=== PATIENT | female | born 1945 | race Caucasian/White ===

== ENCOUNTER 2016-04-12 08:48 | Observation (INO) ==
[2016-04-12] MEDS ORDERED: Ipratropium/Albuterol Neb 3 ML IH ONE (08:58)
[2016-04-12] MEDS ORDERED: methylPREDNISolone 125 MG/2 ML VIAL IVP ONE (08:58)
[2016-04-12] MEDS ORDERED: Levofloxacin 750 MG/150 ML 750 MG/150 ML BAG IVPB ONE (08:58)
--- NOTE | 2016-04-12 08:59 | Emergency Department Note ---
Disposition Clinical Impression: Community acquired pneumonia Disposition: Admitted As Inpatient Condition: Fair Time of Disposition: 14:53 SOB HPI - General Chief Complaint: ED Shortness of Breath/Dyspnea Stated Complaint: BANDAR Time Seen by Provider: 04/12/16 08:56 Source: patient Mode of arrival: private vehicle Limitations: no limitations Nursing Notes Reviewed: Yes Vital Signs Reviewed: Yes - History of Present Illness 7-year-old female presents to the emergency department with complaint of cough, congestion, fever, chills 7 days. Patient states that her was recently diagnosed with pneumonia. Patient states that her cough is nonproductive, she does describe some shortness of breath. She denies any significant chest pain but states that it occasionally hurts when she coughs. She has no known drug allergies. Pt Subjective Complaint: shortness of breath, cough Onset (ago): day(s) (7) Context: recent illness Severity: moderate, severe Consistency/Duration: constant Improves with: nothing Worsens with: coughing Associated symptoms: Reports: pain with inspiration, fever, cough Treatment prior to arrival: none Cough present: Yes Cough Description: Involuntary Cough Frequency: Intermittent Sputum production: No - Related Data Home Medications Medication Instructions Recorded Confirmed Amitriptyline [Elavil] 25 mg PO DAILY 04/12/16 04/12/16 Amlodipine Besylate [Amlodipine 10 mg PO DAILY 04/12/16 04/12/16 Besylate] Amoxicillin [Amoxicillin] 500 mg PO Q8H 04/12/16 04/12/16 Aspirin [Lo-Dose Aspirin EC] 81 mg PO DAILY 04/12/16 04/12/16 CloNIDine HCl [Clonidine HCl] 0.2 mg PO BID 04/12/16 04/12/16 FLUoxetine HCl [Fluoxetine HCl] 40 mg PO DAILY 04/12/16 04/12/16 Glimepiride [Amaryl] 2 mg PO DAILY 04/12/16 04/12/16 Hydrochlorothiazide 25 mg PO DAILY 04/12/16 04/12/16 [Hydrochlorothiazide] Lisinopril [Lisinopril] 40 mg PO BID 04/12/16 04/12/16 Metoprolol [Lopressor] 100 mg PO BID 04/12/16 04/12/16 Oxcarbazepine [Oxcarbazepine] 600 mg PO BID 04/12/16 04/12/16 PredniSONE [PredniSONE] 5 mg PO AD 04/12/16 04/12/16 Promethazine/Codeine 5 ml PO Q4H PRN 04/12/16 04/12/16 [Phenergan/Codeine] Simvastatin [Zocor] 20 mg PO DAILY 04/12/16 04/12/16 Vitamin E 1,000 unit PO DAILY 04/12/16 04/12/16 Allergies Allergy/AdvReac Type Severity Reaction Status Date / Time No Known Allergies Allergy Verified 04/12/16 08:51 All systems ED: reviewed and negative except as stated. Constitutional: Reports: fever, chills ENT ED: Reports: congestion Respiratory: Reports: cough, dyspnea. Denies: wheezes Gastrointestinal: Denies: abdominal pain, nausea, vomiting Musculoskeletal: Denies: back pain, neck pain Integumentary: Denies: rash, abrasion, lesions Neurological: Denies: headache Psychiatric: Denies: anxiety, depression, suicidal thoughts, homicidal thoughts Past Medical History - Past Medical History Attestation: Yes The following information was validated with the patient. 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 Absent: respiratory distress - Expanded Respiratory Exam Location: wheezes: Lower, rhonchi: Lower, decreased breath sounds: Lower - Cardiovascular Cardiovascular exam: Present: regular rate, normal rhythm, normal heart sounds - Extremities Exam Extremities exam: Present: normal inspection, full ROM. Absent: tenderness, pedal edema - Back Exam Back exam: Present: normal inspection, full ROM. Absent: tenderness - Neurological Exam Neurological exam: Present: alert, oriented X3 - Psychiatric Psychiatric exam: Present: normal affect, normal mood - Skin Skin exam: Present: warm, dry, intact, normal color Course - Consultations Consultation #1: I discussed admission with the hospitalist Dr. Leo, he accepts the patient. Vital Signs Temperature 98.3 F 04/12/16 08:52 Pulse Rate 62 04/12/16 08:52 Respiratory Rate 26 04/12/16 08:52 Blood Pressure 122/81 04/12/16 08:52 O2 Sat by Pulse Oximetry 88 L 04/12/16 08:52 Temperature 98.4 F 04/12/16 16:28 Pulse Rate 72 04/12/16 16:28 Respiratory Rate 18 04/12/16 16:28 Blood Pressure 158/86 04/12/16 16:28 O2 Sat by Pulse Oximetry 91 L 04/12/16 16:28 Oxygen Delivery Oxygen Delivery Nasal Cannula Shortness of Breath/Dyspnea - Lab Data Lab results reviewed: Yes I reviewed the patient's lab results. Result diagrams: 04/12/16 09:44 04/12/16 09:44 Lab Results 04/12/16 04/12/16 04/12/16 Range/Units 09:44 09:44 09:44 WBC 12.4 H (4.3-11.1) K/mcL RBC 4.04 (3.82-4.97) M/mcL Hgb 12.6 (11.5-15.4) g/dL Hct 37.1 (35.3-44.9) % MCV 91.8 (83.0-100.0) fL MCH 31.2 (28.0-33.3) pg MCHC 34.0 (31.6-35.5) g/dL RDW 12.5 (11.5-14.5) % Plt Count 298 (140-400) K/mcL MPV 9.4 (9.4-12.4) fL Immature Gran % 0.4 (0-4) % Seg Neutrophils % 70.9 % Lymphocytes % 18.7 % Monocytes % 7.3 % Eosinophils % 2.4 % Basophils % 0.3 % Neutrophils # 8.8 (1.6-8.9) K/mcL Lymphocytes # 2.3 (0.6-4.6) K/mcL Monocytes # 0.9 (0.0-1.3) K/mcL Eosinophils # 0.3 (0.0-0.6) K/mcL Basophils # 0.0 (0.0-0.2) K/mcL Immature Plt Fraction 1.6 (1.1-6.1) % PT 10.4 (9.4-12.1) Seconds INR 1.0 APTT 27.7 (26.0-36.0) Seconds Sodium 139 (136-145) mEq/L Potassium 3.0 L (3.5-4.5) mEq/L Chloride 98 (98-109) mEq/L Carbon Dioxide 31 H (19-29) mEq/L BUN 13 (7-20) mg/dL Creatinine 0.77 (0.57-1.11) mg/dL Est GFR ( Amer) > 60 (> 60) Est GFR (Non-Af Amer) > 60 (> 60) BUN/Creatinine Ratio 17 (6-26) Glucose 120 H (70-99) mg/dL Calculated Osmolality 289 (280-300) Calcium 9.4 (8.6-10.8) mg/dL Troponin I (0-0.03) ng/mL B-Natriuretic Peptide (0-100) pg/mL 04/12/16 04/12/16 Range/Units 09:44 09:44 WBC (4.3-11.1) K/mcL RBC (3.82-4.97) M/mcL Hgb (11.5-15.4) g/dL Hct (35.3-44.9) % MCV (83.0-100.0) fL MCH (28.0-33.3) pg MCHC (31.6-35.5) g/dL RDW (11.5-14.5) % Plt Count (140-400) K/mcL MPV (9.4-12.4) fL Immature Gran % (0-4) % Seg Neutrophils % % Lymphocytes % % Monocytes % % Eosinophils % % Basophils % % Neutrophils # (1.6-8.9) K/mcL Lymphocytes # (0.6-4.6) K/mcL Monocytes # (0.0-1.3) K/mcL Eosinophils # (0.0-0.6) K/mcL Basophils # (0.0-0.2) K/mcL Immature Plt Fraction (1.1-6.1) % PT (9.4-12.1) Seconds INR APTT (26.0-36.0) Seconds Sodium (136-145) mEq/L Potassium (3.5-4.5) mEq/L Chloride (98-109) mEq/L Carbon Dioxide (19-29) mEq/L BUN (7-20) mg/dL Creatinine (0.57-1.11) mg/dL Est GFR ( Amer) (> 60) Est GFR (Non-Af Amer) (> 60) BUN/Creatinine Ratio (6-26) Glucose (70-99) mg/dL Calculated Osmolality (280-300) Calcium (8.6-10.8) mg/dL Troponin I 0.01 (0-0.03) ng/mL B-Natriuretic Peptide 906 H (0-100) pg/mL - Radiology Data Radiology results reviewed: Yes I reviewed the patient's radiology results. Chest X-Ray 04/12/16 08:58 IMPRESSION: Focal masslike density identified in the right mid lung measuring 3.2 x 2.6 cm. This could represent a focal consolidative pneumonic infiltrate, though follow-up radiographs are recommended to document resolution to exclude an underlying neoplastic process versus further evaluation with a CT scan of the chest. No mass was identified in this location on 11/22/2015. Diffuse increased prominent interstitial markings seen predominantly in the mid and lower lung araujo, with trace bilateral pleural effusions suspected. These changes may be related to underlying fluid overload and pulmonary edema. D/ / Fabien Kohli MD / Fabien Kohli MD Interpreting Provider: Fabien Kohli MD Attestation Statement - Attestation Attestation: I examined this patient and my medical decision-making was reviewed with the DOCUMENT MANAGER/PA/Advanced Practice Nurse/Resident Physician. I agree with the documented findings, disposition and treatment plan as described except to the extent set forth below. Patient emergency Department shortness of breath and cough. Coughing up yellow phlegm. Started as a cold but has gotten worse. No fever. On exam she is in no distress. End expiratory wheezing on lung auscultation. Plan. Nebs steroids cardiac workup. Patient is satting 86% on room air. Likely admission. Patient with infiltrate on chest x-ray. Antibiotics ordered. Admitted to medicine. 30 minutes of critical care exclusive of separately billable procedures.
[2016-04-12 09:55] LABS: Basophils % 0.3 %; Eosinophils # 0.3 K/mcL (0.0-0.6); Eosinophils % 2.4 %; Hematocrit 37.1 % (35.3-44.9); Hemoglobin 12.6 g/dL (11.5-15.4); Immature Granulocytes % 0.4 % (0-4); Immature Platelets 1.6 % (1.1-6.1); Lymphocytes # 2.3 K/mcL (0.6-4.6); Lymphocytes % 18.7 %; Mean Corpuscular Hemoglobin 31.2 pg (28.0-33.3); Mean Corpuscular Volume 91.8 fL (83.0-100.0); Mean Platelet Volume 9.4 fL (9.4-12.4); Monocytes # 0.9 K/mcL (0.0-1.3); Monocytes % 7.3 %; Neutrophils # 8.8 K/mcL (1.6-8.9); Platelet Count 298 K/mcL (140-400); Red Blood Count 4.04 M/mcL (3.82-4.97); Red Cell Distribution Width 12.5 % (11.5-14.5); Segmented Neutrophils % 70.9 %
[2016-04-12 10:00] LABS: Prothrombin Time 10.4 Seconds (9.4-12.1)
[2016-04-12 10:03] LABS: Activated Partial Thrombo Time 27.7 Seconds (26.0-36.0)
[2016-04-12 10:09] LABS: BUN/Creatinine Ratio 17 (6-26); Blood Urea Nitrogen 13 mg/dL (7-20); Calcium 9.4 mg/dL (8.6-10.8); Carbon Dioxide 31 mEq/L (19-29); Chloride 98 mEq/L (98-109); Glucose 120 mg/dL (70-99); Osmolality,Calculated 289 (280-300); Sodium 139 mEq/L (136-145); eGFR For African Americans > 60 (> 60); eGFR For Non-African Americans > 60 (> 60)
[2016-04-12] MEDS ORDERED: Naloxone 0.4 MG/ML INJ IVP PRN (12:29)
[2016-04-12] MEDS ORDERED: 0.9 % Sodium Chloride 1,000 ML IVC SCH (12:30)
--- NOTE | 2016-04-12 12:40 | Internal Med History&Physical ---
Date of Encounter: 04/13/16 Time of Encounter: 12:39 Assessment and Plan (1) Chest pain Current visit: Yes Status: Acute Chest pain: Admitted as observation. - cardiac diet. -serial troponin -ASA/BB/Statin - Echocardiogram -Pain control with morphine -We will resume home medication -If echocardiogram is normal then please consider stress test -If echocardiogram is abnormal and his consider cardiology evaluation Qualifiers: Chest pain type: unspecified Qualified Code(s): R07.9 - Chest pain, unspecified (2) Community acquired pneumonia Current visit: Yes Status: Acute Admitted as an observation -We will cultures. -Intravenous antibiotics Levaquin -Intravenous methyl prednisone 40 mg every 8 hours -Bronchodilators -Close observation (3) CAD (coronary artery disease) Current visit: Yes Status: Acute Will resume her home medication. He will hold lisinopril/metoprolol at this point as patient's blood pressure was borderline low Patient's blood pressure improved then we will restart the antihypertensive medication Qualifiers: Coronary Disease-Associated Artery/Lesion type: [place] artery [place] vs. transplanted heart: [place] heart Associated angina: angina presence unspecified Qualified Code(s): I25.10 - Atherosclerotic heart disease of [place] coronary artery without angina pectoris (4) Hypokalemia Current visit: Yes Status: Acute Potassium replaced. We will recheck labs tomorrow morning (5) DVT prophylaxis Current visit: Yes Status: Acute Heparin Medical decision making: This patient has a mildly to moderate risk of worsening in spite of being on appropriate treatment (6) Diabetes mellitus Current visit: Yes Status: Acute will resume home meds SCSI ACHS Qualifiers: Diabetes mellitus type: type 2 Diabetes mellitus complication status: with unspecified complications Diabetes mellitus fdc insulin use: without fdc use Qualified Code(s): E11.8 - Type 2 diabetes mellitus with unspecified complications Internal Medicine - H&P: HPI Chief complaint: Chest pain Admitted From: Emergency Dept Plans for Post Hospital Care: Home History of present illness: PCP: Sara tran cardiology : [facility] Brief PMH: coronary artery disease, CVA, diabetes, hyperlipidemia, hypertension , myocardial infarction History of present illness: Patient has ongoing shortness of breath for past 1 week. Patient has cough associated with upper respiratory symptoms for past 1 week. Patient complains of chest pain for last 48 hours. Her chest pain is precordial in nature. Her chest pain is nonradiating, localized, sharp worsening with the respiration and reviewed by rest. Patient also has a respiratory symptoms which are getting worse in last 48 hours. For all these reasons she came to the emergency room for further evaluation. Workup in the emergency room: Patient was evaluated in the emergency room. X- ray chest was done. EKG was done. Basic lab work was done. There were no abnormalities in the lab work/imaging. Reason for admission: Chest pain rule out ACS Family history: Noncontributory Past Med Surg Social Fam HX - Past Medical History Medical history: arthritis, coronary artery disease, CVA, diabetes, hyperlipidemia, hypertension, myocardial infarction Psychiatric history: anxiety, depression - Social History Smoking Status: Current every day smoker Smokeless Tobacco Status: No Alcohol use: rarely Drug use: none Internal Medicine - H&P: Meds Amitriptyline [Elavil] 25 mg PO DAILY 04/12/16 [History] Amlodipine Besylate [Amlodipine Besylate] 10 mg PO DAILY 04/12/16 [History] Amoxicillin [Amoxicillin] 500 mg PO Q8H 04/12/16 [History] Aspirin [Lo-Dose Aspirin EC] 81 mg PO DAILY 04/12/16 [History] CloNIDine HCl [Clonidine HCl] 0.2 mg PO BID 04/12/16 [History] FLUoxetine HCl [Fluoxetine HCl] 40 mg PO DAILY 04/12/16 [History] Glimepiride [Amaryl] 2 mg PO DAILY 04/12/16 [History] Hydrochlorothiazide [Hydrochlorothiazide] 25 mg PO DAILY 04/12/16 [History] Lisinopril [Lisinopril] 40 mg PO BID 04/12/16 [History] Metoprolol [Lopressor] 100 mg PO BID 04/12/16 [History] Oxcarbazepine [Oxcarbazepine] 600 mg PO BID 04/12/16 [History] PredniSONE [PredniSONE] 5 mg PO AD 04/12/16 [History] Promethazine/Codeine [Phenergan/Codeine] 5 ml PO Q4H PRN 04/12/16 [History] Simvastatin [Zocor] 20 mg PO DAILY 04/12/16 [History] Vitamin E 1,000 unit PO DAILY 04/12/16 [History] Allergies No Known Allergies Allergy (Verified 04/12/16 08:51) All Systems PM: A 10-system review of systems was performed and is negative for pertinent findings except as documented above in the HPI. - Constitutional Constitutional: no chills, no fever(s), no night sweats - EENT Eyes: no change in vision, no discharge, no pain, no photophobia Ears: no ear discharge, no ear pain, no tinnitus Nose, mouth and throat: no dysphagia, no nasal discharge, no neck pain, no sore throat - Cardiovascular Cardiovascular ROS IM: chest pain, palpitations, paroxysmal nocturnal dyspnea, no diaphoresis, no dyspnea, no lightheadedness, no syncope - Respiratory Respiratory: no cough, no dyspnea, no wheezing, no excessive phlegm production - Gastrointestinal Gastrointestinal: no abdominal pain, no diarrhea, no hematemesis, no hematochezia, no melena, no nausea, no vomiting - Genitourinary Genitourinary: no change in urinary stream, no dysuria, no flank pain, no hematuria - Musculoskeletal Musculoskeletal ROS IM: no numbness, no tingling - Integumentary Integumentary IM: no rash, no unusual bruising - Neurological Neurological ROS: no confusion, no convulsions, no focal weakness, no numbness, no tingling, no tremor(s) - Hematologic/Lymphatic Hematologic/Lymphatic: no easy bruising - Constitutional Vitals: Temp Pulse Resp BP Pulse Ox 98.3 F 72 22 154/93 92 L 04/12/16 08:52 04/12/16 11:30 04/12/16 12:20 04/12/16 12:20 04/12/16 11:30 General appearance: Present: A&O X 3, morbidly obese, pleasant, answers questions appropriately - Head Head exam: Present: atraumatic, normocephalic - Eye Eye exam: Present: PERRL, conjuntiva pink, sclera anicteric Pupils: Present: PERRL - Neck Neck exam general surgery: Present: supple, trachea midline. Absent: lymphadenopathy - Respiratory Respiratory exam: Present: CTAB. Absent: accessory muscle use, rales, rhonchi, wheezes - Cardiovascular Cardiovascular exam: Present: RRR, +S1, +S2. Absent: diastolic murmur, gallop, rubs, systolic murmur - GI/Abdominal GI/Abdominal exam: Present: normal bowel sounds, soft, no peritoneal signs. Absent: distended, tenderness - Extremities Exam Extremities exam: Present: warm, radial pulses palpable and symetrical. Absent : calf tenderness, cyanotic, pedal edema - Neurological Exam Neurological exam: Present: CN II-XII intact, oriented X3, no focal deficits. Absent: pronater drift, facial droop, speech deficit - Skin Skin exam: Present: dry, intact Internal Med - H&P Results - Labs CBC & Chem 7: 04/13/16 00:40 04/13/16 00:40 Labs: Discussed with the emergency room physician
[2016-04-12] MEDS: Acetaminophen 325 MG TABLET PO PRN (14:27)
[2016-04-12] MEDS: Ipratropium/Albuterol Neb 3 ML IH SCH ×2 (15:49→20:12)
[2016-04-12] MEDS ORDERED: D5% in Water 1,000 ML IV PRN (16:06)
[2016-04-12] MEDS ORDERED: *HR* Dextrose 50 % in Water (Syg) 50 ML SYRINGE IVP PRN (16:06)
[2016-04-12] MEDS ORDERED: Dextrose Gel 15 GM PO PRN ×2 (16:06)
[2016-04-12] MEDS: MethylPREDNISolone 40 MG/ML VIAL IVP SCH (16:23)
[2016-04-12] MEDS: Insulin LISPRO 300 UNITS/3 ML VIAL SQ SCH (17:32)
[2016-04-12] MEDS: *HR* Heparin 5,000 UNIT/ML VIAL SQ SCH (17:33)
[2016-04-13] MEDS: MethylPREDNISolone 40 MG/ML VIAL IVP SCH ×4 (00:21→22:49)
[2016-04-13] MEDS: Ipratropium/Albuterol Neb 3 ML IH SCH ×6 (00:28→21:13)
[2016-04-13 02:02] LABS: Basophils % 0.2 %; Hematocrit 37.4 % (35.3-44.9); Hemoglobin 12.4 g/dL (11.5-15.4); Immature Granulocytes % 0.6 % (0-4); Lymphocytes # 1.5 K/mcL (0.6-4.6); Lymphocytes % 14.8 %; Mean Corpuscular HGB Conc 33.2 g/dL (31.6-35.5); Mean Corpuscular Hemoglobin 30.2 pg (28.0-33.3); Mean Corpuscular Volume 91.2 fL (83.0-100.0); Mean Platelet Volume 9.5 fL (9.4-12.4); Monocytes # 0.5 K/mcL (0.0-1.3); Monocytes % 5.4 %; Platelet Count 299 K/mcL (140-400); Red Cell Distribution Width 12.2 % (11.5-14.5)
[2016-04-13 04:00] LABS: Alanine Aminotransferase 10 Units/L (0-55); Albumin 3.4 g/dL (3.5-5.0); Albumin/Globulin Ratio 0.9 (1.1-2.2); Alkaline Phosphatase 93 Units/L (38-126); Aspartate Amino Transferase 16 Units/L (5-34); BUN/Creatinine Ratio 18 (6-26); Bilirubin,Total 0.4 mg/dL (0.2-1.2); Blood Urea Nitrogen 15 mg/dL (7-20); Calcium 9.6 mg/dL (8.6-10.8); Carbon Dioxide 24 mEq/L (19-29); Chloride 97 mEq/L (98-109); Cholesterol 222 mg/dL (< 200); Glucose 164 mg/dL (70-99); HDL Cholesterol 73 mg/dL (40-59); LDL Cholesterol,Calculated 133 mg/dL (0-99); Magnesium 1.6 mg/dL (1.6-2.6); Osmolality,Calculated 290 (280-300); Phosphorous 2.4 mg/dL (2.3-4.7); Sodium 138 mEq/L (136-145); Total Protein 7.4 g/dL (6.0-8.3); Triglycerides 79 mg/dL (< 150); eGFR For African Americans > 60 (> 60); eGFR For Non-African Americans > 60 (> 60)
[2016-04-13 04:13] LABS: Potassium 3.6 mEq/L (3.5-4.5)
[2016-04-13] MEDS: *HR* Heparin 5,000 UNIT/ML VIAL SQ SCH ×2 (06:03→18:52)
[2016-04-13] MEDS ORDERED: *HR* Glimepiride 2 MG TABLET PO SCH (09:00)
[2016-04-13] MEDS: Aspirin Enteric Coated 81 MG Tablet PO SCH (09:23)
[2016-04-13] MEDS: amLODIPine 5 MG TABLET PO SCH (09:23)
[2016-04-13] MEDS: Levofloxacin 750 MG/150 ML 750 MG/150 ML BAG IVPB SCH (09:23)
[2016-04-13] MEDS: hydroCHLOROthiazide 25 MG TABLET PO SCH (09:24)
[2016-04-13] MEDS: Insulin LISPRO 300 UNITS/3 ML VIAL SQ SCH ×3 (09:24→17:11)
--- NOTE | 2016-04-13 11:14 | ECHO - Doppler Report ---
Echocardiogram Name: Mildred Mackey Date of Study: 04/13/2016 Date: 1945 Ht: 65.0 in Medical Record#: [id number] Age: 70 Wt: 180.0 lb Gender: Female BSA: 1.89 Order #: [id number] Location: [facility] Room #: [id number] Reading Physician: Lidia Bullock DO Heel Molder: Shani Cai RVT, [facility] Ordering Physician: Mars Leo MD Primary Physician: Rafa Justin MD Indications: Chest pain Impressions: LVEF 60-65%. Normal left ventricular size and systolic function. There is evidence of moderate diastolic dysfunction of the left ventricle. Normal right ventricular size and function. Mild mitral regurgitation. Mild pulmonic regurgitation. Mild-moderate pulmonary hypertension. Left Ventricular Wall Motion: Rest Echo Findings All wall segments showed normal motion. Findings: Study Quality * Technically adequate exam. ECG Findings * Normal sinus rhythm. Left Ventricle * Normal LV chamber size, wall thickness and function. * Moderate left ventricular diastolic dysfunction. * LVEF 60-65%. Mitral Valve * Mild mitral annular calcification * Normal mitral valve structure. * No mitral stenosis. * Mild mitral regurgitation. Aortic Valve * No aortic regurgitation. * Aortic valve not well visualized. * No aortic stenosis. Tricuspid Valve * Normal tricuspid valve structure. * Trace to mild tricuspid regurgitation. * Estimated RA pressure is 3 mmHg. * Estimated RVSP is 49 mmHg. * Mild-moderate pulmonary hypertension. Pulmonic Valve * Pulmonic valve is not well visualized. * No pulmonic stenosis. * Mild pulmonic regurgitation. Pulmonary Artery * Pulmonary artery not well visualized. Right Ventricle * Normal right ventricular structure and function. Right Atrium * Normal right atrial size. Left Atrium * Mildly dilated left atrium. Interatrial Septum * No evidence of PFO by color Doppler. IVC * Normal IVC dimensions and inspiratory collapse. Pericardium * There is no pericardial effusion present. Aorta * Normally sized aortic root. History Hypertension Diabetes History of CAD/PTCA Coronary Artery Bypass Graft Measurements: BP: 152/ 80 2D Normal Values IVSd: 1.10 cm 0.6 - 1.0 cm LVIDd: 4.20 cm 3.7 - 5.6 cm LVPWd: 1.10 cm 0.6 - 1.1 cm LVIDs: 2.80 cm 1.5 - 3.6 cm AO: 2.70 cm < 4.0 cm LA: 4.40 cm 2.0 - 4.0cm %FS: 33.30 cm >25 % LA volume: 46 Mitral Valve Peak Velocity 1.67 m/sec Mean Velocity:.96 m/sec Peak Grad:11.00 mmHg Mean Grad:4.00 mmHg Pressure Time:68.00 msec Dec Time:144.00 msec Valve Area:3.24 cm2 Peak E:1.67 m/sec Peak A:.93 m/sec E/A Ratio:1.8 Peak E' Lat Tomasz:11.7 cm/s Peak E' Med Tomasz:10 cm/s E/E' Lat Ratio:14.3 E/E' Med Ratio:16.7 Tricuspid Valve TV Regurg Peak Grad: 46.00mmHg Updated by Lidia Bullock on 04/13/2016 11:07:22 AM electronically signed on 04/13/2016 11:08:11 AM with status of Final Wall Motion Alvarez: 1=Normal, 2=Hypokinesis, 3=Akinesis, 4=Dyskinesis, 5=Aneurysmal, 6=Hyperkinetic, X=Not Visualized (Blank)=Missing
--- NOTE | 2016-04-13 11:43 | Electrocardiograph Report ---
[place] [id number] Test Date: 2016-04-12 Pat Name: Mildred Mackey Department: 104 Room: 2A48 Gender: F General Doc: : 1945 Requested By: Brandon Sequeira Order Number: [id number] Reading MD: Leobardo Suero MD Measurements Intervals [place] Rate: 60 P: 21 MN: 202 QRS: 16 QRSD: 102 T: 31 QT: 437 QTc: 439 Interpretive Statements SINUS RHYTHM Electronically Signed On 04-13-2016 11:42:04 EST by Leobardo Suero MD
[2016-04-13] MEDS: Acetaminophen 325 MG TABLET PO PRN ×2 (12:34→18:59)
[2016-04-13] MEDS ORDERED: Insulin LISPRO 300 UNITS/3 ML VIAL SQ SCH (17:36)
--- NOTE | 2016-04-13 17:36 | Internal Med Progress Note ---
<Benitez King - Last Filed: 04/13/16 17:42> Date of Encounter: 04/13/16 Time of Encounter: 16:00 - Assessment and plan (1) Chest pain Current Visit: Yes Status: Acute Assessment and plan: No chest pain since admission. Troponin negative. No acute changes to EKG No WMA on echo Will order nuclear stress test. If abnormal will consult cardiology. Qualifiers: Qualified Code(s): R07.9 - Chest pain, unspecified (2) CAP (community acquired pneumonia) Current Visit: Yes Status: Acute Assessment and plan: continue Levofloxacin day 2 (3) Diabetes Current Visit: Yes Status: Acute Assessment and plan: stop oral medication while inpatient Above goal increase sliding scale to Medium dose. Qualifiers: Qualified Code(s): E11.9 - Type 2 diabetes mellitus without complications (4) Essential hypertension Current Visit: Yes Status: Acute Assessment and plan: continue home medications (5) DVT prophylaxis Current Visit: Yes Status: Acute Assessment and plan: SQ heparin - Subjective Interval history: Patient has had no further chest pain since admission. She admits to prodcutive cough with yellow sputum. she denies fever/ chills. She has no further complaints at this time. - Constitutional Vitals: Temp Pulse Resp BP Pulse Ox 97.8 F 85 18 137/71 92 L 04/13/16 15:15 04/13/16 15:15 04/13/16 15:45 04/13/16 15:15 04/13/16 15:45 General appearance: Present: A&O X 3, morbidly obese, pleasant, answers questions appropriately - Head Head exam: Present: atraumatic, normocephalic - Eye Eye exam: Present: PERRL, conjuntiva pink, sclera anicteric Pupils: Present: PERRL - Neck Neck exam general surgery: Present: supple, trachea midline. Absent: lymphadenopathy - Respiratory Respiratory exam: Present: CTAB. Absent: accessory muscle use, rales, rhonchi, wheezes - Cardiovascular Cardiovascular exam: Present: RRR, +S1, +S2. Absent: diastolic murmur, gallop, rubs, systolic murmur - GI/Abdominal GI/Abdominal exam: Present: normal bowel sounds, soft, no peritoneal signs. Absent: distended, tenderness - Extremities Exam Extremities exam: Present: warm, radial pulses palpable and symetrical. Absent : calf tenderness, cyanotic, pedal edema - Skin Skin exam: Present: dry, intact Internal Medicine: Result - Labs CBC & Chem 7: 04/13/16 00:40 04/13/16 00:40 Labs: Short CBC 04/13/16 Range/Units 00:40 WBC 10.1 (4.3-11.1) K/mcL Hgb 12.4 (11.5-15.4) g/dL Hct 37.4 (35.3-44.9) % Plt Count 299 (140-400) K/mcL Neutrophils # 8.0 (1.6-8.9) K/mcL BMP 04/13/16 00:40 Sodium 138 Potassium 3.6 Chloride 97 L Carbon Dioxide 24 BUN 15 Creatinine 0.82 Glucose 164 H Calcium 9.6 Cardiac Enzymes 04/12/16 04/13/16 Range/Units 19:01 00:40 Troponin I 0.00 0.01 (0-0.03) ng/mL Liver Function 04/13/16 Range/Units 00:40 Total Bilirubin 0.4 (0.2-1.2) mg/dL AST 16 (5-34) Units/L ALT 10 (0-55) Units/L Alkaline Phosphatase 93 (38-126) Units/L Albumin 3.4 L (3.5-5.0) g/dL - ABG Interpretation ABG results: PT/INR, D-dimer PT 10.4 Seconds (9.4-12.1) 04/12/16 09:44 Consult Discharge Plan - Plan Instructions: Community-acquired Pneumonia (ED) Referrals: Rafa Justin MD [Primary Care Provider] - 04/28/16 3:20 pm <Mars Leo - Last Filed: 04/13/16 18:35> Date of Encounter: 04/13/16 - Assessment and plan (1) Chest pain Current Visit: Yes Status: Acute Qualifiers: Chest pain type: unspecified Qualified Code(s): R07.9 - Chest pain, unspecified (2) Community acquired pneumonia Current Visit: Yes Status: Acute (3) CAD (coronary artery disease) Current Visit: Yes Status: Acute Qualifiers: Coronary Disease-Associated Artery/Lesion type: [place] artery [place] vs. transplanted heart: [place] heart Associated angina: angina presence unspecified Qualified Code(s): I25.10 - Atherosclerotic heart disease of [place] coronary artery without angina pectoris (4) Hypokalemia Current Visit: Yes Status: Acute (5) DVT prophylaxis Current Visit: Yes Status: Acute (6) Diabetes mellitus Current Visit: Yes Status: Acute Qualifiers: Diabetes mellitus type: type 2 Diabetes mellitus complication status: with unspecified complications Diabetes mellitus fdc insulin use: without fdc use Qualified Code(s): E11.8 - Type 2 diabetes mellitus with unspecified complications - Constitutional Vitals: Temp Pulse Resp BP Pulse Ox 97.8 F 85 18 137/71 92 L 04/13/16 15:15 04/13/16 15:15 04/13/16 15:45 04/13/16 15:15 04/13/16 15:45 Internal Medicine: Result - Labs CBC & Chem 7: 04/13/16 00:40 04/13/16 00:40 Labs: Short CBC 04/13/16 Range/Units 00:40 WBC 10.1 (4.3-11.1) K/mcL Hgb 12.4 (11.5-15.4) g/dL Hct 37.4 (35.3-44.9) % Plt Count 299 (140-400) K/mcL Neutrophils # 8.0 (1.6-8.9) K/mcL BMP 04/13/16 00:40 Sodium 138 Potassium 3.6 Chloride 97 L Carbon Dioxide 24 BUN 15 Creatinine 0.82 Glucose 164 H Calcium 9.6 Cardiac Enzymes 04/12/16 04/13/16 Range/Units 19:01 00:40 Troponin I 0.00 0.01 (0-0.03) ng/mL Liver Function 04/13/16 Range/Units 00:40 Total Bilirubin 0.4 (0.2-1.2) mg/dL AST 16 (5-34) Units/L ALT 10 (0-55) Units/L Alkaline Phosphatase 93 (38-126) Units/L Albumin 3.4 L (3.5-5.0) g/dL - ABG Interpretation ABG results: PT/INR, D-dimer PT 10.4 Seconds (9.4-12.1) 04/12/16 09:44 - Attending Attestation I examined this patient and my medical decision-making was reviewed with the BELLMAN DRIVER/PA/Advanced Practice Nurse/Resident Physician. I agree with the documented findings, disposition and treatment plan as described except to the extent set forth below.
[2016-04-14] MEDS: Ipratropium/Albuterol Neb 3 ML IH SCH ×5 (00:35→16:28)
[2016-04-14] MEDS: Acetaminophen 325 MG TABLET PO PRN (04:18)
[2016-04-14] MEDS: *HR* Heparin 5,000 UNIT/ML VIAL SQ SCH (05:54)
[2016-04-14] MEDS ORDERED: Regadenoson 0.4 MG/5 ML SYRINGE IVP ONE (06:25)
[2016-04-14 07:45] LABS: Bilirubin,Urine Negative (Negative); Blood,Urine Negative (Negative); Clarity,Urine Clear (Clear); Color,Urine Yellow (Yellow); Glucose,Urine (UA) >=1000 mg/dL (Normal); Ketones,Urine Negative (Negative); Leukocyte Esterase,Urine Negative (Negative); Nitrite,Urine Negative (Negative); Protein,Urine 30 mg/dL (Neg-Trace); Specific Gravity,Urine 1.018 (1.010-1.025); Urobilinogen,Urine Normal (Normal)
[2016-04-14 07:46] LABS: Bacteria,Urine None Seen per hpf (None-Few); Hyaline Casts,Urine None Seen per lpf (None-Few); RBC,Urine 0-3 per hpf (0-3); Squamous Epithelial Cell,Urine Moderate per lpf (None-Few); WBC,Urine 0-3 per hpf (0-3)
[2016-04-14] MEDS ORDERED: cloNIDine HCl 0.1 MG TABLET PO SCH (09:00)
[2016-04-14] MEDS: amLODIPine 5 MG TABLET PO SCH (10:36)
[2016-04-14] MEDS: hydroCHLOROthiazide 25 MG TABLET PO SCH (10:36)
[2016-04-14] MEDS: Levofloxacin 750 MG/150 ML 750 MG/150 ML BAG IVPB SCH (10:37)
[2016-04-14] MEDS: Aspirin Enteric Coated 81 MG Tablet PO SCH (10:37)
[2016-04-14] MEDS: MethylPREDNISolone 40 MG/ML VIAL IVP SCH ×2 (10:38→16:59)
[2016-04-14] MEDS: Insulin LISPRO 300 UNITS/3 ML VIAL SQ SCH ×3 (10:38→16:59)
--- NOTE | 2016-04-14 13:04 | Nuclear Medicine Stress Report ---
Regadenoson Nuclear Stress Name: Mildred Mackey Date of Study: 04/14/2016 Date: 1945 Ht: 64.0 in Medical Record#: [id number] Age: 70 Wt: 178.0 lb Gender: Female Order #: [id number] Location: [facility] Room: [facility] Supervising Provider: Eleuterio Bernal CNP Reading Physician: Lidia Bullock DO Ordering Physician: Mars Leo MD Primary Care Physician: Rafa Justin MD Stress Technologist: Enio Milan RRT, CCT Board Finisher: Mahendra Donahue Indications: Shortness of breath, Coronary Artery Disease Impression: Perfusion imaging demonstrated findings liability claims representative of prior infarct with mild to moderate reversible ischemia involving the inferior wall. Pharmacologic ECG was non diagnostic for ischemia. Patient had chest pain with pharmacologic stress. Occasional PVCs and PACs during testing. Gated EF = 60%. Findings communicated to ordering physician. History: Hypertension Diabetes Hypercholesteremia History of Smoking Prior PCI History of Coronary Artery Bypass Surgery Stress Test Summary: Stress Test Type: Pharmacologic Regadenoson 0.4mg/5ml given IV Baseline Information: Initial Heart Rate: 105 Blood Pressure: 186/100 Stress Information: Stress Time: 4 min 00 sec Test Terminated Due to (primary): Completed Protocol Maximum Blood Pressure: 190/100 Maximum Heart Rate: 131 Percent Maximum Heart Rate Achieved: 87 Double Product: 24,890 METS Reached: 1 Symptoms: Chest tightness Nuclear Summary: SPECT myocardial perfusion imaging using Tc99m Sestamibi given intravenously was performed at rest and following cardiac stress testing. The resting images were obtained following initial dose of 11 mCi. Following stress an additional dose of 34.2 mCi was given at peak exercise or 30 seconds post regadenoson infusion. Medication Given: Time Medication Dose Units Route Findings: Stress Note * Resting ECG demonstrated sinus tachycardia, HR 105 bpm. There are nonspecific ST abnormalities present. * Patient had chest pain/pressure during stress. * Occasional PVCs and PACs during testing. Sinus tachycardia throughout. * Pharmacologic stress ECG is non diagnostic for ischemia due to baseline non-specific ST and T changes. Hemodynamic responses * Normal hemodynamic responses to pharmacologic stress. Study Quality * Study quality was fair. Left Ventricle * The left ventricle is not dilated. TID * No evidence of transient ischemic dilatation. Lung Uptake * There is no evidence of increase lung uptake. Gated EF % * Gated EF = 60%. PERFUSION * There is small sized perfusion defect of mild intensity at rest involving predominately the inferior and inferolateral basal wall. * With stress, there is a small to medium sized, moderate intensity worsening of perfusion involving the basal to mid inferior and inferolateral cohen. * There is decreased wall motion and thickening in the basal to mid inferior cohen. * Findings represent infarct with mild to moderate andie-infarct ischemia. Updated by Lidia Bullock on 04/14/2016 12:55:02 PM electronically signed on 04/14/2016 12:59:47 PM with status of Final
--- NOTE | 2016-04-14 14:05 | Cardiology Consult Note ---
Date of Encounter: 04/14/16 Time of Encounter: 13:30 Assessment and Plan (1) Community acquired pneumonia Current Visit: Yes Status: Acute Per cardiology: -Patient with shortness of breath. -Chest x-ray with focal, mass like density in right mid lung measuring 3.2x2.6 cm. COuld be financial foundations representative of pneumonic infiltrate. Diffuse increased prominent interstitial markings in mid lower lung araujo with trace bilateral pleural effusions suspected. -On ATB, nebs, and steroids, -Management per primary service. -May be contributing to apparent chest pain. (KATHERINE) (2) Atypical chest pain Current Visit: Yes Status: Acute Per cardiology: -Patient with pain worsened with inspiration. -Denies left sided chest pain. Denies left arm or neck pain. -Patient states "it hurts to breathe." -ECG not personally reviewed, however was read as sinus rhythm on 04/12/16 by . -Troponins negative x 4. --Echo 04/13/16 with LVEF 60-65%, normal left ventricular size and systolic function, moderate diastolic dysfunction, mild mitral regurgitation, mild pulmonic regurgitation, mild-moderate pulmonary hypertension, all wall segments with normal motion. -Suspect pain may be related to pneumonia. -Recommend close follow up with cardiology in outpatient setting. (KATHERINE) (3) Abnormal nuclear stress test Current Visit: Yes Status: Acute Per Cardiology: -Stress 04/14/16 with findings financial foundations representative of prior infarct with mild to moderate reversible ischemia involving inferior wall. Gated EF 60%. -Stress 03/17/14 at [facility] with mild reversible ischemia in inferior and inferolateral cohen, somewhat similar to findings on prior myocardial perfusion scan in 2010. Symptoms atypical in nature. Patient agreeable for conservative management and will follow up in outpatient setting. (4) CAD (coronary artery disease) Current Visit: Yes Status: Chronic Per cardiology: -Patient with known history of CAD. -Last know cath 2010 with 10% stenosis in distal left main, left circumflex pre existing stent was occluded from proximal to distal portion. Pre-existing stent with balloon angioplasty, with 50% residual stenosis. Patient was brought back to [facility] the following day and 2 NEREYDA were placed in circumflex. -On asa and zocor. Patient appears to be on beta mariana and FABIO inhibitor at home, currently not on treatment hospital stay. We'll resume beta mariana-- in Lopressor 25 mg by mouth twice a day. Titrate as needed. -DIscusssed with and it does not appear issues are cardiac in nature. -Recommend clsoe follow up as outpatient. -Follow up set up with cardiology. -Cardiology will sign off, re-consult as needed. (KATHERINE) Qualifiers: Coronary Disease-Associated Artery/Lesion type: unspecified vessel or lesion type [place] vs. transplanted heart: [place] heart Associated angina: angina presence unspecified Qualified Code(s): I25.10 - Atherosclerotic heart disease of [place] coronary artery without angina pectoris (5) Essential hypertension Current Visit: Yes Status: Chronic Per cardiology: -Patient with known histor of HTN. -On clonidine, amlodipine, HCTZ. Adding back beta mariana, unsure as to why not taking at this time. Additionally home medications appear to include FABIO inhibitor-- consider resuming if able -BPs this admission 140-160s systolic and 90s diastolic. -Titrate meds accordingly. -Recommend close outpatient follow up. (KATHERINE) Discussion w patient/family: The assessment and plan as outlined above was discussed with the patient who expressed understanding and agreement. All questions were answered. Thank you for involving us in the care of your patient. Please call with any questions. Patient seen and examined with SCHUYLER Mitchell Discussed and reviewed with . History of Present Illness Consult date: 04/14/16 Requesting physician: Mars Leo Consult reason: chest pain Chief complaint: shortness of breath History of present illness: Ms. Mackey is a 70 year old female with a relevant past medical history of CAD status post CABG x3 vessels x2 and PTCA, HTN, hyperlipidemia. LA, CVA, and smoking. Patient reports that she recently quit smoking 2 months ago. Patient states she has recenty been under a lot of stress and decided to try using e- cigarettes. Patient states she "used way too much." She said she then developed shortness of breath and pain with inspiration. Patient was admitted to hospital and cardiology was consulted due to apparent abnormal stress test. (KATHERINE). Past Med Surg Social Fam HX - Past Medical History Attestation: Yes The following information was validated with the patient. Source: patient, old records reviewed Medical history: arthritis, coronary artery disease, CVA, diabetes, hyperlipidemia, hypertension, myocardial infarction Psychiatric history: anxiety, depression - Past Surgical History Surgical History: coronary bypass (CABG) (X 3 vessels. With re-bypass. ) - Social History Smoking Status: Current every day smoker (Recently quit smoking 2 months ago.) Smokeless Tobacco Status: No Alcohol use: rarely Drug use: none Medications and Allergies Amitriptyline [Elavil] 25 mg PO DAILY 04/12/16 [History] Amlodipine Besylate [Amlodipine Besylate] 10 mg PO DAILY 04/12/16 [History] Amoxicillin [Amoxicillin] 500 mg PO Q8H 04/12/16 [History] Aspirin [Lo-Dose Aspirin EC] 81 mg PO DAILY 04/12/16 [History] CloNIDine HCl [Clonidine HCl] 0.2 mg PO BID 04/12/16 [History] FLUoxetine HCl [Fluoxetine HCl] 40 mg PO DAILY 04/12/16 [History] Glimepiride [Amaryl] 2 mg PO DAILY 04/12/16 [History] Hydrochlorothiazide [Hydrochlorothiazide] 25 mg PO DAILY 04/12/16 [History] Lisinopril [Lisinopril] 40 mg PO BID 04/12/16 [History] Metoprolol [Lopressor] 100 mg PO BID 04/12/16 [History] Oxcarbazepine [Oxcarbazepine] 600 mg PO BID 04/12/16 [History] PredniSONE [PredniSONE] 5 mg PO AD 04/12/16 [History] Promethazine/Codeine [Phenergan/Codeine] 5 ml PO Q4H PRN 04/12/16 [History] Simvastatin [Zocor] 20 mg PO DAILY 04/12/16 [History] Vitamin E 1,000 unit PO DAILY 04/12/16 [History] Allergies No Known Allergies Allergy (Verified 04/12/16 08:51) All Systems Review: A 10-system review of systems was performed and is negative for pertinent findings except as documented above in the HPI. - Cardiovascular Cardiovascular: as per HPI, dyspnea on exertion - Respiratory Respiratory: cough, dyspnea Physical Examination Vital Signs, Last 4 Hours Temp Pulse Resp BP Pulse Ox 04/14/16 11:36 17 97 04/14/16 11:12 98.5 F 95 17 149/93 97 General: Conversant, No Apparent Distress HEENT: Atraumatic, Normocephaly, Mucus Membranes Moist Neck: No JVD, Normal carotid pulses Cardiac: Reg Rate and Rhythm, Normal S1 and S2, No Murmur Lungs: Other (Right lower lobe with diminished breath sounds. ) Neuro: Alert and responsive, No focal deficits noted Abdomen: Soft, Non-Tender Skin: No rashes noted on visualized skin Musculoskeletal: No Chest Wall Tenderness Extremities: No Clubbing, No Cyanosis, No Edema, Normal Pulses Results 04/13/16 00:40 04/13/16 00:40 Laboratory Tests 04/12/16 04/12/16 04/12/16 09:44 09:44 09:44 WBC 12.4 H Troponin I 0.01 B-Natriuretic Peptide 906 H 04/12/16 04/12/16 04/13/16 13:09 19:01 00:40 WBC Troponin I 0.00 0.00 0.01 B-Natriuretic Peptide 04/13/16 00:40 WBC Troponin I B-Natriuretic Peptide 861 H Active Medications Acetaminophen (Tylenol) 650 mg PO Q6HR PRN PRN Reason: Pain Stop: 10/12/16 14:23 Last Admin: 04/14/16 04:18 Dose: 650 mg Albuterol/Ipratropium (Duoneb) 3 ml IH [id number] TEENA PRN Reason: Protocol Stop: 10/12/16 16:01 Last Admin: 04/14/16 11:35 Dose: 3 ml Amitriptyline HCl (Elavil) 25 mg PO DAILY [facility] Stop: 10/13/16 09:01 Last Admin: 04/14/16 10:36 Dose: 25 mg Amlodipine Besylate (Norvasc) 10 mg PO DAILY [facility]EE[facility] Stop: 10/13/16 09:01 Last Admin: 04/14/16 10:36 Dose: 10 mg Aspirin (Aspirin Ec) 81 mg PO DAILY [facility] Stop: 10/13/16 09:01 Last Admin: 04/14/16 10:37 Dose: 81 mg Clonidine HCl (Clonidine Hcl) 0.2 mg PO BID TEENA Stop: 10/14/16 09:01 Last Admin: 04/14/16 10:37 Dose: 0.2 mg Dextrose/Water (Dextrose 50% (Syg)) 25 ml IVP AD PRN PRN Reason: Hypoglycemia Stop: 10/12/16 16:07 Glucagon (Glucagen) 1 mg IM ONCE PRN PRN Reason: Hypoglycemia Stop: 10/12/16 16:07 Glucose (Gluctose) 15 gm PO ONCE PRN PRN Reason: Hypoglycemia Stop: 10/12/16 16:07 Glucose (Gluctose) 30 gm PO ONCE PRN PRN Reason: Hypoglycemia Stop: 10/12/16 16:07 Heparin Sodium (Porcine) (Heparin) 5,000 unit SQ Q12HCO [facility] Stop: 10/12/16 18:01 Last Admin: 04/14/16 05:54 Dose: 5,000 unit Hydrochlorothiazide (Hydrochlorothiazide) 25 mg PO DAILY [facility] PRN Reason: Protocol Stop: 10/13/16 09:01 Last Admin: 04/14/16 10:36 Dose: 25 mg Sodium Chloride (0.9 % Sodium Chloride) 1,000 mls @ 50 mls/hr IVC .Q20H [facility] Stop: 10/12/16 12:31 Last Admin: 04/12/16 13:39 Dose: 50 mls/hr Dextrose (Dextrose 5%) 1,000 mls @ 100 mls/hr IV CONT PRN PRN Reason: HYPOGLYCEMIA Stop: 10/12/16 16:07 Insulin Human Lispro (Humalog) 0 units SQ TIDAC [facility] PRN Reason: Protocol Stop: 10/12/16 16:31 Last Admin: 04/14/16 12:26 Dose: 10 units Insulin Human Lispro (Humalog) 0 units SQ HS [facility] PRN Reason: Protocol Stop: 10/14/16 21:01 Levofloxacin (Levofloxacin) 750 mg PO DAILY [facility] PRN Reason: Protocol Stop: 10/15/16 09:01 Methylprednisolone (Solu-Medrol) 40 mg IVP Q8HR [facility] Stop: 10/12/16 16:01 Last Admin: 04/14/16 10:38 Dose: 40 mg Naloxone HCl (Narcan) 0.4 mg IVP Q2MIN PRN PRN Reason: Opioid Reversal Stop: 10/12/16 12:30 Omeprazole (Prilosec) 20 mg PO DAILY@0630 [facility] PRN Reason: Protocol Stop: 10/13/16 06:31 Last Admin: 04/14/16 05:54 Dose: 20 mg Simvastatin (Zocor) 20 mg PO DAILY [facility] PRN Reason: Protocol Stop: 10/13/16 09:01 Last Admin: 04/14/16 10:37 Dose: 20 mg - Imaging and Cardiology Chest Xray: report reviewed Stress Test: report reviewed Echo: report reviewed - EKG Interpretation EKG results cardiology: personally reviewed (No ECG available for review), other (Telemetry reviewed with average heart rate 98, sinus rhythm. Occasional PVCs and occasional PACs noted.) Consult Discharge Plan - Plan Instructions: Community-acquired Pneumonia (ED) Referrals: Rafa Justin MD [Primary Care Provider] - 04/28/16 3:20 pm
--- NOTE | 2016-04-14 14:10 | Internal Med Progress Note ---
Date of Encounter: 04/14/16 Time of Encounter: 14:08 - Assessment and plan (1) Chest pain Current Visit: Yes Status: Acute Assessment and plan: No chest pain since admission. Troponin negative. No acute changes to EKG No WMA on echo abnormal stress test. consult cardiology for recomendations on further testing. Qualifiers: Qualified Code(s): R07.9 - Chest pain, unspecified (2) CAP (community acquired pneumonia) Current Visit: Yes Status: Acute Assessment and plan: continue Levofloxacin day 2 (3) Diabetes Current Visit: Yes Status: Acute Assessment and plan: stop oral medication while inpatient Above goal increase sliding scale to high dose. Qualifiers: Qualified Code(s): E11.9 - Type 2 diabetes mellitus without complications (4) Essential hypertension Current Visit: Yes Status: Acute Assessment and plan: continue home medications (5) DVT prophylaxis Current Visit: Yes Status: Acute Assessment and plan: SQ heparin - Subjective Interval history: Patient has had no further chest pain since admission. She admits to prodcutive cough with yellow sputum. However this has lessened. she denies fever/ chills. She dose have some anxiety about possibly staing in the hospital another night as her has Dementia. She has no further complaints at this time. - Constitutional Vitals: Temp Pulse Resp BP Pulse Ox 98.5 F 95 17 149/93 97 04/14/16 11:12 04/14/16 11:12 04/14/16 11:36 04/14/16 11:12 04/14/16 11:36 General appearance: Present: A&O X 3, morbidly obese, pleasant, answers questions appropriately - Head Head exam: Present: atraumatic, normocephalic - Eye Eye exam: Present: PERRL, conjuntiva pink, sclera anicteric Pupils: Present: PERRL - Neck Neck exam general surgery: Present: supple, trachea midline. Absent: lymphadenopathy - Respiratory Respiratory exam: Present: CTAB. Absent: accessory muscle use, rales, rhonchi, wheezes - Cardiovascular Cardiovascular exam: Present: RRR, +S1, +S2. Absent: diastolic murmur, gallop, rubs, systolic murmur - GI/Abdominal GI/Abdominal exam: Present: normal bowel sounds, soft, no peritoneal signs. Absent: distended, tenderness Additional comments: obese - Extremities Exam Extremities exam: Present: warm, radial pulses palpable and symetrical. Absent : calf tenderness, cyanotic, pedal edema Internal Medicine: Result - Labs CBC & Chem 7: 04/13/16 00:40 04/13/16 00:40 Labs: Urine 04/14/16 Range/Units 07:20 Urine Color Yellow (Yellow) Urine Clarity Clear (Clear) Urine pH 7.0 (5.0-8.0) pH Units Ur Specific [place] 1.018 (1.010-1.025) Urine Protein 30 H (Neg-Trace) mg/dL Urine Glucose (UA) >=1000 H (Normal) mg/dL - ABG Interpretation ABG results: PT/INR, D-dimer PT 10.4 Seconds (9.4-12.1) 04/12/16 09:44 Consult Discharge Plan - Plan Instructions: Community-acquired Pneumonia (ED) Referrals: Rafa Justin MD [Primary Care Provider] - 04/28/16 3:20 pm
[2016-04-14 15:39] VITALS: BP 161/98
--- NOTE | 2016-04-14 15:50 | Discharge Summary ---
<Benitez King - Last Filed: 04/14/16 16:02> Date of Encounter: 04/14/16 Time of Encounter: 15:47 - Discharge Diagnosis (1) Chest pain Priority: Primary Status: Acute Qualifiers: Qualified Code(s): R07.9 - Chest pain, unspecified (2) CAP (community acquired pneumonia) Priority: Secondary Status: Acute (3) Diabetes Priority: Secondary Status: Acute Qualifiers: Qualified Code(s): E11.9 - Type 2 diabetes mellitus without complications (4) Essential hypertension Priority: Secondary Status: Chronic (5) DVT prophylaxis Priority: Secondary Status: Acute - Discharge Medications Prescriptions: Levofloxacin 750 mg PO DAILY 5 Days Home Medications: Amitriptyline [Elavil] 25 mg PO DAILY 04/12/16 [History] Amlodipine Besylate 10 mg PO DAILY 04/12/16 [History] Aspirin [Lo-Dose Aspirin EC] 81 mg PO DAILY 04/12/16 [History] CloNIDine HCl [Clonidine HCl] 0.2 mg PO BID 04/12/16 [History] FLUoxetine HCl [Fluoxetine HCl] 40 mg PO DAILY 04/12/16 [History] Glimepiride [Amaryl] 2 mg PO DAILY 04/12/16 [History] Hydrochlorothiazide 25 mg PO DAILY 04/12/16 [History] Lisinopril 40 mg PO BID 04/12/16 [History] Metoprolol [Lopressor] 100 mg PO BID 04/12/16 [History] Oxcarbazepine 600 mg PO BID 04/12/16 [History] Promethazine/Codeine [Phenergan/Codeine] 5 ml PO Q4H PRN 04/12/16 [History] Simvastatin [Zocor] 20 mg PO DAILY 04/12/16 [History] Vitamin E 1,000 unit PO DAILY 04/12/16 [History] Levofloxacin 750 mg PO DAILY 5 Days 04/14/16 [Rx] Allergies/Adverse Reactions: Allergies No Known Allergies Allergy (Verified 04/12/16 08:51) Procedures/tests Complete & Pending: Procedures Performed prior 72 hours Category Date Time Status NM dharmesh perf SPECT multi [NM] Routine Exams 04/13/16 15:56 Taken EV echocardiogram Routine Y 04/13/16 09:30 Completed SP pharm nuclear stress Routine Y 04/14/16 07:50 Completed Date of admission: 04/12/16 12:07 Primary care physician: Rafa Justin MD Consults: 04/14/16 13:05 Consult to Cardiology [CONS] Routine Comment: Consulting Provider: Marcello Sampson Reason for Consult: abnormal stress test Call Completed: Yes Discharging clinician: Benitez King Anticipated date of discharge: 04/14/16 - Patient Status Disposition: Home, Self-Care Condition: Fair Functional capacity at discharge: independent ambulation Overall status at discharge: patient is progressing back to baseline - Discharge Instructions Instructions: Community-acquired Pneumonia (ED) Follow Up With: Rafa Justin MD [Primary Care Provider] - 04/28/16 3:20 pm ( ) - Diet and Activity Activity: increase activity as tolerated Diet: diabetic diet, low fat, low cholesterol, low salt diet Hospital course: Ms. Mackey is a 70 year old female who was admitted to [facility] for chest pain r/ o ACS and Community acquired pneumonia.she did report extensive cardiovasclar history with hisory of CABG on 2 occasions and PTCA and stents. She had an abnormal stress test so cardiology was admitted. They recommended no further inpatient testing at this time and follow-up with cardiology as an outpatient. Patient has been stable. Her blood pressure has been somewhat elevated however some of her medications were held on admission. Her cardiac or pneumonia was treated with levofloxacin. She has been afebrile and has normal white count. We will discharge her today with close follow-up with cardiology. We did note the opacity in the right lung that could record present pneumonia did have possibly some masslike features. However she did have a recent chest x-ray with without an opacity in this region. We will discharge her home on medical management and close follow-up to cardiology. Would also strongly recommend repeat imaging of the chest in 4-6 weeks to ensure resolution of this opacity. If not resolved would recommend CT of the chest. Patient voices back understanding and agreement to the above plan. - Time Spent with Patient Total time spent providing and/or coordinating discharge services: Greater than 30 minutes (approximately 40 minutes) - Constitutional Vitals: Temp Pulse Resp BP Pulse Ox 97.5 F L 104 18 161/98 98 04/14/16 15:34 04/14/16 15:34 04/14/16 15:34 04/14/16 15:34 04/14/16 15:34 General appearance: Present: A&O X 3, morbidly obese, pleasant, answers questions appropriately Exam: General: This is a well-developed well-nourished 70-year-old female who is alert and orientated to place time and situation. She is alert and orientated without acute distress this time. HEENT: Head is [place] atraumatic. Anicteric sclera, pupils equally round reactive to light and accommodation. Massive thyromegaly. No cervical or supraclavicular lymphadenopathy palpable on exam. Heart: Regular rate and rhythm without murmurs rubs or gallops. Lungs: Clearbilaterally. Abdomen, obese, nondistended, nontender to palpation. Musculoskeletal: Grossly normal for age no gross deformity noted. Extremities: No clubbing, cyanosis or edema. Integument: No rash or lesion. <Mars Leo P - Last Filed: 04/14/16 18:45> - Discharge Diagnosis (1) Chest pain Status: Acute Qualifiers: Chest pain type: unspecified Qualified Code(s): R07.9 - Chest pain, unspecified (2) Community acquired pneumonia Status: Acute (3) CAD (coronary artery disease) Status: Chronic Qualifiers: Coronary Disease-Associated Artery/Lesion type: unspecified vessel or lesion type [place] vs. transplanted heart: [place] heart Associated angina: angina presence unspecified Qualified Code(s): I25.10 - Atherosclerotic heart disease of [place] coronary artery without angina pectoris (4) Hypokalemia Status: Acute (5) DVT prophylaxis Status: Acute (6) Diabetes mellitus Status: Acute Qualifiers: Diabetes mellitus type: type 2 Diabetes mellitus complication status: with unspecified complications Diabetes mellitus terminal system operator insulin use: without chcf use Qualified Code(s): E11.8 - Type 2 diabetes mellitus with unspecified complications Procedures/tests Complete & Pending: Procedures Performed prior 72 hours Category Date Time Status NM dharmesh perf SPECT multi [NM] Routine Exams 04/13/16 15:56 Taken EV echocardiogram Routine Y 04/13/16 09:30 Completed SP pharm nuclear stress Routine Y 04/14/16 07:50 Completed Date of admission: 04/12/16 12:07 Primary care physician: Rafa Justin MD Consults: 04/14/16 13:05 Consult to Cardiology [CONS] Routine Comment: Consulting Provider: Cardiology Camilla Reason for Consult: abnormal stress test Call Completed: Yes Hospital course: Ms. Mackey is a 70 year old female - Time Spent with Patient Total time spent providing and/or coordinating discharge services: - Constitutional Vitals: Temp Pulse Resp BP Pulse Ox 97.5 F L 104 18 161/98 98 04/14/16 15:34 04/14/16 15:34 04/14/16 16:30 04/14/16 15:34 04/14/16 16:30 - Attending Attestation I examined this patient and my medical decision-making was reviewed with the WINDOW SHADE INSTALLER/PA/Advanced Practice Nurse/Resident Physician. I agree with the documented findings, disposition and treatment plan as described except to the extent set forth below. KARSON 4 admitted with chest pain ECHO : WNL Stress test abnormal reviewed by cardiology and recommended outpatient follow up will send home with abx, cardio follow up and PCP follow up
[2016-04-14] MEDS ORDERED: FLU VACC QS2016-17 36MOS UP/PF 0.5 ML SYRINGE IM ONE (16:47)
[2016-04-14] MEDS ORDERED: Insulin LISPRO 300 UNITS/3 ML VIAL SQ SCH (21:00)
[2016-04-15] MEDS ORDERED: levoFLOXacin 750 MG TABLET PO SCH (09:00)
== END 2016-04-14 17:56 | disposition home or self-care (01) ==
LOC: EMEROO 08:48 → 2ANU 08:48 → SUATTDRO 12:07 → 2ANU 12:24
PROVIDERS: ADMIT Internal Medicine; ATTEND Internal Medicine

== ENCOUNTER 2017-04-16 13:59 | Inpatient (IN) ==
[2017-04-16] MEDS ORDERED: methylPREDNISolone 125 MG/2 ML VIAL IVP ONE (14:00)
[2017-04-16] MEDS ORDERED: Ipratropium/Albuterol Neb 3 ML IH ONE (14:00)
--- NOTE | 2017-04-16 14:06 | Emergency Department Note ---
Disposition Clinical Impression: Influenza A COPD (chronic obstructive pulmonary disease) Qualifiers: COPD type: unspecified COPD Qualified Code(s): J44.9 - Chronic obstructive pulmonary disease, unspecified Congestive heart failure Qualifiers: Heart failure type: unspecified Heart failure chronicity: unspecified Qualified Code(s): I50.9 - Heart failure, unspecified Disposition: Admitted As Inpatient Condition: Fair Referrals: Rafa Justin MD [Primary Care Provider] - Time of Disposition: 15:42 General Adult HPI - General Stated complaint: BANDAR Time Seen by Provider: 04/16/17 14:00 Source: patient Mode of arrival: EMS Limitations: no limitations Nursing Notes Reviewed: Yes Vital Signs Reviewed: Yes - History of Present Illness HPI Narrative: 71-year-old female history of COPD, ACS, hypertension diabetes presents for evaluation of dyspnea. Patient states that once as been the past 2 days. Patient noted operative cough. No fevers. No chest pain. No nausea vomiting or diaphoresis. Patient ran out of her nebular treatments at home. When EMS arrived the patient was found to hypoxic on 4 L at 88%. Patient states she typically does not wear oxygen at home but does wear BiPAP at night. Patient denies any abdominal pain. - Related Data Home Medications Medication Instructions Recorded Confirmed Amitriptyline [Elavil] 25 mg PO DAILY 04/12/16 04/16/17 Amlodipine Besylate 10 mg PO DAILY 04/12/16 04/16/17 Aspirin [Lo-Dose Aspirin EC] 81 mg PO DAILY 04/12/16 04/16/17 FLUoxetine HCl [Fluoxetine HCl] 40 mg PO DAILY 04/12/16 04/16/17 Glimepiride [Amaryl] 2 mg PO DAILY 04/12/16 04/16/17 Lisinopril 40 mg PO BID 04/12/16 04/16/17 OXcarbazepine [Oxcarbazepine] 600 mg PO BID 04/12/16 04/16/17 hydroCHLOROthiazide 25 mg PO DAILY 04/12/16 04/16/17 [Hydrochlorothiazide] ALPRAZolam [Xanax 0.5 MG Tablet] 0.5 - 1 mg PO BID PRN 01/10/17 04/16/17 Albuterol Sulfate [Ventolin Hfa] 2 puff IH Q4H PRN 01/10/17 04/16/17 Fluticasone/Salmeterol [Advair Hfa 2 puff IH BID 01/10/17 04/16/17 230-21 Mcg Inhaler] Nitroglycerin [Nitrostat] 0.4 mg SL Q5M PRN 01/10/17 04/16/17 Ranitidine HCl [Heartburn Relief] 150 mg PO BID 01/10/17 04/16/17 cloNIDine HCl [Clonidine HCl] 0.3 mg PO BID PRN 01/10/17 04/16/17 Atorvastatin [Lipitor] 40 mg PO HS 04/16/17 04/16/17 Metoprolol Tartrate [Metoprolol 100 mg PO BID 04/16/17 04/16/17 Tartrate] Allergies Allergy/AdvReac Type Severity Reaction Status Date / Time No Known Allergies Allergy Verified 04/16/17 15:05 All systems ED: reviewed and negative except as stated. Constitutional: Denies: fever Cardiovascular: Denies: chest pain Respiratory: Reports: cough, dyspnea, wheezes. Denies: sputum production Gastrointestinal: Denies: abdominal pain, nausea, vomiting Past Medical History - Past Medical History Source: patient, other Medical history: Reports: arthritis, coronary artery disease, CVA, diabetes, hyperlipidemia, hypertension, myocardial infarction Surgical history: Reports: coronary bypass (CABG) (X 3 vessels. With re-bypass. ) Psychiatric history: Reports: anxiety, depression DOPE HOUSE OPERATOR HELPER history: Reports: no DOPE HOUSE OPERATOR HELPER history - Social History Smoking Status: Current every day smoker Smokeless Tobacco Status: No Alcohol use: Reports: rarely Drug use: Reports: none Physical Exam - General Limitations: no limitations General appearance: alert, in no apparent distress - Head Head exam: atraumatic, normocephalic, normal inspection - Eye Eye exam: Present: normal appearance, PERRL, EOMI - ENT ENT exam: normal exam - Neck Neck exam: Present: normal inspection - Chest Chest inspection: Present: normal inspection, symmetric chest wall rise - Respiratory Respiratory exam: Present: respiratory distress, wheezes (Audible inspiratory expiratory wheeze), accessory muscle use, prolonged expiratory phase - Cardiovascular Cardiovascular exam: Present: regular rate, normal rhythm. Absent: systolic murmur - Abdominal Exam Abdominal exam: Present: soft, Non-Tender - Extremities Exam Extremities exam: Present: normal inspection. Absent: pedal edema - Neurological Exam Neurological exam: Present: alert, CN II-XII intact - Skin Skin exam: Present: warm, dry, intact, normal color Course Course Narrative: Patient appears to be in respiratory distress. Increased work of breathing. Audible wheeze. Patient will get us into his fourth BiPAP, nebs, steroids, chest x-ray screening cardiopulmonary evaluation. Disposition admission. - Reevaluation(s) Reevaluation #1: Patient's breathing is nonlabored. Patient's resting currently on BiPAP. Time: 15:40 Vital Signs Pulse Rate 69 04/16/17 14:00 Respiratory Rate 30 04/16/17 14:00 Blood Pressure 166/96 04/16/17 14:00 O2 Sat by Pulse Oximetry 95 04/16/17 14:00 Temperature 98.7 F 04/16/17 14:05 Pulse Rate 59 04/16/17 15:32 Respiratory Rate 24 04/16/17 15:32 Blood Pressure 149/90 04/16/17 15:32 O2 Sat by Pulse Oximetry 98 04/16/17 15:32 Oxygen Delivery Oxygen Delivery Bipap Medical Decision Making - [facility] Narrative Medical decision making narrative: Patient presented with acute respiratory distress. Initially the patient's sinus symptoms were more consistent with COPD with audible expiratory wheezes throughout with tachycardia cardia tachypnea. Patient was placed on BiPAP upon arrival. Patient was treated with steroids and nebs. Patient was requiring some oxygen supplement oxygen. During the course the patient's ED evaluation appears the patient has more of a congestive heart failure. Patient has pulmonary edema with trace bilateral effusions. Patient breathing has improved with the addition of BiPAP. Patient was given a dose of Lasix in the emergency department. Patient will be admitted to the hospital service for as CHF exacerbation. Patient was also noted positive for influenza a. - Lab Data Lab results reviewed: Yes I reviewed the patient's lab results. Result diagrams: 04/16/17 14:20 04/16/17 14:20 Lab Results 04/16/17 04/16/17 04/16/17 Range/Units 14:20 14:20 14:20 WBC 9.8 (4.3-11.1) K/mcL RBC 4.29 (3.82-4.97) M/mcL Hgb 13.3 (11.5-15.4) g/dL Hct 40.9 (35.3-44.9) % MCV 95.3 (83.0-100.0) fL MCH 31.0 (28.0-33.3) pg MCHC 32.5 (31.6-35.5) g/dL RDW 13.0 (11.5-14.5) % Plt Count 291 (140-400) K/mcL MPV 9.2 L (9.4-12.4) fL Immature Gran % 0.2 (0-4) % Seg Neutrophils % 72.0 % Lymphocytes % 20.0 % Monocytes % 5.4 % Eosinophils % 2.0 % Basophils % 0.4 % Neutrophils # 7.1 (1.6-8.9) K/mcL Lymphocytes # 2.0 (0.6-4.6) K/mcL Monocytes # 0.5 (0.0-1.3) K/mcL Eosinophils # 0.2 (0.0-0.6) K/mcL Basophils # 0.0 (0.0-0.2) K/mcL ABG pH (7.32-7.45) pH Units ABG pCO2 (35-45) mmHg ABG pO2 (85-104) mmHg ABG HCO3 (21-27) mEq/L ABG Total CO2 (20-26) mEq/L ABG O2 Saturation (95-98) % ABG Base Excess (-2 to 3) mEq/L O2 Delivery Device Inspired O2 (1-15=lpm [id number]=%) PEEP cm H2O Pressure Support cm H2O Sodium 140 (136-145) mEq/L Potassium 4.2 (3.5-5.1) mEq/L Chloride 103 (98-107) mEq/L Carbon Dioxide 32 H (23-29) mEq/L BUN 13 (8-23) mg/dL Creatinine 0.90 (0.60-1.20) mg/dL Est GFR ( Amer) > 60 (> 60) Est GFR (Non-Af Amer) > 60 (> 60) BUN/Creatinine Ratio 14 (6-26) Glucose 147 H (70-105) mg/dL Calculated Osmolality 293 (280-300) Lactic Acid 0.8 (0.5-2.2) mmol/L Calcium 9.3 (8.6-10.3) mg/dL Troponin I < 0.03 (< 0.04) ng/mL B-Natriuretic Peptide (Less than 100) pg/mL 04/16/17 04/16/17 Range/Units 14:20 14:33 WBC (4.3-11.1) K/mcL RBC (3.82-4.97) M/mcL Hgb (11.5-15.4) g/dL Hct (35.3-44.9) % MCV (83.0-100.0) fL MCH (28.0-33.3) pg MCHC (31.6-35.5) g/dL RDW (11.5-14.5) % Plt Count (140-400) K/mcL MPV (9.4-12.4) fL Immature Gran % (0-4) % Seg Neutrophils % % Lymphocytes % % Monocytes % % Eosinophils % % Basophils % % Neutrophils # (1.6-8.9) K/mcL Lymphocytes # (0.6-4.6) K/mcL Monocytes # (0.0-1.3) K/mcL Eosinophils # (0.0-0.6) K/mcL Basophils # (0.0-0.2) K/mcL ABG pH 7.40 (7.32-7.45) pH Units ABG pCO2 50 H (35-45) mmHg ABG pO2 102 (85-104) mmHg ABG HCO3 31 H (21-27) mEq/L ABG Total CO2 33 H (20-26) mEq/L ABG O2 Saturation 98 (95-98) % ABG Base Excess 5 H (-2 to 3) mEq/L O2 Delivery Device BiPAP Inspired O2 70.0 (1-15=lpm [id number]=%) PEEP 6 cm H2O Pressure Support 12 cm H2O Sodium (136-145) mEq/L Potassium (3.5-5.1) mEq/L Chloride (98-107) mEq/L Carbon Dioxide (23-29) mEq/L BUN (8-23) mg/dL Creatinine (0.60-1.20) mg/dL Est GFR ( Amer) (> 60) Est GFR (Non-Af Amer) (> 60) BUN/Creatinine Ratio (6-26) Glucose (70-105) mg/dL Calculated Osmolality (280-300) Lactic Acid (0.5-2.2) mmol/L Calcium (8.6-10.3) mg/dL Troponin I (< 0.04) ng/mL B-Natriuretic Peptide 779 H (Less than 100) pg/mL - Radiology Data Radiology results reviewed: Yes I reviewed the patient's radiology results. Chest X-Ray 04/16/17 14:00 IMPRESSION: Pulmonary edema and trace bilateral pleural effusions. D/ / Aden Grier MD / Aden Grier MD Interpreting Provider: Aden Grier MD - EKG Data EKG #1 EKG attestation: Yes I reviewed and interpreted this EKG. Rate: normal Rhythm: NSR [place]/QRS: normal Q waves: III T wave inversions noted in: aVR Interpretation: no acute changes, nonspecific ST-T wave changes SMihai - Caden Situation: Demographics Background: Presenting Complaint Assessment: Vital Signs, Patient/Family Expectation Recommendation: Barrier(s) to disposition, Recommendation based on pending studies, treatments, or consults S.B.Jay Report Given to: Hospitalist Caden Repor Time: 15:57
[2017-04-16] MEDS ORDERED: 0.9 % Sodium Chloride 500 ML IVC ONE (14:20)
[2017-04-16 14:36] LABS: Basophils % 0.4 %; Eosinophils # 0.2 K/mcL (0.0-0.6); Hematocrit 40.9 % (35.3-44.9); Hemoglobin 13.3 g/dL (11.5-15.4); Immature Granulocytes % 0.2 % (0-4); Mean Corpuscular HGB Conc 32.5 g/dL (31.6-35.5); Mean Corpuscular Volume 95.3 fL (83.0-100.0); Mean Platelet Volume 9.2 fL (9.4-12.4); Monocytes # 0.5 K/mcL (0.0-1.3); Monocytes % 5.4 %; Neutrophils # 7.1 K/mcL (1.6-8.9); Platelet Count 291 K/mcL (140-400); Red Blood Count 4.29 M/mcL (3.82-4.97)
--- NOTE | 2017-04-16 14:41 | Emergency Department Note ---
START Narrative - START START: I examined this patient and my medical decision-making was reviewed with the Resident Physician. I agree with the documented findings, disposition and treatment plan as described except to the extent set forth below. 71 year old female with history of COPD and prsents to the ED with hypoxia and respiratory distress. EMS states that she was originally 80% on arrival and then place don NRB and came up to 90% . PAtinet has been place don a Bipap and we will do pulmonary resusitation with caridopulmonary workup and admit to medicne.
[2017-04-16 14:53] LABS: ABG Base Excess 5 mEq/L (-2 to 3); ABG HCO3 31 mEq/L (21-27); ABG Oxygen Saturation 98 % (95-98); ABG PCO2 50 mmHg (35-45); ABG PO2 102 mmHg (85-104); ABG TCO2 33 mEq/L (20-26); Blood Gas PEEP 6 cm H2O; Blood Gas Pressure Support 12 cm H2O
[2017-04-16 14:54] LABS: Troponin I < 0.03 ng/mL (< 0.04)
[2017-04-16 14:57] LABS: BUN/Creatinine Ratio 14 (6-26); Blood Urea Nitrogen 13 mg/dL (8-23); Calcium 9.3 mg/dL (8.6-10.3); Carbon Dioxide 32 mEq/L (23-29); Chloride 103 mEq/L (98-107); Glucose 147 mg/dL (70-105); Osmolality,Calculated 293 (280-300); Potassium 4.2 mEq/L (3.5-5.1); Sodium 140 mEq/L (136-145); eGFR For African Americans > 60 (> 60); eGFR For Non-African Americans > 60 (> 60)
[2017-04-16] MEDS ORDERED: Furosemide 40 MG/4 ML VIAL IVP ONE (15:39)
[2017-04-16] MEDS ORDERED: Oseltamivir 6 MG/ML UDC PO ONE (15:41)
[2017-04-16] MEDS ORDERED: Naloxone 0.4 MG/ML INJ IVP PRN (16:38)
[2017-04-16] MEDS ORDERED: Ondansetron 4 MG/2 ML VIAL IVP PRN (16:38)
[2017-04-16] MEDS ORDERED: *HR* Promethazine 25 MG/ML VIAL IVP PRN (16:38)
[2017-04-16] MEDS ORDERED: *HR* HYDROcodone/Acet 5/325 mg TABLET PO PRN (16:38)
[2017-04-16] MEDS ORDERED: ALPRAZolam 0.5 MG TABLET PO PRN (16:47)
[2017-04-16] MEDS ORDERED: Nitroglycerin 0.4 MG TAB.SUBL SL PRN (16:47)
--- NOTE | 2017-04-16 17:00 | Internal Med History&Physical ---
Date of Encounter: 04/16/17 Time of Encounter: 16:00 Assessment and Plan (1) Acute respiratory failure with hypoxia Current visit: Yes Status: Acute Admit the patient into Tele reviewed her chest x-ray showed no infiltrates/ no consolidation. Increased vascular congestion/pleural effusion noticed reviewed her blood gases - well compensated.. Ph: 7.4 PCo2 50 seems patient does have chronic hyper capneic Respiratory failure she does use CPAP at home, probably she may get benefit with BiPAP for now I would continue her on BiPAP continuously for next 24 hrs continue high-dose IV steroids started her on IV Lasix (2) Diastolic CHF, acute on chronic Current visit: Yes Status: Acute Reviewed echocardiogram from 11/23 showed preserved LVEF at 60% and mild diastolic dysfunction chest x-ray showed vascular congestion continue aggressive IV diuresis resumed all home medications (3) COPD exacerbation Current visit: Yes Status: Acute on high dose IV steroids + Duoneb try to wean her off the oxygen as she tolerates (4) Influenza A Current visit: Yes Status: Acute Check for step pneumonia, Legionella, sputum culture and respiratory viral panel started on Tamiflu no need of antibiotic at this point (5) Diabetes mellitus Current visit: No Status: Acute Held PO medications on insulin sliding scale Qualifiers: Diabetes mellitus type: type 2 Diabetes mellitus termite control representative insulin use: without custodial use Diabetes mellitus complication status: with unspecified complications Qualified Code(s): E11.8 - Type 2 diabetes mellitus with unspecified complications (6) CAD (coronary artery disease) Current visit: No Status: Chronic Resumed all her home medications Qualifiers: Coronary Disease-Associated Artery/Lesion type: [place] artery [place] vs. transplanted heart: [place] heart Associated angina: without angina Qualified Code(s): I25.10 - Atherosclerotic heart disease of [place] coronary artery without angina pectoris (7) Essential hypertension Current visit: No Status: Chronic Fairly controlled probably due to respiratory failure resumed home medications will give her IV hydralazine as needed Internal Medicine - H&P: HPI Chief complaint: Shortness of breath Admitted From: Emergency Dept Plans for Post Hospital Care: Home History of present illness: Ms. Mackey is a 71 year old female with a known past medical history of hypertension, diabetes type II, CVA, hyperlipidemia, PA, COPD, obstructive sleep apnea who does use CPAP at home , not on home oxygen dependent and diastolic CHF patient presented emergency room complaining about it has been having progressively worsening shortness of breath as well as bilateral lower extremity edema from last 4 days. She does complaining about cold, runny nose and URI symptoms. She denied of any cough or any expectoration. Off coming today patient was severely hypoxic her SPo2 88 & on 4 lit O2, pt was placed on BiPAP. Patient is resting comfortably on BiPAP now. Patient is alert, awake, oriented to time place person. She denied any recent travel history as well as any sick contacts at home Past Med Surg Social Fam HX - Past Medical History Medical history: arthritis, coronary artery disease, CVA, diabetes, hyperlipidemia, hypertension, myocardial infarction Psychiatric history: anxiety, depression - Past Surgical History Surgical History: coronary bypass (CABG) (X 3 vessels. With re-bypass. ) - Social History Smoking Status: Current every day smoker Smokeless Tobacco Status: No Alcohol use: rarely Drug use: none - Additional Family History Additional family history: Family hsitory reviewed and non contribuitory to current problem. Internal Medicine - H&P: Meds Amitriptyline [Elavil] 25 mg PO DAILY 04/12/16 [History] Amlodipine Besylate 10 mg PO DAILY 04/12/16 [History] Aspirin [Lo-Dose Aspirin EC] 81 mg PO DAILY 04/12/16 [History] FLUoxetine HCl [Fluoxetine HCl] 40 mg PO DAILY 04/12/16 [History] Glimepiride [Amaryl] 2 mg PO DAILY 04/12/16 [History] Lisinopril 40 mg PO BID 04/12/16 [History] OXcarbazepine [Oxcarbazepine] 600 mg PO BID 04/12/16 [History] hydroCHLOROthiazide [Hydrochlorothiazide] 25 mg PO DAILY 04/12/16 [History] ALPRAZolam [Xanax 0.5 MG Tablet] 0.5 - 1 mg PO BID PRN 01/10/17 [History] Albuterol Sulfate [Ventolin Hfa] 2 puff IH Q4H PRN 01/10/17 [History] Fluticasone/Salmeterol [Advair Hfa 230-21 Mcg Inhaler] 2 puff IH BID 01/10/17 [ History] Nitroglycerin [Nitrostat] 0.4 mg SL Q5M PRN 01/10/17 [History] Ranitidine HCl [Heartburn Relief] 150 mg PO BID 01/10/17 [History] cloNIDine HCl [Clonidine HCl] 0.3 mg PO BID PRN 01/10/17 [History] Atorvastatin [Lipitor] 40 mg PO HS 04/16/17 [History] Metoprolol Tartrate [Metoprolol Tartrate] 100 mg PO BID 04/16/17 [History] 3 Allergy/AdvReac Type Severity Reaction Status Date / Time No Known Allergies Allergy Verified 04/16/17 15:05 All Systems PM: A 10-system review of systems was performed and is negative for pertinent findings except as documented above in the HPI. Review of systems: All the systems are reviewed everything is benign except the systems and symptoms I mentioned in the history of present illness - Constitutional Vitals: Temp Pulse Resp BP Pulse Ox 98.7 F 61 24 148/89 93 04/16/17 14:05 04/16/17 16:00 04/16/17 16:00 04/16/17 16:00 04/16/17 16:00 General appearance: Present: mild distress, A&O X 3, answers questions appropriately - Head Head exam: Present: atraumatic, normal inspection - Neck Neck exam general surgery: Present: supple - Respiratory Respiratory exam: Present: decreased breath sounds, respiratory distress (Mild) , wheezes (Moderate to severe). Absent: rales, rhonchi - Cardiovascular Cardiovascular exam: Present: RRR, +S1, +S2. Absent: tachycardia - GI/Abdominal GI/Abdominal exam: Present: normal bowel sounds, soft. Absent: rebound, rigid, tenderness - Extremities Exam Extremities exam: Present: pedal edema (1 to 2 +). Absent: calf tenderness, tenderness - Back Exam Back exam: Absent: CVA tenderness (L), CVA tenderness (R) - Neurological Exam Neurological exam: Present: alert, oriented X3 - Psychiatric Psychiatric exam: Present: normal affect, normal mood - Skin Skin exam: Absent: rash Internal Med - H&P Results - Labs CBC & Chem 7: 04/16/17 14:20 04/16/17 14:20
[2017-04-16] MEDS: MethylPREDNISolone 40 MG/ML VIAL IVP SCH (19:00)
[2017-04-16] MEDS: OXcarbazepine 150 MG TABLET PO SCH (20:34)
[2017-04-16] MEDS: Furosemide 40 MG/4 ML VIAL IVP SCH (20:34)
[2017-04-16] MEDS: Lisinopril 20 MG TABLET PO SCH (20:34)
[2017-04-16] MEDS: Metoprolol 100 MG TABLET PO SCH (20:34)
[2017-04-16] MEDS: Famotidine 20 MG TABLET PO SCH (20:34)
[2017-04-16] MEDS: ALPRAZolam 1 MG TABLET PO PRN (20:50)
[2017-04-16] MEDS: Ipratropium/Albuterol Neb 3 ML IH SCH ×2 (21:00→23:46)
[2017-04-16] MEDS: Budesonide/Formoterol 160/4.5 MDI IH SCH (21:03)
[2017-04-17] MEDS: MethylPREDNISolone 40 MG/ML VIAL IVP SCH ×3 (00:19→12:45)
[2017-04-17] MEDS: Ipratropium/Albuterol Neb 3 ML IH SCH ×6 (03:53→23:52)
[2017-04-17] MEDS: *HR* Enoxaparin 40 MG/0.4 ML SYRINGE SQ SCH (05:13)
[2017-04-17 06:10] LABS: Basophils % 0.3 %; Hematocrit 40.7 % (35.3-44.9); Hemoglobin 13.5 g/dL (11.5-15.4); Immature Granulocytes % 0.3 % (0-4); Lymphocytes % 12.8 %; Mean Corpuscular HGB Conc 33.2 g/dL (31.6-35.5); Mean Corpuscular Hemoglobin 30.4 pg (28.0-33.3); Mean Corpuscular Volume 91.7 fL (83.0-100.0); Mean Platelet Volume 9.5 fL (9.4-12.4); Monocytes # 0.2 K/mcL (0.0-1.3); Monocytes % 2.1 %; Neutrophils # 6.5 K/mcL (1.6-8.9); Platelet Count 307 K/mcL (140-400); Red Blood Count 4.44 M/mcL (3.82-4.97); Red Cell Distribution Width 12.6 % (11.5-14.5); Segmented Neutrophils % 84.5 %
[2017-04-17 06:40] LABS: Troponin I < 0.03 ng/mL (< 0.04)
[2017-04-17 06:44] LABS: BUN/Creatinine Ratio 18 (6-26); Blood Urea Nitrogen 16 mg/dL (8-23); Calcium 9.5 mg/dL (8.6-10.3); Carbon Dioxide 31 mEq/L (23-29); Chloride 94 mEq/L (98-107); Chol/HDL Ratio 2.6 (0-4.9); Cholesterol 185 mg/dL (< 200); Glucose 260 mg/dL (70-105); HDL Cholesterol 72 mg/dL (40-59); LDL Cholesterol,Calculated 102 mg/dL (0-99); Magnesium 1.6 mg/dL (1.6-2.6); Osmolality,Calculated 292 (280-300); Potassium 3.3 mEq/L (3.5-5.1); Sodium 136 mEq/L (136-145); Triglycerides 53 mg/dL (< 150); eGFR For African Americans > 60 (> 60); eGFR For Non-African Americans > 60 (> 60)
[2017-04-17] MEDS: Budesonide/Formoterol 160/4.5 MDI IH SCH ×2 (08:52→19:50)
[2017-04-17] MEDS: FLUoxetine 20 MG CAPSULE PO SCH (09:02)
[2017-04-17] MEDS: Furosemide 40 MG/4 ML VIAL IVP SCH ×2 (09:02→17:02)
[2017-04-17] MEDS: OXcarbazepine 150 MG TABLET PO SCH ×2 (09:02→20:25)
[2017-04-17] MEDS: amLODIPine 5 MG TABLET PO SCH (09:03)
[2017-04-17] MEDS: Aspirin Enteric Coated 81 MG Tablet PO SCH (09:03)
[2017-04-17] MEDS: Lisinopril 20 MG TABLET PO SCH ×2 (09:03→20:25)
[2017-04-17] MEDS: Famotidine 20 MG TABLET PO SCH ×2 (09:03→20:25)
[2017-04-17] MEDS: Metoprolol 100 MG TABLET PO SCH ×2 (09:03→20:26)
[2017-04-17] MEDS: ALPRAZolam 1 MG TABLET PO PRN ×2 (09:03→20:25)
--- NOTE | 2017-04-17 17:25 | Internal Med Progress Note ---
Date of Encounter: 04/17/17 Time of Encounter: 12:45 - Assessment and plan (1) Acute respiratory failure with hypoxia Current Visit: Yes Status: Acute Assessment and plan: Improving Cont BiPAP PRN she does use CPAP at home, probably she may get benefit with BiPAP Will do over night BiPAP study prior to d/c home cont IV diuresis Start tapering IV steroids (2) Diastolic CHF, acute on chronic Current Visit: Yes Status: Acute Assessment and plan: echocardiogram from 11/23 showed preserved LVEF at 60% and mild diastolic dysfunction continue aggressive IV diuresis Had -2475 fluid balance in 24hrs resumed all home medications (3) COPD exacerbation Current Visit: Yes Status: Acute (4) Influenza A Current Visit: Yes Status: Acute Assessment and plan: cot Tamiflu (5) Diabetes mellitus Current Visit: No Status: Acute Assessment and plan: on ISS + Levemir Qualifiers: Diabetes mellitus type: type 2 Diabetes mellitus fdc insulin use: without fdc use Diabetes mellitus complication status: with unspecified complications Qualified Code(s): E11.8 - Type 2 diabetes mellitus with unspecified complications (6) CAD (coronary artery disease) Current Visit: No Status: Chronic Assessment and plan: Resumed all her home medications Qualifiers: Coronary Disease-Associated Artery/Lesion type: [place] artery [place] vs. transplanted heart: [place] heart Associated angina: without angina Qualified Code(s): I25.10 - Atherosclerotic heart disease of [place] coronary artery without angina pectoris (7) Essential hypertension Current Visit: No Status: Chronic Assessment and plan: Fairly controlled Due to resp failure Cont home medications for now - Subjective Interval history: Ms. Mackey is a 71 year old female with a known past medical history of hypertension, diabetes type II, CVA, hyperlipidemia, [place], COPD, obstructive sleep apnea who does use CPAP at home , not on home oxygen dependent and diastolic CHF patient admitted in the hospital with acute respiratory failure, COPD exacerbation and diastolic congestive heart failure exacerbation. Pt also happened to have influenza A positive bronchitis. She is more alert, awake and O x 3 today. Denied any CP. Still has moderate SOB and LOVELL. - Constitutional Vitals: Temp Pulse Resp BP Pulse Ox 98.7 F 76 16 150/90 95 04/17/17 15:07 04/17/17 15:07 04/17/17 16:33 04/17/17 16:33 04/17/17 16:33 General appearance: Present: mild distress, A&O X 3, answers questions appropriately - Head Head exam: Present: atraumatic, normal inspection - Neck Neck exam general surgery: Present: supple - Respiratory Respiratory exam: Present: decreased breath sounds, wheezes (moderate). Absent : rales, respiratory distress, rhonchi - Cardiovascular Cardiovascular exam: Present: RRR, +S1, +S2. Absent: tachycardia - GI/Abdominal GI/Abdominal exam: Present: normal bowel sounds, soft. Absent: rebound, rigid, tenderness - Extremities Exam Extremities exam: Absent: calf tenderness, pedal edema, tenderness - Back Exam Back exam: Absent: CVA tenderness (L), CVA tenderness (R) - Neurological Exam Neurological exam: Present: alert, oriented X3 - Psychiatric Psychiatric exam: Present: anxious Internal Medicine: Result - Labs CBC & Chem 7: 04/17/17 05:03 04/17/17 05:03 Labs: Short CBC 04/17/17 Range/Units 05:03 WBC 7.7 (4.3-11.1) K/mcL Hgb 13.5 (11.5-15.4) g/dL Hct 40.7 (35.3-44.9) % Plt Count 307 (140-400) K/mcL Neutrophils # 6.5 (1.6-8.9) K/mcL BMP 04/17/17 05:03 Sodium 136 Potassium 3.3 L Chloride 94 L Carbon Dioxide 31 H BUN 16 Creatinine 0.89 Glucose 260 H Calcium 9.5 Cardiac Enzymes 04/16/17 04/17/17 Range/Units 21:20 05:03 Troponin I < 0.03 < 0.03 (< 0.04) ng/mL - ABG Interpretation ABG results: ABG ABG pH 7.40 pH Units (7.32-7.45) 04/16/17 14:33 ABG pCO2 50 mmHg (35-45) H 04/16/17 14:33 ABG pO2 102 mmHg (85-104) 04/16/17 14:33 ABG O2 Saturation 98 % (95-98) 04/16/17 14:33 - VTE Documentation of Mechanical Device: Intermittent pneumatic compression device Consult Discharge Plan - Plan
[2017-04-17] MEDS ORDERED: Furosemide 20 MG/2 ML VIAL IVP SCH (17:31)
[2017-04-18 02:02] LABS: Basophils % 0.1 %; Hematocrit 43.2 % (35.3-44.9); Hemoglobin 14.5 g/dL (11.5-15.4); Immature Granulocytes % 0.6 % (0-4); Lymphocytes # 1.6 K/mcL (0.6-4.6); Lymphocytes % 11.3 %; Mean Corpuscular HGB Conc 33.6 g/dL (31.6-35.5); Mean Corpuscular Hemoglobin 30.7 pg (28.0-33.3); Mean Corpuscular Volume 91.3 fL (83.0-100.0); Mean Platelet Volume 9.6 fL (9.4-12.4); Monocytes # 0.8 K/mcL (0.0-1.3); Monocytes % 5.6 %; Platelet Count 362 K/mcL (140-400); Red Blood Count 4.73 M/mcL (3.82-4.97); Red Cell Distribution Width 12.7 % (11.5-14.5); Segmented Neutrophils % 82.4 %
[2017-04-18 02:07] LABS: Neutrophils # 11.5 K/mcL (1.6-8.9)
[2017-04-18 02:11] LABS: Calcium 10.2 mg/dL (8.6-10.3); Magnesium 1.7 mg/dL (1.6-2.6); Potassium 3.1 mEq/L (3.5-5.1)
[2017-04-18] MEDS: Ipratropium/Albuterol Neb 3 ML IH SCH ×6 (03:54→23:29)
[2017-04-18] MEDS: *HR* Enoxaparin 40 MG/0.4 ML SYRINGE SQ SCH (05:01)
[2017-04-18] MEDS: Budesonide/Formoterol 160/4.5 MDI IH SCH ×2 (07:44→20:10)
[2017-04-18] MEDS: Metoprolol 100 MG TABLET PO SCH ×2 (07:52→23:07)
[2017-04-18] MEDS: OXcarbazepine 150 MG TABLET PO SCH ×2 (07:52→23:07)
[2017-04-18] MEDS: Lisinopril 20 MG TABLET PO SCH (07:52)
[2017-04-18] MEDS: ALPRAZolam 1 MG TABLET PO PRN (07:52)
[2017-04-18] MEDS: amLODIPine 5 MG TABLET PO SCH (07:52)
[2017-04-18] MEDS: Aspirin Enteric Coated 81 MG Tablet PO SCH (07:53)
[2017-04-18] MEDS: FLUoxetine 20 MG CAPSULE PO SCH (07:53)
[2017-04-18] MEDS: Famotidine 20 MG TABLET PO SCH (07:53)
[2017-04-18] MEDS ORDERED: MethylPREDNISolone 40 MG/ML VIAL IVP SCH ×2 (10:00)
--- NOTE | 2017-04-18 17:57 | Internal Med Progress Note ---
Date of Encounter: 04/18/17 Time of Encounter: 17:54 - Assessment and plan (1) Acute respiratory failure with hypoxia Current Visit: Yes Status: Acute Assessment and plan: Improving Cont BiPAP PRN she does use CPAP at home, probably she may get benefit with BiPAP Will do over night BiPAP study today (2) Diastolic CHF, acute on chronic Current Visit: Yes Status: Acute Assessment and plan: echocardiogram from 11/23 showed preserved LVEF at 60% and mild diastolic dysfunction Held lasix due to worsening Cr Continue all other home medications (3) COPD exacerbation Current Visit: Yes Status: Acute Assessment and plan: Improving cont tapering steroids (4) Influenza A Current Visit: Yes Status: Acute Assessment and plan: cot Tamiflu (5) Diabetes mellitus Current Visit: No Status: Acute Assessment and plan: on ISS + Levemir Qualifiers: Diabetes mellitus type: type 2 Diabetes mellitus retirement insulin use: without retirement use Diabetes mellitus complication status: with unspecified complications Qualified Code(s): E11.8 - Type 2 diabetes mellitus with unspecified complications (6) CAD (coronary artery disease) Current Visit: No Status: Chronic Assessment and plan: Resumed all her home medications Qualifiers: Coronary Disease-Associated Artery/Lesion type: [place] artery [place] vs. transplanted heart: [place] heart Associated angina: without angina Qualified Code(s): I25.10 - Atherosclerotic heart disease of [place] coronary artery without angina pectoris (7) Essential hypertension Current Visit: No Status: Chronic Assessment and plan: stable Cont home medications for now - Subjective Interval history: Ms. Mackey is a 71 year old female with a known past medical history of hypertension, diabetes type II, CVA, hyperlipidemia, [place], COPD, obstructive sleep apnea who does use CPAP at home , not on home oxygen dependent and diastolic CHF patient admitted in the hospital with acute respiratory failure, COPD exacerbation and diastolic congestive heart failure exacerbation. Pt also happened to have influenza A positive bronchitis. She is more alert, awake and O x 3 today. Denied any CP. Feels better today. SOB and LOVELL also better. b/l LE swelling also better. - Constitutional Vitals: Temp Pulse Resp BP Pulse Ox 98.2 F 85 18 150/81 95 04/18/17 15:30 04/18/17 15:30 04/18/17 15:56 04/18/17 15:30 04/18/17 15:56 General appearance: Present: A&O X 3, answers questions appropriately - Head Head exam: Present: atraumatic, normal inspection - Neck Neck exam general surgery: Present: supple - Respiratory Respiratory exam: Present: decreased breath sounds, wheezes (mild). Absent: rales, respiratory distress, rhonchi - Cardiovascular Cardiovascular exam: Present: RRR, +S1, +S2. Absent: tachycardia - GI/Abdominal GI/Abdominal exam: Present: normal bowel sounds, soft. Absent: rebound, rigid, tenderness - Extremities Exam Extremities exam: Absent: calf tenderness, pedal edema, tenderness - Back Exam Back exam: Absent: CVA tenderness (L), CVA tenderness (R) - Neurological Exam Neurological exam: Present: alert, oriented X3 - Psychiatric Psychiatric exam: Present: normal affect, normal mood - Skin Skin exam: Absent: rash Internal Medicine: Result - Labs CBC & Chem 7: 04/18/17 01:28 04/18/17 01:28 Labs: Short CBC 04/18/17 Range/Units 01:28 WBC 14.0 H D (4.3-11.1) K/mcL Hgb 14.5 (11.5-15.4) g/dL Hct 43.2 (35.3-44.9) % Plt Count 362 (140-400) K/mcL Neutrophils # 11.5 H (1.6-8.9) K/mcL BMP 04/18/17 01:28 Sodium 134 L Potassium 3.1 L Chloride 89 L Carbon Dioxide 36 H BUN 27 H Creatinine 1.27 H Glucose 284 H Calcium 10.2 - ABG Interpretation ABG results: ABG ABG pH 7.40 pH Units (7.32-7.45) 04/16/17 14:33 ABG pCO2 50 mmHg (35-45) H 04/16/17 14:33 ABG pO2 102 mmHg (85-104) 04/16/17 14:33 ABG O2 Saturation 98 % (95-98) 04/16/17 14:33 - VTE Documentation of Mechanical Device: Intermittent pneumatic compression device Consult Discharge Plan - Plan Referrals: Justin,Rafa Leos MD [Primary Care Provider] -
--- NOTE | 2017-04-18 19:36 | Electrocardiograph Report ---
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
[2017-04-18] MEDS: Oseltamivir Phosphate 30 MG CAPSULE PO SCH (23:07)
[2017-04-18] MEDS: MethylPREDNISolone 40 MG/ML VIAL IVP SCH (23:09)
[2017-04-19] MEDS: Ipratropium/Albuterol Neb 3 ML IH SCH ×3 (03:48→10:58)
[2017-04-19] MEDS: Acetaminophen 325 MG TABLET PO PRN ×2 (05:36→08:55)
[2017-04-19] MEDS: *HR* Enoxaparin 40 MG/0.4 ML SYRINGE SQ SCH (05:37)
[2017-04-19 06:12] LABS: Basophils # 0.1 K/mcL (0.0-0.2); Basophils % 0.4 %; Hematocrit 46.7 % (35.3-44.9); Hemoglobin 15.4 g/dL (11.5-15.4); Immature Granulocytes % 0.4 % (0-4); Lymphocytes # 1.8 K/mcL (0.6-4.6); Mean Corpuscular Hemoglobin 30.7 pg (28.0-33.3); Mean Corpuscular Volume 93.2 fL (83.0-100.0); Mean Platelet Volume 9.4 fL (9.4-12.4); Monocytes # 0.4 K/mcL (0.0-1.3); Monocytes % 3.7 %; Neutrophils # 8.9 K/mcL (1.6-8.9); Platelet Count 347 K/mcL (140-400); Red Blood Count 5.01 M/mcL (3.82-4.97); Red Cell Distribution Width 12.9 % (11.5-14.5); Segmented Neutrophils % 79.5 %
[2017-04-19 06:24] LABS: BUN/Creatinine Ratio 31 (6-26); Blood Urea Nitrogen 27 mg/dL (8-23); Calcium 9.8 mg/dL (8.6-10.3); Carbon Dioxide 30 mEq/L (23-29); Chloride 96 mEq/L (98-107); Glucose 281 mg/dL (70-105); Osmolality,Calculated 297 (280-300); Potassium 3.7 mEq/L (3.5-5.1); Sodium 136 mEq/L (136-145); eGFR For African Americans > 60 (> 60); eGFR For Non-African Americans > 60 (> 60)
[2017-04-19] MEDS: Budesonide/Formoterol 160/4.5 MDI IH SCH (07:44)
--- NOTE | 2017-04-19 08:16 | Discharge Summary ---
- NOTES TO OUTPATIENT PROVIDER Notes to Outpatient Provider: d/c HCTZ. Started on Lasix here.. Cont Lasix 20mg PO Daily. If you notice weight gain more than 2 lbs, more SOB and worsening swelling in legs, always take extra dose of Lasix and call your PCP. You do have chronic Co2 retention would get benefit with BiPAP insted of CPAP Orders not resulted at time of discharge: Pending orders 04/16/17 16:47 Culture,Sputum with Gram Stain [RM] Routine 04/17/17 17:30 Respiratory Infection Panel [MOLMIC] Stat Date of Encounter: 04/19/17 Time of Encounter: 08:13 - Discharge Diagnosis (1) Acute respiratory failure with hypoxia Priority: Primary Status: Acute (2) Diastolic CHF, acute on chronic Priority: Primary Status: Acute (3) COPD exacerbation Priority: Primary Status: Acute (4) Influenza A Priority: Primary Status: Acute (5) Diabetes mellitus Priority: Secondary Status: Acute Qualifiers: Diabetes mellitus type: type 2 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 transplanted heart: [place] heart Associated angina: without angina Qualified Code(s): I25.10 - Atherosclerotic heart disease of [place] coronary artery without angina pectoris (7) Essential hypertension Priority: Secondary Status: Chronic Hospital course: Ms. Mackey is a 71 year old female with a known past medical history of hypertension, diabetes type II, CVA, hyperlipidemia, [place], COPD, obstructive sleep apnea who does use CPAP at home , not on home oxygen dependent and diastolic CHF patient admitted in the hospital with acute respiratory failure, COPD exacerbation and diastolic congestive heart failure exacerbation. Pt also happened to have influenza A positive bronchitis. Pt was admitted in the hospital and started her on IV diuresis with Lasix. Her 2 D Echo from 11/23 showed preserved LVEF and Diastolic dysfunction. She was started on Tamiflu for her Influneza A bronchitis and IV steroids for her COPD exacerbation. Pt symptoms started improving slowly. She feels like she is back to baseline. So will d.c her home today in stable condition. Our CM is going to contact [facility] to arrange BiPAP instead of CPAP. - Time Spent with Patient Total time spent providing and/or coordinating discharge services: - Discharge Medications Prescriptions: Furosemide [Lasix] 20 mg PO DAILY #30 tablet Oseltamivir [Tamiflu] 75 mg PO BID #6 capsule predniSONE [PredniSONE] 40 mg PO DAILY #10 tablet Home Medications: Amitriptyline [Elavil] 25 mg PO DAILY 04/12/16 [History] Amlodipine Besylate 10 mg PO DAILY 04/12/16 [History] Aspirin [Lo-Dose Aspirin EC] 81 mg PO DAILY 04/12/16 [History] FLUoxetine HCl [Fluoxetine HCl] 40 mg PO DAILY 04/12/16 [History] Glimepiride [Amaryl] 2 mg PO DAILY 04/12/16 [History] Lisinopril 40 mg PO BID 04/12/16 [History] OXcarbazepine [Oxcarbazepine] 600 mg PO BID 04/12/16 [History] ALPRAZolam [Xanax 0.5 MG Tablet] 0.5 - 1 mg PO BID PRN 01/10/17 [History] Albuterol Sulfate [Ventolin Hfa] 2 puff IH Q4H PRN 01/10/17 [History] Fluticasone/Salmeterol [Advair Hfa 230-21 Mcg Inhaler] 2 puff IH BID 01/10/17 [ History] Nitroglycerin [Nitrostat] 0.4 mg SL Q5M PRN 01/10/17 [History] Ranitidine HCl [Heartburn Relief] 150 mg PO BID 01/10/17 [History] cloNIDine HCl [Clonidine HCl] 0.3 mg PO BID PRN 01/10/17 [History] Atorvastatin [Lipitor] 40 mg PO HS 04/16/17 [History] Metoprolol Tartrate 100 mg PO BID 04/16/17 [History] Furosemide [Lasix] 20 mg PO DAILY #30 tablet 04/19/17 [Rx] Oseltamivir [Tamiflu] 75 mg PO BID #6 capsule 04/19/17 [Rx] predniSONE [PredniSONE] 40 mg PO DAILY #10 tablet 04/19/17 [Rx] Allergies/Adverse Reactions: 3 Allergy/AdvReac Type Severity Reaction Status Date / Time No Known Allergies Allergy Verified 04/16/17 15:05 Date of admission: 04/16/17 16:00 Primary care physician: Rafa Justin MD - Constitutional Vitals: Temp Pulse Resp BP Pulse Ox 98.1 F 71 18 171/101 98 04/19/17 07:17 04/19/17 07:17 04/19/17 07:46 04/19/17 07:17 04/19/17 07:46 General appearance: Present: A&O X 3, answers questions appropriately - Head Head exam: Present: atraumatic, normocephalic - Neck Neck exam general surgery: Present: supple - Respiratory Respiratory exam: Present: decreased breath sounds, wheezes (mild). Absent: rales, respiratory distress, rhonchi - Cardiovascular Cardiovascular exam: Present: +S1, +S2. Absent: tachycardia - GI/Abdominal GI/Abdominal exam: Present: normal bowel sounds, soft. Absent: rebound, rigid, tenderness - Extremities Exam Extremities exam: Present: pedal edema (Trace.. Improved significantly). Absent : calf tenderness, tenderness - Back Exam Back exam: Absent: CVA tenderness (L), CVA tenderness (R) - Neurological Exam Neurological exam: Present: alert, oriented X3 - Psychiatric Psychiatric exam: Present: normal affect, normal mood - Skin Skin exam: Absent: rash - Patient Status Disposition: Home, Self-Care Condition: Good Overall status at discharge: patient is back to baseline - Discharge Instructions Follow Up With: Rafa Justin MD [Primary Care Provider] - Forms: ED Satisfaction Letter - Diet and Activity Activity: increase activity as tolerated Diet: low salt diet - VTE Documentation of Mechanical Device: Intermittent pneumatic compression device
[2017-04-19] MEDS: MethylPREDNISolone 40 MG/ML VIAL IVP SCH (08:55)
[2017-04-19] MEDS: OXcarbazepine 150 MG TABLET PO SCH (08:55)
[2017-04-19] MEDS: Metoprolol 100 MG TABLET PO SCH (08:55)
[2017-04-19] MEDS: FLUoxetine 20 MG CAPSULE PO SCH (08:55)
[2017-04-19] MEDS: Aspirin Enteric Coated 81 MG Tablet PO SCH (08:55)
[2017-04-19] MEDS: Oseltamivir Phosphate 30 MG CAPSULE PO SCH (08:56)
[2017-04-19] MEDS: amLODIPine 5 MG TABLET PO SCH (08:56)
[2017-04-19] MEDS ORDERED: Lisinopril 20 MG TABLET PO SCH (09:00)
[2017-04-19] MEDS ORDERED: Famotidine 20 MG TABLET PO SCH (09:00)
[2017-04-19] MEDS ORDERED: *HR* Labetalol 20 MG/4 ML SYRINGE IVP ONE (09:56)
[2017-04-19] MEDS ORDERED: *HR* LORazepam 0.5 MG TABLET PO ONE (10:00)
[2017-04-19 10:50] VITALS: BP 168/98
== END 2017-04-19 12:30 | disposition home or self-care (01) | DRG 291 ==
LOC: EMEROO 13:59 → 2NENU 16:00 → SUATTDRO 16:00 → 2NENU 17:05
PROVIDERS: ADMIT Family Medicine; ATTEND Family Medicine

== ENCOUNTER 2017-04-28 08:15 | Observation (INO) ==
--- NOTE | 2017-04-28 09:02 | Emergency Department Note ---
Disposition Clinical Impression: Abdominal pain of unknown etiology, Hypokalemia, Elevated troponin Nausea and vomiting Qualifiers: Vomiting type: unspecified Vomiting Intractability: non-intractable Qualified Code(s): R11.2 - Nausea with vomiting, unspecified Disposition: Admitted As Inpatient Condition: Fair Referrals: Rafa Justin MD [Non-Partnered Physician] - Forms: ED Satisfaction Letter Time of Disposition: 11:03 Nausea/Vomiting/Diarrhea HPI - General Chief complaint: ED Nausea/Vomiting/Diarrhea Stated complaint: N/V/D x's months Time Seen by Provider: 04/28/17 08:16 Source: patient Mode of arrival: EMS Limitations: no limitations Nursing Notes Reviewed: Yes Vital Signs Reviewed: Yes - History of Present Illness HPI Narrative: Alert and oriented nontoxic-appearing 71-year-old female presents by EMS for evaluation of nausea, vomiting, diarrhea, diffuse abdominal pain, and generalized fatigue. She states that symptoms started approximately one week ago and have persisted. She was discharged from this facility on 04/16/17 after being treated for acute respiratory failure, CHF, and influenza A. She denies any fever or chills. She denies any cough or shortness of breath. She denies any chest pain. She denies any urinary symptoms. She denies any known sick contacts or recent foreign travel. Pt Subjective Complaint: nausea, vomiting, diarrhea, abdominal pain, other ( fatigue) Onset (ago): week(s) (1 week) Associated Abdominal Pain: Yes If pain, Location of pain: diffuse Severity: moderate Severity scale (1-10): 7 Quality: cramping Consistency: intermittent Improves with: nothing Worsens with: nonthing Associated symptoms: Denies: chest pain, cough, fever/chills, dysuria, shortness of breath - Related Data Home Medications Medication Instructions Recorded Confirmed Amitriptyline [Elavil] 25 mg PO DAILY 04/12/16 04/16/17 Amlodipine Besylate 10 mg PO DAILY 04/12/16 04/16/17 Aspirin [Lo-Dose Aspirin EC] 81 mg PO DAILY 04/12/16 04/16/17 FLUoxetine HCl [Fluoxetine HCl] 40 mg PO DAILY 04/12/16 04/16/17 Glimepiride [Amaryl] 2 mg PO DAILY 04/12/16 04/16/17 Lisinopril 40 mg PO BID 04/12/16 04/16/17 OXcarbazepine [Oxcarbazepine] 600 mg PO BID 04/12/16 04/16/17 ALPRAZolam [Xanax 0.5 MG Tablet] 0.5 - 1 mg PO BID PRN 01/10/17 04/16/17 Albuterol Sulfate [Ventolin Hfa] 2 puff IH Q4H PRN 01/10/17 04/16/17 Fluticasone/Salmeterol [Advair Hfa 2 puff IH BID 01/10/17 04/16/17 230-21 Mcg Inhaler] Nitroglycerin [Nitrostat] 0.4 mg SL Q5M PRN 01/10/17 04/16/17 Ranitidine HCl [Heartburn Relief] 150 mg PO BID 01/10/17 04/16/17 cloNIDine HCl [Clonidine HCl] 0.3 mg PO BID PRN 01/10/17 04/16/17 Atorvastatin [Lipitor] 40 mg PO HS 04/16/17 04/16/17 Metoprolol Tartrate 100 mg PO BID 04/16/17 04/16/17 Previous Rx's Medication Instructions Recorded Furosemide [Lasix] 20 mg PO DAILY #30 tablet 04/19/17 Oseltamivir [Tamiflu] 75 mg PO BID #6 capsule 04/19/17 predniSONE [PredniSONE] 40 mg PO DAILY #10 tablet 04/19/17 Allergies Allergy/AdvReac Type Severity Reaction Status Date / Time No Known Allergies Allergy Verified 04/28/17 08:58 All systems ED: reviewed and negative except as stated. Constitutional: Reports: as per HPI, weakness (Generalized). Denies: fever, chills, weight change Eyes: Denies: eye pain, eye discharge, vision change ENT ED: Denies: ear pain, throat pain, dental pain, hearing loss, epistaxis, congestion, dysphagia Cardiovascular: Denies: chest pain, palpitations, dyspnea on exertion, edema, syncope Respiratory: Denies: cough, dyspnea, wheezes, hemoptysis, stridor Gastrointestinal: Reports: as per HPI, abdominal pain, nausea, vomiting, diarrhea. Denies: constipation, hematemesis, melena, hematochezia Genitourinary: Denies: dysuria, frequency, hematuria, discharge Musculoskeletal: Denies: back pain, neck pain, arthralgia, myalgia Integumentary: Denies: rash, abrasion, lesions Neurological: Denies: headache, weakness, numbness, paresthesias, confusion, abnormal gait, vertigo Psychiatric: Denies: anxiety, depression, suicidal thoughts, homicidal thoughts , auditory hallucinations, visual hallucinations Endocrine: Denies: fatigue Hematological/Lymphatic: Denies: easy bleeding, easy bruising Allergic/Immunologic: Denies: facial swelling, urticaria Past Medical History - Past Medical History Attestation: Yes The following information was validated with the patient. Source: patient, nursing notes reviewed Medical history: Reports: arthritis, coronary artery disease, CVA, diabetes, hyperlipidemia, hypertension, myocardial infarction Surgical history: Reports: coronary bypass (CABG) Psychiatric history: Reports: anxiety, depression [employer] history: Reports: no [employer]IDENT history - Social History Smoking Status: Current every day smoker Smokeless Tobacco Status: No Alcohol use: Reports: rarely Drug use: Reports: none Physical Exam - General Limitations: no limitations General appearance: alert, in no apparent distress - Head Head exam: atraumatic, normocephalic, normal inspection - Eye Eye exam: Present: normal appearance, PERRL, EOMI. Absent: nystagmus - ENT ENT exam: mucous membranes moist - Neck Neck exam: Present: normal inspection, full ROM, trachea midline - Chest Chest inspection: Present: normal inspection, symmetric chest wall rise - Respiratory Respiratory exam: Present: normal lung sounds bilaterally. Absent: respiratory distress, wheezes, stridor, accessory muscle use, prolonged expiratory phase - Cardiovascular Cardiovascular exam: Present: regular rate, normal rhythm, normal heart sounds - Abdominal Exam Abdominal exam: Present: soft, tenderness, normal bowel sounds. Absent: distention, guarding, rebound, rigidity Abdominal tenderness: Present: diffuse, mild - Extremities Exam Extremities exam: Present: normal inspection, full ROM. Absent: tenderness, pedal edema - Neurological Exam Neurological exam: Present: alert, oriented X3 - Psychiatric Psychiatric exam: Present: normal affect, normal mood - Skin Skin exam: Present: warm, dry, intact, normal color. Absent: rash Course Course Narrative: The patient's EKG showed ST depression in the anteroseptal leads. A posterior EKG was immediately performed afterwards. There were depression on the posterior EKG in leads V4 and V5. Slight elevation in lead V3. Dr. Healy presented these EKGs along with the patient's most current EKG to Dr. Orozco, compressor station chief engineer. Dr. Jo stated that there is no acute intervention required at this time. Cardiology will consult on the floor as the patient will be admitted to the hospitalist service. 1100: I spoke with Dr. Laguna of the hospitalist service. He is agreed to accept the patient for admission to the hospitalist care. He recommends against the initiation of IV antibiotics at this time. Vital Signs Temperature 100.3 F H 04/28/17 08:58 Pulse Rate 82 04/28/17 08:58 Respiratory Rate 15 04/28/17 08:58 Blood Pressure 91/60 04/28/17 08:58 O2 Sat by Pulse Oximetry 93 04/28/17 08:58 Temperature 100.3 F H 04/28/17 09:02 Pulse Rate 85 04/28/17 09:02 Respiratory Rate 15 04/28/17 09:02 Blood Pressure 91/60 04/28/17 09:02 O2 Sat by Pulse Oximetry 93 04/28/17 09:02 Oxygen Delivery Oxygen Delivery Nasal Cannula Nausea/Vomiting/Diarrhea - Medical Records Medical records reviewed: Yes I reviewed the patient's medical records. Laboratory Last Values WBC 18.7 K/mcL (4.3-11.1) H 04/28/17 09:14 RBC 5.42 M/mcL (3.82-4.97) H 04/28/17 09:14 Hgb 16.6 g/dL (11.5-15.4) H 04/28/17 09:14 Hct 50.0 % (35.3-44.9) H 04/28/17 09:14 MCV 92.3 fL (83.0-100.0) 04/28/17 09:14 MCH 30.6 pg (28.0-33.3) 04/28/17 09:14 MCHC 33.2 g/dL (31.6-35.5) 04/28/17 09:14 RDW 12.6 % (11.5-14.5) 04/28/17 09:14 Plt Count 289 K/mcL (140-400) 04/28/17 09:14 MPV 10.0 fL (9.4-12.4) 04/28/17 09:14 Immature Gran % 0.5 % (0-4) 04/28/17 09:14 Seg Neutrophils % 90.0 % 04/28/17 09:14 Lymphocytes % 3.7 % 04/28/17 09:14 Monocytes % 4.9 % 04/28/17 09:14 Eosinophils % 0.6 % 04/28/17 09:14 Basophils % 0.3 % 04/28/17 09:14 Neutrophils # 16.9 K/mcL (1.6-8.9) H 04/28/17 09:14 Lymphocytes # 0.7 K/mcL (0.6-4.6) 04/28/17 09:14 Monocytes # 0.9 K/mcL (0.0-1.3) 04/28/17 09:14 Eosinophils # 0.1 K/mcL (0.0-0.6) 04/28/17 09:14 Basophils # 0.1 K/mcL (0.0-0.2) 04/28/17 09:14 PT 10.7 Seconds (9.4-12.1) 04/28/17 09:14 INR 1.0 04/28/17 09:14 APTT 24.9 Seconds (26.0-36.0) L 04/28/17 09:14 Sodium 139 mEq/L (136-145) 04/28/17 09:14 Potassium 3.0 mEq/L (3.5-5.1) L 04/28/17 09:14 Chloride 92 mEq/L (98-107) L 04/28/17 09:14 Carbon Dioxide 34 mEq/L (23-29) H 04/28/17 09:14 BUN 36 mg/dL (8-23) H 04/28/17 09:14 Creatinine 1.24 mg/dL (0.60-1.20) H 04/28/17 09:14 Est GFR ( Amer) 52 (> 60) L 04/28/17 09:14 Est GFR (Non-Af Amer) 43 (> 60) L 04/28/17 09:14 BUN/Creatinine Ratio 29 (6-26) H 04/28/17 09:14 Glucose 337 mg/dL (70-105) H 04/28/17 09:14 Calculated Osmolality 310 (280-300) H 04/28/17 09:14 Lactic Acid 2.3 mmol/L (0.5-2.2) H 04/28/17 09:14 Calcium 9.1 mg/dL (8.6-10.3) 04/28/17 09:14 Magnesium 1.7 mg/dL (1.6-2.6) 04/28/17 09:14 Total Bilirubin 0.5 mg/dL (0.3-1.0) 04/28/17 09:14 Direct Bilirubin 0.2 mg/dL (0.0-0.2) 04/28/17 09:14 Indirect Bilirubin 0.3 mg/dL (0.0-1.2) 04/28/17 09:14 AST 10 Units/L (13-39) L 04/28/17 09:14 ALT 14 Units/L (7-52) 04/28/17 09:14 Alkaline Phosphatase 95 Units/L (34-104) 04/28/17 09:14 Troponin I 0.05 ng/mL (< 0.04) H* 04/28/17 09:14 B-Natriuretic Peptide 90 pg/mL (Less than 100) 04/28/17 09:14 Serum Total Protein 6.9 g/dL (6.4-8.9) 04/28/17 09:14 Albumin 4.2 g/dL (3.5-5.7) 04/28/17 09:14 Globulin 2.7 g/dL (2.4-3.5) 04/28/17 09:14 Albumin/Globulin Ratio 1.6 (1.1-2.2) 04/28/17 09:14 Amylase 17 Units/L (29-103) L 04/28/17 09:14 Lipase 15 Units/L (11-82) 04/28/17 09:14 Urine Color Yellow (Yellow) 04/28/17 10:10 Urine Clarity Clear (Clear) 04/28/17 10:10 Urine pH 5.5 pH Units (5.0-8.0) 04/28/17 10:10 Ur Specific [place] 1.027 (1.010-1.025) H 04/28/17 10:10 Urine Protein Trace mg/dL (Neg-Trace) 04/28/17 10:10 Urine Glucose (UA) 250 mg/dL (Normal) H 04/28/17 10:10 Urine Ketones Negative mg/dL (Negative) 04/28/17 10:10 Urine Blood Negative (Negative) 04/28/17 10:10 Urine Nitrite Negative (Negative) 04/28/17 10:10 Urine Bilirubin Small (Negative) H 04/28/17 10:10 Urine Urobilinogen Normal mg/dL (Normal) 04/28/17 10:10 Ur Leukocyte Esterase Trace (Negative) H 04/28/17 10:10 Urine Microscopic RBC 0-3 per hpf (0-3) 04/28/17 10:10 Urine Microscopic WBC 0-3 per hpf (0-3) 04/28/17 10:10 Ur Squamous Epith Cells Many per lpf (None-Few) H 04/28/17 10:10 Urine Bacteria None Seen per hpf (None-Few) 04/28/17 10:10 Hyaline Casts None Seen per lpf (None-Few) 04/28/17 10:10 Ur Culture Indicated? NO. (NO) 04/28/17 10:10 - Lab Data Lab results reviewed: Yes I reviewed the patient's lab results. Lab results narrative: Laboratory Last Values WBC 18.7 K/mcL (4.3-11.1) H 04/28/17 09:14 RBC 5.42 M/mcL (3.82-4.97) H 04/28/17 09:14 Hgb 16.6 g/dL (11.5-15.4) H 04/28/17 09:14 Hct 50.0 % (35.3-44.9) H 04/28/17 09:14 MCV 92.3 fL (83.0-100.0) 04/28/17 09:14 MCH 30.6 pg (28.0-33.3) 04/28/17 09:14 MCHC 33.2 g/dL (31.6-35.5) 04/28/17 09:14 RDW 12.6 % (11.5-14.5) 04/28/17 09:14 Plt Count 289 K/mcL (140-400) 04/28/17 09:14 MPV 10.0 fL (9.4-12.4) 04/28/17 09:14 Immature Gran % 0.5 % (0-4) 04/28/17 09:14 Seg Neutrophils % 90.0 % 04/28/17 09:14 Lymphocytes % 3.7 % 04/28/17 09:14 Monocytes % 4.9 % 04/28/17 09:14 Eosinophils % 0.6 % 04/28/17 09:14 Basophils % 0.3 % 04/28/17 09:14 Neutrophils # 16.9 K/mcL (1.6-8.9) H 04/28/17 09:14 Lymphocytes # 0.7 K/mcL (0.6-4.6) 04/28/17 09:14 Monocytes # 0.9 K/mcL (0.0-1.3) 04/28/17 09:14 Eosinophils # 0.1 K/mcL (0.0-0.6) 04/28/17 09:14 Basophils # 0.1 K/mcL (0.0-0.2) 04/28/17 09:14 PT 10.7 Seconds (9.4-12.1) 04/28/17 09:14 INR 1.0 04/28/17 09:14 APTT 24.9 Seconds (26.0-36.0) L 04/28/17 09:14 Sodium 139 mEq/L (136-145) 04/28/17 09:14 Potassium 3.0 mEq/L (3.5-5.1) L 04/28/17 09:14 Chloride 92 mEq/L (98-107) L 04/28/17 09:14 Carbon Dioxide 34 mEq/L (23-29) H 04/28/17 09:14 BUN 36 mg/dL (8-23) H 04/28/17 09:14 Creatinine 1.24 mg/dL (0.60-1.20) H 04/28/17 09:14 Est GFR ( Amer) 52 (> 60) L 04/28/17 09:14 Est GFR (Non-Af Amer) 43 (> 60) L 04/28/17 09:14 BUN/Creatinine Ratio 29 (6-26) H 04/28/17 09:14 Glucose 337 mg/dL (70-105) H 04/28/17 09:14 Calculated Osmolality 310 (280-300) H 04/28/17 09:14 Lactic Acid 2.3 mmol/L (0.5-2.2) H 04/28/17 09:14 Calcium 9.1 mg/dL (8.6-10.3) 04/28/17 09:14 Magnesium 1.7 mg/dL (1.6-2.6) 04/28/17 09:14 Total Bilirubin 0.5 mg/dL (0.3-1.0) 04/28/17 09:14 Direct Bilirubin 0.2 mg/dL (0.0-0.2) 04/28/17 09:14 Indirect Bilirubin 0.3 mg/dL (0.0-1.2) 04/28/17 09:14 AST 10 Units/L (13-39) L 04/28/17 09:14 ALT 14 Units/L (7-52) 04/28/17 09:14 Alkaline Phosphatase 95 Units/L (34-104) 04/28/17 09:14 Troponin I 0.05 ng/mL (< 0.04) H* 04/28/17 09:14 B-Natriuretic Peptide 90 pg/mL (Less than 100) 04/28/17 09:14 Serum Total Protein 6.9 g/dL (6.4-8.9) 04/28/17 09:14 Albumin 4.2 g/dL (3.5-5.7) 04/28/17 09:14 Globulin 2.7 g/dL (2.4-3.5) 04/28/17 09:14 Albumin/Globulin Ratio 1.6 (1.1-2.2) 04/28/17 09:14 Amylase 17 Units/L (29-103) L 04/28/17 09:14 Lipase 15 Units/L (11-82) 04/28/17 09:14 Urine Color Yellow (Yellow) 04/28/17 10:10 Urine Clarity Clear (Clear) 04/28/17 10:10 Urine pH 5.5 pH Units (5.0-8.0) 04/28/17 10:10 Ur Specific [place] 1.027 (1.010-1.025) H 04/28/17 10:10 Urine Protein Trace mg/dL (Neg-Trace) 04/28/17 10:10 Urine Glucose (UA) 250 mg/dL (Normal) H 04/28/17 10:10 Urine Ketones Negative mg/dL (Negative) 04/28/17 10:10 Urine Blood Negative (Negative) 04/28/17 10:10 Urine Nitrite Negative (Negative) 04/28/17 10:10 Urine Bilirubin Small (Negative) H 04/28/17 10:10 Urine Urobilinogen Normal mg/dL (Normal) 04/28/17 10:10 Ur Leukocyte Esterase Trace (Negative) H 04/28/17 10:10 Urine Microscopic RBC 0-3 per hpf (0-3) 04/28/17 10:10 Urine Microscopic WBC 0-3 per hpf (0-3) 04/28/17 10:10 Ur Squamous Epith Cells Many per lpf (None-Few) H 04/28/17 10:10 Urine Bacteria None Seen per hpf (None-Few) 04/28/17 10:10 Hyaline Casts None Seen per lpf (None-Few) 04/28/17 10:10 Ur Culture Indicated? NO. (NO) 04/28/17 10:10 Result diagrams: 04/28/17 09:14 04/28/17 09:14 Lab Results 04/28/17 04/28/17 04/28/17 Range/Units 09:14 09:14 09:14 WBC 18.7 H (4.3-11.1) K/mcL RBC 5.42 H (3.82-4.97) M/mcL Hgb 16.6 H (11.5-15.4) g/dL Hct 50.0 H (35.3-44.9) % MCV 92.3 (83.0-100.0) fL MCH 30.6 (28.0-33.3) pg MCHC 33.2 (31.6-35.5) g/dL RDW 12.6 (11.5-14.5) % Plt Count 289 (140-400) K/mcL MPV 10.0 (9.4-12.4) fL Immature Gran % 0.5 (0-4) % Seg Neutrophils % 90.0 % Lymphocytes % 3.7 % Monocytes % 4.9 % Eosinophils % 0.6 % Basophils % 0.3 % Neutrophils # 16.9 H (1.6-8.9) K/mcL Lymphocytes # 0.7 (0.6-4.6) K/mcL Monocytes # 0.9 (0.0-1.3) K/mcL Eosinophils # 0.1 (0.0-0.6) K/mcL Basophils # 0.1 (0.0-0.2) K/mcL PT 10.7 (9.4-12.1) Seconds INR 1.0 APTT 24.9 L (26.0-36.0) Seconds Sodium 139 (136-145) mEq/L Potassium 3.0 L (3.5-5.1) mEq/L Chloride 92 L (98-107) mEq/L Carbon Dioxide 34 H (23-29) mEq/L BUN 36 H (8-23) mg/dL Creatinine 1.24 H (0.60-1.20) mg/dL Est GFR ( Amer) 52 L (> 60) Est GFR (Non-Af Amer) 43 L (> 60) BUN/Creatinine Ratio 29 H (6-26) Glucose 337 H (70-105) mg/dL Calculated Osmolality 310 H (280-300) Lactic Acid (0.5-2.2) mmol/L Calcium 9.1 (8.6-10.3) mg/dL Magnesium 1.7 (1.6-2.6) mg/dL Total Bilirubin 0.5 (0.3-1.0) mg/dL Direct Bilirubin 0.2 (0.0-0.2) mg/dL Indirect Bilirubin 0.3 (0.0-1.2) mg/dL AST 10 L (13-39) Units/L ALT 14 (7-52) Units/L Alkaline Phosphatase 95 (34-104) Units/L Troponin I (< 0.04) ng/mL B-Natriuretic Peptide (Less than 100) pg/mL Serum Total Protein 6.9 (6.4-8.9) g/dL Albumin 4.2 (3.5-5.7) g/dL Globulin 2.7 (2.4-3.5) g/dL Albumin/Globulin Ratio 1.6 (1.1-2.2) Amylase 17 L (29-103) Units/L Lipase 15 (11-82) Units/L Urine Color (Yellow) Urine Clarity (Clear) Urine pH (5.0-8.0) pH Units Ur Specific [place] (1.010-1.025) Urine Protein (Neg-Trace) mg/dL Urine Glucose (UA) (Normal) mg/dL Urine Ketones (Negative) mg/dL Urine Blood (Negative) Urine Nitrite (Negative) Urine Bilirubin (Negative) Urine Urobilinogen (Normal) mg/dL Ur Leukocyte Esterase (Negative) Urine Microscopic RBC (0-3) per hpf Urine Microscopic WBC (0-3) per hpf Ur Squamous Epith Cells (None-Few) per lpf Urine Bacteria (None-Few) per hpf Hyaline Casts (None-Few) per lpf Ur Culture Indicated? (NO) 04/28/17 04/28/17 04/28/17 Range/Units 09:14 09:14 09:14 WBC (4.3-11.1) K/mcL RBC (3.82-4.97) M/mcL Hgb (11.5-15.4) g/dL Hct (35.3-44.9) % MCV (83.0-100.0) fL MCH (28.0-33.3) pg MCHC (31.6-35.5) g/dL RDW (11.5-14.5) % Plt Count (140-400) K/mcL MPV (9.4-12.4) fL Immature Gran % (0-4) % Seg Neutrophils % % Lymphocytes % % Monocytes % % Eosinophils % % Basophils % % Neutrophils # (1.6-8.9) K/mcL Lymphocytes # (0.6-4.6) K/mcL Monocytes # (0.0-1.3) K/mcL Eosinophils # (0.0-0.6) K/mcL Basophils # (0.0-0.2) K/mcL PT (9.4-12.1) Seconds INR APTT (26.0-36.0) Seconds Sodium (136-145) mEq/L Potassium (3.5-5.1) mEq/L Chloride (98-107) mEq/L Carbon Dioxide (23-29) mEq/L BUN (8-23) mg/dL Creatinine (0.60-1.20) mg/dL Est GFR ( Amer) (> 60) Est GFR (Non-Af Amer) (> 60) BUN/Creatinine Ratio (6-26) Glucose (70-105) mg/dL Calculated Osmolality (280-300) Lactic Acid 2.3 H (0.5-2.2) mmol/L Calcium (8.6-10.3) mg/dL Magnesium (1.6-2.6) mg/dL Total Bilirubin (0.3-1.0) mg/dL Direct Bilirubin (0.0-0.2) mg/dL Indirect Bilirubin (0.0-1.2) mg/dL AST (13-39) Units/L ALT (7-52) Units/L Alkaline Phosphatase (34-104) Units/L Troponin I 0.05 H* (< 0.04) ng/mL B-Natriuretic Peptide 90 (Less than 100) pg/mL Serum Total Protein (6.4-8.9) g/dL Albumin (3.5-5.7) g/dL Globulin (2.4-3.5) g/dL Albumin/Globulin Ratio (1.1-2.2) Amylase (29-103) Units/L Lipase (11-82) Units/L Urine Color (Yellow) Urine Clarity (Clear) Urine pH (5.0-8.0) pH Units Ur Specific [place] (1.010-1.025) Urine Protein (Neg-Trace) mg/dL Urine Glucose (UA) (Normal) mg/dL Urine Ketones (Negative) mg/dL Urine Blood (Negative) Urine Nitrite (Negative) Urine Bilirubin (Negative) Urine Urobilinogen (Normal) mg/dL Ur Leukocyte Esterase (Negative) Urine Microscopic RBC (0-3) per hpf Urine Microscopic WBC (0-3) per hpf Ur Squamous Epith Cells (None-Few) per lpf Urine Bacteria (None-Few) per hpf Hyaline Casts (None-Few) per lpf Ur Culture Indicated? (NO) 04/28/17 Range/Units 10:10 WBC (4.3-11.1) K/mcL RBC (3.82-4.97) M/mcL Hgb (11.5-15.4) g/dL Hct (35.3-44.9) % MCV (83.0-100.0) fL MCH (28.0-33.3) pg MCHC (31.6-35.5) g/dL RDW (11.5-14.5) % Plt Count (140-400) K/mcL MPV (9.4-12.4) fL Immature Gran % (0-4) % Seg Neutrophils % % Lymphocytes % % Monocytes % % Eosinophils % % Basophils % % Neutrophils # (1.6-8.9) K/mcL Lymphocytes # (0.6-4.6) K/mcL Monocytes # (0.0-1.3) K/mcL Eosinophils # (0.0-0.6) K/mcL Basophils # (0.0-0.2) K/mcL PT (9.4-12.1) Seconds INR APTT (26.0-36.0) Seconds Sodium (136-145) mEq/L Potassium (3.5-5.1) mEq/L Chloride (98-107) mEq/L Carbon Dioxide (23-29) mEq/L BUN (8-23) mg/dL Creatinine (0.60-1.20) mg/dL Est GFR ( Amer) (> 60) Est GFR (Non-Af Amer) (> 60) BUN/Creatinine Ratio (6-26) Glucose (70-105) mg/dL Calculated Osmolality (280-300) Lactic Acid (0.5-2.2) mmol/L Calcium (8.6-10.3) mg/dL Magnesium (1.6-2.6) mg/dL Total Bilirubin (0.3-1.0) mg/dL Direct Bilirubin (0.0-0.2) mg/dL Indirect Bilirubin (0.0-1.2) mg/dL AST (13-39) Units/L ALT (7-52) Units/L Alkaline Phosphatase (34-104) Units/L Troponin I (< 0.04) ng/mL B-Natriuretic Peptide (Less than 100) pg/mL Serum Total Protein (6.4-8.9) g/dL Albumin (3.5-5.7) g/dL Globulin (2.4-3.5) g/dL Albumin/Globulin Ratio (1.1-2.2) Amylase (29-103) Units/L Lipase (11-82) Units/L Urine Color Yellow (Yellow) Urine Clarity Clear (Clear) Urine pH 5.5 (5.0-8.0) pH Units Ur Specific [place] 1.027 H (1.010-1.025) Urine Protein Trace (Neg-Trace) mg/dL Urine Glucose (UA) 250 H (Normal) mg/dL Urine Ketones Negative (Negative) mg/dL Urine Blood Negative (Negative) Urine Nitrite Negative (Negative) Urine Bilirubin Small H (Negative) Urine Urobilinogen Normal (Normal) mg/dL Ur Leukocyte Esterase Trace H (Negative) Urine Microscopic RBC 0-3 (0-3) per hpf Urine Microscopic WBC 0-3 (0-3) per hpf Ur Squamous Epith Cells Many H (None-Few) per lpf Urine Bacteria None Seen (None-Few) per hpf Hyaline Casts None Seen (None-Few) per lpf Ur Culture Indicated? NO. (NO) - Radiology Data Radiology results reviewed: Yes I reviewed the patient's radiology results. Chest X-Ray 04/28/17 08:57 IMPRESSION: No significant findings in the chest. D/ / Claudio Baires MD / Claudio Baires MD Interpreting Provider: Claudio Baires MD Abdomen/Pelvis CT 04/28/17 09:36 IMPRESSION: 1. No acute process 2. Nonobstructing left nephrolithiasis 3. Cholelithiasis 4. Sigmoid diverticulosis D/ / Luigi Malik MD / Luigi Malik MD Interpreting Provider: Luigi Mlaik MD - EKG Data EKG attestation: Yes I reviewed and interpreted this EKG. EKG results narrative: EKG reviewed by Dr. Healy as well. EKG shows a sinus rhythm at a rate of 87 bpm. NC interval 156, QRS duration 109. ST depression noted in the lateral leads. A posterior EKG was performed shortly thereafter, which showed ST depression in leads V4 and V5 and slight elevation in lead V3.
[2017-04-28] MEDS ORDERED: 0.9 % Sodium Chloride 500 ML IVC ONE (09:13)
[2017-04-28] MEDS ORDERED: Ondansetron 4 MG/2 ML VIAL IVP ONE (09:13)
[2017-04-28 09:29] LABS: Basophils # 0.1 K/mcL (0.0-0.2); Basophils % 0.3 %; Eosinophils # 0.1 K/mcL (0.0-0.6); Eosinophils % 0.6 %; Hemoglobin 16.6 g/dL (11.5-15.4); Immature Granulocytes % 0.5 % (0-4); Lymphocytes # 0.7 K/mcL (0.6-4.6); Lymphocytes % 3.7 %; Mean Corpuscular HGB Conc 33.2 g/dL (31.6-35.5); Mean Corpuscular Hemoglobin 30.6 pg (28.0-33.3); Mean Corpuscular Volume 92.3 fL (83.0-100.0); Monocytes # 0.9 K/mcL (0.0-1.3); Monocytes % 4.9 %; Neutrophils # 16.9 K/mcL (1.6-8.9); Platelet Count 289 K/mcL (140-400); Red Blood Count 5.42 M/mcL (3.82-4.97); Red Cell Distribution Width 12.6 % (11.5-14.5)
[2017-04-28 09:36] LABS: Prothrombin Time 10.7 Seconds (9.4-12.1)
[2017-04-28 09:39] LABS: Activated Partial Thrombo Time 24.9 Seconds (26.0-36.0)
[2017-04-28 09:49] LABS: Albumin 4.2 g/dL (3.5-5.7); Albumin/Globulin Ratio 1.6 (1.1-2.2); Bilirubin,Direct 0.2 mg/dL (0.0-0.2); Bilirubin,Indirect 0.3 mg/dL (0.0-1.2); Bilirubin,Total 0.5 mg/dL (0.3-1.0); Calcium 9.1 mg/dL (8.6-10.3); Globulin 2.7 g/dL (2.4-3.5); Magnesium 1.7 mg/dL (1.6-2.6); Total Protein 6.9 g/dL (6.4-8.9)
[2017-04-28 10:19] LABS: Bilirubin,Urine Small (Negative); Blood,Urine Negative (Negative); Clarity,Urine Clear (Clear); Color,Urine Yellow (Yellow); Glucose,Urine (UA) 250 mg/dL (Normal); Ketones,Urine Negative (Negative); Leukocyte Esterase,Urine Trace (Negative); Nitrite,Urine Negative (Negative); PH,Urine 5.5 pH Units (5.0-8.0); Protein,Urine Trace mg/dL (Neg-Trace); Specific Gravity,Urine 1.027 (1.010-1.025); Urobilinogen,Urine Normal (Normal)
[2017-04-28 10:20] LABS: Bacteria,Urine None Seen per hpf (None-Few); Hyaline Casts,Urine None Seen per lpf (None-Few); RBC,Urine 0-3 per hpf (0-3); Squamous Epithelial Cell,Urine Many per lpf (None-Few); WBC,Urine 0-3 per hpf (0-3)
[2017-04-28] MEDS ORDERED: Potassium Chloride 40 MEQ, Lidocaine 1% 2 ML in D5% in Water 500 ML IVPB ONE (10:49)
[2017-04-28] MEDS ORDERED: Aspirin 81 MG TAB.CHEW PO ONE (10:49)
--- NOTE | 2017-04-28 11:01 | Emergency Department Note ---
Disposition Clinical Impression: Abdominal pain of unknown etiology, Hypokalemia, Elevated troponin Nausea and vomiting Qualifiers: Vomiting type: unspecified Vomiting Intractability: non-intractable Qualified Code(s): R11.2 - Nausea with vomiting, unspecified Disposition: Admitted As Inpatient Condition: Fair General Adult HPI - General Chief complaint: ED Nausea/Vomiting/Diarrhea Stated complaint: N/V/D x's months Time Seen by Provider: 04/28/17 08:16 Source: patient Mode of arrival: EMS Limitations: no limitations Nursing Notes Reviewed: Yes Vital Signs Reviewed: Yes - History of Present Illness Pain Scale: 7 - Related Data Home Medications Medication Instructions Recorded Confirmed Amitriptyline [Elavil] 25 mg PO DAILY 04/12/16 04/28/17 Amlodipine Besylate 10 mg PO DAILY 04/12/16 04/28/17 Aspirin [Lo-Dose Aspirin EC] 81 mg PO DAILY 04/12/16 04/28/17 FLUoxetine HCl [Fluoxetine HCl] 40 mg PO DAILY 04/12/16 04/28/17 Glimepiride [Amaryl] 2 mg PO DAILY 04/12/16 04/28/17 OXcarbazepine [Oxcarbazepine] 600 mg PO BID 04/12/16 04/28/17 ALPRAZolam [Xanax 0.5 MG Tablet] 0.5 - 1 mg PO BID PRN 01/10/17 04/28/17 Albuterol Sulfate [Ventolin Hfa] 2 puff IH Q4H PRN 01/10/17 04/28/17 Nitroglycerin [Nitrostat] 0.4 mg SL Q5M PRN 01/10/17 04/28/17 Ranitidine HCl [Heartburn Relief] 150 mg PO BID 01/10/17 04/28/17 Atorvastatin [Lipitor] 40 mg PO HS 04/16/17 04/28/17 Metoprolol Tartrate 100 mg PO BID 04/16/17 04/28/17 Glycopyrrolate/Formoterol Fum 2 puff IH BID 04/28/17 04/28/17 [Bevespi Aerosphere Inhaler] hydroCHLOROthiazide 25 mg PO DAILY 04/28/17 04/28/17 [Hydrochlorothiazide] metroNIDAZOLE [Flagyl] 500 mg PO TID 04/28/17 04/28/17 Previous Rx's Medication Instructions Recorded Furosemide [Lasix] 20 mg PO DAILY #30 tablet 04/19/17 Allergies Allergy/AdvReac Type Severity Reaction Status Date / Time No Known Allergies Allergy Verified 04/28/17 08:58 Constitutional: Reports: as per HPI, weakness (Generalized). Denies: fever, chills, weight change Eyes: Denies: eye pain, eye discharge, vision change ENT ED: Denies: ear pain, throat pain, dental pain, hearing loss, epistaxis, congestion, dysphagia Cardiovascular: Denies: chest pain, palpitations, dyspnea on exertion, edema, syncope Respiratory: Denies: cough, dyspnea, wheezes, hemoptysis, stridor Gastrointestinal: Reports: as per HPI, abdominal pain, nausea, vomiting, diarrhea. Denies: constipation, hematemesis, melena, hematochezia Genitourinary: Denies: dysuria, frequency, hematuria, discharge Musculoskeletal: Denies: back pain, neck pain, arthralgia, myalgia Integumentary: Denies: rash, abrasion, lesions Neurological: Denies: headache, weakness, numbness, paresthesias, confusion, abnormal gait, vertigo Psychiatric: Denies: anxiety, depression, suicidal thoughts, homicidal thoughts , auditory hallucinations, visual hallucinations Endocrine: Denies: fatigue Hematological/Lymphatic: Denies: easy bleeding, easy bruising Allergic/Immunologic: Denies: facial swelling, urticaria Past Medical History - Past Medical History Medical history: Reports: arthritis, coronary artery disease, CVA, diabetes, hyperlipidemia, hypertension, myocardial infarction Surgical history: Reports: coronary bypass (CABG) Psychiatric history: Reports: anxiety, depression 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 I have reviewed and agree with the care plan. History and Exam by me shows: Patient seen with [facility] nurse practitioner. Complaint is vomiting diarrhea abdominal pain for a week. Patient also misses some chest pain last night but none today. Denies shortness of breath. Recent admission for respiratory failure and CHF. She is in no distress on exam with some mild abdominal tenderness without guarding. Lungs clear. Plan. The patient had some concerning EKG changes of anteroseptal ST depressions. Posteriorly showed a possible elevation one lead. It was reviewed with cardiology does not illnesses posterior STEMI. She is not having symptoms of that at this time. She will be admitted for the vomiting diarrhea with cardiology consult. Time: 10:59 Vital Signs Temperature 100.3 F H 04/28/17 08:58 Pulse Rate 82 04/28/17 08:58 Respiratory Rate 15 04/28/17 08:58 Blood Pressure 91/60 04/28/17 08:58 O2 Sat by Pulse Oximetry 93 04/28/17 08:58 Temperature 99.3 F 04/28/17 12:56 Pulse Rate 87 04/28/17 12:56 Respiratory Rate 20 04/28/17 12:56 Blood Pressure 108/64 04/28/17 12:56 O2 Sat by Pulse Oximetry 94 04/28/17 12:56 Oxygen Delivery Oxygen Delivery Room Air Medical Decision Making - Lab Data Result diagrams: 04/28/17 09:14 04/28/17 09:14 Lab Results 04/28/17 04/28/17 04/28/17 Range/Units 09:14 09:14 09:14 WBC 18.7 H (4.3-11.1) K/mcL RBC 5.42 H (3.82-4.97) M/mcL Hgb 16.6 H (11.5-15.4) g/dL Hct 50.0 H (35.3-44.9) % MCV 92.3 (83.0-100.0) fL MCH 30.6 (28.0-33.3) pg MCHC 33.2 (31.6-35.5) g/dL RDW 12.6 (11.5-14.5) % Plt Count 289 (140-400) K/mcL MPV 10.0 (9.4-12.4) fL Immature Gran % 0.5 (0-4) % Seg Neutrophils % 90.0 % Lymphocytes % 3.7 % Monocytes % 4.9 % Eosinophils % 0.6 % Basophils % 0.3 % Neutrophils # 16.9 H (1.6-8.9) K/mcL Lymphocytes # 0.7 (0.6-4.6) K/mcL Monocytes # 0.9 (0.0-1.3) K/mcL Eosinophils # 0.1 (0.0-0.6) K/mcL Basophils # 0.1 (0.0-0.2) K/mcL PT 10.7 (9.4-12.1) Seconds INR 1.0 APTT 24.9 L (26.0-36.0) Seconds Sodium 139 (136-145) mEq/L Potassium 3.0 L (3.5-5.1) mEq/L Chloride 92 L (98-107) mEq/L Carbon Dioxide 34 H (23-29) mEq/L BUN 36 H (8-23) mg/dL Creatinine 1.24 H (0.60-1.20) mg/dL Est GFR ( Amer) 52 L (> 60) Est GFR (Non-Af Amer) 43 L (> 60) BUN/Creatinine Ratio 29 H (6-26) Glucose 337 H (70-105) mg/dL Calculated Osmolality 310 H (280-300) Lactic Acid (0.5-2.2) mmol/L Calcium 9.1 (8.6-10.3) mg/dL Magnesium 1.7 (1.6-2.6) mg/dL Total Bilirubin 0.5 (0.3-1.0) mg/dL Direct Bilirubin 0.2 (0.0-0.2) mg/dL Indirect Bilirubin 0.3 (0.0-1.2) mg/dL AST 10 L (13-39) Units/L ALT 14 (7-52) Units/L Alkaline Phosphatase 95 (34-104) Units/L Troponin I (< 0.04) ng/mL B-Natriuretic Peptide (Less than 100) pg/mL Serum Total Protein 6.9 (6.4-8.9) g/dL Albumin 4.2 (3.5-5.7) g/dL Globulin 2.7 (2.4-3.5) g/dL Albumin/Globulin Ratio 1.6 (1.1-2.2) Amylase 17 L (29-103) Units/L Lipase 15 (11-82) Units/L Urine Color (Yellow) Urine Clarity (Clear) Urine pH (5.0-8.0) pH Units Ur Specific [place] (1.010-1.025) Urine Protein (Neg-Trace) mg/dL Urine Glucose (UA) (Normal) mg/dL Urine Ketones (Negative) mg/dL Urine Blood (Negative) Urine Nitrite (Negative) Urine Bilirubin (Negative) Urine Urobilinogen (Normal) mg/dL Ur Leukocyte Esterase (Negative) Urine Microscopic RBC (0-3) per hpf Urine Microscopic WBC (0-3) per hpf Ur Squamous Epith Cells (None-Few) per lpf Urine Bacteria (None-Few) per hpf Hyaline Casts (None-Few) per lpf Ur Culture Indicated? (NO) 04/28/17 04/28/17 04/28/17 Range/Units 09:14 09:14 09:14 WBC (4.3-11.1) K/mcL RBC (3.82-4.97) M/mcL Hgb (11.5-15.4) g/dL Hct (35.3-44.9) % MCV (83.0-100.0) fL MCH (28.0-33.3) pg MCHC (31.6-35.5) g/dL RDW (11.5-14.5) % Plt Count (140-400) K/mcL MPV (9.4-12.4) fL Immature Gran % (0-4) % Seg Neutrophils % % Lymphocytes % % Monocytes % % Eosinophils % % Basophils % % Neutrophils # (1.6-8.9) K/mcL Lymphocytes # (0.6-4.6) K/mcL Monocytes # (0.0-1.3) K/mcL Eosinophils # (0.0-0.6) K/mcL Basophils # (0.0-0.2) K/mcL PT (9.4-12.1) Seconds INR APTT (26.0-36.0) Seconds Sodium (136-145) mEq/L Potassium (3.5-5.1) mEq/L Chloride (98-107) mEq/L Carbon Dioxide (23-29) mEq/L BUN (8-23) mg/dL Creatinine (0.60-1.20) mg/dL Est GFR ( Amer) (> 60) Est GFR (Non-Af Amer) (> 60) BUN/Creatinine Ratio (6-26) Glucose (70-105) mg/dL Calculated Osmolality (280-300) Lactic Acid 2.3 H (0.5-2.2) mmol/L Calcium (8.6-10.3) mg/dL Magnesium (1.6-2.6) mg/dL Total Bilirubin (0.3-1.0) mg/dL Direct Bilirubin (0.0-0.2) mg/dL Indirect Bilirubin (0.0-1.2) mg/dL AST (13-39) Units/L ALT (7-52) Units/L Alkaline Phosphatase (34-104) Units/L Troponin I 0.05 H* (< 0.04) ng/mL B-Natriuretic Peptide 90 (Less than 100) pg/mL Serum Total Protein (6.4-8.9) g/dL Albumin (3.5-5.7) g/dL Globulin (2.4-3.5) g/dL Albumin/Globulin Ratio (1.1-2.2) Amylase (29-103) Units/L Lipase (11-82) Units/L Urine Color (Yellow) Urine Clarity (Clear) Urine pH (5.0-8.0) pH Units Ur Specific [place] (1.010-1.025) Urine Protein (Neg-Trace) mg/dL Urine Glucose (UA) (Normal) mg/dL Urine Ketones (Negative) mg/dL Urine Blood (Negative) Urine Nitrite (Negative) Urine Bilirubin (Negative) Urine Urobilinogen (Normal) mg/dL Ur Leukocyte Esterase (Negative) Urine Microscopic RBC (0-3) per hpf Urine Microscopic WBC (0-3) per hpf Ur Squamous Epith Cells (None-Few) per lpf Urine Bacteria (None-Few) per hpf Hyaline Casts (None-Few) per lpf Ur Culture Indicated? (NO) 04/28/17 04/28/17 Range/Units 10:10 12:43 WBC (4.3-11.1) K/mcL RBC (3.82-4.97) M/mcL Hgb (11.5-15.4) g/dL Hct (35.3-44.9) % MCV (83.0-100.0) fL MCH (28.0-33.3) pg MCHC (31.6-35.5) g/dL RDW (11.5-14.5) % Plt Count (140-400) K/mcL MPV (9.4-12.4) fL Immature Gran % (0-4) % Seg Neutrophils % % Lymphocytes % % Monocytes % % Eosinophils % % Basophils % % Neutrophils # (1.6-8.9) K/mcL Lymphocytes # (0.6-4.6) K/mcL Monocytes # (0.0-1.3) K/mcL Eosinophils # (0.0-0.6) K/mcL Basophils # (0.0-0.2) K/mcL PT (9.4-12.1) Seconds INR APTT (26.0-36.0) Seconds Sodium (136-145) mEq/L Potassium (3.5-5.1) mEq/L Chloride (98-107) mEq/L Carbon Dioxide (23-29) mEq/L BUN (8-23) mg/dL Creatinine (0.60-1.20) mg/dL Est GFR ( Amer) (> 60) Est GFR (Non-Af Amer) (> 60) BUN/Creatinine Ratio (6-26) Glucose (70-105) mg/dL Calculated Osmolality (280-300) Lactic Acid (0.5-2.2) mmol/L Calcium (8.6-10.3) mg/dL Magnesium 1.5 L (1.6-2.6) mg/dL Total Bilirubin (0.3-1.0) mg/dL Direct Bilirubin (0.0-0.2) mg/dL Indirect Bilirubin (0.0-1.2) mg/dL AST (13-39) Units/L ALT (7-52) Units/L Alkaline Phosphatase (34-104) Units/L Troponin I < 0.03 (< 0.04) ng/mL B-Natriuretic Peptide (Less than 100) pg/mL Serum Total Protein (6.4-8.9) g/dL Albumin (3.5-5.7) g/dL Globulin (2.4-3.5) g/dL Albumin/Globulin Ratio (1.1-2.2) Amylase (29-103) Units/L Lipase (11-82) Units/L Urine Color Yellow (Yellow) Urine Clarity Clear (Clear) Urine pH 5.5 (5.0-8.0) pH Units Ur Specific [place] 1.027 H (1.010-1.025) Urine Protein Trace (Neg-Trace) mg/dL Urine Glucose (UA) 250 H (Normal) mg/dL Urine Ketones Negative (Negative) mg/dL Urine Blood Negative (Negative) Urine Nitrite Negative (Negative) Urine Bilirubin Small H (Negative) Urine Urobilinogen Normal (Normal) mg/dL Ur Leukocyte Esterase Trace H (Negative) Urine Microscopic RBC 0-3 (0-3) per hpf Urine Microscopic WBC 0-3 (0-3) per hpf Ur Squamous Epith Cells Many H (None-Few) per lpf Urine Bacteria None Seen (None-Few) per hpf Hyaline Casts None Seen (None-Few) per lpf Ur Culture Indicated? NO. (NO)
--- NOTE | 2017-04-28 11:41 | Internal Med History&Physical ---
Date of Encounter: 04/28/17 Time of Encounter: 11:23 Assessment and Plan (1) Leukocytosis Current visit: Yes Status: Acute Consult for infectious diarrhea which check a C. difficile Qualifiers: Leukocytosis type: bandemia Qualified Code(s): D72.825 - Bandemia (2) Abdominal pain of unknown etiology Current visit: Yes Status: Acute Nonspecific mild abdominal pain CT of the abdomen is unremarkable (3) Elevated troponin Current visit: Yes Status: Acute Had episode of chest pain with mildly elevated troponin cartilages consult taped (4) Hypokalemia Current visit: Yes Status: Acute Severe hypokalemia secondary to vomiting and diarrhea we will replace and recheck in a.m. check magnesium as well (5) Nausea and vomiting Current visit: Yes Status: Acute Nausea vomiting and diarrhea suggestive of gastroenteritis which check a C. 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 Diabetes mellitus complication status: with unspecified complications Qualified Code(s): E11.8 - Type 2 diabetes mellitus with unspecified complications (8) Essential hypertension Current visit: No Status: Chronic Chronic others from blood pressure is low Florentino due to hypovolemia with low blood pressure medication and start IV hydration (9) IDALIA (acute kidney injury) Current visit: Yes Status: Acute Acute kidney injury due to dehydration from nausea vomiting or diarrhea Internal Medicine - H&P: HPI Chief complaint: nausea, vomitting and diarrhea Admitted From: Emergency Dept Plans for Post Hospital Care: Home History of present illness: Ms. Mackey is a 71 year old female Patient with history of diabetes, hypertension, COPD, CAD and a CABG 3, CVA, high cholesterol, obesity and obstructive sleep apnea. Patient was recently admitted to the hospital with congestive heart failure and influenza A bronchitis treated and discharged on April 19. Patient presented emergency room with about a 1 week of diffuse mild epigastric pain , nausea and vomiting and diarrhea she said diarrhea is loose and not watery butb foul- smelling high. She is unclear if she has been on recent antibiotic In the emergency room evaluation was unremarkable CT of the abdomen was unremarkable. Patient also mentioned that she has some chest pain last night troponin mildly elevated 0.05 cardiology has been consult bnp is 90 patient will be admitted for IV hydration which check C. difficile. Past Med Surg Social Fam HX - Past Medical History Medical history: arthritis, coronary artery disease, CVA, diabetes, hyperlipidemia, hypertension, myocardial infarction Psychiatric history: anxiety, depression - Past Surgical History Surgical History: coronary bypass (CABG) - Social History Smoking Status: Current every day smoker Smokeless Tobacco Status: No Alcohol use: rarely Drug use: none Internal Medicine - H&P: Meds Amitriptyline [Elavil] 25 mg PO DAILY 04/12/16 [History] Amlodipine Besylate 10 mg PO DAILY 04/12/16 [History] Aspirin [Lo-Dose Aspirin EC] 81 mg PO DAILY 04/12/16 [History] FLUoxetine HCl [Fluoxetine HCl] 40 mg PO DAILY 04/12/16 [History] Glimepiride [Amaryl] 2 mg PO DAILY 04/12/16 [History] OXcarbazepine [Oxcarbazepine] 600 mg PO BID 04/12/16 [History] ALPRAZolam [Xanax 0.5 MG Tablet] 0.5 - 1 mg PO BID PRN 01/10/17 [History] Albuterol Sulfate [Ventolin Hfa] 2 puff IH Q4H PRN 01/10/17 [History] Nitroglycerin [Nitrostat] 0.4 mg SL Q5M PRN 01/10/17 [History] Ranitidine HCl [Heartburn Relief] 150 mg PO BID 01/10/17 [History] Atorvastatin [Lipitor] 40 mg PO HS 04/16/17 [History] Metoprolol Tartrate 100 mg PO BID 04/16/17 [History] Furosemide [Lasix] 20 mg PO DAILY #30 tablet 04/19/17 [Rx] Glycopyrrolate/Formoterol Fum [Bevespi Aerosphere Inhaler] 2 puff IH BID [History] hydroCHLOROthiazide [Hydrochlorothiazide] 25 mg PO DAILY 04/28/17 [History] metroNIDAZOLE [Flagyl] 500 mg PO TID 04/28/17 [History] 3 Allergy/AdvReac Type Severity Reaction Status Date / Time No Known Allergies Allergy Verified 04/28/17 08:58 All Systems PM: A 10-system review of systems was performed and is negative for pertinent findings except as documented above in the HPI. - Constitutional Constitutional: fatigue - EENT Eyes: no change in vision, no discharge, no pain, no photophobia Ears: no ear discharge, no ear pain, no tinnitus Nose, mouth and throat: no dysphagia, no nasal discharge, no neck pain, no sore throat - Cardiovascular Cardiovascular ROS IM: no chest pain, no diaphoresis, no dyspnea, no lightheadedness, no palpitations, no syncope - Respiratory Respiratory: no cough, no dyspnea, no wheezing, no excessive phlegm production - Gastrointestinal Gastrointestinal: abdominal pain, diarrhea, nausea, vomiting - Genitourinary Genitourinary: no change in urinary stream, no dysuria, no flank pain, no hematuria - Musculoskeletal Musculoskeletal ROS IM: no numbness, no tingling - Integumentary Integumentary IM: no rash, no unusual bruising - Neurological Neurological ROS: no confusion, no convulsions, no focal weakness, no numbness, no tingling, no tremor(s) - Constitutional Vitals: Temp Pulse Resp BP Pulse Ox 100.3 F H 85 15 91/60 93 04/28/17 09:02 04/28/17 09:02 04/28/17 09:02 04/28/17 09:02 04/28/17 09:02 - Head Head exam: Present: atraumatic, normocephalic - Eye Eye exam: Present: PERRL, conjuntiva pink, sclera anicteric Pupils: Present: PERRL - Neck Neck exam general surgery: Present: supple, trachea midline. Absent: lymphadenopathy - Respiratory Respiratory exam: Present: CTAB. Absent: accessory muscle use, rales, rhonchi, wheezes - Cardiovascular Cardiovascular exam: Present: RRR, +S1, +S2. Absent: diastolic murmur, gallop, rubs, systolic murmur - GI/Abdominal GI/Abdominal exam: Present: soft, tenderness - Extremities Exam Extremities exam: Present: warm, radial pulses palpable and symmetrical. Absent : calf tenderness, cyanotic, pedal edema Internal Med - H&P Results - Labs CBC & Chem 7: 04/28/17 09:14 04/28/17 09:14 Labs: Short CBC 04/28/17 Range/Units 09:14 WBC 18.7 H (4.3-11.1) K/mcL Hgb 16.6 H (11.5-15.4) g/dL Hct 50.0 H (35.3-44.9) % Plt Count 289 (140-400) K/mcL Neutrophils # 16.9 H (1.6-8.9) K/mcL BMP 04/28/17 09:14 Sodium 139 Potassium 3.0 L Chloride 92 L Carbon Dioxide 34 H BUN 36 H Creatinine 1.24 H Glucose 337 H Calcium 9.1 Cardiac Enzymes 04/28/17 Range/Units 09:14 Troponin I 0.05 H* (< 0.04) ng/mL Liver Function 04/28/17 Range/Units 09:14 Total Bilirubin 0.5 (0.3-1.0) mg/dL Direct Bilirubin 0.2 (0.0-0.2) mg/dL AST 10 L (13-39) Units/L ALT 14 (7-52) Units/L Alkaline Phosphatase 95 (34-104) Units/L Albumin 4.2 (3.5-5.7) g/dL Urine 04/28/17 Range/Units 10:10 Urine Color Yellow (Yellow) Urine Clarity Clear (Clear) Urine pH 5.5 (5.0-8.0) pH Units Ur Specific [place] 1.027 H (1.010-1.025) Urine Protein Trace (Neg-Trace) mg/dL Urine Glucose (UA) 250 H (Normal) mg/dL - Impressions ITS Impressions Chest X-Ray 04/28/17 08:57 IMPRESSION: No significant findings in the chest. D/ / Claudio Baires MD / Claudio Baires MD Interpreting Provider: Claudio Baires MD Abdomen/Pelvis CT 04/28/17 09:36 IMPRESSION: 1. No acute process 2. Nonobstructing left nephrolithiasis 3. Cholelithiasis 4. Sigmoid diverticulosis D/ / Luigi Malik MD / Luigi Malik MD Interpreting Provider: Luigi Malik MD
[2017-04-28] MEDS ORDERED: traMADol 50 MG TABLET PO PRN (11:49)
[2017-04-28] MEDS ORDERED: Naloxone 0.4 MG/ML INJ IVP PRN (11:49)
[2017-04-28] MEDS ORDERED: Acetaminophen 325 MG TABLET PO PRN (11:49)
[2017-04-28] MEDS ORDERED: ALPRAZolam 0.5 MG TABLET PO PRN ×2 (11:52→14:06)
[2017-04-28] MEDS ORDERED: D5% in Water 1,000 ML IVC PRN (11:53)
[2017-04-28] MEDS ORDERED: *HR* Dextrose 50 % in Water (Syg) 50 ML SYRINGE IVP PRN (11:53)
[2017-04-28] MEDS ORDERED: Dextrose Gel 15 GM/37.5 ML TUBE PO PRN ×2 (11:53)
[2017-04-28] MEDS: 0.9 % Sodium Chloride 1,000 ML IVC SCH (13:02)
[2017-04-28 13:22] LABS: Magnesium 1.5 mg/dL (1.6-2.6)
[2017-04-28 13:25] LABS: Troponin I < 0.03 ng/mL (< 0.04)
[2017-04-28] MEDS: metroNIDAZOLE 500 MG TABLET PO SCH ×2 (14:07→21:38)
[2017-04-28] MEDS ORDERED: Potassium Chloride 10 MEQ in 0.9 % Sodium Chloride 100 ML IVPB SCH ×2 (14:15→14:45)
[2017-04-28] MEDS ORDERED: SODIUM CHLORIDE 0.9% IVPB SCH (14:45)
[2017-04-28] MEDS ORDERED: POTASSIUM CHLORIDE IVPB SCH (14:45)
[2017-04-28] MEDS ORDERED: *HR* Heparin 5,000 UNIT/ML VIAL IVP ONE (15:28)
[2017-04-28] MEDS ORDERED: *HR* Heparin 5,000 UNIT/ML VIAL IVP PRN ×2 (15:28)
[2017-04-28] MEDS ORDERED: Heparin 25,000 UNIT/500 ML D5W 25,000 UNIT/500 ML BAG IVC SCH (15:30)
--- NOTE | 2017-04-28 16:08 | Cardiology Consult Note ---
Date of Encounter: 04/28/17 Time of Encounter: 14:30 Assessment and Plan (1) Nausea and vomiting Current Visit: Yes Status: Acute Per cardiology: -ADmitted with nausea, vomiting, diarrhea. -Electrolyte abnormalities noted. -Management per primary service Qualifiers: Vomiting type: unspecified Vomiting Intractability: unspecified Qualified Code(s): R11.2 - Nausea with vomiting, unspecified (2) Elevated troponin Current Visit: Yes Status: Acute Per cardiology: -Troponin 0.05, then negative. In the setting of lactic acidosis, electrolyte abnormalities. -Denies chest pain. -New ST depressions noted in anterior leads. -Of note, reports recent cardiac testing at [facility] and states had "blood clot" in heart. -Will check TTE -WIll start standard dose heparin for possible thrombus. -Will obtain records from [facility]. (3) CAD (coronary artery disease) Current Visit: No Status: Chronic Per cardiology: -Known CAD s/p CABG and re-do CABG. -Last known [facility] 2010 with 10% left main, circumflex stent occluded with balloon angioplasty performed, 50% residual stenosis noted. Staged PCI with 2 NEREYDA placed. -Stress 04/2016 with prior infarct with mild-moderate reversible ischemia involving inferior wall. -Stress 03/2014 with mild reversible ischemia in inferior and inferolateral cohen , somewhat similar to findings on prior myocardial perfusio scan 2010. -On asa, statin. Not curnrently on beta mariana due to hypotension. -Will repeat TTE, will obtain records from [facility]. Qualifiers: Coronary Disease-Associated Artery/Lesion type: unspecified vessel or lesion type [place] vs. transplanted heart: [place] heart Associated angina: without angina Qualified Code(s): I25.10 - Atherosclerotic heart disease of [place] coronary artery without angina pectoris Discussion w patient/family: The assessment and plan as outlined above was discussed with the patient and/or family members who expressed understanding and agreement. All questions were answered. Thank you for involving us in the care of your patient. Please call with any questions. Discussed and reviewed with . History of Present Illness Consult date: 04/28/17 Requesting physician: Antwon Forrester Consult reason: elevated troponin, ECG changes Chief complaint: nausea, vomiting, diarrhea History of present illness: Ms. Mackey is a 71 year old female with a relevant past medical history of [place] , CAD s/p CABG and PCI, hyperlipidemia, HTN, DM, GERD, anxiety, COPD, CVA, thoracic artery aneurysm repair. Patient was recently diagnosed with influenza the beginning of this month, also CHF. Patient states for the past week or two has noticed nause, vomiting, diarrhea. Patient also reports poor oral intake. Patient denies chest pain. Patient reports shortness of breath is improving. States fatigue is about baseline. Of note, patient reports was at [facility] in January, and was diagnosed with "a clot in my heart." Patient reports was placed on blood thinners at [facility], however is unsure if she has been taking at home. Past Med Surg Social Fam HX - Past Medical History Attestation: Yes The following information was validated with the patient. Source: patient, old records reviewed, obtained from family Medical history: arthritis, coronary artery disease, CVA, diabetes, hyperlipidemia, hypertension, myocardial infarction Psychiatric history: anxiety, depression - Past Surgical History Surgical History: coronary bypass (CABG) - Social History Smoking Status: Current every day smoker Packs per day: 1/2 Smokeless Tobacco Status: No Alcohol use: rarely Drug use: none Medications and Allergies Amitriptyline [Elavil] 25 mg PO DAILY 04/12/16 [History] Amlodipine Besylate 10 mg PO DAILY 04/12/16 [History] Aspirin [Lo-Dose Aspirin EC] 81 mg PO DAILY 04/12/16 [History] FLUoxetine HCl [Fluoxetine HCl] 40 mg PO DAILY 04/12/16 [History] Glimepiride [Amaryl] 2 mg PO DAILY 04/12/16 [History] OXcarbazepine [Oxcarbazepine] 600 mg PO BID 04/12/16 [History] ALPRAZolam [Xanax 0.5 MG Tablet] 0.5 - 1 mg PO BID PRN 01/10/17 [History] Albuterol Sulfate [Ventolin Hfa] 2 puff IH Q4H PRN 01/10/17 [History] Nitroglycerin [Nitrostat] 0.4 mg SL Q5M PRN 01/10/17 [History] Ranitidine HCl [Heartburn Relief] 150 mg PO BID 01/10/17 [History] Atorvastatin [Lipitor] 40 mg PO HS 04/16/17 [History] Metoprolol Tartrate 100 mg PO BID 04/16/17 [History] Furosemide [Lasix] 20 mg PO DAILY #30 tablet 04/19/17 [Rx] Glycopyrrolate/Formoterol Fum [Bevespi Aerosphere Inhaler] 2 puff IH BID [History] hydroCHLOROthiazide [Hydrochlorothiazide] 25 mg PO DAILY 04/28/17 [History] metroNIDAZOLE [Flagyl] 500 mg PO TID 04/28/17 [History] 3 Allergy/AdvReac Type Severity Reaction Status Date / Time No Known Allergies Allergy Verified 04/28/17 08:58 All Systems Review: The remainder of the systems were reviewed and are negative - Constitutional Constitutional: anorexia - Cardiovascular Cardiovascular: as per HPI - Gastrointestinal Gastrointestinal: diarrhea, nausea Physical Examination Vital Signs, Last 4 Hours Temp Pulse Resp BP Pulse Ox 04/28/17 14:43 98.7 F 83 14 124/83 96 04/28/17 12:56 99.3 F 87 20 108/64 94 04/28/17 12:38 94 General: Conversant, No Apparent Distress HEENT: Atraumatic, Normocephaly, Mucus Membranes Moist Neck: No JVD, Normal carotid pulses Cardiac: Reg Rate and Rhythm, Normal S1 and S2, No Murmur Lungs: Other (Lung sounds diminished throughout. ) Neuro: Alert and responsive, No focal deficits noted Abdomen: Soft, Non-Tender Skin: No rashes noted on visualized skin Musculoskeletal: No Chest Wall Tenderness Extremities: No Clubbing, No Cyanosis, No Edema, Normal Pulses Results 04/28/17 09:14 04/28/17 09:14 Lab Results ITS Impressions Chest X-Ray 04/28/17 08:57 IMPRESSION: No significant findings in the chest. D/ / Claudio Baires MD / Claudio Baires MD Interpreting Provider: Claudio Baires MD Abdomen/Pelvis CT 04/28/17 09:36 IMPRESSION: 1. No acute process 2. Nonobstructing left nephrolithiasis 3. Cholelithiasis 4. Sigmoid diverticulosis D/ / Luigi Malik MD / Liugi Malik MD Interpreting Provider: Luigi Malik MD Active Medications Acetaminophen (Tylenol) 650 mg PO Q6HR PRN PRN Reason: Mild Pain/Fever Stop: 10/28/17 11:50 Albuterol Sulfate (Albuterol Inhaler) 2 puff IH [id number] PRN PRN Reason: Shortness Of Breath Stop: 10/28/17 16:01 Alprazolam (Xanax) 0.5 mg PO BID PRN; Protocol PRN Reason: Anxiety Stop: 10/28/17 11:53 Amitriptyline HCl (Elavil) 25 mg PO DAILY [facility] Stop: 10/29/17 09:01 Aspirin (Aspirin Ec) 81 mg PO DAILY TEENA Stop: 10/29/17 09:01 Atorvastatin Calcium (Lipitor) 40 mg PO HS TEENA Stop: 10/28/17 21:01 Dextrose/Water (Dextrose 50% (Syg)) 25 ml IVP AD PRN PRN Reason: Hypoglycemia Stop: 10/28/17 11:54 Famotidine (Pepcid) 10 mg PO BID [facility] Stop: 10/28/17 21:01 Fluoxetine HCl (Prozac) 40 mg PO DAILY [facility] Stop: 10/29/17 09:01 Glimepiride (Amaryl) 2 mg PO DAILY [facility] Stop: 10/29/17 09:01 Glucagon (Glucagen) 1 mg IM ONCE PRN PRN Reason: Hypoglycemia Stop: 10/28/17 11:54 Glucose (Gluctose) 15 gm PO ONCE PRN PRN Reason: Hypoglycemia Stop: 10/28/17 11:54 Glucose (Gluctose) 30 gm PO ONCE PRN PRN Reason: Hypoglycemia Stop: 10/28/17 11:54 Heparin Sodium (Porcine) (Heparin) 5,700 unit 70 unit/kg (5700 unit) IVP Q6H PRN PRN Reason: SEE COMMENTS Stop: 10/28/17 15:29 Heparin Sodium (Porcine) (Heparin) 2,900 unit 35 unit/kg (2900 unit) IVP Q6H PRN PRN Reason: SEE COMMENTS Stop: 10/28/17 15:29 Sodium Chloride (0.9 % Sodium Chloride) 1,000 mls @ 100 mls/hr IVC .Q10H TEENA Stop: 04/29/17 07:59 Last Admin: 04/28/17 13:02 Dose: 100 mls/hr Dextrose (Dextrose 5%) 1,000 mls @ 100 mls/hr IVC .Q10H PRN PRN Reason: HYPOGLYCEMIA Stop: 10/28/17 11:54 Potassium Chloride 10 meq/ (Sodium Chloride) 100 mls @ 100 mls/hr IVPB Q1H [facility] Stop: 04/28/17 22:29 Heparin Sodium/Dextrose (Heparin 25,000 Unit/500 Ml D5w) 25,000 unit in 500 mls @ 22.861 mls/hr IVC .[id number] TEENA; 14 UNIT/KG/HR PRN Reason: Protocol Stop: 10/28/17 15:31 Insulin Human Lispro (Humalog) 0 units SQ HS TEENA PRN Reason: Protocol Stop: 10/28/17 21:01 Insulin Human Lispro (Humalog) 0 units SQ TIDAC [facility] PRN Reason: Protocol Stop: 10/28/17 16:31 Metronidazole (Flagyl) 500 mg PO TID [facility] PRN Reason: Protocol Stop: 10/28/17 15:01 Last Admin: 04/28/17 14:07 Dose: 500 mg Naloxone HCl (Narcan) 0.4 mg IVP Q2MIN PRN PRN Reason: SEE COMMENTS Stop: 10/28/17 11:50 Oxcarbazepine (Trileptal) 600 mg PO BID [facility] Stop: 10/28/17 21:01 Pharmacy Profile Note (Patient Taking Own Medication) 0 each IH BID [facility] Stop: 10/28/17 21:01 Tramadol HCl (Ultram) 50 mg PO Q6HR PRN PRN Reason: Moderate Pain Stop: 10/28/17 11:50 Laboratory Tests 04/28/17 04/28/17 04/28/17 09:14 09:14 09:14 WBC 18.7 H Hgb 16.6 H Potassium 3.0 L Chloride 92 L Creatinine 1.24 H Lactic Acid 2.3 H Magnesium 1.7 Troponin I 04/28/17 04/28/17 09:14 12:43 WBC Hgb Potassium Chloride Creatinine Lactic Acid Magnesium Troponin I 0.05 H* < 0.03 - Imaging and Cardiology Chest Xray: report reviewed Stress Test: report reviewed Echo: report reviewed - EKG Interpretation EKG results cardiology: personally reviewed (ECG with SR, ST depression noted in anterior leads.) Consult Discharge Plan - Plan Referrals: NONE,PCP [Primary Care Provider] -
[2017-04-28 16:45] LABS: Hematocrit 42.2 % (35.3-44.9); Hemoglobin 14.2 g/dL (11.5-15.4); Mean Corpuscular HGB Conc 33.6 g/dL (31.6-35.5); Mean Corpuscular Hemoglobin 30.7 pg (28.0-33.3); Mean Corpuscular Volume 91.3 fL (83.0-100.0); Mean Platelet Volume 10.1 fL (9.4-12.4); Platelet Count 256 K/mcL (140-400); Red Blood Count 4.62 M/mcL (3.82-4.97); Red Cell Distribution Width 12.7 % (11.5-14.5)
[2017-04-28 16:48] LABS: Prothrombin Time 11.2 Seconds (9.4-12.1)
[2017-04-28 16:50] LABS: Activated Partial Thrombo Time 22.9 Seconds (26.0-36.0)
[2017-04-28] MEDS: Potassium Chloride 10 MEQ in 0.9 % Sodium Chloride 100 ML IVPB SCH ×4 (17:11→23:54)
[2017-04-28] MEDS: Insulin LISPRO 300 UNITS/3 ML VIAL SQ SCH (17:48)
[2017-04-28] MEDS ORDERED: Insulin LISPRO 300 UNITS/3 ML VIAL SQ SCH (21:00)
[2017-04-28] MEDS: Famotidine 20 MG TABLET PO SCH (21:38)
[2017-04-28] MEDS: OXcarbazepine 150 MG TABLET PO SCH (21:46)
--- NOTE | 2017-04-28 23:08 | Electrocardiograph Report ---
[address] [place] [address] Test Date: 2017-04-28 Pat Name: Mildred Mackey Department: 102 Room: 3B54 Gender: F Dialysis Registered Nurse: : 1945 Requested By: Antwon Forrester Order Number: [id number] Reading MD: Bobby Kumar DO Measurements Intervals [place] Rate: 87 P: 33 IN: 156 QRS: 8 QRSD: 109 T: 60 QT: 411 QTc: 455 Interpretive Statements SINUS RHYTHM INFERIOR MYOCARDIAL INFARCTION, PROBABLY OLD WITH POSTERIOR EXTENSION [PROMIN MODERATE T-WAVE ABNORMALITY, CONSIDER ANTERIOR ISCHEMIA Electronically Signed On 04-28-2017 23:06:32 EDT by Bobby Kumar DO
--- NOTE | 2017-04-28 23:09 | Electrocardiograph Report ---
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
[2017-04-28] MEDS: (Glycopyrrolate/Formoterol Fum [Bevespi Aerosphere In IH SCH (23:42)
[2017-04-28 23:54] LABS: Activated Partial Thrombo Time 118.2 Seconds (26.0-36.0)
[2017-04-29 00:10] LABS: Heparin anti-factor XA UFH 1.18 IU/mL (0.30-0.70)
[2017-04-29 01:02] LABS: Hematocrit 40.9 % (35.3-44.9); Hemoglobin 13.4 g/dL (11.5-15.4); Mean Corpuscular HGB Conc 32.8 g/dL (31.6-35.5); Mean Corpuscular Hemoglobin 30.4 pg (28.0-33.3); Mean Corpuscular Volume 92.7 fL (83.0-100.0); Mean Platelet Volume 10.2 fL (9.4-12.4); Platelet Count 234 K/mcL (140-400); Red Blood Count 4.41 M/mcL (3.82-4.97); Red Cell Distribution Width 12.7 % (11.5-14.5)
[2017-04-29 01:21] LABS: Alanine Aminotransferase 10 Units/L (7-52); Albumin 3.4 g/dL (3.5-5.7); Albumin/Globulin Ratio 1.5 (1.1-2.2); Alkaline Phosphatase 72 Units/L (34-104); Aspartate Amino Transferase 9 Units/L (13-39); BUN/Creatinine Ratio 29 (6-26); Bilirubin,Total 0.3 mg/dL (0.3-1.0); Blood Urea Nitrogen 23 mg/dL (8-23); Calcium 7.8 mg/dL (8.6-10.3); Carbon Dioxide 33 mEq/L (23-29); Chloride 100 mEq/L (98-107); Chol/HDL Ratio 3.5 (0-4.9); Cholesterol 132 mg/dL (< 200); Globulin 2.3 g/dL (2.4-3.5); Glucose 191 mg/dL (70-105); HDL Cholesterol 38 mg/dL (40-59); LDL Cholesterol,Calculated 68 mg/dL (0-99); Osmolality,Calculated 297 (280-300); Sodium 139 mEq/L (136-145); Total Protein 5.7 g/dL (6.4-8.9); Triglycerides 132 mg/dL (< 150); eGFR For African Americans > 60 (> 60); eGFR For Non-African Americans > 60 (> 60)
[2017-04-29] MEDS: 0.9 % Sodium Chloride 1,000 ML IVC SCH (07:37)
[2017-04-29] MEDS ORDERED: Lidocaine -MPF 2% 2 ML VIAL ONE (08:09)
[2017-04-29] MEDS ORDERED: *HR* Propofol 200 MG/20 ML VIAL IVP ONE (08:10)
[2017-04-29] MEDS ORDERED: FLUoxetine 20 MG CAPSULE PO SCH (09:00)
[2017-04-29] MEDS ORDERED: Aspirin Enteric Coated 81 MG Tablet PO SCH (09:00)
[2017-04-29] MEDS ORDERED: *HR* Glimepiride 2 MG TABLET PO SCH (09:00)
--- NOTE | 2017-04-29 09:08 | Anesthesia Evaluation PreOp ---
Date of Encounter: 04/29/17 Time of Encounter: 09:10 - Past History Planned Operation: EGD Cardiac History: [place], CHF, HTN, Hyperlipidemia, Arrhythmia, Cardiac Surgery, Other (Patient admitted in the past month with shortness of breath. [place] to be due to influenza and mild CHF. Patient also being heparinized for a small cardiac thrombus. 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: Denies Any Significant HX Other Medical History: Diabetes Type II, Thyroid, GERD Anesthesia History: No Prior Anesthetic Complications, Past Anesthesia Alcohol Use: rarely Drug use: none Medications and Allergies Amitriptyline [Elavil] 25 mg PO DAILY 04/12/16 [History] Amlodipine Besylate 10 mg PO DAILY 04/12/16 [History] Aspirin [Lo-Dose Aspirin EC] 81 mg PO DAILY 04/12/16 [History] FLUoxetine HCl [Fluoxetine HCl] 40 mg PO DAILY 04/12/16 [History] Glimepiride [Amaryl] 2 mg PO DAILY 04/12/16 [History] OXcarbazepine [Oxcarbazepine] 600 mg PO BID 04/12/16 [History] ALPRAZolam [Xanax 0.5 MG Tablet] 0.5 - 1 mg PO BID PRN 01/10/17 [History] Albuterol Sulfate [Ventolin Hfa] 2 puff IH Q4H PRN 01/10/17 [History] Nitroglycerin [Nitrostat] 0.4 mg SL Q5M PRN 01/10/17 [History] Ranitidine HCl [Heartburn Relief] 150 mg PO BID 01/10/17 [History] Atorvastatin [Lipitor] 40 mg PO HS 04/16/17 [History] Metoprolol Tartrate 100 mg PO BID 04/16/17 [History] Furosemide [Lasix] 20 mg PO DAILY #30 tablet 04/19/17 [Rx] Glycopyrrolate/Formoterol Fum [Bevespi Aerosphere Inhaler] 2 puff IH BID [History] hydroCHLOROthiazide [Hydrochlorothiazide] 25 mg PO DAILY 04/28/17 [History] metroNIDAZOLE [Flagyl] 500 mg PO TID 04/28/17 [History] 3 Allergy/AdvReac Type Severity Reaction Status Date / Time No Known Allergies Allergy Verified 04/28/17 08:58 - Meds/Allergy Pre-op Review Medications Reviewed: Yes Allergies Reviewed: Yes Beta Blockers on Current Med List: Yes (None taken during hospitalization) Anesthesia Results - Labs 04/29/17 00:31 04/29/17 00:31 - Imaging EKG: report reviewed (sinus rhythm, ant. infarct, age unknown.) Anesthesia Exam Selected Entries 04/29/17 07:11 Temperature 98.7 F Pulse Rate 95 Respiratory Rate 18 Blood Pressure 91/56 O2 Sat by Pulse Oximetry 92 Weight: 82 kg. NPO (# of Hours): over 8 hours - HEENT Pupil (Motor): Pupils equal Mallampati: II Teeth: Edentulous Oral Opening: Greater than 3 - Cardiac Rhythm: Regular Murmur: None - Pulmonary Breath Sounds: bilateral Clear Respiratory Effort: Symmetrical Anesthesia Assess/Plan ASA Score: 3 Modified [place] Scale for Level of Consciousness: Cooperative, oriented, and tranquil Anesthetic Plan: MAC Monitoring Plan: Standard Monitors Recovery Plan: Other (Discussed MAC anesthesia, agreed to proceed.)
[2017-04-29] MEDS ORDERED: Tetracaine/Benzocaine/Butamben 200MG/SPRAY (100SPY/BOT) MM ONE (09:18)
--- NOTE | 2017-04-29 09:49 | Gastroenterology Consult Note ---
<ValdezofeliaLuzma - Last Filed: 04/29/17 11:07> Date of Encounter: 04/29/17 Time of Encounter: 09:48 - Assessment and plan (1) Nausea and vomiting Status: Acute Assessment and plan: 71-year-old female with one-week history of nausea, vomiting, and diarrhea, as well as diffuse abdominal pain. -Patient denying continued diarrhea this morning. -If no further diarrhea, recommend discontinuing C. difficile toxin analysis. -Patient recently consumed a large amount of avocadoes which is a few food for her. -Changes in her diet could be contributing to her gastrointestinal irritation. Recommend discontinuing any further intake of avocado. -EGD today (04/29/2017) demonstrated gastritis, esophagitis, and duodenitis, as well as a periampullary diverticulum. No biopsies taken secondary to current anticoagulation. -At this point, no further workup is indicated. -We will defer the rest of her workup to cardiology. -Recommend outpatient follow up with GI office 2-4 weeks after discharge from hospital. Qualifiers: Vomiting type: unspecified Vomiting Intractability: unspecified Qualified Code(s): R11.2 - Nausea with vomiting, unspecified (2) Abdominal pain of unknown etiology Status: Acute Assessment and plan: See plan outlined above. - Time Spent With Patient Total time spent is greater than 50% in coordination of care (as documented) at patient's floor/unit and/or counseling patient: GI History of Present Illness - Data of Consult Patient: known to practice within the last 3 years (2010 with [facility]) Consult date: 04/29/17 Requesting Physician: Fela Rogers CNP - Consult Narrative Reason for consult: nausea, vomitting, and diarrhea History of present illness: Ms. Mackey is a 71 year old female with past medical history of DM 2, COPD, CAD, CABG 3, CVA, HLD, obesity, LORI, and irritable bowel disease. She presented to [facility] on 04/28/2017 with complaints of diffuse abdominal pain, nausea, vomiting, diarrhea, and generalized fatigue. Patient reported a one-week history of these symptoms. She describes her diarrhea as loose, not watery, and foul-smelling. CT of the abdomen and pelvis was obtained in the emergency department and was unremarkable. Patient has also complained of some chest pain with changes noted on EKG and mild troponin elevations. Cardiology has been consulted and is following the patient. Of note, patient was recently hospitalized for congestive heart failure and influenza a. She was discharged only a week ago on April 19. This morning, patient states her diarrhea has resolved. She does report a recent intake of avocados. She states she has been eating avocados for the past week and has never consumed them before. She denies current chest pain, nausea, vomiting, diarrhea. She denies shortness of breath. She denies hematochezia, hematemesis , or melena. Past Med Surg Social Fam HX - Past Medical History Attestation: Yes The following information was validated with the patient. Source: patient Medical history: arthritis, coronary artery disease, CVA, diabetes, hyperlipidemia, hypertension, myocardial infarction Psychiatric history: anxiety, depression - Past Surgical History Surgical History: coronary bypass (CABG), hysterectomy ([place], [facility]), other ( Thoracic artery aneurysm repair, AAA repair,) - Social History Smoking Status: Current every day smoker Packs per day: 1/2 Smokeless Tobacco Status: No Alcohol use: rarely Drug use: none - Gastrointestinal Gastrointestinal: Present: abdominal pain, bloating, change in bowel habits, diarrhea, nausea, vomiting. Absent: hematochezia, melena - Constitutional Constitutional: fatigue (Baseline), no weight gain, no weight loss - Cardiovascular Cardiovascular ROS: Absent: chest pain, irregular heart rhythm, palpitations - Respiratory Respiratory IM: Present: cough, dyspnea (Improving). Absent: wheezing - Genitourinary Genitourinary: Absent: Urinary frequency - Hematologic/Lymphatic Hematologic/Lymphatic pediatric: Absent: easy bleeding - Integumentary Integumentary GI: Absent: jaundice, pruritis - Constitutional Vitals: Temp Pulse Resp BP Pulse Ox 98.3 F 93 20 127/79 97 04/29/17 09:05 04/29/17 09:05 04/29/17 09:05 04/29/17 09:05 04/29/17 09:05 General appearance: Present: pleasant, no acute distress - Head Head exam: Present: atraumatic, normal inspection - ENT ENT exam: Present: mucous membranes moist - Respiratory Respiratory exam: Present: decreased breath sounds - Cardiovascular Cardiovascular exam: Present: RRR, +S1, +S2. Absent: systolic murmur - GI/Abdominal GI/Abdominal exam: Present: normal bowel sounds, soft, tenderness (Mild diffuse) , no peritoneal signs. Absent: guarding, hepatomegaly, rigid - Expanded GI/Abdominal Exam GI/Abdominal exam expanded: Absent: ascites - Extremities Exam Extremities exam: Present: radial pulses palpable and symmetrical. Absent: calf tenderness, cyanotic, pedal edema - Neurological Exam Neurological exam: Present: alert - Skin Skin exam: Present: dry, intact, warm Results - Labs CBC & Chem 7: 04/29/17 00:31 04/29/17 00:31 Labs: Last Result Calcium 7.8 mg/dL (8.6-10.3) L 04/29/17 00:31 Troponin I 0.03 ng/mL (< 0.04) 04/29/17 00:31 Triglycerides 132 mg/dL (< 150) 04/29/17 00:31 Entire Visit Hgb 13.4 g/dL (11.5-15.4) 04/29/17 00:31 Hct 40.9 % (35.3-44.9) 04/29/17 00:31 PT 11.2 Seconds (9.4-12.1) 04/28/17 16:10 Total Bilirubin 0.3 mg/dL (0.3-1.0) 04/29/17 00:31 AST 9 Units/L (13-39) L 04/29/17 00:31 ALT 10 Units/L (7-52) 04/29/17 00:31 Amylase 17 Units/L (29-103) L 04/28/17 09:14 Lipase 15 Units/L (11-82) 04/28/17 09:14 - ABG ABG results: PT/INR, D-dimer PT 11.2 Seconds (9.4-12.1) 04/28/17 16:10 Consult Discharge Plan - Plan Instructions: Famotidine (By mouth), Sucralfate (By mouth), Amlodipine (By mouth), Upper Gastrointestinal Endoscopy (DC) Referrals: Andriy Vaz MD [Partnered Physician] - (your appointment has been webrequested. our offices will call you with a follow up appointment time and date.) Miranda Dean DO [Resident] - 05/05/17 10:00 am (This appointment will be at the family residency practice across the road from the main campus; located with occupational health. ) NONE,PCP [Non-Partnered Physician] - Prescriptions: amLODIPine [Norvasc] 10 mg PO DAILY #30 tablet Famotidine [Pepcid] 10 mg PO BID #30 tablet Sucralfate [Carafate] 1 gm PO QIDAC 30 Days #120 tablet <Andriy Vaz - Last Filed: 05/09/17 12:42> Date of Encounter: 04/29/17 - Time Spent With Patient Total time spent is greater than 50% in coordination of care (as documented) at patient's floor/unit and/or counseling patient: GI History of Present Illness - Data of Consult Requesting Physician: Fela Rogers CNP - Consult Narrative History of present illness: Ms. Mackey is a 71 year old female - Constitutional Vitals: Temp Pulse Resp BP Pulse Ox 98.9 F 89 20 109/68 94 04/29/17 11:19 04/29/17 11:19 04/29/17 11:19 04/29/17 11:19 04/29/17 11:19 Results - Labs CBC & Chem 7: 04/29/17 00:31 04/29/17 00:31 Labs: Last Result Calcium 7.8 mg/dL (8.6-10.3) L 04/29/17 00:31 Troponin I 0.03 ng/mL (< 0.04) 04/29/17 00:31 Triglycerides 132 mg/dL (< 150) 04/29/17 00:31 Entire Visit Hgb 13.4 g/dL (11.5-15.4) 04/29/17 00:31 Hct 40.9 % (35.3-44.9) 04/29/17 00:31 PT 11.2 Seconds (9.4-12.1) 04/28/17 16:10 Total Bilirubin 0.3 mg/dL (0.3-1.0) 04/29/17 00:31 AST 9 Units/L (13-39) L 04/29/17 00:31 ALT 10 Units/L (7-52) 04/29/17 00:31 Amylase 17 Units/L (29-103) L 04/28/17 09:14 Lipase 15 Units/L (11-82) 04/28/17 09:14 - ABG ABG results: PT/INR, D-dimer PT 11.2 Seconds (9.4-12.1) 04/28/17 16:10 - Attending Attestation I examined this patient and my medical decision-making was reviewed with the Resident Physician. I agree with the documented findings, disposition and treatment plan as described except to the extent set forth below.
[2017-04-29] MEDS: metroNIDAZOLE 500 MG TABLET PO SCH (09:55)
[2017-04-29] MEDS: OXcarbazepine 150 MG TABLET PO SCH (09:55)
[2017-04-29] MEDS: Famotidine 20 MG TABLET PO SCH (09:55)
[2017-04-29] MEDS: Insulin LISPRO 300 UNITS/3 ML VIAL SQ SCH ×2 (09:57→11:57)
--- NOTE | 2017-04-29 11:14 | Cardiology Progress Note ---
Date of Encounter: 04/29/17 Time of Encounter: 09:15 Assessment and Plan (1) Nausea and vomiting Current Visit: Yes Status: Acute Per cardiology: -ADmitted with nausea, vomiting, diarrhea. -Electrolyte abnormalities noted. -Management per primary service Qualifiers: Qualified Code(s): R11.2 - Nausea with vomiting, unspecified (2) Elevated troponin Current Visit: Yes Status: Acute Per cardiology: -Troponin 0.05, then negative x3. In the setting of lactic acidosis, electrolyte abnormalities. -Denies chest pain. -New ST depressions noted in anterior leads. -Of note, reports recent cardiac testing at [facility] and states had "blood clot" in heart. -TTE with LVEF 55-60%, basal inferior wall hypokinesis noted, however unchanged from previous. [employer] evidence of thrombus noted. -Records from [facility] reviewed with no mention of thrombus on TTE. -Cardiology will sign off and will follow in outpatient setting. FOllow up set. (3) CAD (coronary artery disease) Current Visit: No Status: Chronic Per cardiology: -Known CAD s/p CABG and re-do CABG. -Last known [facility] 2010 with 10% left main, circumflex stent occluded with balloon angioplasty performed, 50% residual stenosis noted. Staged PCI with 2 NEREYDA placed. Has Free SHILO to LAD ands SVG to RPDA. -Stress 04/2016 with prior infarct with mild-moderate reversible ischemia involving inferior wall. -Stress 03/2014 with mild reversible ischemia in inferior and inferolateral cohen , somewhat similar to findings on prior myocardial perfusio scan 2010. -On asa, statin. Not curnrently on beta mariana due to hypotension. -Consider addition of low dose beta mariana if BP will tolerate at discharge. Qualifiers: Qualified Code(s): I25.10 - Atherosclerotic heart disease of [place] coronary artery without angina pectoris Discussion w patient/family: The assessment and plan as outlined above was discussed with the patient who expressed understanding and agreement. All questions were answered. Thank you for involving us in the care of your patient. Please call with any questions. Discussed and reviewed with . Subjective Principal diagnosis: nausea, vomiting, diarrhea Interval history: Denies chest pain or increased shortness of breath overnight. Objective Vital Signs, Last 4 Hours Temp Pulse Resp BP Pulse Ox 04/29/17 09:05 98.3 F 93 20 127/79 97 General: Conversant, No Apparent Distress HEENT: Atraumatic, Normocephaly, Mucus Membranes Moist Neck: No JVD, Normal carotid pulses Cardiac: Reg Rate and Rhythm, Normal S1 and S2, No Murmur Lungs: Normal Breath Sounds, No Wheeze, Rales, Rhonchi Neuro: Alert and responsive, No focal deficits noted Abdomen: Soft, Non-Tender Skin: No rashes noted on visualized skin Musculoskeletal: No Chest Wall Tenderness Extremities: No Clubbing, No Cyanosis, No Edema, Normal Pulses Results 04/29/17 00:31 04/29/17 00:31 Lab Results Impressions Echocardiogram 04/28/17 13:51 Impressions: LVEF 55-60%. Normal LV chamber size, wall thickness and overall function. Mild segmental left ventricular systolic dysfunction. Mild left ventricular diastolic dysfunction. Atypical septal motion consistent with post-operative status. Normal right ventricular structure and function. No evidence of pulmonary hypertension. No significant valvular dysfunction. No significant changes compared to prior report from 11/2016. Left Ventricular Wall Motion: Rest Echo Findings The basal inferior wall was hypokinetic. All other wall segments showed normal motion. Findings: Study Quality * Technically adequate exam. ECG Findings * Normal sinus rhythm. Left Ventricle * LVEF 55-60%. * Normal LV chamber size, wall thickness and overall function. * Mild segmental left ventricular systolic dysfunction. * Mild left ventricular diastolic dysfunction. * Atypical septal motion consistent with post-operative status. Right Ventricle * Normal right ventricular structure and function. Left Atrium * Mildly dilated left atrium. Right Atrium * Normal right atrial size. Interatrial Septum * Interatrial septum not well evaluated. Aortic Valve * Aortic valve not well visualized. * No aortic regurgitation. * No aortic stenosis. Mitral Valve * Mild mitral annular calcification * No mitral stenosis. * No mitral regurgitation. * Normal mitral valve function. Tricuspid Valve * Normal tricuspid valve structure and function. * Trace tricuspid regurgitation. * No evidence of pulmonary hypertension. Pulmonic Valve * Pulmonic valve is not well visualized. Aorta * Normally sized aortic root. Pericardium * The pericardium appears normal. IVC * The IVC is not well evaluated. Pulmonary Artery * Pulmonary artery not well visualized. Active Medications Acetaminophen (Tylenol) 650 mg PO Q6HR PRN PRN Reason: Mild Pain/Fever Stop: 10/28/17 11:50 Albuterol Sulfate (Albuterol Inhaler) 2 puff IH [id number] PRN PRN Reason: Shortness Of Breath Stop: 10/28/17 16:01 Alprazolam (Xanax) 0.5 mg PO BID PRN; Protocol PRN Reason: Anxiety Stop: 10/28/17 11:53 Amitriptyline HCl (Elavil) 25 mg PO DAILY [facility] Stop: 10/29/17 09:01 Last Admin: 04/29/17 09:56 Dose: 25 mg Aspirin (Aspirin Ec) 81 mg PO DAILY [facility] Stop: 10/29/17 09:01 Last Admin: 04/29/17 09:56 Dose: 81 mg Atorvastatin Calcium (Lipitor) 40 mg PO HS [facility] Stop: 10/28/17 21:01 Last Admin: 04/28/17 21:38 Dose: 40 mg Dextrose/Water (Dextrose 50% (Syg)) 25 ml IVP AD PRN PRN Reason: Hypoglycemia Stop: 10/28/17 11:54 Famotidine (Pepcid) 10 mg PO BID [facility] Stop: 10/28/17 21:01 Last Admin: 04/29/17 09:55 Dose: 10 mg Fluoxetine HCl (Prozac) 40 mg PO DAILY [facility] Stop: 10/29/17 09:01 Last Admin: 04/29/17 09:55 Dose: 40 mg Glimepiride (Amaryl) 2 mg PO DAILY [facility] Stop: 10/29/17 09:01 Last Admin: 04/29/17 09:56 Dose: 2 mg Glucagon (Glucagen) 1 mg IM ONCE PRN PRN Reason: Hypoglycemia Stop: 10/28/17 11:54 Glucose (Gluctose) 15 gm PO ONCE PRN PRN Reason: Hypoglycemia Stop: 10/28/17 11:54 Glucose (Gluctose) 30 gm PO ONCE PRN PRN Reason: Hypoglycemia Stop: 10/28/17 11:54 Dextrose (Dextrose 5%) 1,000 mls @ 100 mls/hr IVC .Q10H PRN PRN Reason: HYPOGLYCEMIA Stop: 10/28/17 11:54 Potassium Chloride (Potassium Chloride 10 Meq/100ml) 10 meq in 100 mls @ 100 mls/hr IVPB Q1H [facility] Stop: 04/29/17 12:29 Last Admin: 04/29/17 09:53 Dose: 100 mls/hr Insulin Human Lispro (Humalog) 0 units SQ HS TEENA PRN Reason: Protocol Stop: 10/28/17 21:01 Last Admin: 04/28/17 21:47 Dose: 4 units Insulin Human Lispro (Humalog) 0 units SQ TIDAC TEENA PRN Reason: Protocol Stop: 10/28/17 16:31 Last Admin: 04/29/17 09:57 Dose: 4 units Metronidazole (Flagyl) 500 mg PO TID TEENA PRN Reason: Protocol Stop: 10/28/17 15:01 Last Admin: 04/29/17 09:55 Dose: 500 mg Naloxone HCl (Narcan) 0.4 mg IVP Q2MIN PRN PRN Reason: SEE COMMENTS Stop: 10/28/17 11:50 Oxcarbazepine (Trileptal) 600 mg PO BID [facility] Stop: 10/28/17 21:01 Last Admin: 04/29/17 09:55 Dose: 600 mg Pharmacy Profile Note (Patient Taking Own Medication) 0 each IH BID [facility] Stop: 10/28/17 21:01 Last Admin: 04/28/17 23:42 Dose: Not Given Tramadol HCl (Ultram) 50 mg PO Q6HR PRN PRN Reason: Moderate Pain Stop: 10/28/17 11:50 Laboratory Tests 04/28/17 04/28/17 04/28/17 09:14 12:43 18:15 Creatinine Troponin I 0.05 H* < 0.03 < 0.03 04/29/17 04/29/17 00:31 00:31 Creatinine 0.80 Troponin I 0.03 - Imaging and Cardiology Chest Xray: report reviewed Echo: report reviewed Cardiac cath: report reviewed - EKG Interpretation EKG results cardiology: other (Telemetry reviewed with average HR previous 12 hours noted to be 96, SR. PVCs noted.) Consult Discharge Plan - Plan Referrals: NONE,PCP [Primary Care Provider] -
[2017-04-29 11:20] VITALS: BP 109/68
[2017-04-29] MEDS: (Glycopyrrolate/Formoterol Fum [Bevespi Aerosphere In IH SCH (12:40)
--- NOTE | 2017-04-29 13:04 | Discharge Summary ---
- NOTES TO OUTPATIENT PROVIDER Notes to Outpatient Provider: Follow-up with cardiology as directed. Needs to follow-up with her PCP and 5-7 days. Follow-up with GI service in 2-4 weeks. We will start a low-dose beta mariana in addition to her other medications for high blood pressure and she should keep a blood pressure log. I did discuss with the patient how to maintain a blood pressure log and she verbalized understanding. She had no stools while inpatient so the C. difficile was not collected Orders not resulted at time of discharge: Pending orders 04/29/17 13:50 PTT [Activated Partial Thrombo Time] [COAG] Routine Date of Encounter: 04/29/17 Time of Encounter: 13:02 - Discharge Diagnosis (1) IDALIA (acute kidney injury) Priority: Primary Status: Resolved Comments: Creatinine normalized with IV fluids. No further nausea or vomiting or diarrhea since hospitalized (2) Abdominal pain of unknown etiology Priority: Primary Status: Acute Comments: GI was consulted and an EGD was done this morning. Findings LA grade a esophagitis with no bleeding was found. Biopsy was contradicted secondary to anticoagulation medication. A few localized 3 mm nonbleeding erosions were found in the gastric atrium there was no stigmata of recent bleeding pursue mainly secondary to NSAIDs Localized mild inflammation characterized by congestion was found the first portion of the duodenum pylorospasm and periampullary diverticulum Would avoid NSAIDs Carafate as directed Follow-up with gastroenterology in 2-4 weeks Continue PPI Avoid avocados (3) Elevated troponin Priority: Primary Status: Acute Comments: Cardiology was consulted felt were elevated in the setting of lactic acidosis and electrolyte abnormalities Denied chest pain New ST depressions noted in anterior leads Patient had stated she had recent cardiac testing at [facility] and stated she had a "blood clot in her heart". Echocardiogram with LVEF 55-60%, basal inferior wall hypokinesis noted however unchanged from previous. No evidence of thrombus noted. Records from [facility] were reviewed by cardiology with no mention of thrombus on echocardiogram. Cardiology will follow-up as outpatient in the appointment has been set. (4) Hypokalemia Priority: Primary Status: Acute Comments: Secondary to vomiting, replaced (5) Leukocytosis Priority: Primary Status: Resolved Comments: Secondary to viral illness and normalized this a.m. Qualifiers: Leukocytosis type: bandemia Qualified Code(s): D72.825 - Bandemia (6) Nausea and vomiting Priority: Primary Status: Resolved Comments: Likely gastroenteritis, tolerating a diet with no further nausea vomiting or diarrhea Qualifiers: Vomiting type: unspecified Vomiting Intractability: unspecified Qualified Code(s): R11.2 - Nausea with vomiting, unspecified (7) Diabetes mellitus Priority: Primary Status: Chronic Comments: We will resume home regime on discharge Qualifiers: Diabetes mellitus type: type 2 Diabetes mellitus intermediate frame tender insulin use: without prison use Diabetes mellitus complication status: with unspecified complications Qualified Code(s): E11.8 - Type 2 diabetes mellitus with unspecified complications (8) Essential hypertension Priority: Primary Status: Chronic Comments: We will add a low-dose beta mariana to her current home regime and patient has been instructed to keep a blood pressure log (9) COPD (chronic obstructive pulmonary disease) Priority: Primary Status: Chronic Comments: non exacerbated Qualifiers: COPD type: emphysema Emphysema type: unspecified Qualified Code(s): J43.9 - Emphysema, unspecified (10) Diarrhea, unspecified Priority: Primary Status: Resolved Comments: No stools since admission. likely related to a viral gastroenteritis or new food in diet Qualifiers: Diarrhea type: unspecified type Qualified Code(s): R19.7 - Diarrhea, unspecified (11) Tobacco abuse Priority: Primary Status: Acute Comments: cessation Hospital course: Ms. Mackey is a 71 year old female with history of diabetes, hypertension, COPD, CAD and CABG 3, CVA high cholesterol, obesity and obstructive sleep apnea who was recently admitted to the hospital with congestive heart failure and influenza A bronchitis who was discharged on April 19. She presented to emergency room with diffuse midepigastric pain nausea vomiting and diarrhea. CT the abdomen was unremarkable. She also mentioned that she had chest pain with a troponin that was slightly elevated at 0.05. Cardiology and GI was consulted. She had a EGD this morning. She has had no further nausea vomiting or diarrhea since admission. She has a current every day smoker with cessation advised. Reviewed the cardiology note and the EGD reports. Please refer to the details and the assessment and plan for further information on this admission. The patient will be discharged. Discussed discharge plan and she is in agreement. She will follow-up with cardiology and gastroenterology as directed. She will also follow-up with the PCP. Discharge discussed with: patient, family, nurse Time spent discussing smoking cessation with patient: 3 to 10 minutes - Time Spent with Patient Total time spent providing and/or coordinating discharge services: Less than 30 minutes - Discharge Medications Prescriptions: amLODIPine [Norvasc] 10 mg PO DAILY #30 tablet Famotidine [Pepcid] 10 mg PO BID #30 tablet Sucralfate [Carafate] 1 gm PO QIDAC 30 Days #120 tablet Home Medications: Amitriptyline [Elavil] 25 mg PO DAILY 04/12/16 [History] Amlodipine Besylate 10 mg PO DAILY 04/12/16 [History] Aspirin [Lo-Dose Aspirin EC] 81 mg PO DAILY 04/12/16 [History] FLUoxetine HCl [Fluoxetine HCl] 40 mg PO DAILY 04/12/16 [History] Glimepiride [Amaryl] 2 mg PO DAILY 04/12/16 [History] OXcarbazepine [Oxcarbazepine] 600 mg PO BID 04/12/16 [History] ALPRAZolam [Xanax 0.5 MG Tablet] 0.5 - 1 mg PO BID PRN 01/10/17 [History] Albuterol Sulfate [Ventolin Hfa] 2 puff IH Q4H PRN 01/10/17 [History] Nitroglycerin [Nitrostat] 0.4 mg SL Q5M PRN 01/10/17 [History] Ranitidine HCl [Heartburn Relief] 150 mg PO BID 01/10/17 [History] Atorvastatin [Lipitor] 40 mg PO HS 04/16/17 [History] Metoprolol Tartrate 100 mg PO BID 04/16/17 [History] Furosemide [Lasix] 20 mg PO DAILY #30 tablet 04/19/17 [Rx] Glycopyrrolate/Formoterol Fum [Bevespi Aerosphere Inhaler] 2 puff IH BID [History] hydroCHLOROthiazide [Hydrochlorothiazide] 25 mg PO DAILY 04/28/17 [History] metroNIDAZOLE [Flagyl] 500 mg PO TID 04/28/17 [History] Famotidine [Pepcid] 10 mg PO BID #30 tablet 04/29/17 [Rx] Sucralfate [Carafate] 1 gm PO QIDAC 30 Days #120 tablet 04/29/17 [Rx] amLODIPine [Norvasc] 10 mg PO DAILY #30 tablet 04/29/17 [Rx] Allergies/Adverse Reactions: 3 Allergy/AdvReac Type Severity Reaction Status Date / Time No Known Allergies Allergy Verified 04/28/17 08:58 Date of admission: 04/28/17 12:06 Primary care physician: Tay Kaplan MD Consults: 04/29/17 08:09 Consult to Gastroenterology [CONS] Routine Consulting Provider: Gastroenterology Camilla Reason for Consult: nausea, vomiting, diarrhea Time Notified: 08:10 Call Completed: Yes Discharging clinician: Debbie Urena Anticipated date of discharge: 04/29/17 - Constitutional Vitals: Temp Pulse Resp BP Pulse Ox 98.9 F 89 20 109/68 94 04/29/17 11:19 04/29/17 11:19 04/29/17 11:19 04/29/17 11:19 04/29/17 11:19 General appearance: Present: cooperative, A&O X 3, pleasant, no acute distress, obese, answers questions appropriately - Head Head exam: Present: atraumatic, normocephalic - Eye Eye exam: Present: PERRL, conjuntiva pink, sclera anicteric Pupils: Present: PERRL - Neck Neck exam general surgery: Present: supple, trachea midline. Absent: lymphadenopathy - Respiratory Respiratory exam: Present: CTAB. Absent: accessory muscle use, rales, rhonchi, wheezes - Cardiovascular Cardiovascular exam: Present: RRR, +S1, +S2. Absent: diastolic murmur, gallop, rubs, systolic murmur - GI/Abdominal GI/Abdominal exam: Present: normal bowel sounds, soft, tenderness, no peritoneal signs. Absent: distended - Extremities Exam Extremities exam: Present: warm, radial pulses palpable and symmetrical. Absent : calf tenderness, cyanotic, pedal edema - Neurological Exam Neurological exam: Present: alert, CN II-XII intact, normal gait, oriented X3, no focal deficits. Absent: pronater drift, facial droop, speech deficit - Skin Skin exam: Present: dry, intact, normal color, warm - Patient Status Disposition: Home, Self-Care Condition: Good Functional capacity at discharge: independent ambulation Overall status at discharge: patient is progressing back to baseline - Discharge Instructions Follow Up With: NONE,PCP [Non-Partnered Physician] - - Diet and Activity Activity: increase activity as tolerated, resume usual activities as tolerated Diet: advance to your usual diet, diabetic diet, low fat, low cholesterol, low salt diet
== END 2017-04-29 14:25 | disposition home or self-care (01) ==
LOC: 3BNU 08:15 → EMEROO 08:15 → 3BNU 12:30
PROVIDERS: ADMIT Internal Medicine Cardiovascular Disease; ATTEND Registered Nurse

== ENCOUNTER 2017-10-29 16:36 | Inpatient (IN) ==
[2017-10-29] MEDS ORDERED: Isovue-370 500 ML INFUS..BTL IV ONE (16:49)
[2017-10-29] MEDS ORDERED: Ondansetron 4 MG/2 ML VIAL IVP ONE (16:49)
[2017-10-29] MEDS ORDERED: 0.9 % Sodium Chloride 1,000 ML IVC ONE ×2 (16:49→19:12)
[2017-10-29] MEDS ORDERED: Acetaminophen 650 MG RECTAL SUPP RC ONE (16:51)
--- NOTE | 2017-10-29 17:06 | Emergency Department Note ---
Disposition Clinical Impression: Kidney stone on left side, Nausea vomiting and diarrhea Sepsis Qualifiers: Sepsis type: sepsis due to unspecified organism Qualified Code(s): A41.9 - Sepsis, unspecified organism Disposition: Admitted As Inpatient Condition: Fair Time of Disposition: 19:31 General Adult HPI - General Chief complaint: ED Neuro Symptoms/Deficit Stated complaint: aphasia Time Seen by Provider: 10/29/17 16:42 Source: patient, family Limitations: no limitations - History of Present Illness Pain Scale: 0 - Related Data Home Medications Medication Instructions Recorded Confirmed Amitriptyline [Elavil] 25 mg PO DAILY 04/12/16 04/28/17 Amlodipine Besylate 10 mg PO DAILY 04/12/16 04/28/17 Aspirin [Lo-Dose Aspirin EC] 81 mg PO DAILY 04/12/16 04/28/17 FLUoxetine HCl [Fluoxetine HCl] 40 mg PO DAILY 04/12/16 04/28/17 Glimepiride [Amaryl] 2 mg PO DAILY 04/12/16 04/28/17 OXcarbazepine [Oxcarbazepine] 600 mg PO BID 04/12/16 04/28/17 ALPRAZolam [Xanax 0.5 MG Tablet] 0.5 - 1 mg PO BID PRN 01/10/17 04/28/17 Albuterol Sulfate [Ventolin Hfa] 2 puff IH Q4H PRN 01/10/17 04/28/17 Nitroglycerin [Nitrostat] 0.4 mg SL Q5M PRN 01/10/17 04/28/17 Ranitidine HCl [Heartburn Relief] 150 mg PO BID 01/10/17 04/28/17 Atorvastatin [Lipitor] 40 mg PO HS 04/16/17 04/28/17 Metoprolol Tartrate 100 mg PO BID 04/16/17 04/28/17 Glycopyrrolate/Formoterol Fum 2 puff IH BID 04/28/17 04/28/17 [Bevespi Aerosphere Inhaler] hydroCHLOROthiazide 25 mg PO DAILY 04/28/17 04/28/17 [Hydrochlorothiazide] metroNIDAZOLE [Flagyl] 500 mg PO TID 04/28/17 04/28/17 Previous Rx's Medication Instructions Recorded Furosemide [Lasix] 20 mg PO DAILY #30 tablet 04/19/17 Famotidine [Pepcid] 10 mg PO BID #30 tablet 04/29/17 Sucralfate [Carafate] 1 gm PO QIDAC 30 Days #120 tablet 04/29/17 amLODIPine [Norvasc] 10 mg PO DAILY #30 tablet 04/29/17 Allergies Allergy/AdvReac Type Severity Reaction Status Date / Time No Known Allergies Allergy Verified 04/28/17 08:58 Past Medical History - Past Medical History Medical history: Reports: arthritis, COPD, coronary artery disease, CVA, diabetes, GERD, hyperlipidemia, hypertension, myocardial infarction Surgical history: Reports: angioplasty/stent, coronary bypass (CABG), hysterectomy, LOLA/BSO, other Psychiatric history: Reports: anxiety, depression 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 - Social History Smoking Status: Unknown if ever smoked Smokeless Tobacco Status: No Alcohol use: Reports: rarely Drug use: Reports: none Physical Exam - General Limitations: no limitations General appearance: alert, in no apparent distress Course Vital Signs Temperature 103.1 F H 10/29/17 16:39 Pulse Rate 98 10/29/17 16:39 Respiratory Rate 20 10/29/17 16:39 Blood Pressure 111/75 10/29/17 16:39 O2 Sat by Pulse Oximetry 92 10/29/17 16:39 Temperature 101.4 F H 10/29/17 18:55 Pulse Rate 86 10/29/17 18:55 Respiratory Rate 20 10/29/17 18:55 Blood Pressure 123/70 10/29/17 18:55 O2 Sat by Pulse Oximetry 96 10/29/17 18:55 Oxygen Delivery Oxygen Delivery Nasal Cannula Medical Decision Making - Lab Data Result diagrams: 10/29/17 16:50 10/29/17 16:50 Lab Results 10/29/17 10/29/17 10/29/17 Range/Units 16:50 16:50 16:50 WBC 14.5 H (4.3-11.1) K/mcL RBC 4.49 (3.82-4.97) M/mcL Hgb 14.3 (11.5-15.4) g/dL Hct 41.0 (35.3-44.9) % MCV 91.3 (83.0-100.0) fL MCH 31.8 (28.0-33.3) pg MCHC 34.9 (31.6-35.5) g/dL RDW 12.1 (11.5-14.5) % Plt Count 160 (140-400) K/mcL MPV 9.9 (9.4-12.4) fL Immature Gran % 0.6 (0-4) % Seg Neutrophils % 85.0 % Lymphocytes % 6.5 % Monocytes % 7.8 % Eosinophils % 0.0 % Basophils % 0.1 % Neutrophils # 12.4 H (1.6-8.9) K/mcL Lymphocytes # 1.0 (0.6-4.6) K/mcL Monocytes # 1.1 (0.0-1.3) K/mcL Eosinophils # 0.0 (0.0-0.6) K/mcL Basophils # 0.0 (0.0-0.2) K/mcL PT 14.8 H (9.4-12.1) Seconds INR 1.3 APTT 32.9 (26.0-36.0) Seconds Sodium 128 L (136-145) mEq/L Potassium 2.7 L (3.5-5.1) mEq/L Chloride 88 L (98-107) mEq/L Carbon Dioxide 26 (23-29) mEq/L BUN 25 H (8-23) mg/dL Creatinine 1.41 H (0.60-1.20) mg/dL Est GFR ( Amer) 44 L (> 60) Est GFR (Non-Af Amer) 37 L (> 60) BUN/Creatinine Ratio 18 (6-26) Glucose 169 H (70-105) mg/dL Calculated Osmolality 274 L (280-300) Calcium 8.8 (8.6-10.3) mg/dL Total Bilirubin 0.8 (0.3-1.0) mg/dL Direct Bilirubin 0.3 H (0.0-0.2) mg/dL Indirect Bilirubin 0.5 (0.0-1.2) mg/dL AST 16 (13-39) Units/L ALT 8 (7-52) Units/L Alkaline Phosphatase 111 H (34-104) Units/L Troponin I 0.04 H* (< 0.04) ng/mL Serum Total Protein 6.6 (6.4-8.9) g/dL Albumin 3.7 (3.5-5.7) g/dL Globulin 2.9 (2.4-3.5) g/dL Albumin/Globulin Ratio 1.3 (1.1-2.2) Lipase 7 L (11-82) Units/L TSH 1.960 (0.340-5.600) mcIU/mL Urine Color (Yellow) Urine Clarity (Clear) Urine pH (5.0-8.0) pH Units Ur Specific [place] (1.010-1.025) Urine Protein (Neg-Trace) mg/dL Urine Glucose (UA) (Normal) mg/dL Urine Ketones (Negative) mg/dL Urine Blood (Negative) Urine Nitrite (Negative) Urine Bilirubin (Negative) Urine Urobilinogen (Normal) mg/dL Ur Leukocyte Esterase (Negative) Urine Microscopic RBC (0-3) per hpf Urine Microscopic WBC (0-3) per hpf Ur Squamous Epith Cells (None-Few) per lpf Amorphous Sediment (Few) Urine Bacteria (None-Few) per hpf Hyaline Casts (None-Few) per lpf Ur Culture Indicated? (NO) Stool Occult Bld Scrn (Negative) 10/29/17 10/29/17 Range/Units 18:03 18:28 WBC (4.3-11.1) K/mcL RBC (3.82-4.97) M/mcL Hgb (11.5-15.4) g/dL Hct (35.3-44.9) % MCV (83.0-100.0) fL MCH (28.0-33.3) pg MCHC (31.6-35.5) g/dL RDW (11.5-14.5) % Plt Count (140-400) K/mcL MPV (9.4-12.4) fL Immature Gran % (0-4) % Seg Neutrophils % % Lymphocytes % % Monocytes % % Eosinophils % % Basophils % % Neutrophils # (1.6-8.9) K/mcL Lymphocytes # (0.6-4.6) K/mcL Monocytes # (0.0-1.3) K/mcL Eosinophils # (0.0-0.6) K/mcL Basophils # (0.0-0.2) K/mcL PT (9.4-12.1) Seconds INR APTT (26.0-36.0) Seconds Sodium (136-145) mEq/L Potassium (3.5-5.1) mEq/L Chloride (98-107) mEq/L Carbon Dioxide (23-29) mEq/L BUN (8-23) mg/dL Creatinine (0.60-1.20) mg/dL Est GFR ( Amer) (> 60) Est GFR (Non-Af Amer) (> 60) BUN/Creatinine Ratio (6-26) Glucose (70-105) mg/dL Calculated Osmolality (280-300) Calcium (8.6-10.3) mg/dL Total Bilirubin (0.3-1.0) mg/dL Direct Bilirubin (0.0-0.2) mg/dL Indirect Bilirubin (0.0-1.2) mg/dL AST (13-39) Units/L ALT (7-52) Units/L Alkaline Phosphatase (34-104) Units/L Troponin I (< 0.04) ng/mL Serum Total Protein (6.4-8.9) g/dL Albumin (3.5-5.7) g/dL Globulin (2.4-3.5) g/dL Albumin/Globulin Ratio (1.1-2.2) Lipase (11-82) Units/L TSH (0.340-5.600) mcIU/mL Urine Color Yellow (Yellow) Urine Clarity Cloudy A (Clear) Urine pH 6.0 (5.0-8.0) pH Units Ur Specific [place] 1.006 L (1.010-1.025) Urine Protein 30 H (Neg-Trace) mg/dL Urine Glucose (UA) Normal (Normal) mg/dL Urine Ketones 15 H (Negative) mg/dL Urine Blood Moderate H (Negative) Urine Nitrite Negative (Negative) Urine Bilirubin Negative (Negative) Urine Urobilinogen Normal (Normal) mg/dL Ur Leukocyte Esterase Small H (Negative) Urine Microscopic RBC 0-3 (0-3) per hpf Urine Microscopic WBC 5-15 H (0-3) per hpf Ur Squamous Epith Cells Many H (None-Few) per lpf Amorphous Sediment Many H (Few) Urine Bacteria Few (None-Few) per hpf Hyaline Casts None Seen (None-Few) per lpf Ur Culture Indicated? NO. A (NO) Stool Occult Bld Scrn Negative (Negative) Critical Care Time Critical Care Time: Yes Total Critical Care Time: 40 Attestation: Critical care performed: Time is exclusive of separately billable procedures. Time includes: direct patient care, patient reassessment, coordination of patient care, interpretation of data (laboratory data, radiology data, and respiratory data), review of patient's medical records, medical consultation and documentation of patient care. Procedures included in critical care time: Procedures excluded from critical care time: Attestation Statement - Attestation Attestation: I examined this patient and my medical decision-making was reviewed with the Resident Physician. I agree with the documented findings, disposition and treatment plan as described except to the extent set forth below. Patient to the ED with trouble word finding. She is accompanied by her who has dementia. Patient is having trouble finding her words. She states that it started last night sometime around dinner. Denies injury. Does admit to some vomiting and diarrhea. Possibly some blood in the diarrhea. She states she did have some left arm and leg weakness. Most of the history is provided through answering multiple yes no questions. On examination she is awake alert. He does not know what year it is, or Find the words to say it. She is moving all extremities. Her external ocular muscles are intact. Her pupils are reactive. She has no pronator drift. She has no ataxia. She has no sensory discrepancy's. She has no facial droop. Plan. Stroke workup with septic workup. Patient is febrile at 103. Stroke alert was not called as her symptoms were present for 24 hours. Also because her only finding at this time is aphasia. Patient is also reporting some blood in her stool. He would not be a TPA candidate secondary to not knowing an exact onset and further reported GI bleeding. Patient is improved after hydration. Workup. Her temp is down to 101. She speaking clearly. She can say she is to the hospital. She does admit to flank pain when asked. Symptoms are likely from infectious source. She does have a few white blood cells in her urine with the kidney stone. We have consulted with urology. Patient has received Rocephin. Her blood pressure is stable. She is improved. She is admitted to medicine.
--- NOTE | 2017-10-29 17:19 | Emergency Department Note ---
Disposition Clinical Impression: Kidney stone on left side, Nausea vomiting and diarrhea Sepsis Qualifiers: Sepsis type: sepsis due to unspecified organism Qualified Code(s): A41.9 - Sepsis, unspecified organism Disposition: Admitted As Inpatient Condition: Fair Time of Disposition: 18:51 Neuro HPI - General Chief Complaint: ED Neuro Symptoms/Deficit Stated Complaint: aphasia Time Seen by Provider: 10/29/17 16:42 Source: patient, family Mode of arrival: wheelchair Limitations: no limitations Nursing Notes Reviewed: Yes Vital Signs Reviewed: Yes - History of Present Illness HPI Narrative: Patient is a 72-year-old female past medical history of stroke presents to the emergency department for evaluation of stroke-like symptoms as well as nausea, vomiting, and diarrhea. The patient is having a difficult time explaining what is going on exhibiting signs of aphasia. States that she is having vomiting and diarrhea for an unknown amount of time and states that she needs fluids. Otherwise difficult to obtain any other history. Her is in the room, however he has dementia and is unable to provide history. - Related Data Home Medications: Home Medications Medication Instructions Recorded Confirmed Amitriptyline [Elavil] 25 mg PO DAILY 04/12/16 04/28/17 Amlodipine Besylate 10 mg PO DAILY 04/12/16 04/28/17 Aspirin [Lo-Dose Aspirin EC] 81 mg PO DAILY 04/12/16 04/28/17 FLUoxetine HCl [Fluoxetine HCl] 40 mg PO DAILY 04/12/16 04/28/17 Glimepiride [Amaryl] 2 mg PO DAILY 04/12/16 04/28/17 OXcarbazepine [Oxcarbazepine] 600 mg PO BID 04/12/16 04/28/17 ALPRAZolam [Xanax 0.5 MG Tablet] 0.5 - 1 mg PO BID PRN 01/10/17 04/28/17 Albuterol Sulfate [Ventolin Hfa] 2 puff IH Q4H PRN 01/10/17 04/28/17 Nitroglycerin [Nitrostat] 0.4 mg SL Q5M PRN 01/10/17 04/28/17 Ranitidine HCl [Heartburn Relief] 150 mg PO BID 01/10/17 04/28/17 Atorvastatin [Lipitor] 40 mg PO HS 04/16/17 04/28/17 Metoprolol Tartrate 100 mg PO BID 04/16/17 04/28/17 Glycopyrrolate/Formoterol Fum 2 puff IH BID 04/28/17 04/28/17 [Bevespi Aerosphere Inhaler] hydroCHLOROthiazide 25 mg PO DAILY 04/28/17 04/28/17 [Hydrochlorothiazide] metroNIDAZOLE [Flagyl] 500 mg PO TID 04/28/17 04/28/17 Previous Rx's Medication Instructions Recorded Furosemide [Lasix] 20 mg PO DAILY #30 tablet 04/19/17 Famotidine [Pepcid] 10 mg PO BID #30 tablet 04/29/17 Sucralfate [Carafate] 1 gm PO QIDAC 30 Days #120 tablet 04/29/17 amLODIPine [Norvasc] 10 mg PO DAILY #30 tablet 04/29/17 Allergies/Adverse Reactions: Allergies Allergy/AdvReac Type Severity Reaction Status Date / Time No Known Allergies Allergy Verified 04/28/17 08:58 All systems ED: reviewed and negative except as stated. Review of Systems: As Per HPI Limitations: ROS unobtainable due to patients medical condition Constitutional: Reports: chills Gastrointestinal: Reports: nausea, vomiting, diarrhea Past Medical History - Past Medical History Attestation: Yes The following information was validated with the patient. 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 Patient unable to communicate with me fully due to aphasia. HEAD: Normocephalic; atraumatic EYES: PERRL, no scleral icterus NOSE: The nose is normal in appearance without rhinorrhea NECK: No JVD or distended neck veins RESP: Normal chest excursion with respiration; breath sounds clear and equal bilaterally; no wheezes, rhonchi, or rales CARD: Regular rhythm, without murmurs, rub or gallop ABD: Non-distended; non-tender, soft, without rigidity, rebound or guarding,no pulsatile mass CHEST: No pain with palpation SKIN: Normal for age and race; warm and dry without diaphoresis ; no apparent lesions. Patient does have small amount of dried stool on her LLE. RECTAL: Light brown stool, no brb. EXTREMITIES: Pulses are 2 plus and equal times 4 extremities, no peripheral edema or calf muscle pain NEUROLOGICAL: Patient is alert and oriented times three. Cranial nerves III- XII are intact. Sensory and motor functions are intact. Strength is 5/5 for flexion and extension in all 4 extremities. Patellar DTRS are equal and intact. Finger to nose testing is equal and normal bilaterally. Patient has expressive aphasia. - General Limitations: no limitations General appearance: alert, in no apparent distress Course Course Narrative: Last time no known well is unknown. Patient's NIH stroke scale score is 3 given that she cannot answer the date or month. Patient has evidence of significant nausea vomiting and diarrhea on exam given she has dried stool on her lower leg. She is able to tell us some of her history of present illness with what appears to be an expressive aphasia. Discussed with the patient plan is times evaluate her for stroke however given that we do not know the time of onset and according to the patient is possibly yesterday more than 24 hours ago at approximately 4:00 PM prior to supper time she is not a candidate for TPA or LVO endovascular therapy at this time. We will evaluate the patient for stroke with a CT of the head as well as a CT of the abdomen and pelvis, she has no pain on exam. We will also evaluate a thorough cardiac workup as well as checking basic labs. Patient's vital signs are stable at this time she will receive a liter of normal saline fluids as well as Tylenol for her fever and we will reassess. - Reevaluation(s) Reevaluation #1: Patient has started receiving her fluids at this time. Her symptoms symptoms are starting to improve she is able to articulate what she wants to say better at this time. The patient states that she has been having nausea and vomiting and diarrhea has been going on since yesterday and she states that she knows she has not been taking in enough fluids. She states that she has had symptoms similar to this in the past with symptoms of nausea, vomiting and diarrhea. States that usually the symptoms resolved with fluids. The patient's labwork is significant for hyponatremia, hypokalemia, acute kidney injury as well as a mild elevation of troponin jaw consistent with multiple episodes of nausea, vomiting, and diarrhea. I believe her troponin is elevated due to increased demand. Her EKG was nonischemic at this time. Patient's head CT was negative for any acute findings. Patient is meeting sepsis criteria with fever and elevated white count. Will order cultures before antibiotics are drawn. Patient abdominal CT shows an obstructing stone with perinephric stranding. Will consults urology and order antibiotics. Time: 18:17 Reevaluation #2: Discussed the patient's case with urologist on-call, Dr. Valencia. He agrees to see the patient in the morning for evaluation. Discussed given patient's symptoms of nausea, vomiting and diarrhea as well as his finding of this acute stone is hard to differentiate at this time with a source of infection is at this time. Time: 18:48 Reevaluation #3: Discussed the patient case with the hospitalist and he agrees to accept the patient. Requested additional fluids. Send urine for culture. Time: 19:15 Vital Signs Temperature 103.1 F H 10/29/17 16:39 Pulse Rate 98 10/29/17 16:39 Respiratory Rate 20 10/29/17 16:39 Blood Pressure 111/75 10/29/17 16:39 O2 Sat by Pulse Oximetry 92 10/29/17 16:39 Temperature 98.8 F 10/29/17 20:14 Pulse Rate 84 10/29/17 20:14 Respiratory Rate 14 10/29/17 20:14 Blood Pressure 105/66 10/29/17 20:14 O2 Sat by Pulse Oximetry 97 10/29/17 20:14 Oxygen Delivery Oxygen Delivery Nasal Cannula Neuro Symptoms/Deficit - Medical Records Medical records reviewed: Yes I reviewed the patient's medical records. - Lab Data Lab results reviewed: Yes I reviewed the patient's lab results. Result diagrams: 10/29/17 16:50 10/29/17 16:50 Lab Results 10/29/17 10/29/17 10/29/17 Range/Units 16:50 16:50 16:50 WBC 14.5 H (4.3-11.1) K/mcL RBC 4.49 (3.82-4.97) M/mcL Hgb 14.3 (11.5-15.4) g/dL Hct 41.0 (35.3-44.9) % MCV 91.3 (83.0-100.0) fL MCH 31.8 (28.0-33.3) pg MCHC 34.9 (31.6-35.5) g/dL RDW 12.1 (11.5-14.5) % Plt Count 160 (140-400) K/mcL MPV 9.9 (9.4-12.4) fL Immature Gran % 0.6 (0-4) % Seg Neutrophils % 85.0 % Lymphocytes % 6.5 % Monocytes % 7.8 % Eosinophils % 0.0 % Basophils % 0.1 % Neutrophils # 12.4 H (1.6-8.9) K/mcL Lymphocytes # 1.0 (0.6-4.6) K/mcL Monocytes # 1.1 (0.0-1.3) K/mcL Eosinophils # 0.0 (0.0-0.6) K/mcL Basophils # 0.0 (0.0-0.2) K/mcL PT 14.8 H (9.4-12.1) Seconds INR 1.3 APTT 32.9 (26.0-36.0) Seconds Sodium 128 L (136-145) mEq/L Potassium 2.7 L (3.5-5.1) mEq/L Chloride 88 L (98-107) mEq/L Carbon Dioxide 26 (23-29) mEq/L BUN 25 H (8-23) mg/dL Creatinine 1.41 H (0.60-1.20) mg/dL Est GFR ( Amer) 44 L (> 60) Est GFR (Non-Af Amer) 37 L (> 60) BUN/Creatinine Ratio 18 (6-26) Glucose 169 H (70-105) mg/dL Calculated Osmolality 274 L (280-300) Lactic Acid (0.5-2.2) mmol/L Calcium 8.8 (8.6-10.3) mg/dL Total Bilirubin 0.8 (0.3-1.0) mg/dL Direct Bilirubin 0.3 H (0.0-0.2) mg/dL Indirect Bilirubin 0.5 (0.0-1.2) mg/dL AST 16 (13-39) Units/L ALT 8 (7-52) Units/L Alkaline Phosphatase 111 H (34-104) Units/L Troponin I 0.04 H* (< 0.04) ng/mL Serum Total Protein 6.6 (6.4-8.9) g/dL Albumin 3.7 (3.5-5.7) g/dL Globulin 2.9 (2.4-3.5) g/dL Albumin/Globulin Ratio 1.3 (1.1-2.2) Lipase 7 L (11-82) Units/L TSH 1.960 (0.340-5.600) mcIU/mL Urine Color (Yellow) Urine Clarity (Clear) Urine pH (5.0-8.0) pH Units Ur Specific [place] (1.010-1.025) Urine Protein (Neg-Trace) mg/dL Urine Glucose (UA) (Normal) mg/dL Urine Ketones (Negative) mg/dL Urine Blood (Negative) Urine Nitrite (Negative) Urine Bilirubin (Negative) Urine Urobilinogen (Normal) mg/dL Ur Leukocyte Esterase (Negative) Urine Microscopic RBC (0-3) per hpf Urine Microscopic WBC (0-3) per hpf Ur Squamous Epith Cells (None-Few) per lpf Amorphous Sediment (Few) Urine Bacteria (None-Few) per hpf Hyaline Casts (None-Few) per lpf Ur Culture Indicated? (NO) Stool Occult Bld Scrn (Negative) 10/29/17 10/29/17 10/29/17 Range/Units 18:03 18:28 19:19 WBC (4.3-11.1) K/mcL RBC (3.82-4.97) M/mcL Hgb (11.5-15.4) g/dL Hct (35.3-44.9) % MCV (83.0-100.0) fL MCH (28.0-33.3) pg MCHC (31.6-35.5) g/dL RDW (11.5-14.5) % Plt Count (140-400) K/mcL MPV (9.4-12.4) fL Immature Gran % (0-4) % Seg Neutrophils % % Lymphocytes % % Monocytes % % Eosinophils % % Basophils % % Neutrophils # (1.6-8.9) K/mcL Lymphocytes # (0.6-4.6) K/mcL Monocytes # (0.0-1.3) K/mcL Eosinophils # (0.0-0.6) K/mcL Basophils # (0.0-0.2) K/mcL PT (9.4-12.1) Seconds INR APTT (26.0-36.0) Seconds Sodium (136-145) mEq/L Potassium (3.5-5.1) mEq/L Chloride (98-107) mEq/L Carbon Dioxide (23-29) mEq/L BUN (8-23) mg/dL Creatinine (0.60-1.20) mg/dL Est GFR ( Amer) (> 60) Est GFR (Non-Af Amer) (> 60) BUN/Creatinine Ratio (6-26) Glucose (70-105) mg/dL Calculated Osmolality (280-300) Lactic Acid 1.3 (0.5-2.2) mmol/L Calcium (8.6-10.3) mg/dL Total Bilirubin (0.3-1.0) mg/dL Direct Bilirubin (0.0-0.2) mg/dL Indirect Bilirubin (0.0-1.2) mg/dL AST (13-39) Units/L ALT (7-52) Units/L Alkaline Phosphatase (34-104) Units/L Troponin I (< 0.04) ng/mL Serum Total Protein (6.4-8.9) g/dL Albumin (3.5-5.7) g/dL Globulin (2.4-3.5) g/dL Albumin/Globulin Ratio (1.1-2.2) Lipase (11-82) Units/L TSH (0.340-5.600) mcIU/mL Urine Color Yellow (Yellow) Urine Clarity Cloudy A (Clear) Urine pH 6.0 (5.0-8.0) pH Units Ur Specific [place] 1.006 L (1.010-1.025) Urine Protein 30 H (Neg-Trace) mg/dL Urine Glucose (UA) Normal (Normal) mg/dL Urine Ketones 15 H (Negative) mg/dL Urine Blood Moderate H (Negative) Urine Nitrite Negative (Negative) Urine Bilirubin Negative (Negative) Urine Urobilinogen Normal (Normal) mg/dL Ur Leukocyte Esterase Small H (Negative) Urine Microscopic RBC 0-3 (0-3) per hpf Urine Microscopic WBC 5-15 H (0-3) per hpf Ur Squamous Epith Cells Many H (None-Few) per lpf Amorphous Sediment Many H (Few) Urine Bacteria Few (None-Few) per hpf Hyaline Casts None Seen (None-Few) per lpf Ur Culture Indicated? NO. A (NO) Stool Occult Bld Scrn Negative (Negative) - Radiology Data Radiology results reviewed: Yes I reviewed the patient's radiology results. Abdomen/Pelvis CT 10/29/17 16:49 IMPRESSION: Left-sided obstructive uropathy with a 3 mm calculus in the left proximal ureter. Left perinephric stranding may be related to obstructive uropathy with superimposed infection not excluded. D/ / Brayden Erazo MD / Brayden Erazo MD Interpreting Provider: Brayden Erazo MD Head CT 10/29/17 16:49 IMPRESSION: No acute intracranial abnormality. Unchanged encephalomalacia in the left MCA distribution, most likely related to remote infarct. D/ / Arley Olsen MD / Arley Olsen MD Interpreting Provider: Arley Olsen MD Chest X-Ray 10/29/17 16:50 IMPRESSION: Mild pulmonary edema. No focal consolidation. D/ / Brayden Erazo MD / Brayden Erazo MD Interpreting Provider: Brayden Erazo MD - EKG Data EKG attestation: Yes I reviewed and interpreted this EKG. EKG results narrative: EKG done at 16:52 shows sinus rhythm at a rate of 90 bpm. Normal axis. Intervals within normal limits, except a prolonged QRS of 128. This is increased from prior ekg, otherwise no changes from old ekg. NIH Stroke Scale - Level of Consciousness LOC: Alert - LOC Questions LOC Questions: Answers both incorrectly - LOC Commands LOC Commands: Performs both correctly - Best Gaze Best Gaze: Normal - Visual Visual: No visual loss - Facial Palsy Facial Palsy: Normal - Motor Arms Motor Arm-Left: No drift for 10 seconds Motor Arm-Right: No drift for 10 seconds - Motor Legs Motor Leg-Left: No drift for 5 seconds Motor Leg-Right: No drift for 5 seconds - Limb Ataxia Limb Ataxia: Normal, No Ataxia - Sensory Sensory: Normal - Best Language Best Language: Mild to moderate aphasia. Examiner can identify picture from response - Dysarthria Dysarthria: Normal - Extinction and Inattention Extinction and Inattention: Normal - NIHSS Total Score NIHSS Total Score: 3 TPA Checklist - LKW: 3-4.5 hrs Add. Warnings/Precautions Patient/family understanding: The patient/family members have been counseled and understood the risk, benefit , and alternatives of treatment.
[2017-10-29 17:23] LABS: Basophils % 0.1 %; Hemoglobin 14.3 g/dL (11.5-15.4); Immature Granulocytes % 0.6 % (0-4); Lymphocytes % 6.5 %; Mean Corpuscular HGB Conc 34.9 g/dL (31.6-35.5); Mean Corpuscular Hemoglobin 31.8 pg (28.0-33.3); Mean Corpuscular Volume 91.3 fL (83.0-100.0); Mean Platelet Volume 9.9 fL (9.4-12.4); Monocytes # 1.1 K/mcL (0.0-1.3); Monocytes % 7.8 %; Neutrophils # 12.4 K/mcL (1.6-8.9); Platelet Count 160 K/mcL (140-400); Red Blood Count 4.49 M/mcL (3.82-4.97); Red Cell Distribution Width 12.1 % (11.5-14.5)
[2017-10-29 17:28] LABS: INR 1.3; Prothrombin Time 14.8 Seconds (9.4-12.1)
[2017-10-29 17:31] LABS: Activated Partial Thrombo Time 32.9 Seconds (26.0-36.0)
[2017-10-29 17:39] LABS: Albumin 3.7 g/dL (3.5-5.7); Albumin/Globulin Ratio 1.3 (1.1-2.2); Bilirubin,Direct 0.3 mg/dL (0.0-0.2); Bilirubin,Indirect 0.5 mg/dL (0.0-1.2); Bilirubin,Total 0.8 mg/dL (0.3-1.0); Calcium 8.8 mg/dL (8.6-10.3); Globulin 2.9 g/dL (2.4-3.5); Potassium 2.7 mEq/L (3.5-5.1); Total Protein 6.6 g/dL (6.4-8.9)
[2017-10-29 17:50] LABS: Troponin I 0.04 ng/mL (< 0.04)
[2017-10-29 17:53] LABS: Thyroid Stimulating Hormone 1.96 mcIU/mL (0.340-5.600)
[2017-10-29] MEDS ORDERED: Potassium Chloride 40 MEQ, Lidocaine 1% 2 ML in D5% in Water 500 ML IVPB ONE ×2 (17:56→22:45)
[2017-10-29] MEDS ORDERED: Acetaminophen 325 MG TABLET PO ONE (18:05)
[2017-10-29] MEDS ORDERED: cefTRIAXone 1,000 MG in Water for inj. (sterile) 20 ML 10 ML IVP ONE (18:19)
[2017-10-29 18:39] LABS: Bilirubin,Urine Negative (Negative); Blood,Urine Moderate (Negative); Clarity,Urine Cloudy (Clear); Color,Urine Yellow (Yellow); Glucose,Urine (UA) Normal (Normal); Ketones,Urine 15 mg/dL (Negative); Leukocyte Esterase,Urine Small (Negative); Nitrite,Urine Negative (Negative); Protein,Urine 30 mg/dL (Neg-Trace); Specific Gravity,Urine 1.006 (1.010-1.025); Urobilinogen,Urine Normal (Normal)
[2017-10-29 18:40] LABS: Bacteria,Urine Few per hpf (None-Few); Hyaline Casts,Urine None Seen per lpf (None-Few); Squamous Epithelial Cell,Urine Many per lpf (None-Few)
[2017-10-29 18:56] LABS: RBC,Urine 0-3 per hpf (0-3)
[2017-10-29 18:57] LABS: Amorphous Sediment,Urine Many (Few)
[2017-10-29] MEDS ORDERED: Acetaminophen 325 MG TABLET PO PRN (21:16)
[2017-10-29] MEDS ORDERED: Naloxone 0.4 MG/ML INJ IVP PRN (21:16)
[2017-10-29] MEDS ORDERED: OXYCODONE Oral CONC 10 MG/0.5 ML ORAL.SYG SL PRN (21:16)
--- NOTE | 2017-10-29 21:27 | Internal Med History&Physical ---
<Lalita Anaya M - Last Filed: 10/29/17 22:54> Date of Encounter: 10/29/17 Time of Encounter: 21:25 Internal Medicine - H&P: HPI Chief complaint: aphasia Admitted From: Emergency Dept Plans for Post Hospital Care: Home History of present illness: Ms. Mackey is a 72 year old female hx of CVA with deficits presented to ED for aphasia and lower extremity weakness. Onset is unknown due to patient"s poor memory and confusion - only witnessed by who has dementia. She is also complaining of back pain with nausea and diarrhea. Describes sudden onset of inability to move legs and speak similar to last time she was dehydrated. She admits to vision changes and confusion in addition to chronic memory loss issues. In ED, vitals T 103.1 BP 105/66 HR 98 and RR 20 97% on 2L. Initally, she was unable to communicate her needs to ER physician with NIH score 3. On exam she had dried feces on leg. WBC 13.5, Scr 1.41and K 2.7CT of head showed not acute bleeds but stable chronic left MCA changes post stroke. Troponin 0.04 but no EKG changes. Sepsis protocol with blood cultures drawn. Negative influenza swab and negative hemoccult. . Given 2 L NS with 40meq K and 1m rocephin. Dr Valencia excepted consult for urology. Last admit was 04-28-17 for abdominal pain found to have IDALIA and hypokalemia with negative cardiac workup for elevated troponins at 0.05 - she also had diarrhea at that time. PMHx included CAD, DM. HTN. COPD, CHF and lung cancer which she has chosen not to peruse treatment. She has never had a kidney stone. She stopped taking benzos several months ago when she ran out. FMHx mother [place] at 86. Social hx 55 pk yr and denos EtOH or illict drugs. Past Med Surg Social Fam HX - Past Medical History Medical history: arthritis, COPD, coronary artery disease, CVA, diabetes, GERD, hyperlipidemia, hypertension, myocardial infarction Additional medical history: CVA more than 40years ago, Psychiatric history: anxiety, depression - Past Surgical History Surgical History: angioplasty/stent, coronary bypass (CABG), hysterectomy, LOLA/ BSO, other Additional surgical history: Cardiac cath, AAA - Social History Smoking Status: Unknown if ever smoked Smokeless Tobacco Status: No Alcohol use: rarely Drug use: none Internal Medicine - H&P: Meds Amitriptyline [Elavil] 25 mg PO DAILY 04/12/16 [History] Amlodipine Besylate 10 mg PO DAILY 04/12/16 [History] Aspirin [Lo-Dose Aspirin EC] 81 mg PO DAILY 04/12/16 [History] FLUoxetine HCl [Fluoxetine HCl] 40 mg PO DAILY 04/12/16 [History] Glimepiride [Amaryl] 2 mg PO DAILY 04/12/16 [History] OXcarbazepine [Oxcarbazepine] 600 mg PO BID 04/12/16 [History] ALPRAZolam [Xanax 0.5 MG Tablet] 0.5 - 1 mg PO BID PRN 01/10/17 [History] Albuterol Sulfate [Ventolin Hfa] 2 puff IH Q4H PRN 01/10/17 [History] Nitroglycerin [Nitrostat] 0.4 mg SL Q5M PRN 01/10/17 [History] Ranitidine HCl [Heartburn Relief] 150 mg PO BID 01/10/17 [History] Atorvastatin [Lipitor] 40 mg PO HS 04/16/17 [History] Metoprolol Tartrate 100 mg PO BID 04/16/17 [History] Furosemide [Lasix] 20 mg PO DAILY #30 tablet 04/19/17 [Rx] Glycopyrrolate/Formoterol Fum [Bevespi Aerosphere Inhaler] 2 puff IH BID [History] hydroCHLOROthiazide [Hydrochlorothiazide] 25 mg PO DAILY 04/28/17 [History] metroNIDAZOLE [Flagyl] 500 mg PO TID 04/28/17 [History] Famotidine [Pepcid] 10 mg PO BID #30 tablet 04/29/17 [Rx] Sucralfate [Carafate] 1 gm PO QIDAC 30 Days #120 tablet 04/29/17 [Rx] amLODIPine [Norvasc] 10 mg PO DAILY #30 tablet 04/29/17 [Rx] 3 Allergy/AdvReac Type Severity Reaction Status Date / Time No Known Allergies Allergy Verified 04/28/17 08:58 ROS unobtainable: other All Systems PM: A 10-system review of systems was performed and is negative for pertinent findings except as documented above in the HPI. Review of systems: limited due to patient's aphasia - Constitutional Constitutional: weakness - EENT Eyes: change in vision, seeing flashes, no loss of peripheral vision, no tunnel vision - Cardiovascular Cardiovascular ROS IM: no chest pain, no palpitations - Respiratory Respiratory: cough, dyspnea on exertion, wheezing Additional comments: at baseline - Gastrointestinal Gastrointestinal: diarrhea, nausea, no abdominal pain, no vomiting - Genitourinary Genitourinary: dysuria, urinary frequency, urinary urgency - Musculoskeletal Musculoskeletal ROS IM: back pain, muscle weakness, numbness - Neurological Neurological ROS: confusion, memory loss, no dizziness, no headache(s) - Psychiatric Psychiatric: anxiety, no visual hallucinations - Constitutional Vitals: Temp Pulse Resp BP Pulse Ox 98.8 F 84 14 105/66 97 10/29/17 20:14 10/29/17 20:14 10/29/17 20:14 10/29/17 20:14 10/29/17 20:14 General appearance: Present: cooperative, A&O X 3, pleasant, no acute distress. Absent: answers questions appropriately Exam: Poor historian with delayed response when answering questions with frequent pauses - Head Head exam: Present: atraumatic, normocephalic - Eye Eye exam: Present: EOMI, PERRL - Respiratory Respiratory exam: Present: wheezes. Absent: accessory muscle use, rales, respiratory distress - Cardiovascular Cardiovascular exam: Present: RRR. Absent: gallop, rubs - GI/Abdominal GI/Abdominal exam: Present: distended, normal bowel sounds, soft. Absent: mass , tenderness - Extremities Exam Extremities exam: Present: full ROM, radial pulses palpable and symmetrical. Absent: pedal edema, tenderness - Back Exam Back exam: Present: full ROM. Absent: CVA tenderness (L), CVA tenderness (R), rash noted, vertebral tenderness - Neurological Exam Neurological exam: Present: CN II-XII intact, motor sensory deficit, strengths equal and symetr throughout. Absent: normal gait, facial droop Additional comments: Fluent expressive aphasia with difficulty word finding , no dysarthria, chronic right sided numbness in face, arms, and legs is unchanged - Psychiatric Psychiatric exam: Present: normal affect, normal mood - Skin Skin exam: Absent: diaphoretic, erythema, excoriation Internal Med - H&P Results - Labs CBC & Chem 7: 10/29/17 16:50 10/29/17 16:50 - Assessment and plan (1) TIA (transient ischemic attack) Current Visit: Yes Status: Suspected Assessment and plan: New onset expressive fluent aphasia with difficulty word finding and confusion that is improving with in hours is likley TIA but can not rule out stroke - head CT; no acute but stable encephalomalacia in L MCA region post stroke - MRI brain tomorrow - NIH protocol and neuro checks - outside window for TPA - consider neurology consult - NPO - speech consult - social work consult - PT/OT consult (2) Sepsis Current Visit: Yes Status: Acute Assessment and plan: Sepsis likely due to UTI with SIRs cirteria T 101 and leukocystosis WBC 14.3 but Lactic acid 1.3 - IVF - rocephin Qualifiers: Sepsis type: sepsis due to unspecified organism Qualified Code(s): A41.9 - Sepsis, unspecified organism (3) Nephrolithiasis Current Visit: Yes Status: Acute Assessment and plan: L proximal ureter 3 mm stone with UTI - zofran - Rocephin 1m daily - urology already called by ED (4) IDALIA (acute kidney injury) Current Visit: Yes Status: Resolved Assessment and plan: hold HCTZ, lasix, and amaryl - IVF at 125 (5) Hypokalemia Current Visit: Yes Status: Acute Assessment and plan: K 2.7 likely due to combination of medications and diarrhea but may explain her resolving muscle weakness. -hold Lasix and HCTZ - given potassium 40 meq IV - ordered another 40 yane IV - repeat BMP at midnight (6) Diabetes mellitus Current Visit: No Status: Chronic Assessment and plan: Last H A1c was 8.5 in May - repeat A1c - hold amaryl - nutritional ISS - q 6 hr while NPO Qualifiers: Diabetes mellitus type: type 2 Diabetes mellitus termination clerk insulin use: without termination clerk use Diabetes mellitus complication status: with unspecified complications Qualified Code(s): E11.8 - Type 2 diabetes mellitus with unspecified complications (7) COPD (chronic obstructive pulmonary disease) Current Visit: No Status: Chronic Assessment and plan: Oxygen use expanded to daytime but no other indications of exacerbation - continue duenebs - continue nightly oxygen Qualifiers: COPD type: unspecified COPD Qualified Code(s): J44.9 - Chronic obstructive pulmonary disease, unspecified (8) Congestive heart failure Current Visit: No Status: Acute Assessment and plan: No apparent acute failure - continue medications once confirmed expect HCTZ and Lasix Qualifiers: Heart failure type: systolic Heart failure chronicity: unspecified Qualified Code(s): I50.20 - Unspecified systolic (congestive) heart failure (9) Diarrhea, unspecified Current Visit: Yes Status: Resolved Assessment and plan: Confirm for C dif with diarrhea on last admission without clear history - order C dif toxin Qualifiers: Diarrhea type: unspecified type Qualified Code(s): R19.7 - Diarrhea, unspecified (10) Elevated troponin Current Visit: Yes Status: Acute Assessment and plan: T 0.04 with out chest pain or EKG changes likely demand ischemia - trend troponins (11) Lung cancer Current Visit: Yes Status: Acute Assessment and plan: Patient has chosen not to pursue treatment but aphasia raises concern for possible brain mets - MRI brain - consider palliative consult Qualifiers: Lung location: unspecified part of lung Qualified Code(s): C34.90 - Malignant neoplasm of unspecified part of unspecified bronchus or lung (12) DVT prophylaxis Current Visit: Yes Status: Acute Assessment and plan: heparin sq - Time Spent With Patient Total time spent is greater than 50% in coordination of care (as documented) at patient's floor/unit and/or counseling patient: Greater than 35 minutes <John Durand - Last Filed: 10/30/17 02:46> Date of Encounter: 10/30/17 Time of Encounter: 02:15 - Respiratory Respiratory: cough, wheezing - Gastrointestinal Gastrointestinal: diarrhea, nausea, no hematemesis, no hematochezia, no melena, no vomiting - Genitourinary Genitourinary: dysuria, flank pain, urinary frequency - Neurological Neurological ROS: abnormal speech - Constitutional Vitals: Temp Pulse Resp BP Pulse Ox 98.1 F 74 27 116/69 74 10/29/17 23:39 10/29/17 23:39 10/30/17 01:29 10/29/17 23:39 10/30/17 01:29 General appearance: Present: A&O X 3 Exam: moderate respiratory distress -- placed on Bipap with improvement - Head Head exam: Present: normal inspection - Eye Eye exam: Present: PERRL. Absent: scleral icterus - ENT ENT exam: Present: mucous membranes dry, normal exam - Neck Neck exam general surgery: Present: supple - Respiratory Respiratory exam: Present: accessory muscle use, decreased breath sounds, prolonged expiratory phase, respiratory distress (moderate), wheezes, tachypnea. Absent: chest wall tenderness Additional comments: diffuse wheezing and increased work of breathing -- improved with BiPap and aerosol - Cardiovascular Cardiovascular exam: Present: RRR, +S1, +S2, tachycardia (HR 100) - GI/Abdominal GI/Abdominal exam: Present: distended, soft. Absent: tenderness - Neurological Exam Additional comments: expressive aphasia resolved when I assessed her; talking and expressing herself relatively well at this time - Psychiatric Psychiatric exam: Present: normal affect, normal mood - Skin Skin exam: Present: dry, intact, warm Internal Med - H&P Results - Labs CBC & Chem 7: 10/29/17 16:50 10/29/17 16:50 - Time Spent With Patient Total time spent is greater than 50% in coordination of care (as documented) at patient's floor/unit and/or counseling patient: - Attending Attestation I discussed the patient [place], past medical history, review of systems, lab data , imaging data, and exam findings with Dr. Anaya. I then assessed her several hours later and was called to bedside urgently for concerns of respiratory distress. She was wheezing and hypoxemic. She responded to an aerosol and BiPAP placement. When I assessed her, she was tachypneic, but she stabilized and improved dramatically on the BiPAP. She was audibly wheezing and improved with aerosols as well. When I assessed her, her expressive aphasia appears to have resolved completely and she is verbalizing and expressing herself well. However, she had expressive aphasia for much of the day, and I agree that further workup should be pursued regarding stroke workup. Additionally, given her severe COPD and current exacerbation, we will keep her on BiPAP for tonight , scheduled steroids, and continue aerosols when necessary. We will monitor electrolytes closely and keep her on telemetry for now. She remains on antibiotics for her UTI and IV fluids well. Other than my comments above and noted physical exam plans, I agree with Dr. Anaya's assessment and plan.
[2017-10-29] MEDS ORDERED: Dextrose Gel 15 GM/37.5 ML TUBE PO PRN ×2 (21:29)
[2017-10-29] MEDS ORDERED: D5% in Water 1,000 ML IVC PRN (21:29)
[2017-10-29] MEDS ORDERED: *HR* Dextrose 50 % in Water (Syg) 50 ML SYRINGE IVP PRN (21:29)
[2017-10-29] MEDS ORDERED: Ipratropium/Albuterol Neb 3 ML IH PRN (21:54)
[2017-10-29] MEDS: Ipratropium/Albuterol Neb 3 ML IH SCH (22:19)
[2017-10-29] MEDS ORDERED: Nicotine 21 MG PATCH.TD24 TD SCH (23:15)
[2017-10-30] MEDS: 0.9 % Sodium Chloride 1,000 ML IVC SCH ×3 (00:33→13:58)
[2017-10-30] MEDS ORDERED: methylPREDNISolone 125 MG/2 ML VIAL IVP ONE (02:02)
[2017-10-30] MEDS ORDERED: *HR* LORazepam 2 MG/ML VIAL IVP ONE (02:06)
[2017-10-30] MEDS: Ipratropium/Albuterol Neb 3 ML IH SCH ×4 (03:25→21:10)
[2017-10-30 03:37] LABS: Basophils % 0.1 %; Immature Granulocytes % 0.4 % (0-4); Lymphocytes # 0.4 K/mcL (0.6-4.6); Lymphocytes % 3.5 %; Mean Corpuscular Hemoglobin 32.1 pg (28.0-33.3); Mean Corpuscular Volume 91.6 fL (83.0-100.0); Mean Platelet Volume 9.7 fL (9.4-12.4); Monocytes # 0.9 K/mcL (0.0-1.3); Monocytes % 7.7 %; Neutrophils # 10.2 K/mcL (1.6-8.9); Platelet Count 139 K/mcL (140-400); Red Blood Count 3.93 M/mcL (3.82-4.97); Segmented Neutrophils % 88.3 %
[2017-10-30 03:44] LABS: Hemoglobin 12.6 g/dL (11.5-15.4)
[2017-10-30 03:55] LABS: Chol/HDL Ratio 6.4 (0-4.9)
[2017-10-30 04:00] LABS: Calcium 8.1 mg/dL (8.6-10.3); Potassium 3.4 mEq/L (3.5-5.1)
[2017-10-30] MEDS ORDERED: *HR* Heparin 5,000 UNIT/ML VIAL SQ SCH (06:00)
--- NOTE | 2017-10-30 06:53 | Urology - Consult Note ---
Date of Encounter: 10/30/17 Time of Encounter: 06:51 - Assessment and Plan (1) Kidney stone on left side Current Visit: Yes Status: Acute Assessment and plan: We will plan on taking the patient to the operative room this morning for cystoscopy and left ureteral stent placement. While some of her current symptoms could be related to infected stone and sepsis some of her other signs and symptoms are not typical of obstructive kidney stone with infection. I believe that performing the stent today will help try to clarify patient's current medical condition. Urology CN:REX Consult date: 10/30/17 Reason for consult Urology: Other (left upj stone) Requesting physician: John Durand History of present illness: Mildred is a 72-year-old female with a history of presentation to the emergency department yesterday evening secondary to back discomfort and aphasia. Patient was worked up for stroke with CT scan which was negative. Patient also had improvement in her stroke like symptoms. Patient had CT abdomen and pelvis performed which showed a 3 x 5 mm left UPJ stone with significant proximal hydronephrosis. Patient states that she does have some back discomfort but this is mostly on her right side. Questions difficult to answer for the patient secondary to be on BiPAP and with some mild confusion. Patient has remained febrile upon arrival to the hospital. Her leukocytosis has improved overnight. Serum creatinine is also improved. Patient also reports of diarrhea prior to arrival to the hospital. Past Med Surg Social Fam HX - Past Medical History Medical history: arthritis, COPD, coronary artery disease, CVA, diabetes, GERD, hyperlipidemia, hypertension, myocardial infarction Additional medical history: CVA more than 40years ago, Psychiatric history: anxiety, depression - Past Surgical History Surgical History: angioplasty/stent, coronary bypass (CABG), hysterectomy, LOLA/ BSO, other Additional surgical history: Cardiac cath, AAA - Social History Smoking Status: Unknown if ever smoked Smokeless Tobacco Status: No Alcohol use: rarely Drug use: none Medications and Allergies Amitriptyline [Elavil] 25 mg PO DAILY 04/12/16 [History] Amlodipine Besylate 10 mg PO DAILY 04/12/16 [History] Aspirin [Lo-Dose Aspirin EC] 81 mg PO DAILY 04/12/16 [History] FLUoxetine HCl [Fluoxetine HCl] 40 mg PO DAILY 04/12/16 [History] Glimepiride [Amaryl] 2 mg PO DAILY 04/12/16 [History] OXcarbazepine [Oxcarbazepine] 600 mg PO BID 04/12/16 [History] ALPRAZolam [Xanax 0.5 MG Tablet] 0.5 - 1 mg PO BID PRN 01/10/17 [History] Albuterol Sulfate [Ventolin Hfa] 2 puff IH Q4H PRN 01/10/17 [History] Nitroglycerin [Nitrostat] 0.4 mg SL Q5M PRN 01/10/17 [History] Ranitidine HCl [Heartburn Relief] 150 mg PO BID 01/10/17 [History] Atorvastatin [Lipitor] 40 mg PO HS 04/16/17 [History] Metoprolol Tartrate 100 mg PO BID 04/16/17 [History] Furosemide [Lasix] 20 mg PO DAILY #30 tablet 04/19/17 [Rx] Glycopyrrolate/Formoterol Fum [Bevespi Aerosphere Inhaler] 2 puff IH BID [History] hydroCHLOROthiazide [Hydrochlorothiazide] 25 mg PO DAILY 04/28/17 [History] metroNIDAZOLE [Flagyl] 500 mg PO TID 04/28/17 [History] Famotidine [Pepcid] 10 mg PO BID #30 tablet 04/29/17 [Rx] Sucralfate [Carafate] 1 gm PO QIDAC 30 Days #120 tablet 04/29/17 [Rx] amLODIPine [Norvasc] 10 mg PO DAILY #30 tablet 04/29/17 [Rx] 3 Allergy/AdvReac Type Severity Reaction Status Date / Time No Known Allergies Allergy Verified 04/28/17 08:58 Review of Systems ROS unobtainable: due to mental status Exam Initial Vital Signs Temp Pulse Resp BP Pulse Ox 103.1 F H 98 20 111/75 92 10/29/17 16:39 10/29/17 16:39 10/29/17 16:39 10/29/17 16:39 10/29/17 16:39 - General physical appearance Present: well developed, well nourished - Eyes Present: PERRL - Respiratory Present: other (Currently on BiPAP) - Cardiovascular Cardiovascular exam IM: RRR - Abdomen Abdomen: Present: soft. Absent: tender Urology Results - Labs 10/30/17 03:23 10/30/17 03:23 Abnormal lab results WBC 11.5 K/mcL (4.3-11.1) H 10/30/17 03:23 Plt Count 139 K/mcL (140-400) L 10/30/17 03:23 Neutrophils # 10.2 K/mcL (1.6-8.9) H 10/30/17 03:23 Lymphocytes # 0.4 K/mcL (0.6-4.6) L 10/30/17 03:23 PT 14.8 Seconds (9.4-12.1) H 10/29/17 16:50 Sodium 129 mEq/L (136-145) L 10/30/17 03:23 Potassium 3.4 mEq/L (3.5-5.1) L D 10/30/17 03:23 Chloride 94 mEq/L (98-107) L 10/30/17 03:23 Creatinine 1.29 mg/dL (0.60-1.20) H 10/30/17 03:23 Est GFR ( Amer) 49 (> 60) L 10/30/17 03:23 Est GFR (Non-Af Amer) 41 (> 60) L 10/30/17 03:23 Glucose 183 mg/dL (70-105) H 10/30/17 03:23 POC Glucose 235 mg/dL (70-99) H 10/30/17 05:41 Calculated Osmolality 276 (280-300) L 10/30/17 03:23 Calcium 8.1 mg/dL (8.6-10.3) L 10/30/17 03:23 Direct Bilirubin 0.3 mg/dL (0.0-0.2) H 10/29/17 16:50 Alkaline Phosphatase 111 Units/L (34-104) H 10/29/17 16:50 Troponin I 0.04 ng/mL (< 0.04) H* 10/30/17 01:59 Triglycerides 195 mg/dL (< 150) H 10/30/17 03:23 VLDL Cholesterol, Calc 39 mg/dL (< 31) H 10/30/17 03:23 HDL Cholesterol 18 mg/dL (40-59) L 10/30/17 03:23 Cholesterol/HDL Ratio 6.4 (0-4.9) H 10/30/17 03:23 Lipase 7 Units/L (11-82) L 10/29/17 16:50 Urine Clarity Cloudy (Clear) A 10/29/17 18:28 Ur Specific [place] 1.006 (1.010-1.025) L 10/29/17 18:28 Urine Protein 30 mg/dL (Neg-Trace) H 10/29/17 18:28 Urine Ketones 15 mg/dL (Negative) H 10/29/17 18:28 Urine Blood Moderate (Negative) H 10/29/17 18:28 Ur Leukocyte Esterase Small (Negative) H 10/29/17 18:28 Urine Microscopic WBC 5-15 per hpf (0-3) H 10/29/17 18:28 Ur Squamous Epith Cells Many per lpf (None-Few) H 10/29/17 18:28 Amorphous Sediment Many (Few) H 10/29/17 18:28 Ur Culture Indicated? NO. (NO) A 10/29/17 18:28 Diabetes panel 10/30/17 10/30/17 Range/Units 03:23 03:23 Sodium 129 L (136-145) mEq/L Potassium 3.4 L D (3.5-5.1) mEq/L Chloride 94 L (98-107) mEq/L Carbon Dioxide 24 (23-29) mEq/L BUN 22 (8-23) mg/dL Creatinine 1.29 H (0.60-1.20) mg/dL Glucose 183 H (70-105) mg/dL Calcium 8.1 L (8.6-10.3) mg/dL Triglycerides 195 H (< 150) mg/dL HDL Cholesterol 18 L (40-59) mg/dL Calcium panel 10/30/17 Range/Units 03:23 Calcium 8.1 L (8.6-10.3) mg/dL Pituitary panel 10/30/17 Range/Units 03:23 Sodium 129 L (136-145) mEq/L Potassium 3.4 L D (3.5-5.1) mEq/L Chloride 94 L (98-107) mEq/L Carbon Dioxide 24 (23-29) mEq/L BUN 22 (8-23) mg/dL Creatinine 1.29 H (0.60-1.20) mg/dL Glucose 183 H (70-105) mg/dL Calcium 8.1 L (8.6-10.3) mg/dL Adrenal panel 10/30/17 Range/Units 03:23 Sodium 129 L (136-145) mEq/L Potassium 3.4 L D (3.5-5.1) mEq/L Chloride 94 L (98-107) mEq/L Carbon Dioxide 24 (23-29) mEq/L BUN 22 (8-23) mg/dL Creatinine 1.29 H (0.60-1.20) mg/dL Glucose 183 H (70-105) mg/dL Calcium 8.1 L (8.6-10.3) mg/dL All other labs normal. Consult Discharge Plan - Plan Referrals: Tay Kaplan MD [Primary Care Provider] -
--- NOTE | 2017-10-30 07:18 | Anesthesia Evaluation PreOp ---
Date of Encounter: 10/30/17 Time of Encounter: 07:30 - Past History Planned Operation: ureteroscopy, stent Cardiac History: [place], Cardiac Surgery (CABG), Cardiac Stent, Other (CAD) Pulmonary History: COPD (O2 at night) STYLE ADVISOR History: CVA, TIA, Other (Admitted with new onset aphasia and lower extremity weakness. Patient has prior hx of CVA. Her aphasia has resolved somewhat with hydration and antibiotics. This is the second episode of this occuring.) Other Medical History: Diabetes Type II, GERD, Other (lung CA) Anesthesia History: No Prior Anesthetic Complications (unknown) Alcohol Use: rarely Drug use: none Medications and Allergies Amitriptyline [Elavil] 25 mg PO DAILY 04/12/16 [History] Amlodipine Besylate 10 mg PO DAILY 04/12/16 [History] Aspirin [Lo-Dose Aspirin EC] 81 mg PO DAILY 04/12/16 [History] FLUoxetine HCl [Fluoxetine HCl] 40 mg PO DAILY 04/12/16 [History] Glimepiride [Amaryl] 2 mg PO DAILY 04/12/16 [History] OXcarbazepine [Oxcarbazepine] 600 mg PO BID 04/12/16 [History] ALPRAZolam [Xanax 0.5 MG Tablet] 0.5 - 1 mg PO BID PRN 01/10/17 [History] Albuterol Sulfate [Ventolin Hfa] 2 puff IH Q4H PRN 01/10/17 [History] Nitroglycerin [Nitrostat] 0.4 mg SL Q5M PRN 01/10/17 [History] Ranitidine HCl [Heartburn Relief] 150 mg PO BID 01/10/17 [History] Atorvastatin [Lipitor] 40 mg PO HS 04/16/17 [History] Metoprolol Tartrate 100 mg PO BID 04/16/17 [History] Furosemide [Lasix] 20 mg PO DAILY #30 tablet 04/19/17 [Rx] Glycopyrrolate/Formoterol Fum [Bevespi Aerosphere Inhaler] 2 puff IH BID [History] hydroCHLOROthiazide [Hydrochlorothiazide] 25 mg PO DAILY 04/28/17 [History] metroNIDAZOLE [Flagyl] 500 mg PO TID 04/28/17 [History] Famotidine [Pepcid] 10 mg PO BID #30 tablet 04/29/17 [Rx] Sucralfate [Carafate] 1 gm PO QIDAC 30 Days #120 tablet 04/29/17 [Rx] amLODIPine [Norvasc] 10 mg PO DAILY #30 tablet 04/29/17 [Rx] 3 Allergy/AdvReac Type Severity Reaction Status Date / Time No Known Allergies Allergy Verified 04/28/17 08:58 - Meds/Allergy Pre-op Review Medications Reviewed: Yes Allergies Reviewed: Yes Beta Blockers on Current Med List: No Anesthesia Results - Labs 10/30/17 03:23 10/30/17 03:23 - Imaging EKG: report reviewed (sinus rhythm, old anterior wall infarct) Additional studies: ECHO 55-60%, wall hypokinesis. Stable from previous exams. Anesthesia Exam Selected Entries 07/27/17 15:36 10/30/17 06:53 Temperature 98.0 F 99.2 F Pulse Rate 63 59 Respiratory Rate 14 18 Blood Pressure 121/68 122/76 O2 Sat by Pulse Oximetry 92 92 Weight: 87 kg NPO (# of Hours): over 8 hours - HEENT Pupil (Motor): Pupils equal Mallampati: I Teeth: Edentulous Oral Opening: Greater than 3 (P) - STYLE ADVISOR LOC: Oriented (expressive aphasia, can answer yes and no question) - Cardiac Rhythm: Regular Murmur: None - Pulmonary Breath Sounds: bilateral Rales, bilateral Rhonchi Respiratory Effort: Symmetrical (slight dyspnea) Anesthesia Assess/Plan ASA Score: 4 Modified Justice Scale for Level of Consciousness: Cooperative, oriented, and tranquil Anesthetic Plan: General Monitoring Plan: Standard Monitors Recovery Plan: PACU (Discussed GA, risks. Agreed to proceed. Patient arrived on Bipap. Respiratory reported she was up ambulating in the bathroom for several minutes and maintained O2 sats in the high 90's. Will have bipap on standby in recovery.)
[2017-10-30] MEDS ORDERED: *HR* Propofol 200 MG/20 ML VIAL IVP ONE (07:20)
[2017-10-30] MEDS ORDERED: Lidocaine -MPF 2% 2 ML VIAL ONE (07:20)
[2017-10-30] MEDS ORDERED: Dexamethasone 4 MG/ML VIAL ONE ×2 (07:20→07:21)
[2017-10-30] MEDS ORDERED: Ondansetron 4 MG/2 ML VIAL ONE (07:20)
[2017-10-30] MEDS ORDERED: *HR* Succinylcholine 200 MG/10 ML VIAL IVP ONE (07:21)
[2017-10-30] MEDS ORDERED: *HR* FentaNYL (PF) 100 MCG/2 ML VIAL ONE (07:21)
[2017-10-30] MEDS ORDERED: Isovue-300 50 ML VIAL IVP ONE (07:30)
[2017-10-30] MEDS ORDERED: Insulin LISPRO 300 UNITS/3 ML VIAL SQ SCH ×5 (08:00→21:00)
[2017-10-30] MEDS ORDERED: methylPREDNISolone 125 MG/2 ML VIAL IVP SCH ×2 (08:00→16:00)
[2017-10-30] MEDS ORDERED: *HR* PHENYLEPHRINE 1,000 MCG/10 ML SYRINGE IVP ONE (08:27)
[2017-10-30] MEDS ORDERED: Acetaminophen IV 1,000 MG/100 ML INFUS..BTL IVPB ONE (08:40)
[2017-10-30 08:42] LABS: Albumin 3.4 g/dL (3.5-5.7); Albumin/Globulin Ratio 1.3 (1.1-2.2); Bilirubin,Total 0.5 mg/dL (0.3-1.0); Calcium 8.3 mg/dL (8.6-10.3); Globulin 2.6 g/dL (2.4-3.5); Magnesium 1.3 mg/dL (1.6-2.6); Potassium 3.4 mEq/L (3.5-5.1)
[2017-10-30] MEDS ORDERED: Acetaminophen IV 1,000 MG/100 ML INFUS..BTL ONE (08:42)
--- NOTE | 2017-10-30 08:45 | Operative Note ---
Date of procedure: 10/30/17 Pre-op diagnosis: left upj stone with fever Post-op diagnosis: same Procedure: Cystoscopy and left 6 x 26 cm ureteral stent placement Anesthesia: JENIA Surgeon: Gucci Valencia Was there an veterinarian assistant present: No Estimated blood loss (cc): 0 Specimen: none Condition: stable Disposition: PACU Procedure in Detail: Patient was prepped and draped in normal sterile fashion. Timeout procedure performed. I then inserted the cystoscope in the patient's bladder. Patient had a significant cystocele making it quite difficult to locate the left ureteral orifice. I had to reduce the cystocele using a lap pad. Once this was done I was able to visualize the left ureteral orifice and cannulate this using a open ended ureteral catheter. I placed a Glidewire through this into the left kidney. I then placed a 6 x 26 cm stent with good curl seen in the left kidney and in the bladder. There was some debris seen coming from the stent once the wire was removed. A [place] catheter was placed in the patient's bladder. Patient taken to PACU in stable condition. Recommend for catheter stay in place for 24 hours. Okay for patient to eat from urology standpoint.
[2017-10-30] MEDS ORDERED: *HR* OxyCODONE Immed Rel 5 MG TABLET PO PRN (08:55)
[2017-10-30 09:00] LABS: blaKPC Carbapenem-Resist Gene Not Detected (Not Detect)
[2017-10-30] MEDS ORDERED: cefTRIAXone 1,000 MG in Water for inj. (sterile) 20 ML 10 ML IVP SCH (09:00)
[2017-10-30 09:01] LABS: Acinetobacter baumannii by PCR Not Detected (Not Detect); Candida albicans by PCR Not Detected (Not Detect); Candida glabrata by PCR Not Detected (Not Detect); Candida krusei by PCR Not Detected (Not Detect); Candida parapsilosis by PCR Not Detected (Not Detect); Candida tropicalis by PCR Not Detected (Not Detect); Enterobacter cloacae Cmplx PCR Not Detected (Not Detect); Enterobacteriaceae by PCR DETECTED (Not Detect); Enterococcus by PCR Not Detected (Not Detect); Escherichia coli by PCR DETECTED (Not Detect); Klebsiella oxytoca by PCR Not Detected (Not Detect); Klebsiella pneumoniae by PCR Not Detected (Not Detect); Proteus by PCR Not Detected (Not Detect); Pseudomonas aeruginosa by PCR Not Detected (Not Detect); Serratia marcescens by PCR Not Detected (Not Detect); Staphylococcus aureus by PCR Not Detected (Not Detect); Staphylococcus by PCR Not Detected (Not Detect); Streptococcus agalactiae(B)PCR Not Detected (Not Detect); Streptococcus by PCR Not Detected (Not Detect); Streptococcus pneumoniae PCR Not Detected (Not Detect); Streptococcus pyogenes (A) PCR Not Detected (Not Detect)
[2017-10-30] MEDS ORDERED: Insulin Regular, Human 100 UNIT/ML ONE ×2 (09:03→09:04)
[2017-10-30] MEDS ORDERED: Insulin LISPRO 300 UNITS/3 ML VIAL SQ ONE (09:13)
--- NOTE | 2017-10-30 09:20 | Anesthesia Evaluation Post Op ---
Date of Encounter: 10/30/17 Time of Encounter: 09:30 - Vital Signs Vital Signs: Selected Entries 10/30/17 09:18 10/30/17 09:28 Temperature 97.5 F L Pulse Rate 85 Respiratory Rate 18 Blood Pressure 108/63 O2 Sat by Pulse Oximetry 95 - Lungs Lungs: Rhonchi - Airway Airway: Non-obstructed - Cardiovascular Regular Rate - Mental Status Mental Status: Alert & Oriented, Answers Appropriately - Nausea Vomiting Nausea Vomiting: Not Present - Hydration Hydration: NPO, [place] catheter Notes: 10/30/17 09:20 Stable and comfortable on 2L of oxygen - Discharge PostOp Status: Transfer Patient to floor
[2017-10-30] MEDS ORDERED: Insulin Regular, Human 100 UNIT/ML SQ ONE (09:29)
[2017-10-30] MEDS ORDERED: Isovue-370 500 ML INFUS..BTL IV ONE (09:29)
[2017-10-30] MEDS ORDERED: Naloxone 0.4 MG/ML INJ IVP PRN (09:29)
[2017-10-30] MEDS ORDERED: D5% in Water 1,000 ML IVC PRN (09:29)
[2017-10-30] MEDS ORDERED: 0.9 % Sodium Chloride 1,000 ML IVC SCH (09:29)
[2017-10-30] MEDS ORDERED: Acetaminophen 325 MG TABLET PO PRN (09:29)
[2017-10-30] MEDS ORDERED: Dextrose Gel 15 GM/37.5 ML TUBE PO PRN ×2 (09:29)
[2017-10-30] MEDS ORDERED: *HR* Dextrose 50 % in Water (Syg) 50 ML SYRINGE IVP PRN (09:29)
[2017-10-30 09:46] LABS: Troponin I 0.06 ng/mL (< 0.04)
[2017-10-30 10:57] LABS: Estimated Average Glucose 151 mg/dl; Hemoglobin A1C 6.9 %
[2017-10-30] MEDS ORDERED: ALPRAZolam 0.5 MG TABLET PO PRN (12:49)
[2017-10-30 13:24] LABS: Estimated Average Glucose 151 mg/dl; Hemoglobin A1C 6.9 %
[2017-10-30] MEDS: *HR* Heparin 5,000 UNIT/ML VIAL SQ SCH ×2 (13:58→21:53)
--- NOTE | 2017-10-30 14:38 | Internal Med Progress Note ---
Hospitalist Progress Note - Encounter Date of Encounter: 10/30/17 Time of Encounter: 10:00 - Subjective Interval History: Ms. Mackey is a 72 year old female hx of hypertension, hyperlipidemia, CAD with status post CABG and CVA with neuro deficits presented to ED for aphasia and lower extremity weakness. Onset is unknown due to patient"s poor memory and confusion - only witnessed by who has dementia. She is also complaining of back pain with nausea and diarrhea. Describes sudden onset of inability to move legs and speak similar to last time she was dehydrated. In ED,she happened to have fever with T max 103.[address] of abd showed left side obstructive neuropathy with a 3 mm calculi in left proximal ureter. Patient was admitted in the hospital and started on IV hydration and empirical antibiotic with Rocephin. She just came back from the OR after ureter stent placed. She is more alert, awake and oriented. - Exam Vitals: Temp Pulse Resp BP Pulse Ox 98.5 F 85 18 93/61 95 10/30/17 12:07 10/30/17 12:07 10/30/17 12:07 10/30/17 12:07 10/30/17 12:07 Exam: Gen: Alert, awake, Oriented to time,place and person Chest: Diminished breath sounds B/L, No wheezing, No crackles, No rales Heart: S1S2+ RRR No murmurs Abd: Soft, NT, BS +, No organomegaly Ext: No edema, pulses are palpable, No calf tenderness Neuro : Benign findings Skin: No rash. - Assessment and Plan (1) Sepsis Current Visit: Yes Status: Acute Assessment and Plan: Patient did meet sepsis criteria initially which improved now Due to UTI continue gentle IV hydration continue empirical antibiotic Rocephin (2) Bacteremia Current Visit: Yes Status: Acute Assessment and Plan: Gram-negative rods 2 out f 4 mostly due to UTI (3) Ureteral calculi Current Visit: Yes Status: Acute Assessment and Plan: Status post left ureter stent continue symptomatic and supportive care (4) TIA (transient ischemic attack) Current Visit: Yes Status: Suspected Assessment and Plan: Resolved no more aphasia / no more acute focal neuro deficits.. MRI of the head ordered will follow-up in the final results (5) IDALIA (acute kidney injury) Current Visit: Yes Status: Resolved Assessment and Plan: Due to sepsis improving continue IV fluids (6) Tobacco abuse Current Visit: No Status: Acute Assessment and Plan: [place] to quit smoking on nicotine patch (7) CAD (coronary artery disease) Current Visit: No Status: Chronic Assessment and Plan: Resumed home medical (8) COPD (chronic obstructive pulmonary disease) Current Visit: No Status: Chronic Assessment and Plan: Not in exacerbation resumed home inhaler regimen (9) Diabetes mellitus Current Visit: No Status: Chronic Assessment and Plan: On insulin sliding scale (10) Essential hypertension Current Visit: No Status: Chronic Assessment and Plan: Stable with current medication - Time Spent with Patient Total time spent is greater than 50% in coordination of care (as documented) at patient's floor/unit and/or counseling patient: Internal Medicine: Result - Labs CBC & Chem 7: 10/30/17 03:23 10/30/17 08:04 Labs: Short CBC 10/30/17 Range/Units 03:23 WBC 11.5 H (4.3-11.1) K/mcL Hgb 12.6 D (11.5-15.4) g/dL Hct 36.0 (35.3-44.9) % Plt Count 139 L (140-400) K/mcL Neutrophils # 10.2 H (1.6-8.9) K/mcL BMP 10/30/17 10/30/17 03:23 08:04 Sodium 129 L 130 L Potassium 3.4 L D 3.4 L Chloride 94 L 97 L Carbon Dioxide 24 21 L BUN 22 20 Creatinine 1.29 H 1.35 H Glucose 183 H 263 H Calcium 8.1 L 8.3 L Cardiac Enzymes 10/30/17 Range/Units 08:04 Troponin I 0.06 H* (< 0.04) ng/mL Liver Function 10/30/17 Range/Units 08:04 Total Bilirubin 0.5 (0.3-1.0) mg/dL AST 18 (13-39) Units/L ALT 9 (7-52) Units/L Alkaline Phosphatase 102 (34-104) Units/L Albumin 3.4 L (3.5-5.7) g/dL - ABG Interpretation ABG results: PT/INR, D-dimer PT 14.8 Seconds (9.4-12.1) H 10/29/17 16:50 - Impressions Impressions Fluoroscopy 10/30/17 08:15 IMPRESSION: Intraprocedural fluoroscopic spot images as above. See separate procedure report for more information. D/ / 10/30/2017 11:34:50 Joel Alvarez MD / rachel Interpreting Provider: Joel Alvarez MD X-Ray 10/30/17 08:15 IMPRESSION: Intraprocedural fluoroscopic spot images as above. See separate procedure report for more information. D/ / 10/30/2017 11:34:50 Joel Alvarez MD / rachel Interpreting Provider: Joel Alvarez MD Consult Discharge Plan - Plan Referrals: Tay Kaplan MD [Primary Care Provider] - (1) Sepsis Qualifiers: Sepsis type: sepsis due to unspecified organism Qualified Code(s): A41.9 - Sepsis, unspecified organism (7) CAD (coronary artery disease) Qualifiers: Coronary Disease-Associated Artery/Lesion type: unspecified vessel or lesion type [place] vs. transplanted heart: [place] heart Associated angina: without angina Qualified Code(s): I25.10 - Atherosclerotic heart disease of [place] coronary artery without angina pectoris (8) COPD (chronic obstructive pulmonary disease) Qualifiers: COPD type: unspecified COPD Qualified Code(s): J44.9 - Chronic obstructive pulmonary disease, unspecified (9) Diabetes mellitus Qualifiers: Diabetes mellitus type: type 2 Diabetes mellitus terminal supervisor insulin use: without shelter use Diabetes mellitus complication status: with unspecified complications Qualified Code(s): E11.8 - Type 2 diabetes mellitus with unspecified complications
[2017-10-30] MEDS: Sucralfate 1 GM TABLET PO SCH ×2 (15:20→21:51)
[2017-10-30] MEDS ORDERED: NON-FORMULARY MEDICATION 1 EACH EACH (Ranitidine Hcl [Heartburn Relief] 150 MG) PO SCH (21:00)
[2017-10-30] MEDS: OXcarbazepine 150 MG TABLET PO SCH (21:51)
[2017-10-30] MEDS: Famotidine 20 MG TABLET PO SCH (21:51)
[2017-10-30] MEDS: Metoprolol 100 MG TABLET PO SCH (21:51)
[2017-10-30] MEDS: Nicotine 21 MG PATCH.TD24 TD SCH (21:52)
[2017-10-30] MEDS: Insulin LISPRO 300 UNITS/3 ML VIAL SQ SCH (21:54)
[2017-10-31] MEDS: Ipratropium/Albuterol Neb 3 ML IH PRN ×3 (02:00→19:51)
[2017-10-31] MEDS: 0.9 % Sodium Chloride 1,000 ML IVC SCH ×2 (02:16→13:30)
[2017-10-31] MEDS: Ipratropium/Albuterol Neb 3 ML IH SCH ×4 (04:29→22:19)
[2017-10-31] MEDS: OXYCODONE Oral CONC 10 MG/0.5 ML ORAL.SYG SL PRN ×2 (06:00→19:41)
[2017-10-31] MEDS: *HR* Heparin 5,000 UNIT/ML VIAL SQ SCH ×3 (06:05→19:36)
[2017-10-31] MEDS ORDERED: methylPREDNISolone 125 MG/2 ML VIAL IVP STA (07:43)
[2017-10-31] MEDS: Metoprolol 100 MG TABLET PO SCH ×2 (08:20→19:37)
[2017-10-31] MEDS: Famotidine 20 MG TABLET PO SCH ×2 (08:20→19:36)
[2017-10-31] MEDS: Aspirin Enteric Coated 81 MG Tablet PO SCH (08:20)
[2017-10-31] MEDS: amLODIPine 5 MG TABLET PO SCH (08:20)
[2017-10-31] MEDS: Sucralfate 1 GM TABLET PO SCH ×4 (08:20→19:36)
[2017-10-31] MEDS: OXcarbazepine 150 MG TABLET PO SCH ×2 (08:36→19:41)
[2017-10-31] MEDS: Insulin LISPRO 300 UNITS/3 ML VIAL SQ SCH ×4 (08:56→23:24)
[2017-10-31] MEDS ORDERED: cefTRIAXone 1,000 MG in Water for inj. (sterile) 20 ML 10 ML IVP SCH (09:00)
[2017-10-31 09:03] LABS: Basophils % 0.2 %; Eosinophils % 0.2 %; Hematocrit 35.5 % (35.3-44.9); Hemoglobin 11.8 g/dL (11.5-15.4); Immature Granulocytes % 1.3 % (0-4); Lymphocytes # 1.3 K/mcL (0.6-4.6); Lymphocytes % 9.9 %; Mean Corpuscular HGB Conc 33.2 g/dL (31.6-35.5); Mean Corpuscular Hemoglobin 31.4 pg (28.0-33.3); Mean Corpuscular Volume 94.4 fL (83.0-100.0); Mean Platelet Volume 10.2 fL (9.4-12.4); Monocytes # 1.3 K/mcL (0.0-1.3); Neutrophils # 10.1 K/mcL (1.6-8.9); Platelet Count 190 K/mcL (140-400); Red Blood Count 3.76 M/mcL (3.82-4.97); Red Cell Distribution Width 12.8 % (11.5-14.5); Segmented Neutrophils % 78.4 %
[2017-10-31 09:26] LABS: Calcium 8.3 mg/dL (8.6-10.3); Magnesium 1.6 mg/dL (1.6-2.6); Potassium 3.5 mEq/L (3.5-5.1)
--- NOTE | 2017-10-31 09:33 | Urology Progress Note ---
Date of Encounter: 10/31/17 Time of Encounter: 09:32 - Assessment and Plan (1) Kidney stone on left side Current Visit: Yes Status: Acute Assessment and plan: Patient is status post cystoscopy and left ureteral stent placement. She will need follow-up with me in 2-3 weeks. Okay to remove catheter per primary team. Progress Note Narrative: Patient seen this morning. Patient feeling better but is having some left- sided flank discomfort. Objective Initial Vital Signs Temp Pulse Resp BP Pulse Ox 103.1 F H 98 20 111/75 92 10/29/17 16:39 10/29/17 16:39 10/29/17 16:39 10/29/17 16:39 10/29/17 16:39 - General physical appearance Present: well developed, well nourished - Abdomen Present: soft. Absent: tender - Labs 10/31/17 08:34 10/31/17 08:34 Diabetes panel 10/30/17 10/31/17 Range/Units 03:23 08:34 Sodium 139 (136-145) mEq/L Potassium 3.5 (3.5-5.1) mEq/L Chloride 108 H (98-107) mEq/L Carbon Dioxide 24 (23-29) mEq/L BUN 17 (8-23) mg/dL Creatinine 1.15 (0.60-1.20) mg/dL Glucose 158 H (70-105) mg/dL Hemoglobin A1c 6.9 H ( - 5.6) % Calcium 8.3 L (8.6-10.3) mg/dL Calcium panel 10/31/17 Range/Units 08:34 Calcium 8.3 L (8.6-10.3) mg/dL Pituitary panel 10/31/17 Range/Units 08:34 Sodium 139 (136-145) mEq/L Potassium 3.5 (3.5-5.1) mEq/L Chloride 108 H (98-107) mEq/L Carbon Dioxide 24 (23-29) mEq/L BUN 17 (8-23) mg/dL Creatinine 1.15 (0.60-1.20) mg/dL Glucose 158 H (70-105) mg/dL Calcium 8.3 L (8.6-10.3) mg/dL Adrenal panel 10/31/17 Range/Units 08:34 Sodium 139 (136-145) mEq/L Potassium 3.5 (3.5-5.1) mEq/L Chloride 108 H (98-107) mEq/L Carbon Dioxide 24 (23-29) mEq/L BUN 17 (8-23) mg/dL Creatinine 1.15 (0.60-1.20) mg/dL Glucose 158 H (70-105) mg/dL Calcium 8.3 L (8.6-10.3) mg/dL Consult Discharge Plan - Plan Referrals: Tay Kaplan MD [Primary Care Provider] -
--- NOTE | 2017-10-31 10:12 | Internal Med Progress Note ---
<Todd Baron - Last Filed: 10/31/17 10:07> Hospitalist Progress Note - Encounter Date of Encounter: 10/31/17 Time of Encounter: 10:07 - Subjective Interval History: Patient was examined while lying in bed. She had acute hypoxic respiratory failure this morning requiring Bipap with 35% FiO2 and solumedrol (). This morning she states that her shortness of breath has improved. Still not at baseline. Currently was on NC 6L while she was eating. She denies chest tightness, cough, chest pain, palpitations, or light headedness. Patient states that she still has back pain and dysuria. - Exam Vitals: Temp Pulse Resp BP Pulse Ox 98.9 F 88 18 128/63 95 10/31/17 09:01 10/31/17 09:01 10/31/17 09:01 10/31/17 09:01 10/31/17 09:01 Exam: Gen: female. Not in acute distress. Alert, awake, Oriented to time, place and person Chest: Diminished breath sounds B/L. Diffuse expiratory wheezing Heart: S1S2+ RRR No murmurs Abd: Soft, NT, BS +, No organomegaly Ext: No edema, pulses are palpable, No calf tenderness Neuro : Benign findings Skin: No rash. - Assessment and Plan (1) Bacteremia Current Visit: Yes Status: Acute Assessment and Plan: Likely 2/2 UTI WBC 12.9, increased from yesterday of 11.5. Likely 2/2 solumedrol use Blood cx grew E. coli. Waiting sensitivity Continue ceftriaxone day 2 Comments: (2) Acute respiratory failure with hypoxia Current Visit: Yes Status: Acute Assessment and Plan: Not on supplemental O2 at baseline On Bipap with 35% Fi02 Possibly 2/2 COPD exacerbation (3) Ureteral calculi Current Visit: Yes Status: Acute Assessment and Plan: s/p stent of left proximal ureter 10/30/[address] Serosanguineous fluid collected this morning. Likely 2/2 stent placement Continue to monitor (4) Tobacco abuse Current Visit: No Status: Chronic Assessment and Plan: Advised patient to d/c tobacco use. Patient is interested in stopping. Denied nicotine patch - Time Spent with Patient Total time spent is greater than 50% in coordination of care (as documented) at patient's floor/unit and/or counseling patient: 25 - 35 minutes Plan of Care Discussed with: patient Internal Medicine: Result - Labs CBC & Chem 7: 10/31/17 08:34 10/31/17 08:34 Labs: Short CBC 10/31/17 Range/Units 08:34 WBC 12.9 H (4.3-11.1) K/mcL Hgb 11.8 (11.5-15.4) g/dL Hct 35.5 (35.3-44.9) % Plt Count 190 (140-400) K/mcL Neutrophils # 10.1 H (1.6-8.9) K/mcL BMP 10/31/17 08:34 Sodium 139 Potassium 3.5 Chloride 108 H Carbon Dioxide 24 BUN 17 Creatinine 1.15 Glucose 158 H Calcium 8.3 L - ABG Interpretation ABG results: PT/INR, D-dimer PT 14.8 Seconds (9.4-12.1) H 10/29/17 16:50 - Impressions Impressions Fluoroscopy 10/30/17 08:15 IMPRESSION: Intraprocedural fluoroscopic spot images as above. See separate procedure report for more information. D/ / 10/30/2017 11:34:50 Joel Alvarez MD / rachel Interpreting Provider: Joel Alvarez MD X-Ray 10/30/17 08:15 IMPRESSION: Intraprocedural fluoroscopic spot images as above. See separate procedure report for more information. D/ / 10/30/2017 11:34:50 Joel Alvarez MD / rachel Interpreting Provider: Joel Alvarez MD Consult Discharge Plan - Plan Referrals: Tay Kaplan MD [Primary Care Provider] - <Mary Quintero - Last Filed: 10/31/17 14:04> Hospitalist Progress Note - Encounter Date of Encounter: 10/31/17 - Exam Vitals: Temp Pulse Resp BP Pulse Ox 98.1 F 87 17 132/83 90 10/31/17 13:24 10/31/17 13:24 10/31/17 13:24 10/31/17 13:24 10/31/17 13:24 - Assessment and Plan (1) Sepsis Current Visit: Yes Status: Acute (2) Bacteremia Current Visit: Yes Status: Acute Comments: (3) Ureteral calculi Current Visit: Yes Status: Acute (4) TIA (transient ischemic attack) Current Visit: Yes Status: Suspected (5) IDALIA (acute kidney injury) Current Visit: Yes Status: Resolved (6) Tobacco abuse Current Visit: No Status: Chronic (7) CAD (coronary artery disease) Current Visit: No Status: Chronic (8) COPD (chronic obstructive pulmonary disease) Current Visit: No Status: Chronic (9) Diabetes mellitus Current Visit: No Status: Chronic (10) Essential hypertension Current Visit: No Status: Chronic - Time Spent with Patient Total time spent is greater than 50% in coordination of care (as documented) at patient's floor/unit and/or counseling patient: Internal Medicine: Result - Labs CBC & Chem 7: 10/31/17 08:34 10/31/17 08:34 Labs: Short CBC 10/31/17 Range/Units 08:34 WBC 12.9 H (4.3-11.1) K/mcL Hgb 11.8 (11.5-15.4) g/dL Hct 35.5 (35.3-44.9) % Plt Count 190 (140-400) K/mcL Neutrophils # 10.1 H (1.6-8.9) K/mcL BMP 10/31/17 08:34 Sodium 139 Potassium 3.5 Chloride 108 H Carbon Dioxide 24 BUN 17 Creatinine 1.15 Glucose 158 H Calcium 8.3 L - ABG Interpretation ABG results: ABG ABG pH 7.36 pH Units (7.32-7.45) 10/31/17 12:52 ABG pCO2 40 mmHg (35-45) 10/31/17 12:52 ABG pO2 65 mmHg (85-104) L 10/31/17 12:52 ABG O2 Saturation 92 % (95-98) L 10/31/17 12:52 PT/INR, D-dimer PT 14.8 Seconds (9.4-12.1) H 10/29/17 16:50 - Impressions Impressions Chest X-Ray 10/31/17 12:10 IMPRESSION: Patchy airspace right lung base and left midlung concerning for infection. D/ / Lara Robb MD / Lara Robb MD Interpreting Provider: Lara Robb MD - Attending Attestation The history, physical exam, and medical decision making was performed by the medical student either while I was physically present and actively involved or I personally re-performed the exam and medical decision making. I have verified the accuracy of the medical student's documentation with regards to the history, physical exam findings, and medical decision making. Ms. Mackey is a 72 year old female hx of hypertension, hyperlipidemia, CAD with status post CABG and CVA with neuro deficits presented to ED for aphasia and lower extremity weakness. Onset is unknown due to patient"s poor memory and confusion - only witnessed by who has dementia. She is also complaining of back pain with nausea and diarrhea. Describes sudden onset of inability to move legs and speak similar to last time she was dehydrated. In ED,she happened to have fever with T max 103.[address] of abd showed left side obstructive neuropathy with a 3 mm calculi in left proximal ureter. Patient was admitted in the hospital and started on IV hydration and empirical antibiotic with Rocephin. Had ureter stent placed on 10/30/17. Today she is in severe respiratory distress, worsening SOB and LOVELL. She is alert , awake and O x 3, however looks slightly confused. She denied any CP. Gen: A, A, O x 3.. Confused Heart: S1S2+ RRR No murmurs Chest: Diffuse wheezing, no crackles, dimisnihed BS b/l Abd: Soft, NT + BS + Back : No CVA tenderness a/p 1. Sepsis with UTI 2. Bacteremia with E. Coli 3. Left ureter calculi s/p stent placement Switched abx to Zosyn due to MLL PNA 4. Acute on chronic hypoxic resp failure 5. Acute COPD exacerbation 6. Acute MLL pneumonia - bacterial 7. Acute toxic encephalopathy Reviewed CXR showed RLL and LLL consolidation will change abx to Zosyn and Levaquin check sputum cx, resp viral panel d/c IVF Reviewed ABG - no hypercapnea noticed Cont BiPAP for now High dose IV steroids Will transfer the pt to step down unit since she needs higher level of critical care due to her worsening resp failure Talked to the pt's family at bed side and explained to them about current care 8. TIA When pt medically stable will do MRI of Brain 9. DM2- on ISS 10. HTN stable with current medication <Mary Quintero - Last Filed: 10/31/17 14:04> (1) Sepsis Qualifiers: Sepsis type: sepsis due to unspecified organism Qualified Code(s): A41.9 - Sepsis, unspecified organism (7) CAD (coronary artery disease) Qualifiers: Coronary Disease-Associated Artery/Lesion type: unspecified vessel or lesion type [place] vs. transplanted heart: [place] heart Associated angina: without angina Qualified Code(s): I25.10 - Atherosclerotic heart disease of [place] coronary artery without angina pectoris (8) COPD (chronic obstructive pulmonary disease) Qualifiers: COPD type: unspecified COPD Qualified Code(s): J44.9 - Chronic obstructive pulmonary disease, unspecified (9) Diabetes mellitus Qualifiers: Diabetes mellitus type: type 2 Diabetes mellitus jail insulin use: without termination clerk use Diabetes mellitus complication status: with unspecified complications Qualified Code(s): E11.8 - Type 2 diabetes mellitus with unspecified complications
[2017-10-31 12:56] LABS: ABG Base Excess -3 mEq/L (-2 to 3); ABG HCO3 23 mEq/L (21-27); ABG Oxygen Saturation 92 % (95-98); ABG PCO2 40 mmHg (35-45); ABG PH 7.36 pH Units (7.32-7.45); ABG PO2 65 mmHg (85-104); ABG TCO2 24 mEq/L (20-26)
[2017-10-31] MEDS ORDERED: Nitroglycerin 0.4 MG TAB.SUBL SL PRN (13:35)
[2017-10-31] MEDS: *HR* LORazepam 0.5 MG TABLET PO PRN ×2 (13:55→20:09)
[2017-10-31] MEDS ORDERED: Levofloxacin 500 MG/100 ML 500 MG/100 ML BAG IVPB SCH (15:00)
[2017-10-31] MEDS ORDERED: Levofloxacin 500 MG/100 ML 500 MG/100 ML BAG IVPB ONE (16:15)
[2017-10-31] MEDS: Piperacillin/Tazobactam 3.375 GM in 0.9 % Sodium Chloride Mini Bag 100 ML IVPB SCH (17:01)
[2017-10-31] MEDS: MethylPREDNISolone 40 MG/ML VIAL IVP SCH ×2 (17:22→23:27)
--- NOTE | 2017-10-31 18:17 | Electrocardiograph Report ---
[facility] Test Date: 2017-10-29 Pat Name: Mildred Mackey Department: EXAM10 Room: 09 Gender: F Chairman & Ceo: : 1945 Requested By: Mary Quintero Order Number: [id number] Reading MD: Kashif Leung Measurements Intervals [place] Rate: 90 P: 13 FL: 114 QRS: 46 QRSD: 128 T: 27 QT: 491 QTc: 601 Interpretive Statements Sinus rhythm Borderline short FL interval Nonspecific intraventricular conduction delay Borderline ST depression, anterolateral leads Electronically Signed On 10-31-2017 18:14:59 EDT by Kashif Leung
[2017-10-31] MEDS: Nicotine 21 MG PATCH.TD24 TD SCH (19:37)
[2017-11-01] MEDS: Piperacillin/Tazobactam 3.375 GM in 0.9 % Sodium Chloride Mini Bag 100 ML IVPB SCH ×2 (03:00→09:09)
[2017-11-01] MEDS: Ipratropium/Albuterol Neb 3 ML IH SCH ×5 (04:24→23:47)
[2017-11-01 04:30] LABS: Hematocrit 35.6 % (35.3-44.9); Hemoglobin 11.9 g/dL (11.5-15.4); Immature Granulocytes % 0.8 % (0-4); Lymphocytes # 0.9 K/mcL (0.6-4.6); Lymphocytes % 8.6 %; Mean Corpuscular HGB Conc 33.4 g/dL (31.6-35.5); Mean Corpuscular Hemoglobin 31.5 pg (28.0-33.3); Mean Corpuscular Volume 94.2 fL (83.0-100.0); Mean Platelet Volume 9.3 fL (9.4-12.4); Monocytes # 0.5 K/mcL (0.0-1.3); Monocytes % 4.5 %; Neutrophils # 8.8 K/mcL (1.6-8.9); Platelet Count 205 K/mcL (140-400); Red Blood Count 3.78 M/mcL (3.82-4.97); Red Cell Distribution Width 12.9 % (11.5-14.5); Segmented Neutrophils % 86.1 %
[2017-11-01 04:51] LABS: BUN/Creatinine Ratio 22 (6-26); Blood Urea Nitrogen 21 mg/dL (8-23); Calcium 8.5 mg/dL (8.6-10.3); Carbon Dioxide 23 mEq/L (23-29); Chloride 107 mEq/L (98-107); Glucose 151 mg/dL (70-105); Magnesium 1.9 mg/dL (1.6-2.6); Osmolality,Calculated 294 (280-300); Potassium 3.9 mEq/L (3.5-5.1); Sodium 139 mEq/L (136-145); eGFR For Non-African Americans 57 (> 60)
[2017-11-01] MEDS: *HR* Heparin 5,000 UNIT/ML VIAL SQ SCH ×3 (06:33→22:06)
[2017-11-01] MEDS: MethylPREDNISolone 40 MG/ML VIAL IVP SCH ×4 (06:33→23:29)
[2017-11-01] MEDS: Ipratropium/Albuterol Neb 3 ML IH PRN (08:15)
[2017-11-01] MEDS ORDERED: FLUoxetine 20 MG CAPSULE PO SCH (09:00)
[2017-11-01] MEDS: Famotidine 20 MG TABLET PO SCH ×2 (09:08→20:37)
[2017-11-01] MEDS: Aspirin Enteric Coated 81 MG Tablet PO SCH (09:08)
[2017-11-01] MEDS: *HR* LORazepam 0.5 MG TABLET PO PRN ×2 (09:08→15:34)
[2017-11-01] MEDS: Sucralfate 1 GM TABLET PO SCH ×4 (09:08→22:05)
[2017-11-01] MEDS: amLODIPine 5 MG TABLET PO SCH (09:09)
[2017-11-01] MEDS: Insulin LISPRO 300 UNITS/3 ML VIAL SQ SCH ×4 (09:10→20:37)
[2017-11-01] MEDS: Metoprolol 100 MG TABLET PO SCH ×2 (09:10→20:37)
--- NOTE | 2017-11-01 09:56 | Internal Med Progress Note ---
<LoraineTodd R - Last Filed: 11/01/17 16:05> Hospitalist Progress Note - Encounter Date of Encounter: 11/01/17 Time of Encounter: 11:20 - Subjective Interval History: Patient was examined while lying in bed. She was transferred to step down unit yesterday due to continued respiratory distress. Today she is still requiring Bipap with FiO2 60%. She states that she is feeling very anxious and would like something for her anxiety. She also endorses pain with urination and sharp left sided abdominal pain that is not constant. She denies chest pain, chest tightness, increased cough, night sweats, nausea, vomiting. - Exam Vitals: Temp Pulse Resp BP Pulse Ox 98.2 F 89 24 145/100 100 11/01/17 07:30 11/01/17 08:00 11/01/17 08:10 11/01/17 08:00 11/01/17 08:10 Exam: General - female lying in bed on Bipap. Appears anxious Cardiovascular - RRR no m/r/g, no JVD, no carotid bruits Lungs - Diffuse wheezing Skin - Red rash on bilateral cheeks. Including labial folds Psychiatry - Affect congruent with mood Abdomen - Normal bowel sounds, abdomen soft and nontender Extremeties - No edema, cyanosis or clubbing Musculo Skeletal - 5/5 strength, normal range of motion, no swollen or erythematous joints. Neurological Alert and oriented x 3, CN 2-12 grossly intact. - Assessment and Plan (1) Acute respiratory failure with hypoxia Current Visit: Yes Status: Acute Assessment and Plan: -2/2 COPD exacerbation vs PE vs Pneumonia -Wells score 4.5 -At this time cannot rule out PE. Will not do D-dimer due to current comorbidities possibly causing false positive. Due to recent IDALIA and patient clinically improving on current medical management, will hold off on CTA for now unless patient's condition worsens -CXR shows RLL and LML pneumonia -ABG reviewed. No hypercapnea -Uses 2L O2 at nighttime at home. Currently on BiPap 60% -Continue levofloxacin day 2 and zosyn day 2 -d/c ceftriaxone 2 days -Solumedrol 40mg q6h -Swallow study to rule out aspiration PNA (2) Bacteremia Current Visit: Yes Status: Acute Assessment and Plan: -Blood culture grew lucio-susceptible E. coli -Initially septic with T max of 101 and WBC 14.4 -No longer septic. Currently afebrile with WBC 10.2 -Continue with levofloxacin and zosyn day 2 -d/c ceftriaxon day 2 Comments: (3) Pneumonia Current Visit: Yes Status: Suspected Assessment and Plan: -Plan as above (4) Lung nodule Current Visit: Yes Status: Acute Assessment and Plan: -CT chest 07/2017 and 10/2017 show right upper lobe nodule -Biopsy 07/2017 did not show malignancy -Follows pulmonary outpatient -Pulmonary consulted. Appreciate recs (5) Expressive aphasia Current Visit: Yes Status: Resolved Assessment and Plan: -Likely 2/2 sepsis -CT head in ER was negative -MRI brain pending -Symptoms resolved in ED (6) Ureteral calculi Current Visit: Yes Status: Acute Assessment and Plan: -s/p stent of left proximal ureter 10/30/2017 -Milton catheter in place -Serosanguineous fluid collected this morning. Likely 2/2 stent placement -Continue to monitor (7) Tobacco abuse Current Visit: No Status: Chronic Assessment and Plan: -Advised patient to d/c tobacco use -Patient refuses nicotine patch during admission - Time Spent with Patient Total time spent is greater than 50% in coordination of care (as documented) at patient's floor/unit and/or counseling patient: Internal Medicine: Result - Labs CBC & Chem 7: 11/01/17 04:15 11/01/17 04:15 Labs: Short CBC 11/01/17 Range/Units 04:15 WBC 10.2 (4.3-11.1) K/mcL Hgb 11.9 (11.5-15.4) g/dL Hct 35.6 (35.3-44.9) % Plt Count 205 (140-400) K/mcL Neutrophils # 8.8 (1.6-8.9) K/mcL BMP 11/01/17 04:15 Sodium 139 Potassium 3.9 Chloride 107 Carbon Dioxide 23 BUN 21 Creatinine 0.96 Glucose 151 H Calcium 8.5 L - ABG Interpretation ABG results: ABG ABG pH 7.36 pH Units (7.32-7.45) 10/31/17 12:52 ABG pCO2 40 mmHg (35-45) 10/31/17 12:52 ABG pO2 65 mmHg (85-104) L 10/31/17 12:52 ABG O2 Saturation 92 % (95-98) L 10/31/17 12:52 PT/INR, D-dimer PT 14.8 Seconds (9.4-12.1) H 10/29/17 16:50 - Impressions Impressions Chest X-Ray 10/31/17 12:10 IMPRESSION: Patchy airspace right lung base and left midlung concerning for infection. D/ / Lara Robb MD / Lara Robb MD Interpreting Provider: Lara Robb MD Consult Discharge Plan - Plan Referrals: Tay Kaplan MD [Primary Care Provider] - <Lisa Kruse - Last Filed: 11/01/17 18:09> Hospitalist Progress Note - Encounter Date of Encounter: 11/01/17 - Exam Vitals: Temp Pulse Resp BP Pulse Ox 98.1 F 75 18 137/95 93 11/01/17 16:25 11/01/17 16:00 11/01/17 16:09 11/01/17 16:00 11/01/17 16:09 - Assessment and Plan (1) CAD (coronary artery disease) Current Visit: No Status: Chronic (2) Diabetes mellitus Current Visit: No Status: Chronic (3) Essential hypertension Current Visit: No Status: Chronic (4) COPD (chronic obstructive pulmonary disease) Current Visit: No Status: Chronic (5) IDALIA (acute kidney injury) Current Visit: Yes Status: Resolved (6) Tobacco abuse Current Visit: No Status: Chronic (7) TIA (transient ischemic attack) Current Visit: Yes Status: Suspected (8) Sepsis Current Visit: Yes Status: Acute (9) Ureteral calculi Current Visit: Yes Status: Acute (10) Bacteremia Current Visit: Yes Status: Acute Comments: - Time Spent with Patient Total time spent is greater than 50% in coordination of care (as documented) at patient's floor/unit and/or counseling patient: Internal Medicine: Result - Labs CBC & Chem 7: 11/01/17 04:15 11/01/17 04:15 Labs: Short CBC 11/01/17 Range/Units 04:15 WBC 10.2 (4.3-11.1) K/mcL Hgb 11.9 (11.5-15.4) g/dL Hct 35.6 (35.3-44.9) % Plt Count 205 (140-400) K/mcL Neutrophils # 8.8 (1.6-8.9) K/mcL BMP 11/01/17 04:15 Sodium 139 Potassium 3.9 Chloride 107 Carbon Dioxide 23 BUN 21 Creatinine 0.96 Glucose 151 H Calcium 8.5 L - ABG Interpretation ABG results: ABG ABG pH 7.36 pH Units (7.32-7.45) 10/31/17 12:52 ABG pCO2 40 mmHg (35-45) 10/31/17 12:52 ABG pO2 65 mmHg (85-104) L 10/31/17 12:52 ABG O2 Saturation 92 % (95-98) L 10/31/17 12:52 PT/INR, D-dimer PT 14.8 Seconds (9.4-12.1) H 10/29/17 16:50 - Impressions Impressions Chest X-Ray 11/01/17 14:17 IMPRESSION: Marked worsening of the aeration of the lungs, question developing pneumonia or edema. D/ / 11/01/2017 15:16:01 Ang Mejia MD / [facility] Interpreting Provider: Ang Mejia MD - Attending Attestation I have seen and examined this pt independently. I have discussed with resident physician Dr. Bird and medical student regarding the management plan. Agree with the documentation. <Lisa Kruse - Last Filed: 11/01/17 18:09> (1) CAD (coronary artery disease) Qualifiers: Coronary Disease-Associated Artery/Lesion type: unspecified vessel or lesion type [place] vs. transplanted heart: [place] heart Associated angina: without angina Qualified Code(s): I25.10 - Atherosclerotic heart disease of [place] coronary artery without angina pectoris (2) Diabetes mellitus Qualifiers: Diabetes mellitus type: type 2 Diabetes mellitus medical terminologist insulin use: without medical terminologist use Diabetes mellitus complication status: with unspecified complications Qualified Code(s): E11.8 - Type 2 diabetes mellitus with unspecified complications (4) COPD (chronic obstructive pulmonary disease) Qualifiers: COPD type: unspecified COPD Qualified Code(s): J44.9 - Chronic obstructive pulmonary disease, unspecified (8) Sepsis Qualifiers: Sepsis type: sepsis due to unspecified organism Qualified Code(s): A41.9 - Sepsis, unspecified organism
[2017-11-01] MEDS: OXcarbazepine 150 MG TABLET PO SCH ×2 (10:54→20:36)
--- NOTE | 2017-11-01 11:30 | Pulmonology Consult Note ---
<MurtazajazzCb amado M - Last Filed: 11/01/17 13:11> Date of Encounter: 11/01/17 Medications and Allergies Amitriptyline [Elavil] 25 mg PO DAILY 04/12/16 [History] Amlodipine Besylate 10 mg PO DAILY 04/12/16 [History] Aspirin [Lo-Dose Aspirin EC] 81 mg PO DAILY 04/12/16 [History] FLUoxetine HCl [Fluoxetine HCl] 40 mg PO DAILY 04/12/16 [History] Glimepiride [Amaryl] 2 mg PO DAILY 04/12/16 [History] OXcarbazepine [Oxcarbazepine] 600 mg PO BID 04/12/16 [History] ALPRAZolam [Xanax 0.5 MG Tablet] 0.5 - 1 mg PO BID PRN 01/10/17 [History] Albuterol Sulfate [Ventolin Hfa] 2 puff IH Q4H PRN 01/10/17 [History] Nitroglycerin [Nitrostat] 0.4 mg SL Q5M PRN 01/10/17 [History] Ranitidine HCl [Heartburn Relief] 150 mg PO BID 01/10/17 [History] Atorvastatin [Lipitor] 40 mg PO HS 04/16/17 [History] Metoprolol Tartrate 100 mg PO BID 04/16/17 [History] Furosemide [Lasix] 20 mg PO DAILY #30 tablet 04/19/17 [Rx] Glycopyrrolate/Formoterol Fum [Bevespi Aerosphere Inhaler] 2 puff IH BID [History] hydroCHLOROthiazide [Hydrochlorothiazide] 25 mg PO DAILY 04/28/17 [History] Famotidine [Pepcid] 10 mg PO BID #30 tablet 04/29/17 [Rx] Sucralfate [Carafate] 1 gm PO QIDAC 30 Days #120 tablet 04/29/17 [Rx] 3 Allergy/AdvReac Type Severity Reaction Status Date / Time No Known Allergies Allergy Verified 04/28/17 08:58 All Systems: The remainder of the systems were reviewed and are negative Physical Examination Vital Signs: Vital Signs, Last 4 Hours Pulse Resp BP Pulse Ox 11/01/17 10:59 18 93 11/01/17 10:00 81 20 146/80 94 Results - Laboratory Findings CBC and BMP: 11/01/17 04:15 11/01/17 04:15 ABG ABG pH 7.36 pH Units (7.32-7.45) 10/31/17 12:52 ABG pCO2 40 mmHg (35-45) 10/31/17 12:52 ABG pO2 65 mmHg (85-104) L 10/31/17 12:52 ABG O2 Saturation 92 % (95-98) L 10/31/17 12:52 PT/INR, D-dimer PT 14.8 Seconds (9.4-12.1) H 10/29/17 16:50 Abnormal lab findings: Abnormal lab results RBC 3.78 M/mcL (3.82-4.97) L 11/01/17 04:15 MPV 9.3 fL (9.4-12.4) L 11/01/17 04:15 PT 14.8 Seconds (9.4-12.1) H 10/29/17 16:50 ABG pO2 65 mmHg (85-104) L 10/31/17 12:52 ABG O2 Saturation 92 % (95-98) L 10/31/17 12:52 ABG Base Excess -3 mEq/L (-2 to 3) L 10/31/17 12:52 Est GFR (Non-Af Amer) 57 (> 60) L 11/01/17 04:15 Glucose 151 mg/dL (70-105) H 11/01/17 04:15 POC Glucose 270 mg/dL (70-99) H 11/01/17 12:13 Hemoglobin A1c 6.9 % (-5.6) H 10/30/17 03:23 Calcium 8.5 mg/dL (8.6-10.3) L 11/01/17 04:15 Direct Bilirubin 0.3 mg/dL (0.0-0.2) H 10/29/17 16:50 Troponin I 0.06 ng/mL (< 0.04) H* 10/30/17 08:04 Serum Total Protein 6.0 g/dL (6.4-8.9) L 10/30/17 08:04 Albumin 3.4 g/dL (3.5-5.7) L 10/30/17 08:04 Triglycerides 195 mg/dL (< 150) H 10/30/17 03:23 VLDL Cholesterol, Calc 39 mg/dL (< 31) H 10/30/17 03:23 HDL Cholesterol 18 mg/dL (40-59) L 10/30/17 03:23 Cholesterol/HDL Ratio 6.4 (0-4.9) H 10/30/17 03:23 Lipase 7 Units/L (11-82) L 10/29/17 16:50 Urine Clarity Cloudy (Clear) A 10/29/17 18:28 Ur Specific [place] 1.006 (1.010-1.025) L 10/29/17 18:28 Urine Protein 30 mg/dL (Neg-Trace) H 10/29/17 18:28 Urine Ketones 15 mg/dL (Negative) H 10/29/17 18:28 Urine Blood Moderate (Negative) H 10/29/17 18:28 Ur Leukocyte Esterase Small (Negative) H 10/29/17 18:28 Urine Microscopic WBC 5-15 per hpf (0-3) H 10/29/17 18:28 Ur Squamous Epith Cells Many per lpf (None-Few) H 10/29/17 18:28 Amorphous Sediment Many (Few) H 10/29/17 18:28 Ur Culture Indicated? NO. (NO) A 10/29/17 18:28 Enterobacteriac sp PCR DETECTED (Not Detect) A 10/29/17 19:19 E. coli (PCR) DETECTED (Not Detect) A 10/29/17 19:19 - Microbiology Findings Microbiology Findings: Microbiology, Last 48 Hours 10/30/17 07:40 Urine Culture - Preliminary Urine,Clean Catch No significant growth. - Clinical Findings Intake & Output: Intake & Output 10/31/17 11/01/17 11/01/17 23:59 07:59 15:59 Intake Total 352 / 352 100 / 100 Output Total 225 / 225 450 / 450 Balance 127 / 127 -350 / -350 Weight 79.2 kg Consult Discharge Plan - Plan Referrals: Tay Kaplan MD [Primary Care Provider] - - Attending Attestation I examined this patient and my medical decision-making was reviewed with the Resident Physician. I agree with the documented findings, disposition and treatment plan as described except to the extent set forth below. Patient seen and examined. Labs, radiology, chart personally reviewed. 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 Pulmonary: Acceptable oxygenation and ventilation and requiring noninvasive ventilation. Patient with acute on chronic respiratory failure and this is could be secondary to COPD exacerbation however I differential diagnosis would be healthcare associated pneumonia. He is being treated appropriately, however Levaquin can be stopped especially with the confusion history. We will add also Symbicort to the treatment and diuresis if possible. This was discussed with the patient and the family at the bedside. Thank you for consultation. Cardiovascular: stable <Aryan Lpoez - Last Filed: 11/01/17 17:23> Date of Encounter: 11/01/17 Time of Encounter: 13:24 Assessment and Plan (1) Sepsis Current Visit: Yes Status: Acute Sepsis criteria now resolved Patient noted to have a white blood cell count of 14.5 on 10/29 along with tachypnea at 20 breaths per minute and a fever of 103.1 Patient lactic acid noted to be 1.3 on 10/29 Patient is currently not tachycardic, not tachypneic, and afebrile Qualifiers: Sepsis type: sepsis due to unspecified organism Qualified Code(s): A41.9 - Sepsis, unspecified organism (2) Acute and chronic respiratory failure with hypoxia Current Visit: Yes Status: Acute Patient on 2 L of oxygen via nasal cannula at home Patient SaO2 in the mid to upper 80% range on 6 L via nasal cannula in ICU Patient placed on BiPAP for oxygenation and decreased work of breathing (3) Pneumonia Current Visit: Yes Status: Suspected Aspiration versus HCAP Chest x-ray shows diffuse patchy infiltrates suggestive of pneumonia or pulmonary edema Patient choking episode this morning concerning for aspiration pneumonia Unasyn added for aspiration pneumonia coverage Qualifiers: Pneumonia type: aspiration pneumonia Aspiration pneumonia type: unspecified Lung location: unspecified part of lung Qualified Code(s): J69.0 - Pneumonitis due to inhalation of food and vomit (4) COPD (chronic obstructive pulmonary disease) Current Visit: No Status: Chronic DuoNeb, Symbicort and methylprednisolone 40 mg IVP every 6 hours BiPAP to reduce work of breathing Continue on DuoNeb's and nightly oxygen for home management Consider 24-hour oxygen therapy Qualifiers: COPD type: unspecified COPD Qualified Code(s): J44.9 - Chronic obstructive pulmonary disease, unspecified (5) Congestive heart failure Current Visit: No Status: Acute Patient shows increased work of breathing with subjective air hunger Chest x-ray shows diffuse patchy infiltrates Lung sounds showed diffuse wheezing with rales and decreased lung sounds Patient given 40 units of Lasix for diuresis Qualifiers: Heart failure type: systolic Heart failure chronicity: unspecified Qualified Code(s): I50.20 - Unspecified systolic (congestive) heart failure (6) Bacteremia Current Visit: Yes Status: Acute Cultures positive for Escherichia coli species. White blood cell count normal at 10.2 Patient began on Unasyn 1500 units every 6 hours (7) Nephrolithiasis Current Visit: Yes Status: Acute Patient is status post cystoscopy and left ureteral stent placement on October 30 Oxycodone 5 mg SL every 4 hours when necessary for pain management (8) Diabetes mellitus Current Visit: No Status: Chronic Patient blood sugars are currently well-managed on medium dose sliding scale insulin lispro 3 times a day before meals and daily at bedtime Continue to monitor glucose levels Qualifiers: Diabetes mellitus type: type 2 Diabetes mellitus motor tester insulin use: without motor tester use Diabetes mellitus complication status: with unspecified complications Qualified Code(s): E11.8 - Type 2 diabetes mellitus with unspecified complications History of Present Illness Consult date: 11/01/17 Reason for consult: dyspnea, cough, COPD, other (Positive history for lung cancer, recent aphasia) Chief complaint: Aphasia History of present illness: Patient is a 72-year-old female with a history of CVA plus right sided sensory deficits presenting to the ICU for a 4 day history of bilateral extremity weakness, associated with aphasia. The patient states that this weakness came on insidiously and slowly progressed to generalized weakness for a 2 day period prior to the onset of aphasia. The patient states that her difficulty speaking is what caused her to come to the emergency department. The patient also complains of cough and difficulty breathing, as well as right- sided back and abdominal pain along with nausea and diarrhea which she ascribes to be from a kidney stone. The patient states that she has had similar episodes in the past with numbness and tingling in her extremities in association with aphasia when she becomes dehydrated. The patient states that she is in poor adherence to her medication regimen as she is unable to afford her medications. Patient and family are very concerned about the possibility for surgical intervention, stating that the patient has a history of cardiac arrest with asystole associated with general anesthesia. Past Med Surg Social Fam HX - Past Medical History Medical history: arthritis, COPD, coronary artery disease, CVA, diabetes, GERD, hyperlipidemia, hypertension, myocardial infarction Additional medical history: CVA more than 40years ago, Psychiatric history: anxiety, depression - Past Surgical History Surgical History: angioplasty/stent, coronary bypass (CABG), hysterectomy, LOLA/ BSO, other Additional surgical history: Cardiac cath, AAA - Social History Smoking Status: Unknown if ever smoked Smokeless Tobacco Status: No Alcohol use: rarely Drug use: none All Systems: The remainder of the systems were reviewed and are negative - Constitutional Constitutional: excessive sweating, fatigue, weakness, no chills, no headache(s) , no night sweats, no weight gain, no weight loss - EENT Eyes: other (Patient describes "crisscrossing" wavy lines throughout her field of vision) Nose, mouth and throat: no dysphagia, no headache(s) - Cardiovascular Cardiovascular: dyspnea, no chest pain, no diaphoresis - Respiratory Respiratory: cough, dyspnea, wheezing, excessive phlegm production, no hemoptysis, no pain on inspirtation - Gastrointestinal Gastrointestinal: abdominal pain, diarrhea, nausea, no hematemesis, no hematochezia - Genitourinary Genitourinary: hematuria - Musculoskeletal Musculoskeletal: muscle weakness, numbness (Patient states chronic numbness in the right side of her body) - Neurological Neurological: abnormal speech (Patient states aphasia began 3 days ago. Patient states she is currently at her baseline), focal weakness (Patient describes weakness in her 4 extremities ), other visual disturbances, no headache(s) - Endocrine Endocrine: excessive sweating, fatigue Physical Examination Vital Signs: Vital Signs, Last 4 Hours Temp Pulse Resp BP Pulse Ox 11/01/17 10:59 18 93 11/01/17 10:00 81 20 146/80 94 11/01/17 08:10 24 100 11/01/17 08:00 89 21 145/100 99 11/01/17 07:30 98.2 F General appearance: no acute distress, alert Eyes: nonicteric ENT: oropharynx moist Neck: supple, no JVD Effort: mildly labored Auscultation: bilateral: diminished breath sounds, wheezes, rales Cardiovascular: regular rate and rhythm Gastrointestinal: normoactive bowel sounds, soft, non-tender, non-distended Integumentary: normal Extremities: no cyanosis, no edema normal mental status, non-focal exam mood appropriate, affect normal Results - Laboratory Findings CBC and BMP: 11/01/17 04:15 11/01/17 04:15 ABG ABG pH 7.36 pH Units (7.32-7.45) 10/31/17 12:52 ABG pCO2 40 mmHg (35-45) 10/31/17 12:52 ABG pO2 65 mmHg (85-104) L 10/31/17 12:52 ABG O2 Saturation 92 % (95-98) L 10/31/17 12:52 PT/INR, D-dimer PT 14.8 Seconds (9.4-12.1) H 10/29/17 16:50 Abnormal lab findings: Abnormal lab results RBC 3.78 M/mcL (3.82-4.97) L 11/01/17 04:15 MPV 9.3 fL (9.4-12.4) L 11/01/17 04:15 PT 14.8 Seconds (9.4-12.1) H 10/29/17 16:50 ABG pO2 65 mmHg (85-104) L 10/31/17 12:52 ABG O2 Saturation 92 % (95-98) L 10/31/17 12:52 ABG Base Excess -3 mEq/L (-2 to 3) L 10/31/17 12:52 Est GFR (Non-Af Amer) 57 (> 60) L 11/01/17 04:15 Glucose 151 mg/dL (70-105) H 11/01/17 04:15 POC Glucose 174 mg/dL (70-99) H 11/01/17 07:32 Hemoglobin A1c 6.9 % (-5.6) H 10/30/17 03:23 Calcium 8.5 mg/dL (8.6-10.3) L 11/01/17 04:15 Direct Bilirubin 0.3 mg/dL (0.0-0.2) H 10/29/17 16:50 Troponin I 0.06 ng/mL (< 0.04) H* 10/30/17 08:04 Serum Total Protein 6.0 g/dL (6.4-8.9) L 10/30/17 08:04 Albumin 3.4 g/dL (3.5-5.7) L 10/30/17 08:04 Triglycerides 195 mg/dL (< 150) H 10/30/17 03:23 VLDL Cholesterol, Calc 39 mg/dL (< 31) H 10/30/17 03:23 HDL Cholesterol 18 mg/dL (40-59) L 10/30/17 03:23 Cholesterol/HDL Ratio 6.4 (0-4.9) H 10/30/17 03:23 Lipase 7 Units/L (11-82) L 10/29/17 16:50 Urine Clarity Cloudy (Clear) A 10/29/17 18:28 Ur Specific [place] 1.006 (1.010-1.025) L 10/29/17 18:28 Urine Protein 30 mg/dL (Neg-Trace) H 10/29/17 18:28 Urine Ketones 15 mg/dL (Negative) H 10/29/17 18:28 Urine Blood Moderate (Negative) H 10/29/17 18:28 Ur Leukocyte Esterase Small (Negative) H 10/29/17 18:28 Urine Microscopic WBC 5-15 per hpf (0-3) H 10/29/17 18:28 Ur Squamous Epith Cells Many per lpf (None-Few) H 10/29/17 18:28 Amorphous Sediment Many (Few) H 10/29/17 18:28 Ur Culture Indicated? NO. (NO) A 10/29/17 18:28 Enterobacteriac sp PCR DETECTED (Not Detect) A 10/29/17 19:19 E. coli (PCR) DETECTED (Not Detect) A 10/29/17 19:19 - Microbiology Findings Microbiology Findings: Microbiology, Last 48 Hours 10/30/17 07:40 Urine Culture - Preliminary Urine,Clean Catch No significant growth. - Clinical Findings Intake & Output: Intake & Output 10/31/17 11/01/17 11/01/17 23:59 07:59 15:59 Intake Total 352 / 352 100 / 100 Output Total 225 / 225 450 / 450 Balance 127 / 127 -350 / -350 Weight 79.2 kg
[2017-11-01] MEDS: OXYCODONE Oral CONC 10 MG/0.5 ML ORAL.SYG SL PRN (12:08)
[2017-11-01] MEDS ORDERED: Furosemide 40 MG/4 ML VIAL IVP ONE (14:16)
[2017-11-01] MEDS ORDERED: Levofloxacin 250 MG/50 ML 250 MG/50 ML BAG IVPB SCH (16:00)
[2017-11-01] MEDS ORDERED: Nitroglycerin 0.4 MG TAB.SUBL SL PRN (16:21)
[2017-11-01] MEDS ORDERED: D5% in Water 1,000 ML IVC PRN (16:21)
[2017-11-01] MEDS ORDERED: Acetaminophen 325 MG TABLET PO PRN (16:21)
[2017-11-01] MEDS ORDERED: Dextrose Gel 15 GM/37.5 ML TUBE PO PRN ×2 (16:21)
[2017-11-01] MEDS ORDERED: *HR* Dextrose 50 % in Water (Syg) 50 ML SYRINGE IVP PRN (16:21)
[2017-11-01] MEDS ORDERED: Naloxone 0.4 MG/ML INJ IVP PRN (16:21)
[2017-11-01] MEDS ORDERED: Ipratropium/Albuterol Neb 3 ML IH PRN ×2 (16:21→16:28)
[2017-11-01] MEDS ORDERED: Ampicillin/Sulbactam 1,500 MG in 0.9 % Sodium Chloride Mini Bag 100 ML IVPB SCH (18:00)
[2017-11-01] MEDS: Ampicillin/Sulbactam 1,500 MG in 0.9 % Sodium Chloride Mini Bag 100 ML IVPB SCH ×2 (18:40→23:29)
[2017-11-01] MEDS: Budesonide/Formoterol 160/4.5 1 PUFF INH IH SCH (20:34)
[2017-11-01] MEDS: Nicotine 21 MG PATCH.TD24 TD SCH (20:38)
[2017-11-01] MEDS ORDERED: Ipratropium/Albuterol Neb 3 ML IH SCH (22:00)
[2017-11-01] MEDS ORDERED: Budesonide/Formoterol 160/4.5 1 PUFF INH IH SCH (22:00)
[2017-11-02] MEDS: Ipratropium/Albuterol Neb 3 ML IH SCH ×6 (04:22→23:35)
[2017-11-02] MEDS: MethylPREDNISolone 40 MG/ML VIAL IVP SCH ×3 (06:27→17:58)
[2017-11-02] MEDS: *HR* Heparin 5,000 UNIT/ML VIAL SQ SCH ×3 (06:28→21:11)
[2017-11-02] MEDS: Ampicillin/Sulbactam 1,500 MG in 0.9 % Sodium Chloride Mini Bag 100 ML IVPB SCH ×3 (06:28→17:58)
[2017-11-02] MEDS: Budesonide/Formoterol 160/4.5 1 PUFF INH IH SCH ×2 (07:52→19:30)
[2017-11-02] MEDS: Insulin LISPRO 300 UNITS/3 ML VIAL SQ SCH ×4 (08:11→21:10)
[2017-11-02] MEDS: Sucralfate 1 GM TABLET PO SCH ×4 (08:13→21:07)
[2017-11-02 10:12] LABS: BUN/Creatinine Ratio 22 (6-26); Blood Urea Nitrogen 21 mg/dL (8-23); Calcium 8.7 mg/dL (8.6-10.3); Carbon Dioxide 27 mEq/L (23-29); Chloride 104 mEq/L (98-107); Glucose 218 mg/dL (70-105); Osmolality,Calculated 302 (280-300); Potassium 3.2 mEq/L (3.5-5.1); Sodium 141 mEq/L (136-145); eGFR For Non-African Americans 59 (> 60)
[2017-11-02 11:38] LABS: Hematocrit 36.1 % (35.3-44.9); Hemoglobin 12.2 g/dL (11.5-15.4); Mean Corpuscular HGB Conc 33.8 g/dL (31.6-35.5); Mean Corpuscular Hemoglobin 31.6 pg (28.0-33.3); Mean Corpuscular Volume 93.5 fL (83.0-100.0); Mean Platelet Volume 9.8 fL (9.4-12.4); Nucleated Red Blood Cells 0.2 /100 WBC (0); Platelet Count 241 K/mcL (140-400); Red Blood Count 3.86 M/mcL (3.82-4.97); Red Cell Distribution Width 13.2 % (11.5-14.5)
[2017-11-02 11:45] LABS: Monocytes # 0.3 K/mcL (0.0-1.3); Neutrophils # 12.2 K/mcL (1.6-8.9); Platelet Estimate Normal (Normal)
--- NOTE | 2017-11-02 15:15 | Internal Med Progress Note ---
Hospitalist Progress Note - Encounter Date of Encounter: 11/02/17 Time of Encounter: 10:00 - Subjective Interval History: Pt still lethargic and in mild respiratory distress. Does not want to talk, sleepy. Still need a high flow oxygen to maintain saturation. - Exam Vitals: Temp Pulse Resp BP Pulse Ox 98.4 F 82 18 142/92 93 11/02/17 11:03 11/02/17 11:03 11/02/17 11:29 11/02/17 11:03 11/02/17 11:29 Exam: General - female lying in bed. Appears in mild acute respiratory distress. Cardiovascular - RRR no m/r/g, no JVD, no carotid bruits Lungs - Diffuse wheezing b/l Abdomen - Normal bowel sounds, abdomen soft and nontender Extremeties - No edema, cyanosis or clubbing Musculo Skeletal - 5/5 strength, normal range of motion, no swollen or erythematous joints. Neurological Alert and oriented x 3, CN 2-12 grossly intact. - Assessment and Plan (1) CAD (coronary artery disease) Current Visit: No Status: Chronic Assessment and Plan: Resumed home medical (2) Diabetes mellitus Current Visit: No Status: Chronic Assessment and Plan: On insulin sliding scale, pt is on steroid, Glu level increased b/o steroid, will adjust insulin accordingly. (3) Essential hypertension Current Visit: No Status: Chronic Assessment and Plan: Stable with current medication (4) COPD (chronic obstructive pulmonary disease) Current Visit: No Status: Chronic Assessment and Plan: In acute exacerbation. - Cont abx, steroid, and nebulizer - O2 and BiPAP supportive treatment. (5) IDALIA (acute kidney injury) Current Visit: Yes Status: Resolved Assessment and Plan: Due to sepsis improved Cont to monitor. (6) Tobacco abuse Current Visit: No Status: Chronic Assessment and Plan: [place] to quit smoking on nicotine patch (7) TIA (transient ischemic attack) Current Visit: Yes Status: Suspected Assessment and Plan: Resolved no more aphasia / no more acute focal neuro deficits.. MRI of the head shows negative for acute infarct. Duplex carotid unremarkable Cont ASA po (8) Sepsis Current Visit: Yes Status: Acute Assessment and Plan: Patient did meet sepsis criteria initially which improved now Due to UTI/ureteral stone (9) Ureteral calculi Current Visit: Yes Status: Acute Assessment and Plan: Status post left ureter stent continue symptomatic and supportive care (10) Bacteremia Current Visit: Yes Status: Acute Assessment and Plan: Gram-negative rods 2 out f 4 mostly due to UTI/ Urosepsis Pansensitive E Coli, on unasyn now (sensitive to unasyn) Will finish 14 days Abx course Add pro-biotics to prevent C Diff. Comments: (11) Pneumonia Current Visit: Yes Status: Suspected Assessment and Plan: Suspect aspiration PNA - On unasyn - Swallow evaluation - Pulmonology consult appreciated. DVT Prophylaxis: Heparin SC - Time Spent with Patient Total time spent is greater than 50% in coordination of care (as documented) at patient's floor/unit and/or counseling patient: 30 min 25 - 35 minutes Plan of Care Discussed with: family Internal Medicine: Result - Labs CBC & Chem 7: 11/02/17 09:20 11/02/17 09:20 Labs: Short CBC 11/02/17 Range/Units 09:20 WBC 14.5 H (4.3-11.1) K/mcL Hgb 12.2 (11.5-15.4) g/dL Hct 36.1 (35.3-44.9) % Plt Count 241 (140-400) K/mcL Neutrophils # 12.2 H (1.6-8.9) K/mcL BMP 11/02/17 09:20 Sodium 141 Potassium 3.2 L Chloride 104 Carbon Dioxide 27 BUN 21 Creatinine 0.94 Glucose 218 H Calcium 8.7 - ABG Interpretation ABG results: ABG ABG pH 7.36 pH Units (7.32-7.45) 10/31/17 12:52 ABG pCO2 40 mmHg (35-45) 10/31/17 12:52 ABG pO2 65 mmHg (85-104) L 10/31/17 12:52 ABG O2 Saturation 92 % (95-98) L 10/31/17 12:52 PT/INR, D-dimer PT 14.8 Seconds (9.4-12.1) H 10/29/17 16:50 - Impressions Impressions Chest X-Ray 11/01/17 14:17 IMPRESSION: Marked worsening of the aeration of the lungs, question developing pneumonia or edema. D/ / 11/01/2017 15:16:01 Ang Mejia MD / re Interpreting Provider: Ang Mejia MD Brain MRI 11/02/17 13:00 IMPRESSION: 1. No acute intracranial abnormality. 2. Left middle cerebral artery territory encephalomalacia in keeping with sequela of prior infarct. 3. Multifocal remote lacunar infarcts as detailed above. 4. Mild chronic white matter microvascular ischemic changes. D/ / Dorian Montenegro / Dorian Montenegro Interpreting Provider: Dorian Montenegro Consult Discharge Plan - Plan Referrals: Tay Kaplan MD [Primary Care Provider] - (1) CAD (coronary artery disease) Qualifiers: Coronary Disease-Associated Artery/Lesion type: unspecified vessel or lesion type [place] vs. transplanted heart: [place] heart Associated angina: without angina Qualified Code(s): I25.10 - Atherosclerotic heart disease of [place] coronary artery without angina pectoris (2) Diabetes mellitus Qualifiers: Diabetes mellitus type: type 2 Diabetes mellitus assisted insulin use: without assisted use Diabetes mellitus complication status: with unspecified complications Qualified Code(s): E11.8 - Type 2 diabetes mellitus with unspecified complications (4) COPD (chronic obstructive pulmonary disease) Qualifiers: COPD type: unspecified COPD Qualified Code(s): J44.9 - Chronic obstructive pulmonary disease, unspecified (8) Sepsis Qualifiers: Sepsis type: sepsis due to unspecified organism Qualified Code(s): A41.9 - Sepsis, unspecified organism (11) Pneumonia Qualifiers: Pneumonia type: aspiration pneumonia Aspiration pneumonia type: unspecified Laterality: bilateral Lung location: unspecified part of lung Qualified Code(s ): J69.0 - Pneumonitis due to inhalation of food and vomit
[2017-11-02] MEDS: Metoprolol 100 MG TABLET PO SCH ×2 (16:41→21:08)
[2017-11-02] MEDS: Aspirin Enteric Coated 81 MG Tablet PO SCH (16:41)
[2017-11-02] MEDS: amLODIPine 5 MG TABLET PO SCH (16:43)
[2017-11-02] MEDS: Famotidine 20 MG TABLET PO SCH ×2 (16:43→21:08)
[2017-11-02] MEDS: FLUoxetine 20 MG CAPSULE PO SCH (16:44)
[2017-11-02] MEDS: OXcarbazepine 150 MG TABLET PO SCH ×2 (16:44→21:07)
[2017-11-02] MEDS: *HR* LORazepam 0.5 MG TABLET PO PRN (21:07)
[2017-11-02] MEDS: Nicotine 21 MG PATCH.TD24 TD SCH (21:08)
[2017-11-03] MEDS: Ampicillin/Sulbactam 1,500 MG in 0.9 % Sodium Chloride Mini Bag 100 ML IVPB SCH ×4 (00:10→17:32)
[2017-11-03] MEDS: MethylPREDNISolone 40 MG/ML VIAL IVP SCH ×3 (00:11→12:07)
[2017-11-03] MEDS: Ipratropium/Albuterol Neb 3 ML IH SCH ×6 (04:11→23:20)
[2017-11-03 05:59] LABS: Basophils % 0.4 %; Hematocrit 36.7 % (35.3-44.9); Immature Granulocytes % 3.3 % (0-4); Lymphocytes # 1.3 K/mcL (0.6-4.6); Lymphocytes % 11.8 %; Mean Corpuscular HGB Conc 32.7 g/dL (31.6-35.5); Mean Corpuscular Volume 94.8 fL (83.0-100.0); Mean Platelet Volume 9.6 fL (9.4-12.4); Monocytes # 0.9 K/mcL (0.0-1.3); Monocytes % 8.5 %; Neutrophils # 8.4 K/mcL (1.6-8.9); Platelet Count 288 K/mcL (140-400); Red Blood Count 3.87 M/mcL (3.82-4.97); Red Cell Distribution Width 13.3 % (11.5-14.5)
[2017-11-03 06:26] LABS: BUN/Creatinine Ratio 25 (6-26); Blood Urea Nitrogen 20 mg/dL (8-23); Carbon Dioxide 28 mEq/L (23-29); Chloride 105 mEq/L (98-107); Glucose 163 mg/dL (70-105); Osmolality,Calculated 298 (280-300); Potassium 3.7 mEq/L (3.5-5.1); Sodium 141 mEq/L (136-145); eGFR For Non-African Americans > 60 (> 60)
[2017-11-03] MEDS: *HR* Heparin 5,000 UNIT/ML VIAL SQ SCH ×3 (06:26→22:08)
[2017-11-03] MEDS: Budesonide/Formoterol 160/4.5 1 PUFF INH IH SCH ×2 (07:36→19:31)
[2017-11-03] MEDS: Sucralfate 1 GM TABLET PO SCH ×4 (08:19→22:09)
[2017-11-03] MEDS: Insulin LISPRO 300 UNITS/3 ML VIAL SQ SCH ×4 (08:22→22:07)
--- NOTE | 2017-11-03 09:29 | Internal Med Progress Note ---
<Fredrick Bird Rich - Last Filed: 11/03/17 11:22> Hospitalist Progress Note - Encounter Date of Encounter: 11/03/17 Time of Encounter: 09:24 - Subjective Interval History: Patient reports doing okay this morning, breathing is doing a little better. Patient continues to have cath in place, pulling pink to light orange urine. No bowel movement in last 2-3 days, normal per patient. Patient denies fevers, chills, sweats, nausea, vomiting, chest pain, new shortness of breath, cough, increased sputum, hemoptysis, abdominal pain, changes in bowels or bladder, weakness, or rash. - Exam Vitals: Temp Pulse Resp BP Pulse Ox 98.3 F 80 18 164/97 92 11/03/17 06:54 11/03/17 06:54 11/03/17 07:39 11/03/17 06:54 11/03/17 07:39 Exam: General: alert oriented x 3, no acute distress, on 6L high flow nasal cannula HEENT: moist mucus membranes CV: RRR, no murmurs Lungs: Minimal wheezing bilaterally, no rhonchi or rales. Abdomen: Soft, nontender, normal bowel sounds. Uro: cath in place draining light pink to light orange urine, no clots Extremities: no edema, cyanosis, or clubbing MSK: 5/5 strength bilatrally, normal range of motion Neuro: alert and oriented, no deficits Skin: normal, no rash - Assessment and Plan (1) Bacteremia Current Visit: Yes Status: Acute Assessment and Plan: Bacteremia with Pansensitive E.Coli. Blood cultures 10/29/17 E.coli pansensitive Discontinued zosyn/levaquin d2. Continue with Unasyn d2. Total 14 days antibiotics -Continue with antibioitcs -Probiotics to prevent c.diff. -Repeat blood cultures ordered. Comments: (2) TIA (transient ischemic attack) Current Visit: Yes Status: Suspected Assessment and Plan: Resolved no aphasia, no focal neuro deficits MRI head negative for acute infarct Duplex carotids unremarkable Continue aspirin. (3) Expressive aphasia Current Visit: Yes Status: Resolved Assessment and Plan: Resolved no aphasia, no focal neuro deficits MRI head negative for acute infarct Duplex carotids unremarkable Continue aspirin. (4) Acute and chronic respiratory failure with hypoxia Current Visit: Yes Status: Acute Assessment and Plan: Acute on Chronic respiratory failure. Patient reports mild improvement in breathing, but seems to be around 6-8L high flow oxygen still. COPD exacerbation vs suspected aspiriaion pnuemonia. Chronic respiratory failure secondary to COPD with baseline continuous home oxygen needs of 2L nasal cannula. -Continue with solumedrol, Unasyn d2, and duonebs q4h tutu and q2h prn. -Consider weaning steroids tomorrow if continues to have improvement in breathing. -Continue with supplemental oxygen and Bipap. (5) Ureteral calculi Current Visit: Yes Status: Acute Assessment and Plan: -s/p stent of left proximal ureter 10/30/2017 -[place] catheter in place -light pink urine, no clots, likely secondary to stent placement -Follow up with Urology second week in November as outpatient. -Continue to monitor (6) IDALIA (acute kidney injury) Current Visit: Yes Status: Resolved Assessment and Plan: Resolved. Likely due to sepsis. Continue to monitor. (7) Pneumonia Current Visit: Yes Status: Acute Assessment and Plan: Suspect aspiration Pneumonia vs COPD exacerbation. Swallow study and speech eval negative for penetration/aspiration. CXR 10/31/17 revealed R lung airspace disease and Left middle lobe findings. -Pulm on board. -Continue with Unasyn d2. (8) History of CVA (cerebrovascular accident) Current Visit: No Status: Chronic Assessment and Plan: Known history of CVA in the past with residual deficits of right sided facial numbness. Continue home meds for chronic disease management. (9) Lung nodule Current Visit: No Status: Chronic Assessment and Plan: Known history of lung nodule, being worked up as outpatient. (10) COPD (chronic obstructive pulmonary disease) Current Visit: No Status: Chronic Assessment and Plan: COPD with acute exacerbation. Baseline 2L supplemental oxygen at home. Continue per plan in assessment above. -Continue with steroids, Unasyn d2, and duonebs q4h tutu and q2h prn. -Continue with supplemental oxygen and Bipap. (11) CAD (coronary artery disease) Current Visit: No Status: Chronic Assessment and Plan: Known history of CAD and hx of [place]. Coninue home medications for chronic disease management. -ADA cardiac diet (12) Diabetes mellitus Current Visit: No Status: Chronic Assessment and Plan: History of type II diabetes Glucose 163 On steroid for COPD exacerbation vs pneumonia. -Continue with insulin sliding scale. -ADA diet (13) Tobacco abuse Current Visit: No Status: Chronic Assessment and Plan: Known history of tobacco use. Declines patch at this visit. DVT Prophylaxis: Heparin sq - Time Spent with Patient Total time spent is greater than 50% in coordination of care (as documented) at patient's floor/unit and/or counseling patient: Internal Medicine: Result - Labs CBC & Chem 7: 11/03/17 05:05 11/03/17 05:05 Labs: Short CBC 11/02/17 11/03/17 Range/Units 09:20 05:05 WBC 14.5 H 11.1 (4.3-11.1) K/mcL Hgb 12.2 12.0 (11.5-15.4) g/dL Hct 36.1 36.7 (35.3-44.9) % Plt Count 241 288 (140-400) K/mcL Neutrophils # 12.2 H 8.4 (1.6-8.9) K/mcL BMP 11/02/17 11/03/17 09:20 05:05 Sodium 141 141 Potassium 3.2 L 3.7 Chloride 104 105 Carbon Dioxide 27 28 BUN 21 20 Creatinine 0.94 0.79 Glucose 218 H 163 H Calcium 8.7 9.0 - ABG Interpretation ABG results: ABG ABG pH 7.36 pH Units (7.32-7.45) 10/31/17 12:52 ABG pCO2 40 mmHg (35-45) 10/31/17 12:52 ABG pO2 65 mmHg (85-104) L 10/31/17 12:52 ABG O2 Saturation 92 % (95-98) L 10/31/17 12:52 PT/INR, D-dimer PT 14.8 Seconds (9.4-12.1) H 10/29/17 16:50 - Impressions Impressions Brain MRI 11/02/17 13:00 IMPRESSION: 1. No acute intracranial abnormality. 2. Left middle cerebral artery territory encephalomalacia in keeping with sequela of prior infarct. 3. Multifocal remote lacunar infarcts as detailed above. 4. Mild chronic white matter microvascular ischemic changes. D/ / Dorian Montenegro / Dorian Montenegro Interpreting Provider: Dorian Montenegro Videofluoroscopic Swallow 11/02/17 15:00 IMPRESSION: No evidence of penetration or aspiration. Please see separate speech pathology report for full discussion of findings and recommendations. D/ / Omid Ward MD / Omid Ward MD Interpreting Provider: Omid Ward MD Consult Discharge Plan - Plan Referrals: Tay Kaplan MD [Primary Care Provider] - <KruseLisa - Last Filed: 11/03/17 13:09> Hospitalist Progress Note - Encounter Date of Encounter: 11/03/17 - Exam Vitals: Temp Pulse Resp BP Pulse Ox 98.2 F 85 16 150/93 93 11/03/17 10:13 11/03/17 10:13 11/03/17 10:13 11/03/17 10:13 11/03/17 10:13 - Assessment and Plan (1) CAD (coronary artery disease) Current Visit: No Status: Chronic (2) Diabetes mellitus Current Visit: No Status: Chronic (3) Essential hypertension Current Visit: No Status: Chronic (4) COPD (chronic obstructive pulmonary disease) Current Visit: No Status: Chronic (5) IDALIA (acute kidney injury) Current Visit: Yes Status: Resolved (6) Tobacco abuse Current Visit: No Status: Chronic (7) TIA (transient ischemic attack) Current Visit: Yes Status: Suspected (8) Sepsis Current Visit: Yes Status: Acute (9) Ureteral calculi Current Visit: Yes Status: Acute (10) Bacteremia Current Visit: Yes Status: Acute Comments: (11) Pneumonia Current Visit: Yes Status: Acute - Time Spent with Patient Total time spent is greater than 50% in coordination of care (as documented) at patient's floor/unit and/or counseling patient: Internal Medicine: Result - Labs CBC & Chem 7: 11/03/17 05:05 11/03/17 05:05 Labs: Short CBC 11/03/17 Range/Units 05:05 WBC 11.1 (4.3-11.1) K/mcL Hgb 12.0 (11.5-15.4) g/dL Hct 36.7 (35.3-44.9) % Plt Count 288 (140-400) K/mcL Neutrophils # 8.4 (1.6-8.9) K/mcL BMP 11/03/17 05:05 Sodium 141 Potassium 3.7 Chloride 105 Carbon Dioxide 28 BUN 20 Creatinine 0.79 Glucose 163 H Calcium 9.0 - ABG Interpretation ABG results: ABG ABG pH 7.36 pH Units (7.32-7.45) 10/31/17 12:52 ABG pCO2 40 mmHg (35-45) 10/31/17 12:52 ABG pO2 65 mmHg (85-104) L 10/31/17 12:52 ABG O2 Saturation 92 % (95-98) L 10/31/17 12:52 PT/INR, D-dimer PT 14.8 Seconds (9.4-12.1) H 10/29/17 16:50 - Impressions Impressions Brain MRI 11/02/17 13:00 IMPRESSION: 1. No acute intracranial abnormality. 2. Left middle cerebral artery territory encephalomalacia in keeping with sequela of prior infarct. 3. Multifocal remote lacunar infarcts as detailed above. 4. Mild chronic white matter microvascular ischemic changes. D/ / Dorian Montenegro / Dorian Montenegro Interpreting Provider: Dorian Montenegro Videofluoroscopic Swallow 11/02/17 15:00 IMPRESSION: No evidence of penetration or aspiration. Please see separate speech pathology report for full discussion of findings and recommendations. D/ / Omid Ward MD / Omid Ward MD Interpreting Provider: Omid Ward MD - Attending Attestation I have seen and examined this pt independently. I have discussed with resident physician Dr Bird regarding the management plan. Agree with the documentation. <TruptiFredrick mayenhi - Last Filed: 11/03/17 11:22> (7) Pneumonia Qualifiers: Pneumonia type: aspiration pneumonia Aspiration pneumonia type: unspecified Laterality: bilateral Lung location: unspecified part of lung Qualified Code(s ): J69.0 - Pneumonitis due to inhalation of food and vomit (10) COPD (chronic obstructive pulmonary disease) Qualifiers: COPD type: unspecified COPD Qualified Code(s): J44.9 - Chronic obstructive pulmonary disease, unspecified (11) CAD (coronary artery disease) Qualifiers: Coronary Disease-Associated Artery/Lesion type: unspecified vessel or lesion type [place] vs. transplanted heart: [place] heart Associated angina: without angina Qualified Code(s): I25.10 - Atherosclerotic heart disease of [place] coronary artery without angina pectoris (12) Diabetes mellitus Qualifiers: Diabetes mellitus type: type 2 Diabetes mellitus half-way insulin use: without terminal gauger supervisor use Diabetes mellitus complication status: with unspecified complications Qualified Code(s): E11.8 - Type 2 diabetes mellitus with unspecified complications <Lisa Kruse - Last Filed: 11/03/17 13:09> (1) CAD (coronary artery disease) Qualifiers: Coronary Disease-Associated Artery/Lesion type: unspecified vessel or lesion type [place] vs. transplanted heart: [place] heart Associated angina: without angina Qualified Code(s): I25.10 - Atherosclerotic heart disease of [place] coronary artery without angina pectoris (2) Diabetes mellitus Qualifiers: Diabetes mellitus type: type 2 Diabetes mellitus half-way insulin use: without terminal gauger supervisor use Diabetes mellitus complication status: with unspecified complications Qualified Code(s): E11.8 - Type 2 diabetes mellitus with unspecified complications (4) COPD (chronic obstructive pulmonary disease) Qualifiers: COPD type: unspecified COPD Qualified Code(s): J44.9 - Chronic obstructive pulmonary disease, unspecified (8) Sepsis Qualifiers: Sepsis type: sepsis due to unspecified organism Qualified Code(s): A41.9 - Sepsis, unspecified organism (11) Pneumonia Qualifiers: Pneumonia type: aspiration pneumonia Aspiration pneumonia type: unspecified Laterality: bilateral Lung location: unspecified part of lung Qualified Code(s ): J69.0 - Pneumonitis due to inhalation of food and vomit
[2017-11-03] MEDS: Aspirin Enteric Coated 81 MG Tablet PO SCH (10:56)
[2017-11-03] MEDS: Lactobacillus 1 EACH CAP.SPRINK PO SCH (10:57)
[2017-11-03] MEDS: amLODIPine 5 MG TABLET PO SCH (10:57)
[2017-11-03] MEDS: Metoprolol 100 MG TABLET PO SCH ×2 (10:57→22:09)
[2017-11-03] MEDS: OXcarbazepine 150 MG TABLET PO SCH ×2 (10:58→22:10)
[2017-11-03] MEDS: FLUoxetine 20 MG CAPSULE PO SCH (10:58)
[2017-11-03] MEDS: Famotidine 20 MG TABLET PO SCH ×2 (10:59→22:10)
[2017-11-03] MEDS: *HR* LORazepam 0.5 MG TABLET PO PRN (14:11)
[2017-11-03] MEDS ORDERED: MethylPREDNISolone 40 MG/ML VIAL IVP SCH (16:00)
--- NOTE | 2017-11-03 16:46 | Pulmonology Progress Note ---
Date of Encounter: 11/03/17 Time of Encounter: 13:00 Assessment and Plan (1) Acute and chronic respiratory failure with hypoxia Current Visit: Yes Status: Chronic Overall patient is making slight improvement. She is complaining of an anxiety and discussed with the nurse to have her on sedatives low dose and continue noninvasive ventilation with current treatment. Will change systemic steroid to oral steroids which hopefully will help to decrease her anxiety. Continue bronchodilators. Please call for any questions. Subjective Principal diagnosis: Dyspnea Interval history: Patient is not complaining of anything except she is feeling nervous and she is asking for something to calm her down. Patient is using noninvasive ventilation. Objective PUL Vital signs: Last Vital Signs Temp 98.2 F 11/03/17 14:10 Pulse 76 11/03/17 14:10 Resp 21 11/03/17 15:33 BP 148/81 11/03/17 14:10 Pulse Ox 92 11/03/17 15:33 General: Patient is in no acute distress. HEENT: Normocephalic atraumatic, pupils are equal round and reactive to light and accommodation, anicteric sclera, nares is patent, mucous membranes moist, no JVD, trachea is midline Cardiovascular: Normal sinus rhythm, S1 and S2 audible, no murmur or rubs Respiratory: Diminished with scattered rhonchi to auscultation bilaterally. No acute distress. No wheezing. Patient not using accessory muscles. Abdomen: Soft, nontender, nondistended, positive bowel sounds in all 4 quadrants Extremities: Warm, dry, trace lower extremity edema. Normal capillary refill. Neuro: Alert and oriented and follows commands. Grossly no neuro deficits. Skin: Warm to touch : No obvious abnormalities. Psych: She appears to be anxious Results - Laboratory Findings CBC and BMP: 11/03/17 05:05 11/03/17 05:05 ABG ABG pH 7.36 pH Units (7.32-7.45) 10/31/17 12:52 ABG pCO2 40 mmHg (35-45) 10/31/17 12:52 ABG pO2 65 mmHg (85-104) L 10/31/17 12:52 ABG O2 Saturation 92 % (95-98) L 10/31/17 12:52 PT/INR, D-dimer PT 14.8 Seconds (9.4-12.1) H 10/29/17 16:50 Abnormal lab findings: Abnormal lab results Nucleated RBCs/100 WBC 0.2 /100 WBC (0) H 11/02/17 09:20 PT 14.8 Seconds (9.4-12.1) H 10/29/17 16:50 ABG pO2 65 mmHg (85-104) L 10/31/17 12:52 ABG O2 Saturation 92 % (95-98) L 10/31/17 12:52 ABG Base Excess -3 mEq/L (-2 to 3) L 10/31/17 12:52 Glucose 163 mg/dL (70-105) H 11/03/17 05:05 POC Glucose 120 mg/dL (70-99) H 11/03/17 16:12 Hemoglobin A1c 6.9 % (-5.6) H 10/30/17 03:23 Direct Bilirubin 0.3 mg/dL (0.0-0.2) H 10/29/17 16:50 Troponin I 0.06 ng/mL (< 0.04) H* 10/30/17 08:04 Serum Total Protein 6.0 g/dL (6.4-8.9) L 10/30/17 08:04 Albumin 3.4 g/dL (3.5-5.7) L 10/30/17 08:04 Triglycerides 195 mg/dL (< 150) H 10/30/17 03:23 VLDL Cholesterol, Calc 39 mg/dL (< 31) H 10/30/17 03:23 HDL Cholesterol 18 mg/dL (40-59) L 10/30/17 03:23 Cholesterol/HDL Ratio 6.4 (0-4.9) H 10/30/17 03:23 Lipase 7 Units/L (11-82) L 10/29/17 16:50 Urine Clarity Cloudy (Clear) A 10/29/17 18:28 Ur Specific [place] 1.006 (1.010-1.025) L 10/29/17 18:28 Urine Protein 30 mg/dL (Neg-Trace) H 10/29/17 18:28 Urine Ketones 15 mg/dL (Negative) H 10/29/17 18:28 Urine Blood Moderate (Negative) H 10/29/17 18:28 Ur Leukocyte Esterase Small (Negative) H 10/29/17 18:28 Urine Microscopic WBC 5-15 per hpf (0-3) H 10/29/17 18:28 Ur Squamous Epith Cells Many per lpf (None-Few) H 10/29/17 18:28 Amorphous Sediment Many (Few) H 10/29/17 18:28 Ur Culture Indicated? NO. (NO) A 10/29/17 18:28 Enterobacteriac sp PCR DETECTED (Not Detect) A 10/29/17 19:19 E. coli (PCR) DETECTED (Not Detect) A 10/29/17 19:19 - Microbiology Findings Microbiology Findings: Microbiology, Last 48 Hours 11/03/17 08:53 Blood Culture - Preliminary Peripheral Venipuncture Culture is incubating and being continuously monitored for growth. Final report to follow. 11/03/17 08:56 Blood Culture - Preliminary Peripheral Venipuncture Culture is incubating and being continuously monitored for growth. Final report to follow. 10/30/17 07:40 Urine Culture - Final Urine,Clean Catch - Clinical Findings Intake & Output: Intake & Output 11/03/17 11/03/17 11/03/17 07:59 15:59 23:59 Intake Total 440 / 440 400 / 400 Output Total 500 / 500 600 / 600 Balance -60 / -60 -200 / -200 Weight 86.5 kg Consult Discharge Plan - Plan Referrals: Tay Kaplan MD [Primary Care Provider] -
[2017-11-03] MEDS: predniSONE 20 MG TABLET PO SCH (17:32)
[2017-11-03 19:35] LABS: Acinetobacter baumannii by PCR Not Detected (Not Detect); Candida albicans by PCR Not Detected (Not Detect); Candida glabrata by PCR Not Detected (Not Detect); Candida krusei by PCR Not Detected (Not Detect); Candida parapsilosis by PCR Not Detected (Not Detect); Candida tropicalis by PCR Not Detected (Not Detect); Enterobacter cloacae Cmplx PCR Not Detected (Not Detect); Enterobacteriaceae by PCR DETECTED (Not Detect); Enterococcus by PCR Not Detected (Not Detect); Escherichia coli by PCR DETECTED (Not Detect); Klebsiella oxytoca by PCR Not Detected (Not Detect); Klebsiella pneumoniae by PCR Not Detected (Not Detect); Proteus by PCR Not Detected (Not Detect); Pseudomonas aeruginosa by PCR Not Detected (Not Detect); Serratia marcescens by PCR Not Detected (Not Detect); Staphylococcus aureus by PCR Not Detected (Not Detect); Staphylococcus by PCR Not Detected (Not Detect); Streptococcus agalactiae(B)PCR Not Detected (Not Detect); Streptococcus by PCR Not Detected (Not Detect); Streptococcus pneumoniae PCR Not Detected (Not Detect); Streptococcus pyogenes (A) PCR Not Detected (Not Detect); blaKPC Carbapenem-Resist Gene Not Detected (Not Detect)
[2017-11-03] MEDS: OXYCODONE Oral CONC 10 MG/0.5 ML ORAL.SYG SL PRN (20:03)
[2017-11-03] MEDS ORDERED: Insulin DETEMIR 100 UNIT/ML X5UNITS SQ SCH (21:00)
--- NOTE | 2017-11-03 21:08 | Event Note ---
Date of Encounter: 11/03/17 Time of Encounter: 20:17 Alerted by pts. nurse that blood cultures were positive for E. coli. Reviewed final culture and sensitivity report which showed organism was sensitive to ampicillin/sulbactam (Unasyn) which pt. is currently receiving. VS: 97.5F temp, HR 84, RR 15, BP 131/75, SpO2 93% on 8L. Nurse instructed to monitor pt. for sepsis criteria. Lactic acid ordered.
[2017-11-03] MEDS: Nicotine 21 MG PATCH.TD24 TD SCH (22:12)
[2017-11-04] MEDS: Ampicillin/Sulbactam 1,500 MG in 0.9 % Sodium Chloride Mini Bag 100 ML IVPB SCH ×4 (00:55→17:34)
[2017-11-04] MEDS: Ipratropium/Albuterol Neb 3 ML IH SCH ×5 (03:23→19:42)
[2017-11-04 04:27] LABS: Basophils % 0.4 %; Eosinophils % 0.4 %; Hematocrit 31.2 % (35.3-44.9); Immature Granulocytes % 3.4 % (0-4); Lymphocytes # 2.2 K/mcL (0.6-4.6); Lymphocytes % 19.8 %; Mean Corpuscular HGB Conc 32.7 g/dL (31.6-35.5); Mean Corpuscular Volume 94.8 fL (83.0-100.0); Mean Platelet Volume 9.1 fL (9.4-12.4); Monocytes # 0.9 K/mcL (0.0-1.3); Monocytes % 8.2 %; Neutrophils # 7.6 K/mcL (1.6-8.9); Platelet Count 301 K/mcL (140-400); Red Blood Count 3.29 M/mcL (3.82-4.97); Segmented Neutrophils % 67.8 %
[2017-11-04 04:30] LABS: Hemoglobin 10.2 g/dL (11.5-15.4)
[2017-11-04 04:48] LABS: BUN/Creatinine Ratio 23 (6-26); Blood Urea Nitrogen 17 mg/dL (8-23); Calcium 8.3 mg/dL (8.6-10.3); Carbon Dioxide 35 mEq/L (23-29); Chloride 101 mEq/L (98-107); Glucose 140 mg/dL (70-105); Osmolality,Calculated 298 (280-300); Potassium 3.2 mEq/L (3.5-5.1); Sodium 142 mEq/L (136-145); eGFR For Non-African Americans > 60 (> 60)
[2017-11-04] MEDS: *HR* Heparin 5,000 UNIT/ML VIAL SQ SCH ×3 (06:53→22:52)
[2017-11-04] MEDS: Insulin LISPRO 300 UNITS/3 ML VIAL SQ SCH ×4 (07:52→22:41)
[2017-11-04] MEDS: Metoprolol 100 MG TABLET PO SCH ×2 (07:58→20:17)
[2017-11-04] MEDS: OXcarbazepine 150 MG TABLET PO SCH ×2 (07:58→20:18)
[2017-11-04] MEDS: Famotidine 20 MG TABLET PO SCH ×2 (07:58→20:15)
[2017-11-04] MEDS: Lactobacillus 1 EACH CAP.SPRINK PO SCH (07:58)
[2017-11-04] MEDS: Sucralfate 1 GM TABLET PO SCH ×4 (07:58→22:52)
[2017-11-04] MEDS: amLODIPine 5 MG TABLET PO SCH (07:59)
[2017-11-04] MEDS: predniSONE 20 MG TABLET PO SCH ×2 (07:59→17:34)
[2017-11-04] MEDS: Aspirin Enteric Coated 81 MG Tablet PO SCH (07:59)
[2017-11-04] MEDS: FLUoxetine 20 MG CAPSULE PO SCH (07:59)
--- NOTE | 2017-11-04 09:31 | Internal Med Progress Note ---
<Fredrick Bird Rich - Last Filed: 11/04/17 11:14> Hospitalist Progress Note - Encounter Date of Encounter: 11/04/17 Time of Encounter: 09:30 - Subjective Interval History: Patient reports doing okay this morning, breathing is about same as yesterday, coughing up a little more this morning, whitish-yellow. Patient continues to have cath in place, pulling pink to light orange urine. Has had some chills overnight. Patient denies fevers, sweats, nausea, vomiting, chest pain, new shortness of breath, cough, increased sputum, hemoptysis, abdominal pain, changes in bowels or bladder, weakness, or rash. - Exam Vitals: Temp Pulse Resp BP Pulse Ox 98.8 F 64 20 133/69 93 11/04/17 07:17 11/04/17 07:17 11/04/17 07:37 11/04/17 07:17 11/04/17 07:37 Exam: General: alert oriented x 3, no acute distress, on 8L high flow nasal cannula HEENT: moist mucus membranes CV: RRR, no murmurs Lungs: Minimal wheezing bilaterally, no rhonchi or rales. Abdomen: Soft, nontender, normal bowel sounds. Uro: cath in place draining light pink to light orange urine, no clots Extremities: no edema, cyanosis, or clubbing MSK: 5/5 strength bilaterally, normal range of motion Neuro: alert and oriented, no deficits Skin: normal, no rash - Assessment and Plan (1) Bacteremia Current Visit: Yes Status: Acute Assessment and Plan: Bacteremia with Pansensitive E.Coli. Blood cultures 10/29/17 E.coli pansensitive Blood cultures 11/03/17 running Discontinued zosyn/levaquin d2. Continue with Unasyn d3. Total 14 days antibiotics -Continue with antibioitics -Probiotics to prevent c.diff. Comments: (2) TIA (transient ischemic attack) Current Visit: Yes Status: Suspected Assessment and Plan: Resolved no aphasia, no focal neuro deficits MRI head negative for acute infarct Duplex carotids unremarkable Continue aspirin. (3) Expressive aphasia Current Visit: Yes Status: Resolved Assessment and Plan: Resolved no aphasia, no focal neuro deficits MRI head negative for acute infarct Duplex carotids unremarkable Continue aspirin. (4) Acute and chronic respiratory failure with hypoxia Current Visit: Yes Status: Chronic Assessment and Plan: Acute on Chronic respiratory failure. Patient reports breathing about same as yesterday, 6-8L high flow oxygen still. COPD exacerbation vs suspected aspiriation pnuemonia. Chronic respiratory failure secondary to COPD with baseline continuous home oxygen needs of 2L nasal cannula. -Discontinued solumedrol, on po prednisone 20mg bid, Unasyn d3, and duonebs q4h tutu and q2h prn. -Continue with supplemental oxygen and Bipap. -Continue following Pulm recommendations (5) Ureteral calculi Current Visit: Yes Status: Acute Assessment and Plan: s/p stent of left proximal ureter 10/30/2017 -Milton catheter in place -light pink urine, no clots, likely secondary to stent placement -Follow up with Urology second week in November as outpatient. -Continue to monitor (6) IDALIA (acute kidney injury) Current Visit: Yes Status: Resolved Assessment and Plan: Resolved. Likely due to sepsis. Continue to monitor. (7) Pneumonia Current Visit: Yes Status: Acute Assessment and Plan: Suspect aspiration Pneumonia vs COPD exacerbation. Swallow study and speech eval negative for penetration/aspiration. CXR 10/31/17 revealed R lung airspace disease and Left middle lobe findings. -Pulm on board. -Continue with Unasyn d3. (8) History of CVA (cerebrovascular accident) Current Visit: No Status: Chronic Assessment and Plan: Known history of CVA in the past with residual deficits of right sided facial numbness. Continue home meds for chronic disease management. (9) Lung nodule Current Visit: No Status: Chronic Assessment and Plan: Known history of lung nodule, being worked up as outpatient. (10) COPD (chronic obstructive pulmonary disease) Current Visit: Yes Status: Chronic Assessment and Plan: COPD with acute exacerbation. Baseline 2L supplemental oxygen at home. Continue per plan in assessment above. -Continue with steroids, Unasyn d3, and duonebs q4h tutu and q2h prn. -Continue with supplemental oxygen and Bipap. (11) CAD (coronary artery disease) Current Visit: No Status: Chronic Assessment and Plan: Known history of CAD and hx of [place]. Coninue home medications for chronic disease management. -ADA cardiac diet (12) Diabetes mellitus Current Visit: No Status: Chronic Assessment and Plan: History of type II diabetes Glucose 140 On steroid for COPD exacerbation vs pneumonia. -Continue with insulin sliding scale. -ADA diet (13) Tobacco abuse Current Visit: No Status: Chronic Assessment and Plan: Known history of tobacco use. Declines patch at this visit. DVT Prophylaxis: Heparin sq - Time Spent with Patient Total time spent is greater than 50% in coordination of care (as documented) at patient's floor/unit and/or counseling patient: Internal Medicine: Result - Labs CBC & Chem 7: 11/04/17 04:05 11/04/17 04:05 Labs: Short CBC 11/04/17 Range/Units 04:05 WBC 11.2 H (4.3-11.1) K/mcL Hgb 10.2 L D (11.5-15.4) g/dL Hct 31.2 L (35.3-44.9) % Plt Count 301 (140-400) K/mcL Neutrophils # 7.6 (1.6-8.9) K/mcL BMP 11/04/17 04:05 Sodium 142 Potassium 3.2 L Chloride 101 Carbon Dioxide 35 H BUN 17 Creatinine 0.73 Glucose 140 H Calcium 8.3 L - ABG Interpretation ABG results: ABG ABG pH 7.36 pH Units (7.32-7.45) 10/31/17 12:52 ABG pCO2 40 mmHg (35-45) 10/31/17 12:52 ABG pO2 65 mmHg (85-104) L 10/31/17 12:52 ABG O2 Saturation 92 % (95-98) L 10/31/17 12:52 PT/INR, D-dimer PT 14.8 Seconds (9.4-12.1) H 10/29/17 16:50 Consult Discharge Plan - Plan Referrals: Tay Kaplan MD [Primary Care Provider] - <Lisa Kruse - Last Filed: 11/04/17 14:18> Hospitalist Progress Note - Encounter Date of Encounter: 11/04/17 - Exam Vitals: Temp Pulse Resp BP Pulse Ox 98.8 F 71 16 116/70 99 11/04/17 14:02 11/04/17 14:02 11/04/17 14:02 11/04/17 14:02 11/04/17 14:02 - Assessment and Plan (1) CAD (coronary artery disease) Current Visit: No Status: Chronic (2) Diabetes mellitus Current Visit: No Status: Chronic (3) Essential hypertension Current Visit: No Status: Chronic (4) COPD (chronic obstructive pulmonary disease) Current Visit: Yes Status: Chronic (5) IDALIA (acute kidney injury) Current Visit: Yes Status: Resolved (6) Tobacco abuse Current Visit: No Status: Chronic (7) TIA (transient ischemic attack) Current Visit: Yes Status: Suspected (8) Sepsis Current Visit: Yes Status: Acute (9) Ureteral calculi Current Visit: Yes Status: Acute (10) Bacteremia Current Visit: Yes Status: Acute Comments: (11) Pneumonia Current Visit: Yes Status: Acute - Time Spent with Patient Total time spent is greater than 50% in coordination of care (as documented) at patient's floor/unit and/or counseling patient: Internal Medicine: Result - Labs CBC & Chem 7: 11/04/17 04:05 11/04/17 04:05 Labs: Short CBC 11/04/17 Range/Units 04:05 WBC 11.2 H (4.3-11.1) K/mcL Hgb 10.2 L D (11.5-15.4) g/dL Hct 31.2 L (35.3-44.9) % Plt Count 301 (140-400) K/mcL Neutrophils # 7.6 (1.6-8.9) K/mcL BMP 11/04/17 04:05 Sodium 142 Potassium 3.2 L Chloride 101 Carbon Dioxide 35 H BUN 17 Creatinine 0.73 Glucose 140 H Calcium 8.3 L - ABG Interpretation ABG results: ABG ABG pH 7.36 pH Units (7.32-7.45) 10/31/17 12:52 ABG pCO2 40 mmHg (35-45) 10/31/17 12:52 ABG pO2 65 mmHg (85-104) L 10/31/17 12:52 ABG O2 Saturation 92 % (95-98) L 10/31/17 12:52 PT/INR, D-dimer PT 14.8 Seconds (9.4-12.1) H 10/29/17 16:50 - Attending Attestation I have seen and examined this pt independently. I have discussed with resident physician Dr Bird regarding the management plan. Agree with the documentation. <Fredrick Bird - Last Filed: 11/04/17 11:14> (7) Pneumonia Qualifiers: Pneumonia type: aspiration pneumonia Aspiration pneumonia type: unspecified Laterality: bilateral Lung location: unspecified part of lung Qualified Code(s ): J69.0 - Pneumonitis due to inhalation of food and vomit (10) COPD (chronic obstructive pulmonary disease) Qualifiers: COPD type: unspecified COPD Qualified Code(s): J44.9 - Chronic obstructive pulmonary disease, unspecified (11) CAD (coronary artery disease) Qualifiers: Coronary Disease-Associated Artery/Lesion type: unspecified vessel or lesion type [place] vs. transplanted heart: [place] heart Associated angina: without angina Qualified Code(s): I25.10 - Atherosclerotic heart disease of [place] coronary artery without angina pectoris (12) Diabetes mellitus Qualifiers: Diabetes mellitus type: type 2 Diabetes mellitus fci insulin use: without long term care phlebotomist use Diabetes mellitus complication status: with unspecified complications Qualified Code(s): E11.8 - Type 2 diabetes mellitus with unspecified complications <UriahLisa - Last Filed: 11/04/17 14:18> (1) CAD (coronary artery disease) Qualifiers: Coronary Disease-Associated Artery/Lesion type: unspecified vessel or lesion type [place] vs. transplanted heart: [place] heart Associated angina: without angina Qualified Code(s): I25.10 - Atherosclerotic heart disease of [place] coronary artery without angina pectoris (2) Diabetes mellitus Qualifiers: Diabetes mellitus type: type 2 Diabetes mellitus long term care phlebotomist insulin use: without long term care phlebotomist use Diabetes mellitus complication status: with unspecified complications Qualified Code(s): E11.8 - Type 2 diabetes mellitus with unspecified complications (4) COPD (chronic obstructive pulmonary disease) Qualifiers: COPD type: unspecified COPD Qualified Code(s): J44.9 - Chronic obstructive pulmonary disease, unspecified (8) Sepsis Qualifiers: Sepsis type: sepsis due to unspecified organism Qualified Code(s): A41.9 - Sepsis, unspecified organism (11) Pneumonia Qualifiers: Pneumonia type: aspiration pneumonia Aspiration pneumonia type: unspecified Laterality: bilateral Lung location: unspecified part of lung Qualified Code(s ): J69.0 - Pneumonitis due to inhalation of food and vomit
[2017-11-04] MEDS: Budesonide/Formoterol 160/4.5 1 PUFF INH IH SCH ×2 (11:50→19:42)
[2017-11-04] MEDS: OXYCODONE Oral CONC 10 MG/0.5 ML ORAL.SYG SL PRN (20:19)
[2017-11-04] MEDS: Nicotine 21 MG PATCH.TD24 TD SCH (22:41)
[2017-11-05] MEDS: Ampicillin/Sulbactam 1,500 MG in 0.9 % Sodium Chloride Mini Bag 100 ML IVPB SCH ×2 (00:09→05:39)
[2017-11-05] MEDS: Ipratropium/Albuterol Neb 3 ML IH SCH ×7 (00:36→23:44)
[2017-11-05] MEDS: *HR* Heparin 5,000 UNIT/ML VIAL SQ SCH ×3 (05:39→21:08)
--- NOTE | 2017-11-05 07:19 | Internal Med Progress Note ---
<MargeSeraFredrick Rich - Last Filed: 11/05/17 09:06> Hospitalist Progress Note - Encounter Date of Encounter: 11/05/17 Time of Encounter: 07:19 - Subjective Interval History: Patient reports doing much better this morning, is back at baseline oxygen of 2L nc, no new shortness of breath or cough. Patient has cath in place with yellow urine. Denies fevers chills, sweats, nausea, vomiting, chest pain, new shortness of breath, cough, increased sputum, hemoptysis, abdominal pain, changes in bowels or bladder, weakness, or rash. - Exam Vitals: Temp Pulse Resp BP Pulse Ox 98.1 F 71 16 144/83 95 11/05/17 05:08 11/05/17 05:08 11/05/17 05:08 11/05/17 05:08 11/05/17 05:08 Exam: General: alert oriented x 3, no acute distress, on 2L nasal [place] HEENT: moist mucus membranes CV: RRR, no murmurs Lungs: Minimal wheezing bilaterally, no rhonchi or rales. Abdomen: Soft, nontender, normal bowel sounds. Uro: cath in place draining normal looking urine, no clots Extremities: no edema, cyanosis, or clubbing MSK: 5/5 strength bilaterally, normal range of motion Neuro: alert and oriented, no deficits Skin: normal, no rash - Assessment and Plan (1) Bacteremia Current Visit: Yes Status: Acute Assessment and Plan: Bacteremia with Pansensitive E.Coli. Blood cultures 10/29/17 E.coli pansensitive Blood cultures 11/03/17 ngtd Discontinued zosyn/levaquin d2. Completed d3 Unasyn -Start Augmentin d0 Total 14 days antibiotics -Continue with antibioitics -Probiotics to prevent c.diff. Comments: (2) TIA (transient ischemic attack) Current Visit: Yes Status: Suspected Assessment and Plan: Resolved no aphasia, no focal neuro deficits MRI head negative for acute infarct Duplex carotids unremarkable Continue aspirin. (3) Expressive aphasia Current Visit: Yes Status: Resolved Assessment and Plan: Resolved no aphasia, no focal neuro deficits MRI head negative for acute infarct Duplex carotids unremarkable Continue aspirin. (4) Acute and chronic respiratory failure with hypoxia Current Visit: Yes Status: Chronic Assessment and Plan: Acute on Chronic respiratory failure. Patient reports much improved breathing overnight, currently at 2L nc at baseline. COPD exacerbation vs suspected aspiriation pnuemonia. Chronic respiratory failure secondary to COPD with baseline continuous home oxygen needs of 2L nasal cannula. -Continue with prednisone 20mg po bid. -Discontinue Unasyn d3 -Duonebs q4h tutu and q2h prn. -Continue with supplemental oxygen and Bipap. -Continue following Pulm recommendations (5) Ureteral calculi Current Visit: Yes Status: Acute Assessment and Plan: s/p stent of left proximal ureter 10/30/2017 -Milton catheter in place -light pink urine, no clots, likely secondary to stent placement -Follow up with Urology second week in November as outpatient. -Continue to monitor (6) IDALIA (acute kidney injury) Current Visit: Yes Status: Resolved Assessment and Plan: Resolved. Likely due to sepsis. Continue to monitor. (7) Pneumonia Current Visit: Yes Status: Acute Assessment and Plan: Suspect aspiration Pneumonia vs COPD exacerbation. Swallow study and speech eval negative for penetration/aspiration. CXR 10/31/17 revealed R lung airspace disease and Left middle lobe findings. -Pulm on board. -Discontinue Unasyn d3, start Augmentin d0 (8) History of CVA (cerebrovascular accident) Current Visit: No Status: Chronic Assessment and Plan: Known history of CVA in the past with residual deficits of right sided facial numbness. Continue home meds for chronic disease management. (9) Lung nodule Current Visit: No Status: Chronic Assessment and Plan: Known history of lung nodule, being worked up as outpatient. (10) COPD (chronic obstructive pulmonary disease) Current Visit: Yes Status: Chronic Assessment and Plan: COPD with acute exacerbation. Baseline 2L supplemental oxygen at home. Continue per plan in assessment above. -Continue with steroids and duonebs q4h tutu and q2h prn. -Continue with supplemental oxygen and Bipap. (11) CAD (coronary artery disease) Current Visit: No Status: Chronic Assessment and Plan: Known history of CAD and hx of [place]. Coninue home medications for chronic disease management. -ADA cardiac diet (12) Diabetes mellitus Current Visit: No Status: Chronic Assessment and Plan: History of type II diabetes Glucose 208 On steroid for COPD exacerbation vs pneumonia. -Continue with insulin sliding scale. -ADA diet (13) Tobacco abuse Current Visit: No Status: Chronic Assessment and Plan: Known history of tobacco use. Declines patch at this visit. DVT Prophylaxis: Heparin sq - Time Spent with Patient Total time spent is greater than 50% in coordination of care (as documented) at patient's floor/unit and/or counseling patient: Internal Medicine: Result - Labs CBC & Chem 7: 11/05/17 06:56 11/05/17 06:56 - ABG Interpretation ABG results: ABG ABG pH 7.36 pH Units (7.32-7.45) 10/31/17 12:52 ABG pCO2 40 mmHg (35-45) 10/31/17 12:52 ABG pO2 65 mmHg (85-104) L 10/31/17 12:52 ABG O2 Saturation 92 % (95-98) L 10/31/17 12:52 PT/INR, D-dimer PT 14.8 Seconds (9.4-12.1) H 10/29/17 16:50 Consult Discharge Plan - Plan Referrals: Gucci Valencia MD [Partnered Physician] - Tay Kaplan MD [Primary Care Provider] - <Lisa Kruse - Last Filed: 11/05/17 13:23> Hospitalist Progress Note - Encounter Date of Encounter: 11/05/17 - Exam Vitals: Temp Pulse Resp BP Pulse Ox 98.5 F 74 16 110/69 83 11/05/17 10:15 11/05/17 10:15 11/05/17 11:00 11/05/17 10:15 11/05/17 11:00 - Assessment and Plan (1) CAD (coronary artery disease) Current Visit: No Status: Chronic (2) Diabetes mellitus Current Visit: No Status: Chronic (3) Essential hypertension Current Visit: No Status: Chronic (4) COPD (chronic obstructive pulmonary disease) Current Visit: Yes Status: Chronic (5) IDALIA (acute kidney injury) Current Visit: Yes Status: Resolved (6) Tobacco abuse Current Visit: No Status: Chronic (7) TIA (transient ischemic attack) Current Visit: Yes Status: Suspected (8) Sepsis Current Visit: Yes Status: Acute (9) Ureteral calculi Current Visit: Yes Status: Acute (10) Bacteremia Current Visit: Yes Status: Acute Comments: (11) Pneumonia Current Visit: Yes Status: Acute - Time Spent with Patient Total time spent is greater than 50% in coordination of care (as documented) at patient's floor/unit and/or counseling patient: Internal Medicine: Result - Labs CBC & Chem 7: 11/05/17 06:56 11/05/17 06:56 Labs: Short CBC 11/05/17 Range/Units 06:56 WBC 9.5 (4.3-11.1) K/mcL Hgb 11.1 L (11.5-15.4) g/dL Hct 33.5 L (35.3-44.9) % Plt Count 354 (140-400) K/mcL Neutrophils # 5.9 (1.6-8.9) K/mcL BMP 11/05/17 06:56 Sodium 140 Potassium 3.2 L Chloride 97 L Carbon Dioxide 37 H BUN 12 Creatinine 0.68 Glucose 208 H Calcium 8.4 L - ABG Interpretation ABG results: ABG ABG pH 7.36 pH Units (7.32-7.45) 10/31/17 12:52 ABG pCO2 40 mmHg (35-45) 10/31/17 12:52 ABG pO2 65 mmHg (85-104) L 10/31/17 12:52 ABG O2 Saturation 92 % (95-98) L 10/31/17 12:52 PT/INR, D-dimer PT 14.8 Seconds (9.4-12.1) H 10/29/17 16:50 - Attending Attestation I have seen and examined this pt. I have discussed with resident physician Dr Bird regarding the management plan. Agree with the documentation. <Fredrick Bird - Last Filed: 11/05/17 09:06> (7) Pneumonia Qualifiers: Pneumonia type: aspiration pneumonia Aspiration pneumonia type: unspecified Laterality: bilateral Lung location: unspecified part of lung Qualified Code(s ): J69.0 - Pneumonitis due to inhalation of food and vomit (10) COPD (chronic obstructive pulmonary disease) Qualifiers: COPD type: unspecified COPD Qualified Code(s): J44.9 - Chronic obstructive pulmonary disease, unspecified (11) CAD (coronary artery disease) Qualifiers: Coronary Disease-Associated Artery/Lesion type: unspecified vessel or lesion type [place] vs. transplanted heart: [place] heart Associated angina: without angina Qualified Code(s): I25.10 - Atherosclerotic heart disease of [place] coronary artery without angina pectoris (12) Diabetes mellitus Qualifiers: Diabetes mellitus type: type 2 Diabetes mellitus longterm insulin use: without longterm use Diabetes mellitus complication status: with unspecified complications Qualified Code(s): E11.8 - Type 2 diabetes mellitus with unspecified complications <Lisa Kruse - Last Filed: 11/05/17 13:23> (1) CAD (coronary artery disease) Qualifiers: Coronary Disease-Associated Artery/Lesion type: unspecified vessel or lesion type [place] vs. transplanted heart: [place] heart Associated angina: without angina Qualified Code(s): I25.10 - Atherosclerotic heart disease of [place] coronary artery without angina pectoris (2) Diabetes mellitus Qualifiers: Diabetes mellitus type: type 2 Diabetes mellitus termite treater helper insulin use: without longterm use Diabetes mellitus complication status: with unspecified complications Qualified Code(s): E11.8 - Type 2 diabetes mellitus with unspecified complications (4) COPD (chronic obstructive pulmonary disease) Qualifiers: COPD type: unspecified COPD Qualified Code(s): J44.9 - Chronic obstructive pulmonary disease, unspecified (8) Sepsis Qualifiers: Sepsis type: sepsis due to unspecified organism Qualified Code(s): A41.9 - Sepsis, unspecified organism (11) Pneumonia Qualifiers: Pneumonia type: aspiration pneumonia Aspiration pneumonia type: unspecified Laterality: bilateral Lung location: unspecified part of lung Qualified Code(s ): J69.0 - Pneumonitis due to inhalation of food and vomit
[2017-11-05] MEDS: Budesonide/Formoterol 160/4.5 1 PUFF INH IH SCH ×2 (07:30→20:04)
[2017-11-05 07:48] LABS: Basophils % 0.4 %; Eosinophils # 0.1 K/mcL (0.0-0.6); Eosinophils % 1.4 %; Hematocrit 33.5 % (35.3-44.9); Hemoglobin 11.1 g/dL (11.5-15.4); Lymphocytes # 2.3 K/mcL (0.6-4.6); Lymphocytes % 23.9 %; Mean Corpuscular HGB Conc 33.1 g/dL (31.6-35.5); Mean Corpuscular Hemoglobin 31.1 pg (28.0-33.3); Mean Corpuscular Volume 93.8 fL (83.0-100.0); Mean Platelet Volume 9.2 fL (9.4-12.4); Monocytes # 0.7 K/mcL (0.0-1.3); Monocytes % 6.9 %; Neutrophils # 5.9 K/mcL (1.6-8.9); Nucleated Red Blood Cells 0.2 /100 WBC (0); Platelet Count 354 K/mcL (140-400); Red Blood Count 3.57 M/mcL (3.82-4.97); Segmented Neutrophils % 62.4 %
[2017-11-05 07:57] LABS: BUN/Creatinine Ratio 18 (6-26); Blood Urea Nitrogen 12 mg/dL (8-23); Calcium 8.4 mg/dL (8.6-10.3); Carbon Dioxide 37 mEq/L (23-29); Chloride 97 mEq/L (98-107); Glucose 208 mg/dL (70-105); Osmolality,Calculated 296 (280-300); Potassium 3.2 mEq/L (3.5-5.1); Sodium 140 mEq/L (136-145); eGFR For Non-African Americans > 60 (> 60)
[2017-11-05] MEDS: predniSONE 20 MG TABLET PO SCH ×2 (08:10→16:47)
[2017-11-05] MEDS: Aspirin Enteric Coated 81 MG Tablet PO SCH (08:10)
[2017-11-05] MEDS: Sucralfate 1 GM TABLET PO SCH ×4 (08:10→21:07)
[2017-11-05] MEDS: Lactobacillus 1 EACH CAP.SPRINK PO SCH (08:11)
[2017-11-05] MEDS: amLODIPine 5 MG TABLET PO SCH (08:11)
[2017-11-05] MEDS: Famotidine 20 MG TABLET PO SCH ×2 (08:11→21:07)
[2017-11-05] MEDS: FLUoxetine 20 MG CAPSULE PO SCH (08:11)
[2017-11-05] MEDS: OXcarbazepine 150 MG TABLET PO SCH ×2 (08:11→21:06)
[2017-11-05] MEDS: Insulin LISPRO 300 UNITS/3 ML VIAL SQ SCH ×4 (08:12→21:05)
[2017-11-05] MEDS: Metoprolol 100 MG TABLET PO SCH ×2 (08:12→21:07)
[2017-11-05] MEDS: Nicotine 21 MG PATCH.TD24 TD SCH (21:12)
[2017-11-06] MEDS: Ipratropium/Albuterol Neb 3 ML IH SCH ×3 (04:17→11:06)
[2017-11-06] MEDS: *HR* Heparin 5,000 UNIT/ML VIAL SQ SCH (05:39)
[2017-11-06 05:43] LABS: BUN/Creatinine Ratio 20 (6-26); Blood Urea Nitrogen 13 mg/dL (8-23); Calcium 8.5 mg/dL (8.6-10.3); Carbon Dioxide 39 mEq/L (23-29); Chloride 96 mEq/L (98-107); Glucose 218 mg/dL (70-105); Osmolality,Calculated 295 (280-300); Potassium 3.9 mEq/L (3.5-5.1); Sodium 139 mEq/L (136-145); eGFR For Non-African Americans > 60 (> 60)
[2017-11-06 07:13] VITALS: BP 143/85
[2017-11-06] MEDS: Budesonide/Formoterol 160/4.5 1 PUFF INH IH SCH (07:36)
[2017-11-06] MEDS: Aspirin Enteric Coated 81 MG Tablet PO SCH (08:05)
[2017-11-06] MEDS: Metoprolol 100 MG TABLET PO SCH (08:05)
[2017-11-06] MEDS: Famotidine 20 MG TABLET PO SCH (08:05)
[2017-11-06] MEDS: Sucralfate 1 GM TABLET PO SCH ×2 (08:05→11:37)
[2017-11-06] MEDS: OXcarbazepine 150 MG TABLET PO SCH (08:05)
[2017-11-06] MEDS: amLODIPine 5 MG TABLET PO SCH (08:05)
[2017-11-06] MEDS: Lactobacillus 1 EACH CAP.SPRINK PO SCH (08:05)
[2017-11-06] MEDS: FLUoxetine 20 MG CAPSULE PO SCH (08:05)
[2017-11-06] MEDS: Insulin LISPRO 300 UNITS/3 ML VIAL SQ SCH ×2 (08:06→11:37)
[2017-11-06] MEDS: predniSONE 20 MG TABLET PO SCH (08:06)
--- NOTE | 2017-11-06 08:39 | Discharge Summary ---
<TruptitiarraFredrick Rich - Last Filed: 11/06/17 09:53> - NOTES TO OUTPATIENT PROVIDER Notes to Outpatient Provider: Ms. Mackey is a 72 year old female who presented to the ED 10/29/17 with complaint of aphasia and lower extremity weakness. Aphasia resolved on admission. Duplex carotids were unremarkable, MRI negative for acute infarct. Patient was also determined to have e.coli bacteremia and obstructing ureteral stone on left. Patient underwent stenting with urology and had nuñez placed. Patient was treated with zosyn/levaquin until sensitivity returned back e.coli lucio sensitive. Patient was then switched to Unasyn and found to have a pneumonia with R lung airspace disease and left middle lobe findings suggestive of possible aspiration. Speech and swallow evals were unremarkbale so patient was treated as COPD exacerbation with improvement of symptoms back to baseline with steroids. Patient to be discharged home with continued Augmentin for e.coli bacteremia and possible aspiration pneumonia for another 9 days to complete total of 14 days antibiotoics and steroid taper. Continue with 2L nasal cannula at home. Follow up with PCP in 2-3 days of discharge. Follow up with Urology as outpatient in 2 weeks. Orders not resulted at time of discharge: Pending orders 11/03/17 08:53 Culture,Blood [BC] Stat Date of Encounter: 11/06/17 Time of Encounter: 08:37 - Discharge Diagnosis (1) Bacteremia Priority: Primary Status: Acute Assessment and Plan: Bacteremia with Pansensitive E.Coli. Blood cultures 10/29/17 E.coli pansensitive Blood cultures 11/03/17 ngtd Discontinued zosyn/levaquin d2. Discontinued Unasyn d3. -Continue Augmentin d0 Total 14 days antibiotics -Continue with antibiotics -Probiotics to prevent c.diff. (2) TIA (transient ischemic attack) Priority: Primary Status: Suspected Assessment and Plan: Resolved no aphasia, no focal neuro deficits MRI head negative for acute infarct Duplex carotids unremarkable Continue aspirin. (3) Expressive aphasia Priority: Primary Status: Resolved Assessment and Plan: Resolved no aphasia, no focal neuro deficits MRI head negative for acute infarct Duplex carotids unremarkable Continue aspirin. (4) Acute and chronic respiratory failure with hypoxia Priority: Primary Status: Chronic Assessment and Plan: Acute on Chronic respiratory failure. Patient reports much improved breathing overnight, currently at 2L nc at baseline. COPD exacerbation vs suspected aspiriation pnuemonia. Chronic respiratory failure secondary to COPD with baseline continuous home oxygen needs of 2L nasal cannula. Bipap qualification: Did not qualify for bipap, home oxygen 2L nc. -Continue with prednisone 20mg po bid, tapering dose script. -Discontinue Unasyn d3 -Duonebs q6h and q2h prn -Continue with supplemental oxygen and Bipap. -Continue following Pulm recommendations (5) Ureteral calculi Priority: Primary Status: Acute Assessment and Plan: s/p stent of left proximal ureter 10/30/2017 -Nuñez catheter in place -normal urine -Follow up with Urology second week in November as outpatient. -Continue to monitor (6) IDALIA (acute kidney injury) Priority: Primary Status: Resolved Assessment and Plan: Resolved. Likely due to sepsis. Continue to monitor. (7) Pneumonia Priority: Primary Status: Acute Assessment and Plan: Suspect aspiration Pneumonia vs COPD exacerbation. Swallow study and speech eval negative for penetration/aspiration. CXR 10/31/17 revealed R lung airspace disease and Left middle lobe findings. -Pulm on board. -Discontinue Unasyn d3, continue Augmentin d1 Qualifiers: Pneumonia type: aspiration pneumonia Aspiration pneumonia type: unspecified Laterality: bilateral Lung location: unspecified part of lung Qualified Code(s): J69.0 - Pneumonitis due to inhalation of food and vomit (8) History of CVA (cerebrovascular accident) Priority: Secondary Status: Chronic Assessment and Plan: Known history of CVA in the past with residual deficits of right sided facial numbness. Continue home meds for chronic disease management. (9) Lung nodule Priority: Secondary Status: Chronic Assessment and Plan: Known history of lung nodule, being worked up as outpatient. (10) COPD (chronic obstructive pulmonary disease) Priority: Secondary Status: Chronic Assessment and Plan: COPD with acute exacerbation. Baseline 2L supplemental oxygen at home. Continue per plan in assessment above. -Continue with steroids and duonebs q6h and q2hprn -Continue with supplemental oxygen and Bipap. Qualifiers: COPD type: unspecified COPD Qualified Code(s): J44.9 - Chronic obstructive pulmonary disease, unspecified (11) CAD (coronary artery disease) Priority: Secondary Status: Chronic Assessment and Plan: Known history of CAD and hx of [place]. Coninue home medications for chronic disease management. -ADA cardiac diet Qualifiers: Coronary Disease-Associated Artery/Lesion type: unspecified vessel or lesion type [place] vs. transplanted heart: [place] heart Associated angina: without angina Qualified Code(s): I25.10 - Atherosclerotic heart disease of [place] coronary artery without angina pectoris (12) Diabetes mellitus Priority: Secondary Status: Chronic Assessment and Plan: History of type II diabetes Glucose 208 On steroid for COPD exacerbation vs pneumonia. -Continue with insulin sliding scale. -ADA diet Qualifiers: Diabetes mellitus type: type 2 Diabetes mellitus exterminator insulin use: without jail use Diabetes mellitus complication status: with unspecified complications Qualified Code(s): E11.8 - Type 2 diabetes mellitus with unspecified complications (13) Tobacco abuse Priority: Secondary Status: Chronic Assessment and Plan: Known history of tobacco use. Declines patch at this visit. Hospital course: Ms. Dhillon is a 72 year old female with history of CAD, dm, COPD, lung nodule , and CVA with resideual right sided facial numbness who presented to the ED with complaint of aphasia and lower extremity weakness. Aphasia resolved on admission. Duplex carotids were unremarkable, MRI negative for acute infarct. Patient was also determined to have e.coli bacteremia and obstructing ureteral stone on left. Patient underwent stenting with urology and had nuñez placed. Patient was treated with zosyn/levaquin until sensitivity returned back e.coli lucio sensitive. Patient was then switched to Unasyn and found to have a pneumonia with R lung airspace disease and left middle lobe findings suggestive of possible aspiration. Speech and swallow evals were unremarkbale so patient was treated as COPD exacerbation with improvement of symptoms back to baseline with steroids. Patient to be discharged home with continued Augmentin for e.coli bacteremia and possible aspiration pneumonia for another 9 days to complete total of 14 days antibiotoics and steroid taper. Continue with 2L nasal cannula at home. Follow up with PCP in 2-3 days of discharge. Follow up with Urology as outpatient in 2 weeks. Patient reports doing well this morning, breathing doing much better, not coughing up anything, overnight has been on Bipap at times and 2-4 L nc satting well, no new shortness of breah or cough. Patien has cath in place with normal yellow urine. Denies fevers, chills, sweats, nausea, vomiting, new shortness of breath, cough, increased sputum, hemoptysis, abd pain, changes in bowels or bladder, weakness, or rash. Discharge discussed with: patient - Time Spent with Patient Total time spent providing and/or coordinating discharge services: - Discharge Medications Prescriptions: Amoxicillin/Clavulanate [Augmentin] 875 mg PO BIDWM 9 Days #18 tablet Lactobacillus [Culturelle] 2 each PO DAILY #60 cap.sprink predniSONE [PredniSONE] 20 mg PO DAILY 13 Days #14 tablet Home Medications: Amitriptyline [Elavil] 25 mg PO DAILY 04/12/16 [History] Amlodipine Besylate 10 mg PO DAILY 04/12/16 [History] Aspirin [Lo-Dose Aspirin EC] 81 mg PO DAILY 04/12/16 [History] FLUoxetine HCl [Fluoxetine HCl] 40 mg PO DAILY 04/12/16 [History] Glimepiride [Amaryl] 2 mg PO DAILY 04/12/16 [History] OXcarbazepine [Oxcarbazepine] 600 mg PO BID 04/12/16 [History] ALPRAZolam [Xanax 0.5 MG Tablet] 0.5 - 1 mg PO BID PRN 01/10/17 [History] Albuterol Sulfate [Ventolin Hfa] 2 puff IH Q4H PRN 01/10/17 [History] Nitroglycerin [Nitrostat] 0.4 mg SL Q5M PRN 01/10/17 [History] Ranitidine HCl [Heartburn Relief] 150 mg PO BID 01/10/17 [History] Atorvastatin [Lipitor] 40 mg PO HS 04/16/17 [History] Metoprolol Tartrate 100 mg PO BID 04/16/17 [History] Glycopyrrolate/Formoterol Fum [Bevespi Aerosphere Inhaler] 2 puff IH BID [History] hydroCHLOROthiazide [Hydrochlorothiazide] 25 mg PO DAILY 04/28/17 [History] Famotidine [Pepcid] 10 mg PO BID #30 tablet 04/29/17 [Rx] Sucralfate [Carafate] 1 gm PO QIDAC 30 Days #120 tablet 04/29/17 [Rx] Amoxicillin/Clavulanate [Augmentin] 875 mg PO BIDWM 9 Days #18 tablet 11/06/17 [ Rx] Lactobacillus [Culturelle] 2 each PO DAILY #60 cap.sprink 11/06/17 [Rx] predniSONE [PredniSONE] 20 mg PO DAILY 13 Days #14 tablet 11/06/17 [Rx] Allergies/Adverse Reactions: 3 Allergy/AdvReac Type Severity Reaction Status Date / Time No Known Allergies Allergy Verified 04/28/17 08:58 Date of admission: 10/30/17 02:49 Primary care physician: Tay Kaplan MD Consults: 10/31/17 13:37 Consult to Invasive Line Access Team [CONS] Routine Reason for Consult: limited access Line Type: EPIV 11/01/17 12:06 Consult to Pulmonology [CONS] Routine Consulting Provider: Reason for Consult: Lung cancer, COPD Call Completed: Yes Discharging clinician: Lisa Kruse ([facility]) Anticipated date of discharge: 11/06/17 - Constitutional Vitals: Temp Pulse Resp BP Pulse Ox 97.8 F 72 16 143/85 95 11/06/17 07:12 11/06/17 07:12 11/06/17 07:39 11/06/17 07:12 11/06/17 07:39 General appearance: Present: A&O X 3 Exam: General: alert oriented x 3, no acute distress, on 2L nasal cannula HEENT: moist mucus membranes CV: RRR, no murmurs Lungs: CTAB, no wheezing, no rhonchi or rales. Abdomen: Soft, nontender, normal bowel sounds. Uro: cath in place draining normal looking urine, no clots Extremities: no edema, cyanosis, or clubbing MSK: 5/5 strength bilaterally, normal range of motion Neuro: alert and oriented, no deficits Skin: normal, no rash - Patient Status Disposition: Home, Self-Care Condition: Fair Functional capacity at discharge: independent ambulation Overall status at discharge: patient is progressing back to baseline - Discharge Instructions Follow Up With: Gucci Valencia MD [Partnered Physician] - Tay Kaplan MD [Primary Care Provider] - - Diet and Activity Activity: as per physical therapy, increase activity as tolerated, wear oxygen at all times Diet: diabetic diet, low fat, low cholesterol <Lisa Kruse - Last Filed: 11/06/17 11:36> Orders not resulted at time of discharge: Pending orders 11/03/17 08:53 Culture,Blood [BC] Stat Date of Encounter: 11/06/17 - Discharge Diagnosis (1) CAD (coronary artery disease) Status: Chronic Qualifiers: Coronary Disease-Associated Artery/Lesion type: unspecified vessel or lesion type [place] vs. transplanted heart: [place] heart Associated angina: without angina Qualified Code(s): I25.10 - Atherosclerotic heart disease of [place] coronary artery without angina pectoris (2) Diabetes mellitus Status: Chronic Qualifiers: Diabetes mellitus type: type 2 Diabetes mellitus exterminator insulin use: without exterminator use Diabetes mellitus complication status: with unspecified complications Qualified Code(s): E11.8 - Type 2 diabetes mellitus with unspecified complications (3) Essential hypertension Status: Chronic (4) COPD (chronic obstructive pulmonary disease) Status: Chronic Qualifiers: COPD type: unspecified COPD Qualified Code(s): J44.9 - Chronic obstructive pulmonary disease, unspecified (5) IDALIA (acute kidney injury) Status: Resolved (6) Tobacco abuse Status: Chronic (7) TIA (transient ischemic attack) Status: Suspected (8) Sepsis Status: Acute Qualifiers: Sepsis type: sepsis due to unspecified organism Qualified Code(s): A41.9 - Sepsis, unspecified organism (9) Ureteral calculi Status: Acute (10) Bacteremia Status: Acute (11) Pneumonia Status: Acute Qualifiers: Pneumonia type: aspiration pneumonia Aspiration pneumonia type: unspecified Laterality: bilateral Lung location: unspecified part of lung Qualified Code(s): J69.0 - Pneumonitis due to inhalation of food and vomit Hospital course: Ms. Mackey is a 72 year old female - Time Spent with Patient Total time spent providing and/or coordinating discharge services: Date of admission: 10/30/17 02:49 Primary care physician: Tay Kaplan MD Consults: 10/31/17 13:37 Consult to Invasive Line Access Team [CONS] Routine Reason for Consult: limited access Line Type: EPIV 11/01/17 12:06 Consult to Pulmonology [CONS] Routine Consulting Provider: Reason for Consult: Lung cancer, COPD Call Completed: Yes - Constitutional Vitals: Temp Pulse Resp BP Pulse Ox 97.8 F 72 16 143/85 91 11/06/17 07:12 11/06/17 07:12 11/06/17 11:06 11/06/17 07:12 11/06/17 11:06 - Attending Attestation I have seen and examined this pt independently. I have discussed with resident physician Dr Bird regarding the discharge and follow up plan. Agree with the documentation.
--- NOTE | 2017-11-06 08:59 | Physician Discharge Referral ---
Home Health/Hosp Referral Info Transfer to: Home Health Attending Provider: Tanesha Kruse Provider in Charge Post Discharge: PCP - Diagnosis (1) Bacteremia Priority: Primary Status: Acute (2) TIA (transient ischemic attack) Priority: Primary Status: Suspected (3) Expressive aphasia Priority: Primary Status: Resolved (4) Acute and chronic respiratory failure with hypoxia Priority: Primary Status: Chronic (5) Ureteral calculi Priority: Primary Status: Acute (6) IDALIA (acute kidney injury) Priority: Secondary Status: Resolved (7) Pneumonia Priority: Primary Status: Acute (8) History of CVA (cerebrovascular accident) Priority: Secondary Status: Chronic (9) Lung nodule Priority: Secondary Status: Chronic (10) COPD (chronic obstructive pulmonary disease) Priority: Secondary Status: Chronic (11) CAD (coronary artery disease) Priority: Secondary Status: Chronic (12) Diabetes mellitus Priority: Secondary Status: Chronic (13) Tobacco abuse Priority: Secondary Status: Chronic - Respiratory Orders Oxygen / L per min (2-4 L nc continuous) Smoking Cessation: Smoking cessation has been advised. For more information, call the [place] Tobacco Quit Line at 6-628-GNEJ-NOW. - Diet/Nutrition Diet/Nutrition Orders: No Added Salt (HOWIE), Cardiac, No Concentrated Sweets - Activity Activity Orders: Ambulate - Services Needed Following services are medically necessary services: Physical Therapy, Occupational Therapy - Transfer Medications Prescriptions: Amoxicillin/Clavulanate [Augmentin] 875 mg PO BIDWM 9 Days #18 tablet Lactobacillus [Culturelle] 2 each PO DAILY #60 cap.sprink predniSONE [PredniSONE] 20 mg PO DAILY 13 Days #14 tablet Home Medications: Amitriptyline [Elavil] 25 mg PO DAILY 04/12/16 [History] Amlodipine Besylate 10 mg PO DAILY 04/12/16 [History] Aspirin [Lo-Dose Aspirin EC] 81 mg PO DAILY 04/12/16 [History] FLUoxetine HCl [Fluoxetine HCl] 40 mg PO DAILY 04/12/16 [History] Glimepiride [Amaryl] 2 mg PO DAILY 04/12/16 [History] OXcarbazepine [Oxcarbazepine] 600 mg PO BID 04/12/16 [History] ALPRAZolam [Xanax 0.5 MG Tablet] 0.5 - 1 mg PO BID PRN 01/10/17 [History] Albuterol Sulfate [Ventolin Hfa] 2 puff IH Q4H PRN 01/10/17 [History] Nitroglycerin [Nitrostat] 0.4 mg SL Q5M PRN 01/10/17 [History] Ranitidine HCl [Heartburn Relief] 150 mg PO BID 01/10/17 [History] Atorvastatin [Lipitor] 40 mg PO HS 04/16/17 [History] Metoprolol Tartrate 100 mg PO BID 04/16/17 [History] Glycopyrrolate/Formoterol Fum [Bevespi Aerosphere Inhaler] 2 puff IH BID [History] hydroCHLOROthiazide [Hydrochlorothiazide] 25 mg PO DAILY 04/28/17 [History] Famotidine [Pepcid] 10 mg PO BID #30 tablet 04/29/17 [Rx] Sucralfate [Carafate] 1 gm PO QIDAC 30 Days #120 tablet 04/29/17 [Rx] Amoxicillin/Clavulanate [Augmentin] 875 mg PO BIDWM 9 Days #18 tablet 11/06/17 [ Rx] Lactobacillus [Culturelle] 2 each PO DAILY #60 cap.sprink 11/06/17 [Rx] predniSONE [PredniSONE] 20 mg PO DAILY 13 Days #14 tablet 11/06/17 [Rx] Allergies/Adverse Reactions: 3 Allergy/AdvReac Type Severity Reaction Status Date / Time No Known Allergies Allergy Verified 04/28/17 08:58 Certification: Further, I certify that my clinical findings support that this patient is homebound (i.e. absences from home require considerable and taxing effort and are for medical reasons or hindu services or infrequently or short duration when for other reasons) because: Homebound Reason: Patient requires assistance of a person or device to safely leave home Attestation: My signature below is to certify that this patient is under my care and that I, or nurse practitioner, or a physician's doctor assistant working with me, has a face-to -face encounter with this patient.
--- NOTE | 2017-11-07 12:28 | Physician Discharge Referral ---
Home Health/Hosp Referral Info Transfer to: Home Health Provider in Charge Post Discharge: PCP - Diagnosis (1) CAD (coronary artery disease) Status: Chronic (2) Diabetes mellitus Status: Chronic (3) Essential hypertension Status: Chronic (4) COPD (chronic obstructive pulmonary disease) Status: Chronic (5) IDALIA (acute kidney injury) Status: Resolved (6) Tobacco abuse Status: Chronic (7) TIA (transient ischemic attack) Status: Suspected (8) Sepsis Status: Acute (9) Ureteral calculi Status: Acute (10) Bacteremia Status: Acute (11) Pneumonia Status: Acute - Respiratory Orders Oxygen / L per min (2) Smoking Cessation: Smoking cessation has been advised. For more information, call the [employer] Quit Line at 3-957-PYHV-NOW. - Diet/Nutrition Diet/Nutrition Orders: Cardiac, No Concentrated Sweets - Services Needed Following services are medically necessary services: Nursing, Home Health Aide, Physical Therapy, Occupational Therapy - Transfer Medications Prescriptions: Amoxicillin/Clavulanate [Augmentin] 875 mg PO BIDWM 9 Days #18 tablet Lactobacillus [Culturelle] 2 each PO DAILY #60 cap.sprink predniSONE [PredniSONE] 20 mg PO DAILY 13 Days #14 tablet Home Medications: Amitriptyline [Elavil] 25 mg PO DAILY 04/12/16 [History] Amlodipine Besylate 10 mg PO DAILY 04/12/16 [History] Aspirin [Lo-Dose Aspirin EC] 81 mg PO DAILY 04/12/16 [History] FLUoxetine HCl [Fluoxetine HCl] 40 mg PO DAILY 04/12/16 [History] Glimepiride [Amaryl] 2 mg PO DAILY 04/12/16 [History] OXcarbazepine [Oxcarbazepine] 600 mg PO BID 04/12/16 [History] ALPRAZolam [Xanax 0.5 MG Tablet] 0.5 - 1 mg PO BID PRN 01/10/17 [History] Albuterol Sulfate [Ventolin Hfa] 2 puff IH Q4H PRN 01/10/17 [History] Nitroglycerin [Nitrostat] 0.4 mg SL Q5M PRN 01/10/17 [History] Ranitidine HCl [Heartburn Relief] 150 mg PO BID 01/10/17 [History] Atorvastatin [Lipitor] 40 mg PO HS 04/16/17 [History] Metoprolol Tartrate 100 mg PO BID 04/16/17 [History] Glycopyrrolate/Formoterol Fum [Bevespi Aerosphere Inhaler] 2 puff IH BID [History] hydroCHLOROthiazide [Hydrochlorothiazide] 25 mg PO DAILY 04/28/17 [History] Famotidine [Pepcid] 10 mg PO BID #30 tablet 04/29/17 [Rx] Sucralfate [Carafate] 1 gm PO QIDAC 30 Days #120 tablet 04/29/17 [Rx] Amoxicillin/Clavulanate [Augmentin] 875 mg PO BIDWM 9 Days #18 tablet 11/06/17 [ Rx] Lactobacillus [Culturelle] 2 each PO DAILY #60 cap.sprink 11/06/17 [Rx] predniSONE [PredniSONE] 20 mg PO DAILY 13 Days #14 tablet 11/06/17 [Rx] Allergies/Adverse Reactions: 3 Allergy/AdvReac Type Severity Reaction Status Date / Time No Known Allergies Allergy Verified 04/28/17 08:58 Certification: Further, I certify that my clinical findings support that this patient is homebound (i.e. absences from home require considerable and taxing effort and are for medical reasons or sikhism services or infrequently or short duration when for other reasons) because: Homebound Reason: Patient requires assistance of a person or device to safely leave home Attestation: My signature below is to certify that this patient is under my care and that I, or nurse practitioner, or a physician's sociology research assistant working with me, has a face-to -face encounter with this patient.
== END 2017-11-06 13:41 | disposition home or self-care (01) | DRG 871 ==
LOC: EMEROOARM 16:36 → 3ANU 16:36 → SUATTDRO 10-30 02:49 → ICNU 10-31 15:45 → 3ANU 11-02 00:23
PROVIDERS: ADMIT Internal Medicine; ATTEND Internal Medicine